=== PATIENT | male | born 1945 | race Caucasian/White ===

== ENCOUNTER 2023-06-18 10:39 | Outpatient (CLI) | payer OTHER, SELFPAY ==
--- NOTE | 2023-06-18 11:50 | W.ANESCHARGE ---
Anesthesia Charges Start Date/Time Anesthesia Start Date: 06/18/23 Anesthesia Start Time: 11:16 Stop Date/Time Anesthesia Stop Date: 06/18/23 Anesthesia Stop Time: 12:01 Summary Extremes of Age - Over 70 or under 1: MDA
--- NOTE | 2023-06-18 12:04 | W.ANESCHARGE ---
Anesthesia Charges Start Date/Time Anesthesia Start Date: 06/18/23 Anesthesia Start Time: 11:16 Stop Date/Time Anesthesia Stop Date: 06/18/23 Anesthesia Stop Time: 12:01
== END 2023-06-18 10:40 | disposition home or self-care (01) ==
LOC: OP CLINIC 10:42
PROVIDERS: PCP Family Medicine; Visit Provider Internal Medicine Gastroenterology
DX: Z12.11 Encounter for screening for malignant neoplasm of colon (principal); K63.5 Polyp of colon; K57.30 Diverticulosis of large intestine without perforation or abscess without bleeding; Z86.010 Personal history of colon polyps
CPT/HCPCS: 45380; 45385; 811; 88305; 99100; J2704

== ENCOUNTER 2024-09-28 19:47 | Inpatient (IN) | payer OTHER, MEDICARE, SELFPAY ==
[2024-09-28 19:49] VITALS: BP 120/72; PULSE 87; RESP 18; TEMP 37.6; O2SAT 93; BMI 27.2
[2024-09-28 21:06] LABS: PCR FLU A POSITIVE PCR FLU A (Negative); PCR FLU B Negative PCR FLU B (Negative); PCR RSV Negative PCR RSV (Negative); SARS PCR* Negative SARS-CoV-2 (Negative)
--- NOTE | 2024-09-28 21:31 | ED_ITS ---
HPI - General Adult General Time Seen by Provider: 21:32 Date Seen: 09/28/24 Chief complaint: Weakness Stated complaint: Weakness Time Seen by Provider: 09/28/24 21:28 Source: patient and RN notes reviewed Mode of arrival: ambulatory Limitations: no limitations History of Present Illness HPI narrative: This 79-year-old male is coming to the ER accompanied by his . They are concerned regarding his dizziness and weakness. He has had 2 falls without injury at home. He and his were both diagnosed with influenza a on September 13 or , this was after a dinner exposure. They both got Tamiflu from their physicians and felt much better. They were able to fly to [facility] on September 19. They are supposed to fly home on the and there morning flight got canceled. They got rescheduled to a red eye overnight and got home early 09/27 in the morning. They were both exhausted, and went to bed yesterday. She slept for about 7 or 8 hours and felt better. He slept basically all day yesterday, all last night and woke up feeling dizzy and weak. He admits that he was feeling this way in the airport on the . His noted that he just really was not up to walking in the airport. He was able to do it but really did not have the stamina. This is unusual as he is active. He does have some mild residual cough. Dizziness isn't necessarily unusual for him because of some of his medicines. The dizziness is not a spinning or vertigo. It is more of a weakness when he is getting up. Feels like falling over. His notes his appetite has been diminished, she wonders about dehydration. He is scheduled to do some work with kidney stones and bladder stones in October at [facility]. Since June he has been noticing some urinary frequency. He notes no fevers right now. No abdominal pain. Related Data Home Medications ?Medication ?Instructions ?Recorded ?Confirmed allopurinol 300 mg tablet 300 mg PO DAILY 09/28/24 09/28/24 atorvastatin 10 mg tablet 10 mg PO DAILY 09/28/24 09/28/24 hydrochlorothiazide 12.5 mg tablet 12.5 mg PO DAILY 09/28/24 09/28/24 Allergies Allergy/AdvReac Type Severity Reaction Status Date / Time No Known Drug Allergies Allergy Verified 06/18/23 11:39 Review of Systems Status of ROS: Reports: 6 or more systems reviewed and unremarkable except as noted in History and below Exam Const: Vital Signs, click to edit/add: Vital Signs - 24 hr 09/28/24 19:49 09/28/24 23:19 09/28/24 23:22 Temperature 99.7 F H Pulse Rate [Right Pulse Oximeter] 87 Respiratory Rate 18 Blood Pressure [Ri ght Upper Arm] 120/72 Pulse Oximetry 93 89 100 Oxygen Delivery Me thod Room Air Room Air Nasal Cannula Oxygen Flow Rate 2 09/28/24 23:32 Temperature 100.3 F H Pulse Rate [Right Pulse Oximeter] 72 Respiratory Rate 16 Blood Pressure [Ri ght Upper Arm] 154/94 H Pulse Oximetry 97 Oxygen Delivery Me thod Nasal Cannula Oxygen Flow Rate 2 This 79-year-old male is alert, interactive, no apparent distress. He is ambulatory into the ED of his own accord. Pupils equal round reactive, sclera clear, extraocular muscles intact. He is wearing a mask. Neck supple, no adenopathy. Lungs clear, good air entry, wheeze or crackles. He is able to sit up, no truncal ataxia, not swaying at all. CV regular rate and rhythm 2 to 3/6 systolic ejection murmur, heard upper sternal borders best. Normal S1-S2. Abdomen is soft, nontender, nondistended, no organomegaly. He has no lower extremity edema. Documenting provider has reviewed patient's vital signs: yes Course Course ED Course: This patient is coming in with weakness in the setting of influenza, could have secondary developing pneumonia. Will give him 500 mL normal saline, certainly dehydration could be a component of his symptoms. He does not describe this as a spinning or vertigo. More of a weakness. His likens it more to if getting up too quickly and not acclimate eating. He is had these symptoms for about 3 days now. The exhaustion in the fatigue from travel could be contributing. He is still testing positive for influenza A which may be possible with a PCR. He still could be shedding virus but doubt new infection. We will look at an EKG, chest x-ray and full complement of labs. Reevaluation(s) Time of Reevaluation #1: 23:24 Reevaluation #1: Reviewed chest x-ray report with them. Patient's oxygenation had went down to upper 80s, nursing staff did put oxygen on him with recovery. He has received the 500 mL of fluid, he states he is feeling a little better. Did review with him that his oxygenation had went down a bit, could be concern for further fluid overload with the 500 mL of normal saline he was given. He does feel warmer to me, recheck of his temperature is 100.2? F. his lung bases have more prominent crackles now. With his fever, underlying murmur, recent influenza, do think that this is likely combined infectious with probable pneumonia as well as some fluid overload. I had briefly talked to our hospitalist about him, we did add on a proBNP and discussed doing a chest CT PE protocol. His last echo was reported the 12 years ago. He has no chest pain, need to rule out pulmonary embolus and cardiac strain. Time of Reevaluation #2: 00:35 Reevaluation #2: Reviewed with patient and his concern for post influenza pneumonia, will be starting antibiotics. She had concerns about his murmur that I had brought up earlier. Reviewed with her that at some point an echo should just be updated to ensure no changes of the valve. This can be in aging phenomenon. She states he has had a murmur his whole life. Discussed with her it might be possible that an echo will be done during the hospitalization but this is something that I am not promising her. It depends on what the hospitalist decides and deems necessary. Patient did get up to go to the bathroom, he is feeling much better with oxygen on. We took his oxygen off to go to the bathroom, he was able to ambulate independently there. On arriving back from the bathroom, pulse oximeter was placed on and with a good waveform, had 87% on room air. His oxygen was placed back on. He is aware that he will be going into the hospital. Consultations Consultation #1: Spoke with Jass LOCKHART in the transfer center at [facility]. Discussed the concerns with the kidney stone on her chest CT with a partially visualized left renal stone. They do not have any bed capacity, are on divert at [facility]. She was able to read me a CT urogram report from 08/13/2024. There was a 9 mm left UPJ stone thought to be nonobstructing, ureteral wall thickening, mild perinephric fat stranding, mild hydronephrosis. There is also a 10 mm bladder stone and the stone in the right kidney as well. Time: 00:15 Consultation #2: Have spoken with Dr. Dukes. Reviewed the case, both of us agree that treatment for post influenza pneumonia with Rocephin and azithromycin will be initiated. Did discuss 20 mg IV Lasix but he would like to see the patient 1st. Patient reportedly stated he felt better after the IV fluids but I do have concerns that he became hypoxic and imaging is showing some fluid overload. Nonetheless, patient is not imminently requiring diuresis, I do feel it is appropriate for Dr. Dukes to further evaluate. He can initiate Lasix if he felt he needs it. Time: 00:20 Vital Signs Vital signs: Initial Vital Signs Temperature 99.7 F H 09/28/24 19:49 Temperature Source Temporal Artery Scan 09/28/24 19:49 Pulse Rate 87 09/28/24 19:49 Pulse Rhythm Regular 09/28/24 19:49 Respiratory Rate 18 09/28/24 19:49 Blood Pressure 120/72 09/28/24 19:49 Blood Pressure Mean 88 09/28/24 19:49 Blood Pressure Position Sitting 09/28/24 19:49 Pulse Oximetry 93 09/28/24 19:49 Oxygen Delivery Method Room Air 09/28/24 19:49 Vital Signs Temperature 99.7 F H 09/28/24 19:49 Pulse Rate 87 09/28/24 19:49 Respiratory Rate 18 09/28/24 19:49 Blood Pressure 120/72 09/28/24 19:49 Pulse Oximetry 93 09/28/24 19:49 Oxygen Delivery Method Room Air 09/28/24 19:49 Temperature 100.3 F H 09/28/24 23:32 Pulse Rate 72 09/28/24 23:32 Respiratory Rate 16 09/28/24 23:32 Blood Pressure 154/94 H 09/28/24 23:32 Pulse Oximetry 97 09/28/24 23:32 Oxygen Delivery Method Nasal Cannula 09/28/24 23:32 Oxygen Flow Rate 2 09/28/24 23:32 Medications Administered Medications: Discontinued Medications Generic Name Dose Route Start Last Admin Trade Name Freq PRN Reason Stop Dose Admin Sodium Chloride 500 mls @ 500 mls/hr 09/28/24 22:00 12/29/24 23:12 0.9 % Sodium Chloride 500 Ml IV 09/28/24 22:59 Infused .Q1H ONE Infusion Medical Decision Making Medical Records Medical records reviewed: Yes I reviewed the patient's medical records Medical records narrative: Medication list in [facility] shows allopurinol both 103 100 mg tablets, aspirin 81 mg, atorvastatin 10 mg, calcium with vitamin-D, Diflucan, fluticasone, hydrochlorothiazide 12.5 mg, Indocin 25 mg, Lopressor 25 mg, multivitamin, Cialis 20 mg, tamsulosin 0.4 mg Problem list shows irregular heartbeat, essential hypertension, aortic valve sclerosis, hyperlipidemia, history of colonic polyps, history of prostate cancer, bilateral nephrolithiasis, gout, actinic keratoses, cataracts, shingles; colonoscopy ease in 2006, 2011, 2022. Cataract surgery bilaterally. Lab Data Lab results reviewed: Yes I reviewed the patient's lab results Labs: Lab Results 09/28/24 09/28/24 09/28/24 Range/Units 19:59 22:24 23:14 WBC 8.55 (4.50-11.00) K/uL RBC 4.55 (4.30-5.90) m/uL Hgb 14.1 (13.5-17.5) gm/dL Hct 42.5 (37.0-53.0) % MCV 93 (80-100) fL MCH 31 (26-34) pg MCHC 33 (32-36) gm/dL RDW Coeff of Lalita 13.2 (11.5-15.5) % Plt Count 194 (140-440) K/uL Neut % (Auto) 79.1 H (42.0-72.0) % Lymph % (Auto) 7.7 L (20-44) % Calhoun % (Auto) 12.3 H (0.0-11.0) % Eos % (Auto) 0.0 (0.0-7.0) % Baso % (Auto) 0.1 (0.0-3.0) % Neut # (Auto) 6.80 (1.7-7.0) K/uL Lymph # (Auto) 0.70 L (0.90-2.90) K/uL Calhoun # (Auto) 1.10 H (0.00-0.90) K/UL Eos # (Auto) 0.00 (0.00-0.50) K/uL Baso # (Auto) 0.01 (0.00-0.30) K/uL Abs Immat Gran (auto) 0.07 (0.00-0.30) K/uL Imm/Tot Granulo (auto) 0.8 % Sodium 135 (135-149) mmol/L Potassium 3.4 L (3.6-5.1) mmol/L Chloride 99 (96-114) mmol/L Carbon Dioxide 28 (20-32) mmol/L Anion Gap 8 (7-15) mEq/L BUN 31 H (7-30) mg/dL Creatinine 1.1 (0.5-1.5) mg/dL Estimated Creat Clear 57.05 Estimated GFR 68 ml/min Glucose 123 H (60-115) mg/dL Lactate 1.3 (0.5-1.9) mmol/L Calcium 9.3 (8.4-10.6) mg/dL Total Bilirubin 1.6 H (0.1-1.5) mg/dL AST 49 H (12-35) U/L ALT 30 (4-50) U/L Alkaline Phosphatase 62 (40-150) U/L Troponin I 0.08 H* (0.01-0.04) ng/mL C-Reactive Protein 6.2 H (0.5-1.0) mg/dL Total Protein 7.5 (6.0-8.3) g/dL Albumin 4.1 (3.3-5.0) g/dL Urine Color (Yellow) Urine Appearance (Clear) Urine pH (5.0-8.5) Ur Specific Bristol (1.000-1.030) Urine Protein (Negative) Urine Glucose (UA) (Negative) Urine Ketones (Negative) Urine Blood (Negative) Urine Nitrite (Negative) Urine Bilirubin (Negative) Urine Urobilinogen (0.2-1.0) Ur Leukocyte Esterase (Negative) Urine RBC (0-2) Urine WBC (0-5) Ur Squamous Epith Cells (None-Few) Urine Bacteria (None) SARS-CoV-2 (PCR) Negative SARS-CoV-2 (Negative) Influenza Type A (PCR) POSITIVE PCR FLU A A (Negative) Influenza Type B (PCR) Negative PCR FLU B (Negative) RSV (PCR) Negative PCR RSV (Negative) Lab Acknowledgement New Spec Needed 09/28/24 Range/Units Unknown WBC (4.50-11.00) K/uL RBC (4.30-5.90) m/uL Hgb (13.5-17.5) gm/dL Hct (37.0-53.0) % MCV (80-100) fL MCH (26-34) pg MCHC (32-36) gm/dL RDW Coeff of Lalita (11.5-15.5) % Plt Count (140-440) K/uL Neut % (Auto) (42.0-72.0) % Lymph % (Auto) (20-44) % Calhoun % (Auto) (0.0-11.0) % Eos % (Auto) (0.0-7.0) % Baso % (Auto) (0.0-3.0) % Neut # (Auto) (1.7-7.0) K/uL Lymph # (Auto) (0.90-2.90) K/uL Calhoun # (Auto) (0.00-0.90) K/UL Eos # (Auto) (0.00-0.50) K/uL Baso # (Auto) (0.00-0.30) K/uL Abs Immat Gran (auto) (0.00-0.30) K/uL Imm/Tot Granulo (auto) % Sodium (135-149) mmol/L Potassium (3.6-5.1) mmol/L Chloride (96-114) mmol/L Carbon Dioxide (20-32) mmol/L Anion Gap (7-15) mEq/L BUN (7-30) mg/dL Creatinine (0.5-1.5) mg/dL Estimated Creat Clear Estimated GFR ml/min Glucose (60-115) mg/dL Lactate (0.5-1.9) mmol/L Calcium (8.4-10.6) mg/dL Total Bilirubin (0.1-1.5) mg/dL AST (12-35) U/L ALT (4-50) U/L Alkaline Phosphatase (40-150) U/L Troponin I (0.01-0.04) ng/mL C-Reactive Protein (0.5-1.0) mg/dL Total Protein (6.0-8.3) g/dL Albumin (3.3-5.0) g/dL Urine Color Yellow (Yellow) Urine Appearance Cloudy A (Clear) Urine pH 6.0 (5.0-8.5) Ur Specific Bristol 1.020 (1.000-1.030) Urine Protein 2+ A (Negative) Urine Glucose (UA) Negative (Negative) Urine Ketones Negative (Negative) Urine Blood 3+ A (Negative) Urine Nitrite Negative (Negative) Urine Bilirubin Negative (Negative) Urine Urobilinogen 0.2 (0.2-1.0) Ur Leukocyte Esterase 1+ A (Negative) Urine RBC 10-25 A (0-2) Urine WBC 5-10 A (0-5) Ur Squamous Epith Cells Few (None-Few) Urine Bacteria Few A (None) SARS-CoV-2 (PCR) (Negative) Influenza Type A (PCR) (Negative) Influenza Type B (PCR) (Negative) RSV (PCR) (Negative) Lab Acknowledgement Imaging Data Chest x-ray: Attestation: I have reviewed the pertinent imaging results. My impression: Poor inspiration, probable cardiomegaly and congestive changes, wait radiology over read. Radiologist's impression: Patient: [facility] Facility:?[facility] Patient ID:?[id number] Site Patient ID:?[id number]. Site :?[id number] Study:?XRay-Chest PORTABLE-09/28/2024 10:33:39 PM Ordering Physician:Jud Martin Final Report: Indication: Weakness, recent influenza Technique: Single view of the chest Comparison: None Findings/Impression: Low lung volumes. No prior examination available for comparison. There appears to be cardiomegaly with diffuse pulmonary interstitial markings and patchy pulmonary opacities. Differential includes viral/atypical pneumonia and/or heart failure with pulmonary edema, though appearance of either of these may be exaggerated due to hypoinflation. Dictated by Juan Matthews MD @ 09/28/2024 10:59:05 PM (Electronic Signature) CT scan - chest: Attestation: I have reviewed the pertinent imaging results. Radiologist's impression: Patient: [facility] Facility:?[facility] Patient ID:?[id number] Site Patient ID:?[id number]. Site :?[id number] Study:?CT-Chest PE W/ISOVUE 370 95CC-09/28/2024 11:55:53 PM Ordering Physician:Jud Martin Final Report: Indication: Weakness, abnormal chest radiograph, recent influenza Technique: CTA of the chest following 95 mL Isovue 370 IV contrast. Comparison: Same day chest radiograph Findings: Pulmonary arteries: Dilated right pulmonary artery compatible with pulmonary hypertension. No pulmonary embolism is appreciated. Lungs: A few patchy ground-glass foci are noted primarily seen in the left upper lobe. Mild interlobular septal thickening. Bronchial wall thickening. Basilar predominant reticular opacities. Mediastinum: Cardiomegaly. Calcified coronary arterial and aortic atherosclerosis. Lymph nodes: Enlarged mediastinal and hilar nodes. Upper abdomen: Partially visualized abdomen demonstrates a stone in the left renal pelvis measuring 11 millimeters with mild hydronephrosis and significant adjacent stranding. Soft tissues: No acute abnormality appreciated. Bones: Degenerative changes with no acute abnormality appreciated. Impression: 1. Partially visualized abdomen demonstrates an 11 millimeter left renal pelvis stone with mild hydronephrosis and adjacent stranding. Findings are concerning for partial obstruction and possible superimposed infection. 2. Pulmonary hypertension with no pulmonary embolism. 3. Few patchy ground-glass pulmonary opacities, bronchial wall thickening, basilar reticular opacities, and mild interlobular septal thickening are noted, along with cardiomegaly and lymphadenopathy. Given recent influenza, findings are favored to represent a combination of mild volume overload and resolving viral infection. Alveolar pulmonary edema may appear similarly. No organized consolidation is appreciated. Please note that all CT scans at this facility use dose modulation, iterative reconstruction, and/or weight-based dosing when appropriate to reduce radiation dose to as low as reasonably achievable. Dictated by Juan Matthews MD @ 09/29/2024 12:04:41 AM (Electronic Signature) ECG Data Attestation: I personally reviewed and interpreted this ECG as follows: (Sinus rhythm, baseline is 72 beats per minute. There is an interesting 4 beat wide complex regular rate QRS complexes that transitions into narrow complex normal sinus rhythm. The 1st 4 beats in the rhythm strip in lead II definitely appear to have P waves but intra conduction delay, poor R wave ) Prior ECG tracings: available for review (From November 2018, sinus rhythm with premature atrial complexes in a pattern of bigeminy, 64 beats per minute.) Interpretation: Continued from above: In anterior precordial leads without any ST segment or T- wave changes. Flipped T-waves in lead aVL but in lead 1 the complexes are the wide complex seen on the 1st 4 beats of this EKG. Discharge Plan Discharge Clinical Impression: Influenza A, Hypoxia Pneumonia Qualifiers: Pneumonia type: due to unspecified organism Laterality: unspecified laterality Lung location: unspecified part of lung Qualified Code(s): J18.9 - Pneumonia, unspecified organism Patient Disposition: Admitted As Observation Prescriptions: No Action atorvastatin 10 mg tablet 10 mg PO DAILY allopurinol 300 mg tablet 300 mg PO DAILY hydrochlorothiazide 12.5 mg tablet 12.5 mg PO DAILY Follow Up/Referrals: Trevor Saha MD [Primary Care Provider] -
--- NOTE | 2024-09-28 21:51 | CRLHL7_ITS ---
For Patients: As a result of the Cures Act, medical imaging exams and procedure reports are released immediately into your electronic medical record. You may view this report before your referring provider. If you have questions, please contact your health care provider. Indication: Weakness, recent influenza Technique: Single view of the chest Comparison: None Findings/Impression: Low lung volumes. No prior examination available for comparison. There appears to be cardiomegaly with diffuse pulmonary interstitial markings and patchy pulmonary opacities. Differential includes viral/atypical pneumonia and/or heart failure with pulmonary edema, though appearance of either of these may be exaggerated due to hypoinflation. Dictated by Juan Matthews MD @ 09/28/2024 10:59:05 PM (Electronically Signed)
[2024-09-28] MEDS: 0.9 % SODIUM CHLORIDE 500 ML 500 ML IV (22:11)
[2024-09-28 22:28] LABS: Lactate* 1.3 mmol/L (0.5-1.9)
[2024-09-28 22:31] LABS: Basophils Absolute Auto 0.01 K/uL (0.00-0.30); Basophils Percent Auto 0.1 % (0.0-3.0); Hematocrit 42.5 % (37.0-53.0); Hemoglobin* 14.1 gm/dL (13.5-17.5); Immature Granulocytes Abs Auto 0.07 K/uL (0.00-0.30); Immature Granulocytes Pct Auto 0.8 %; Lymphocytes Percent Auto 7.7 % (20-44); Mean Corpuscular HGB Conc 33 gm/dL (32-36); Mean Corpuscular Hemoglobin 31 pg (26-34); Mean Corpuscular Volume 93 fL (80-100); Monocytes Percent Auto 12.3 % (0.0-11.0); Neutrophils Percent Auto 79.1 % (42.0-72.0); Platelet Count* 194 K/uL (140-440); RDW Coefficient of Variation % 13.2 % (11.5-15.5); Red Blood Count 4.55 m/uL (4.30-5.90); White Blood Count* 8.55 K/uL (4.50-11.00)
[2024-09-28 22:34] LABS: Slide Review Reflex No
[2024-09-28 22:46] LABS: Albumin* 4.1 g/dL (3.3-5.0); Chloride* 99 mmol/L (96-114)
[2024-09-28 22:47] LABS: Potassium* 3.4 mmol/L (3.6-5.1); Sodium* 135 mmol/L (135-149)
[2024-09-28 22:49] LABS: Creatinine* 1.1 mg/dL (0.5-1.5); Est. Creatinine Clearance* 57.05; Estimated Glomerular Filt Rate 68 ml/min
[2024-09-28 22:50] LABS: Alanine Aminotransferase* 30 U/L (4-50); Alkaline Phosphatase* 62 U/L (40-150); Anion Gap 8 mEq/L (7-15); Aspartate Amino Transferase* 49 U/L (12-35); Bilirubin Total* 1.6 mg/dL (0.1-1.5); Blood Urea Nitrogen* 31 mg/dL (7-30); Calcium* 9.3 mg/dL (8.4-10.6); Carbon Dioxide* 28 mmol/L (20-32); Glucose* 123 mg/dL (60-115); Total Protein* 7.5 g/dL (6.0-8.3)
[2024-09-28 22:53] LABS: C Reactive Protein* 6.2 mg/dL (0.5-1.0)
[2024-09-28 23:10] LABS: Troponin I* 0.08 ng/mL (0.01-0.04)
--- NOTE | 2024-09-28 23:14 | CRLHL7_ITS ---
For Patients: As a result of the Cures Act, medical imaging exams and procedure reports are released immediately into your electronic medical record. You may view this report before your referring provider. If you have questions, please contact your health care provider. Indication: Weakness, abnormal chest radiograph, recent influenza Technique: CTA of the chest following 95 mL Isovue 370 IV contrast. Comparison: Same day chest radiograph Findings: Pulmonary arteries: Dilated right pulmonary artery compatible with pulmonary hypertension. No pulmonary embolism is appreciated. Lungs: A few patchy ground-glass foci are noted primarily seen in the left upper lobe. Mild interlobular septal thickening. Bronchial wall thickening. Basilar predominant reticular opacities. Mediastinum: Cardiomegaly. Calcified coronary arterial and aortic atherosclerosis. Lymph nodes: Enlarged mediastinal and hilar nodes. Upper abdomen: Partially visualized abdomen demonstrates a stone in the left renal pelvis measuring 11 millimeters with mild hydronephrosis and significant adjacent stranding. Soft tissues: No acute abnormality appreciated. Bones: Degenerative changes with no acute abnormality appreciated. Impression: 1. Partially visualized abdomen demonstrates an 11 millimeter left renal pelvis stone with mild hydronephrosis and adjacent stranding. Findings are concerning for partial obstruction and possible superimposed infection. 2. Pulmonary hypertension with no pulmonary embolism. 3. Few patchy ground-glass pulmonary opacities, bronchial wall thickening, basilar reticular opacities, and mild interlobular septal thickening are noted, along with cardiomegaly and lymphadenopathy. Given recent influenza, findings are favored to represent a combination of mild volume overload and resolving viral infection. Alveolar pulmonary edema may appear similarly. No organized consolidation is appreciated. Please note that all CT scans at this facility use dose modulation, iterative reconstruction, and/or weight-based dosing when appropriate to reduce radiation dose to as low as reasonably achievable. Dictated by Juan Matthews MD @ 09/29/2024 12:04:41 AM (Electronically Signed)
[2024-09-28 23:19] VITALS: O2SAT 89
[2024-09-28 23:22] VITALS: O2SAT 100
[2024-09-28 23:32] VITALS: BP 154/94; PULSE 72; RESP 16; TEMP 37.9; O2SAT 97
[2024-09-28 23:36] LABS: Lab Add On Test New Spec Needed
[2024-09-28 23:42] LABS: Appearance Urine Cloudy (Clear); Bilirubin Urine Negative (Negative); Blood Urine 3+ (Negative); Color Urine Yellow (Yellow); Glucose Urine Negative (Negative); Ketones Urine Negative (Negative); Leukocyte Esterase Urine 1+ (Negative); Nitrite Urine Negative (Negative); Protein Urine 2+ (Negative); Urobilinogen Urine 0.2 (0.2-1.0)
[2024-09-28 23:52] LABS: Bacteria Urine Few; Squamous Epithelial Cell Urine Few (None-Few)
[2024-09-29] VITALS (10 sets, daily range): BP systolic 123–146; BP diastolic 61–72; PULSE 58–86; RESP 12–22; TEMP 36.7–38.3; O2SAT 91–100; BMI 27.8
[2024-09-29 00:25] LABS: Partial Thromboplastin Time* 33 Seconds (23-33)
[2024-09-29] MEDS: cefTRIAXone 1 GM in 0.9 % SODIUM CHLORIDE Mini-bag 100 ML IVPB (00:48)
[2024-09-29] MEDS: AZITHROMYCIN 250 MG TABLET 500 MG PO (00:48)
[2024-09-29 00:50] LABS: D Dimer Quantitative* > 20.00 ug/ml (0.00-0.50)
--- NOTE | 2024-09-29 02:46 | W.PM.TELEH&P ---
Telehealth- H&P: HPI History of Present Illness Date Seen: 09/29/24 Chief complaint: Weakness Narrative: Lyle Mendez is seen as an Interactive Telehealth visit. 79-year-old male with a past medical history significant for gout and hypertension who presents to hospital with complaints of weakness and lightheadedness. Earlier this month, the patient was diagnosed with influenza A. He was treated with Tamiflu and he actually got better. He him and his decided to travel to the [facility]. He was doing well and experienced [place] with family and friends. On September 26, 2024, while he was boarding his plane he noted he was feeling increasingly weak and fatigued. It was an night flight so he noted some mild confusion as well. When he arrived home, he was feeling very lethargic and weak. Him and his have been sleeping and resting considerable amount of time. Over this time he has not been eating or drinking. He says his appetite is very limited. Due to progressive weakness and fatigue, he came to the emergency room. In the emergency room, he was seen and examined. His WBC count was normal, his neutrophil percentage was elevated 80% interestingly his D-dimer was greater than 20. AST was 49, ALT 30, total bili was 1.6 which is minimally elevated. Patient C-reactive protein was elevated at 6.2 and his troponin was minimally elevated 0.08. Patient's urinalysis was abnormal with few bacteria. Patient ended up having a repeat serology, of respiratory panel which showed he was positive for influenza A. Chest x-ray was completed which initially showed diffuse pulmonary interstitial markings and patchy pulmonary opacities differentials include viral atypical pneumonia and/or heart failure or pulmonary edema. Patient CT scan shows patchy groundglass opacities with bronchial wall thickening. With lymphadenopathy. Incidentally, there was also noted to be a partially visualized 11 mm left renal pelvis stone with mild hydronephrosis and adjacent stranding. Findings are concerning for partial obstruction and possible superimposed infection. The ER physician contacted [facility] for which this patient gets his urological workup unfortunately they do not have any beds. In addition patient was not complaining of any flank pain or groin pain. Patient was denying any urinary symptoms. Review of Systems Status of ROS: Reports: 10 or more systems reviewed and unremarkable except as noted in History and below Const: Reports: fatigue and malaise; Denies: fever, chills or night sweats Cardio: Reports: shortness of breath with exertion; Denies: chest pain or leg pain with exertion Resp: Reports: shortness of breath; Denies: cough or wheezing GI: Denies: abdominal pain Neuro: Reports: headache Endo: Reports: fatigue Allergy/Immuno: Denies: wheezing PFSH PFSH Social History What is your current living situation?: I presently have a place to live Problems where you live: no known problems Problems where you live details: n/a In the past 12 months, utilities in danger of being shut off: no In past 12 months, lack of transportation kept you from medical appts, meetings, work, or getting things needed for daily living: no In the past 12 mos, have been you worried that your food would run out before you had money to buy more?: never true In the past 12 mos, the food you bought just didn't last and you didn't have money to buy more?: never true Smoking Status: Never smoker How often do you have a drink containing alcohol: monthly or less How often do you have six or more drinks on one occasion: Never AUDIT-C Alcohol total score: 1 Non-prescribed substance use: denies use Caffeine: No How often does anyone, including family, friends and others, physically hurt you: never How often does anyone, including family, friends and others, insult or talk down to you: never How often does anyone, including family, friends and others, threaten you with harm: never How often does anyone, including family, friends and others, scream or curse at you: never Meds Home Medications and Allergies Home Medications ?Medication ?Instructions ?Recorded ?Confirmed ?Type allopurinol 300 mg tablet 300 mg PO DAILY 09/28/24 09/28/24 History atorvastatin 10 mg tablet 10 mg PO DAILY 09/28/24 09/28/24 History hydrochlorothiazide 12.5 mg tablet 12.5 mg PO DAILY 09/28/24 09/28/24 History Allergies Allergy/AdvReac Type Severity Reaction Status Date / Time No Known Drug Allergies Allergy Verified 06/18/23 11:39 Exam Narrative Exam Narrative: Physical Exam GENERAL: ?vital signs reviewed, well developed and nourished, in no distress HEENT: pupils are equal round and reactive to light, extraocular movements are grossly within normal limits and oral mucosa is moist. NECK: Supple without lymphadenopathy or thyromegaly according to nursing staff examination observation HEART: Regular rate and rhythm without any rubs, positive systolic murmurs, or gallops. LUNGS: Clear to auscultation bilaterally with good air movement throughout ABDOMEN: Observation from nurse assisted exam, abdomen appears soft, nontender, and nondistended with Positive bowel sounds noted. EXTREMITIES: Strength and sensation is observed to be grossly within normal limits in the upper and lower extremities.? No focal strength deficit is observed. SKIN:? Observed warm and dry with color normal Const Vital Signs, click to edit/add: Vital Signs - 24 hr 09/28/24 19:49 09/28/24 23:19 09/28/24 23:22 Temperature 99.7 F H Pulse Rate [Pulse Oximeter] Pulse Rate [Right Pulse Oximeter] 87 Respiratory Rate 18 Blood Pressure [Left Arm] Blood Pressure [Right Upper Arm] 120/72 Pulse Oximetry 93 89 100 Oxygen Delivery Method Room Air Room Air Nasal Cannula Oxygen Flow Rate 2 09/28/24 23:32 09/29/24 02:00 09/29/24 02:16 Temperature 100.3 F H 98.4 F Pulse Rate [Pulse Oximeter] 58 L Pulse Rate [Right Pulse Oximeter] 72 Respiratory Rate 16 12 12 Blood Pressure [Left Arm] 146/67 H Blood Pressure [Right Upper Arm] 154/94 H Pulse Oximetry 97 100 100 Oxygen Delivery Method Nasal Cannula Nasal Cannula Nasal Cannula Oxygen Flow Rate 2 2 2 Hospitalist - H&P: Result Labs Labs: Short CBC 09/28/24 Range/Units 22:24 WBC 8.55 (4.50-11.00) K/uL Hgb 14.1 (13.5-17.5) gm/dL Hct 42.5 (37.0-53.0) % Plt Count 194 (140-440) K/uL BMP 09/28/24 22:24 Sodium 135 Potassium 3.4 L Chloride 99 Carbon Dioxide 28 BUN 31 H Creatinine 1.1 Glucose 123 H Calcium 9.3 Cardiac Enzymes 09/28/24 Range/Units 22:24 Troponin I 0.08 H* (0.01-0.04) ng/mL Liver Function 09/28/24 Range/Units 22:24 Total Bilirubin 1.6 H (0.1-1.5) mg/dL AST 49 H (12-35) U/L ALT 30 (4-50) U/L Alkaline Phosphatase 62 (40-150) U/L Albumin 4.1 (3.3-5.0) g/dL Urine 09/28/24 Range/Units Unknown Urine Color Yellow (Yellow) Urine Appearance Cloudy A (Clear) Urine pH 6.0 (5.0-8.5) Ur Specific [place] 1.020 (1.000-1.030) Urine Protein 2+ A (Negative) Urine Glucose (UA) Negative (Negative) Assessment and Plan Assessment and plan (1) Hypoxia: Status: Acute (2) Pneumonia: Status: Acute (3) Kidney stone: Status: Acute (4) Hydronephrosis: Status: Acute (5) Elevated troponin: Status: Acute (6) Newly recognized murmur: Status: Acute Plan This is a 79-year-old male who presents to hospital with complaints of weakness and lightheadedness. Overall I think this patient's cause of symptoms are most likely related to dehydration and poor oral intake. He states that over the past 3 to 4 days he has not been eating well. He says 80% of the day he has been sleeping. However this patient just had influenza A diagnosed in September 13. Given his pulmonary symptoms of shortness of breath, CT findings of diffuse groundglass opacity, I would be more concerned that this patient has developed a community-acquired pneumonia, for specifically Staphylococcus pneumonia. Therefore I will start him on antibiotics and continue this. I will also give him IV fluids. Although the CT was read with some concerns for fluid overload, my suspicion is low as he appears to be on the rotary drier side. This patient had elevated troponin. I will follow-up with a troponin in the AM. I will place him on a foreign language professor. EKG looks stable. I will order a follow-up echocardiogram in AM. Incidentally he was also noted to have a new systolic murmur. This will need to be followed up on the echocardiogram. Incidentally, the patient was found to have a hydronephrosis with stranding. This was found on CT scan. His urine culture was ordered. I followed up with blood cultures. If this patient's continues to have fevers or his blood cultures are positive or he starts to develop symptoms, he will need to be seen by a urologist. Patient underwent influenza A testing which was positive. He already completed a course of Tamiflu. I do not think he needs another course. This could be just a false positive from the last time. DVT prophylaxis Lovenox Telehealth Visit Today's History and Physical is provided via interactive telehealth by Dr. Domenico Dukes MD. Patient is located at [facility]. Provider is located at [facility]. Nursing staff assisted with the patient's examination. The visit being done today meets criteria for a telehealth visit and the patient or patient's parent and/or gaurdian is aware the visit is a telehealth visit. Camera Start Time 2 AM Camera End Time 2:30 AM Telehealth: Statement Statement Telehealth Visit: Today's History and Physical is provided via interactive telehealth by Domenico Dukes MD.? Patient is located at [facility].? Provider is located at [facility].? Nursing staff assisted with the patient's exam. The visit being done today meets criteria for a telehealth visit and the patient or patient?s parent/guardian is aware the visit is a telehealth visit.
[2024-09-29] MEDS: 0.9 % SODIUM CHLORIDE 1000 ml 1,000 ML 75 ML IV ×2 (05:37→12:35)
--- NOTE | 2024-09-29 06:52 | PC.NURSE ---
End of shift [id number] ? Pt arrived from ED at approximately 0105. Alert, oriented, cooperative, and pleasant. Up with standby assistance, reported brief episodes of lightheadedness upon ambulation that resolved quickly. Continent of bladder during shift, using urinal at bedside due to urgency. Denies pain and SOB. Observed to sleep during shift. Appears to be resting comfortably at the end of shift with call light within reach. ?
[2024-09-29 07:20] LABS: Albumin* 3.7 g/dL (3.3-5.0); Chloride* 100 mmol/L (96-114); Potassium* 3.2 mmol/L (3.6-5.1); Sodium* 133 mmol/L (135-149)
[2024-09-29 07:22] LABS: Creatinine* 0.9 mg/dL (0.5-1.5); Est. Creatinine Clearance* 62.75; Estimated Glomerular Filt Rate 86 ml/min
[2024-09-29 07:23] LABS: Alanine Aminotransferase* 28 U/L (4-50); Alkaline Phosphatase* 65 U/L (40-150); Anion Gap 6 mEq/L (7-15); Aspartate Amino Transferase* 43 U/L (12-35); Bilirubin Total* 1.3 mg/dL (0.1-1.5); Blood Urea Nitrogen* 26 mg/dL (7-30); Calcium* 8.9 mg/dL (8.4-10.6); Carbon Dioxide* 27 mmol/L (20-32); Glucose* 111 mg/dL (60-115)
[2024-09-29 07:54] LABS: Troponin I* 0.08 ng/mL (0.01-0.04)
[2024-09-29 08:05] LABS: Total Protein* 6.8 g/dL (6.0-8.3)
[2024-09-29] MEDS: ATORVASTATIN 10 MG TABLET PO (09:00)
--- NOTE | 2024-09-29 10:19 | PM.IMPN1 ---
Progress Note: A&P Assessment and plan (1) Acute hypoxic respiratory failure: Problem details: - ddx: persistent viral infection (recent Influenza A), bacterial PNA, pulmonary HTN - TTE 09/29 - no obvious bacterial infiltrate on CT 09/28 - will d/c antibiotics on 09/29, continue to wean off of supplemental oxygen as tolerated Status: Acute (2) Pneumonia: Problem details: - viral, s/p Influenza Status: Acute (3) Kidney stone: Problem details: - known, chronic, asymptomatic, has [facility] f/u - to be transferred with any acute changes or symptoms Status: Acute (4) Hydronephrosis: Status: Acute (5) Elevated troponin: Problem details: - asymptomatic, stable TTE Status: Acute (6) Essential hypertension: Status: Acute (7) Aortic valve sclerosis: Problem details: - TTE 09/29 Status: Acute (8) Influenza A: Status: Acute Plan - per above - Continue to attempt to wean off of supplemental oxygen; if remains stable off of oxygen, possibly home tomorrow with - updated at bedside, questions answered Subjective Date Seen: 09/29/24 Interval history: Manuelito was admitted list hospitalist at with acute hypoxic respiratory failure in the setting of recent influenza A infection. He was started on ceftriaxone and azithromycin for concerns of secondary community-acquired pneumonia, T-max 100.3? last night. This morning, he is feeling better. He is still requiring supplemental oxygen to keep saturations > 90% on room air. No coughing. No other concerns for hospitalist team. Exam Narrative: Exam Narrative: GEN: Alert and oriented, nontoxic HEENT: EOMIs bilaterally, no scleral icterus CV: RRR, blowing systolic murmur heard across precordium, baseline per epic chart review R: Decreased bibasilar breath sounds without concerning wheezing or rales Ext: wwp, no concerning edema Skin: No concerning skin lesions or rashes on exposed skin Neuro: Nonfocal Psych: Appropriate Const: Vital Signs, click to edit/add: Vital Signs - 24 hr 09/28/24 19:49 09/28/24 23:19 09/28/24 23:22 Temperature 99.7 F H Pulse Rate Pulse Rate [Pulse Oximeter] Pulse Rate [Right Pulse Oximeter] 87 Respiratory Rate 18 Blood Pressure [Le ft Arm] Blood Pressure [Ri ght Upper Arm] 120/72 Pulse Oximetry 93 89 100 Oxygen Delivery Me thod Room Air Room Air Nasal Cannula Oxygen Flow Rate 2 09/28/24 23:32 09/29/24 02:00 09/29/24 02:16 Temperature 100.3 F H 98.4 F Pulse Rate Pulse Rate [Pulse Oximeter] 58 L Pulse Rate [Right Pulse Oximeter] 72 Respiratory Rate 16 12 12 Blood Pressure [Le ft Arm] 146/67 H Blood Pressure [Ri ght Upper Arm] 154/94 H Pulse Oximetry 97 100 100 Oxygen Delivery Me thod Nasal Cannula Nasal Cannula Nasal Cannula Oxygen Flow Rate 2 2 2 09/29/24 06:06 Temperature Pulse Rate 86 Pulse Rate [Pulse Oximeter] Pulse Rate [Right Pulse Oximeter] Respiratory Rate Blood Pressure [Le ft Arm] Blood Pressure [Ri ght Upper Arm] Pulse Oximetry Oxygen Delivery Me thod Oxygen Flow Rate Labs Labs: Laboratory Results - last 24 hr 09/28/24 09/28/24 09/28/24 19:59 22:24 23:14 WBC 8.55 RBC 4.55 Hgb 14.1 Hct 42.5 MCV 93 MCH 31 MCHC 33 RDW Coeff of Lalita 13.2 Plt Count 194 Neut % (Auto) 79.1 H Lymph % (Auto) 7.7 L [place] % (Auto) 12.3 H Eos % (Auto) 0.0 Baso % (Auto) 0.1 Neut # (Auto) 6.80 Lymph # (Auto) 0.70 L [place] # (Auto) 1.10 H Eos # (Auto) 0.00 Baso # (Auto) 0.01 Abs Immat Gran (auto) 0.07 Imm/Tot Granulo (auto) 0.8 INR APTT D-Dimer Quant (PE/DVT) Sodium 135 Potassium 3.4 L Chloride 99 Carbon Dioxide 28 Anion Gap 8 BUN 31 H Creatinine 1.1 Estimated Creat Clear 57.05 Estimated GFR 68 Glucose 123 H Lactate 1.3 Calcium 9.3 Total Bilirubin 1.6 H AST 49 H ALT 30 Alkaline Phosphatase 62 Troponin I 0.08 H* C-Reactive Protein 6.2 H Total Protein 7.5 Albumin 4.1 Urine Color Urine Appearance Urine pH Ur Specific [place] Urine Protein Urine Glucose (UA) Urine Ketones Urine Blood Urine Nitrite Urine Bilirubin Urine Urobilinogen Ur Leukocyte Esterase Urine RBC Urine WBC Ur Squamous Epith Cells Urine Bacteria SARS-CoV-2 (PCR) Negative SARS-CoV-2 Influenza Type A (PCR) POSITIVE PCR FLU A A Influenza Type B (PCR) Negative PCR FLU B RSV (PCR) Negative PCR RSV Lab Acknowledgement New Spec Needed 09/28/24 09/29/24 09/29/24 Unknown 00:00 07:00 WBC RBC Hgb Hct MCV MCH MCHC RDW Coeff of [place] Plt Count Neut % (Auto) Lymph % (Auto) [place] % (Auto) Eos % (Auto) Baso % (Auto) Neut # (Auto) Lymph # (Auto) [place] # (Auto) Eos # (Auto) Baso # (Auto) Abs Immat Gran (auto) Imm/Tot Granulo (auto) INR 1.20 H APTT 33 D-Dimer Quant (PE/DVT) > 20.00 H Sodium 133 L Potassium 3.2 L Chloride 100 Carbon Dioxide 27 Anion Gap 6 L BUN 26 Creatinine 0.9 Estimated Creat Clear 62.75 Estimated GFR 86 Glucose 111 Lactate Calcium 8.9 Total Bilirubin 1.3 AST 43 H ALT 28 Alkaline Phosphatase 65 Troponin I 0.08 H* C-Reactive Protein Total Protein 6.8 Albumin 3.7 Urine Color Yellow Urine Appearance Cloudy A Urine pH 6.0 Ur Specific [place] 1.020 Urine Protein 2+ A Urine Glucose (UA) Negative Urine Ketones Negative Urine Blood 3+ A Urine Nitrite Negative Urine Bilirubin Negative Urine Urobilinogen 0.2 Ur Leukocyte Esterase 1+ A Urine RBC 10-25 A Urine WBC 5-10 A Ur Squamous Epith Cells Few Urine Bacteria Few A SARS-CoV-2 (PCR) Influenza Type A (PCR) Influenza Type B (PCR) RSV (PCR) Lab Acknowledgement
[2024-09-29] MEDS: POTASSIUM BICARB 25 MEQ EFFERVESCENT TAB PO (10:48)
[2024-09-29] MEDS: PERFLUTREN LIPID MICROSPHERES 2 ML VIAL IVP (11:30)
--- NOTE | 2024-09-29 14:14 | REH.PT ---
Orders for PT eval & treat received. Chart reviewed. Pt reports that he is feeling much better this afternoon. Sitting up at EOB and with gait with sp02 > 92% on RA. Able to demo ind transfers and gait in room without an AD. Scoring 54/56 on [place] balance test. Skilled PT is not warranted at this time.
[2024-09-29] MEDS: ACETAMINOPHEN 500 MG TABLET 1000 MG PO (16:01)
--- NOTE | 2024-09-29 16:02 | PC.NURSE ---
End of Shift: Patient pleasant and cooperative, A&O. VSS, afebrile. SpO2 maintained above 90% this morning on 1L O2. Patients SpO2 is now above 90% on RA. Patient denies pain this shift. Tolerating regular diet. Indepndent in room. Uses urinal at bedside.
[2024-09-29] MEDS: ENOXAPARIN 40 MG/0.4 ML INJ SUBCUT (20:39)
[2024-09-29] MEDS: SODIUM CHLORIDE 0.9 % (FLUSH) 10 ML SYRINGE 5 ML IVF (20:39)
--- NOTE | 2024-09-29 22:44 | PC.NURSE ---
Pt alert and oriented. Pt had complaints of a headache; see EMAR for intervention. Pt up independently in room. Pt on 1 Liter of oxygen due to desating. Pt up in chair during shift and using aerobika multiple times. ?VS WNL. At 15 VS Pt had a fever of 101.0; see EMAR for intervention, at next VS check Pt's temperature WNL.
[2024-09-30] VITALS (13 sets, daily range): BP systolic 116–152; BP diastolic 63–97; PULSE 52–109; RESP 16–20; TEMP 36.4–37.9; O2SAT 84–96
[2024-09-30] MEDS: ACETAMINOPHEN 500 MG TABLET 1000 MG PO ×2 (04:28→15:15)
--- NOTE | 2024-09-30 06:51 | PC.NURSE ---
End of shift summary: Pt has been A&O and VSS with exception to temperature. This morning at 0430 T-max 100.2. Tylenol given once @ 0430. Pt had the chills & hot flashes overnight. He denies having any pain, nausea or dizziness. He is up independently in his room. Pt had an event @ 0200 where his TELE read runs of V. Tach. An EKG was done and read NSR with LBBB. His TELE has reflected NSR the remainder of the night. Pt was asymptomatic. Supplemental O2 was on/off overnight. He maintained on RA for awhile but in the analytical clerk O2 dipped down to 84% while awake so he was placed back onto NC, currently on 1L. He denies feeling SOB. PIV in right AC SL and C/D/I. Droplet precautions ongoing for Influenza A+ and PNX.?
[2024-09-30 07:22] LABS: Basophils Absolute Auto 0.03 K/uL (0.00-0.30); Basophils Percent Auto 0.5 % (0.0-3.0); Eosinophils Absolute Auto 0.07 K/uL (0.00-0.50); Eosinophils Percent Auto 1.1 % (0.0-7.0); Hematocrit 35.2 % (37.0-53.0); Hemoglobin* 11.9 gm/dL (13.5-17.5); Immature Granulocytes Abs Auto 0.02 K/uL (0.00-0.30); Immature Granulocytes Pct Auto 0.3 %; Lymphocytes Percent Auto 14.3 % (20-44); Mean Corpuscular HGB Conc 34 gm/dL (32-36); Mean Corpuscular Hemoglobin 31 pg (26-34); Mean Corpuscular Volume 91 fL (80-100); Monocytes Percent Auto 17.6 % (0.0-11.0); Neutrophils Absolute Auto 4.13 K/uL (1.7-7.0); Neutrophils Percent Auto 66.2 % (42.0-72.0); Platelet Count* 166 K/uL (140-440); RDW Coefficient of Variation % 13.1 % (11.5-15.5); Red Blood Count 3.86 m/uL (4.30-5.90); White Blood Count* 6.24 K/uL (4.50-11.00)
[2024-09-30 07:25] LABS: Chloride* 99 mmol/L (96-114); Potassium* 3.4 mmol/L (3.6-5.1); Slide Review Reflex No; Sodium* 133 mmol/L (135-149)
[2024-09-30 07:28] LABS: Anion Gap 5 mEq/L (7-15); Blood Urea Nitrogen* 23 mg/dL (7-30); Carbon Dioxide* 29 mmol/L (20-32); Creatinine* 0.8 mg/dL (0.5-1.5); Est. Creatinine Clearance* 62.75; Estimated Glomerular Filt Rate 89 ml/min
[2024-09-30 07:29] LABS: Calcium* 8.5 mg/dL (8.4-10.6); Glucose* 106 mg/dL (60-115)
--- NOTE | 2024-09-30 08:24 | CRLHL7_ITS ---
For Patients: As a result of the Century Cures Act, medical imaging exams and procedure reports are released immediately into your electronic medical record. You may view this report before your referring provider. If you have questions, please contact your health care provider. Indication: Persistent fever, evaluate for pneumonia, renal stone. History of prostate cancer. Technique: CT of the chest, abdomen and pelvis was performed without contrast. Comparison: Chest CT 09/28/2024. Findings: CHEST Lungs and pleura: Scattered calcified granulomas and sub 6 mm noncalcified pulmonary nodules. Similar appearance of patchy ground-glass opacities with an upper lobe predominance. No new consolidation. No pleural effusion or pneumothorax. Heart and great vessels: The heart is mildly enlarged. Trace pericardial fluid. Similar enlarged main pulmonary artery which can be seen in the setting of pulmonary hypertension. Moderate atherosclerotic aortic and coronary artery calcifications. Thyroid and mediastinum: Thyroid is normal. Similar mildly enlarged mediastinal lymph nodes, for example a 1.2 cm right lower paratracheal lymph node. Chest wall: Unremarkable. ABDOMEN AND PELVIS Liver: Unremarkable for unenhanced technique. Normal gallbladder. No biliary ductal dilation. Small duodenal diverticulum in the region of the ampulla. Pancreas: Unremarkable for unenhanced technique. Spleen: Unremarkable for unenhanced technique. Adrenals: Unremarkable for unenhanced technique. Kidneys: Again seen is a 1.2 cm calculus within the left renal pelvis. There is a similar degree of stranding about the renal pelvis and proximal ureter. Mild left hydronephrosis is unchanged. There is a nonobstructing right lower pole renal calculus measuring 8 mm. Fluid attenuation bilateral renal cysts. Aorta/IVC: Extensive atherosclerotic aortic calcifications with infrarenal abdominal aortic ectasia measuring 2.3 cm. Lymph nodes: Scattered subcentimeter retroperitoneal lymph nodes. Bowel: Nonobstructed bowel. Small hiatal hernia. Moderate colonic fecal burden. Normal appendix. No intraperitoneal free air or fluid. Pelvis: Prostatomegaly. Bladder calculus measures 9 mm. Bones/body wall: Osseous demineralization. Multilevel degenerative disc disease and facet arthropathy acute superior endplate compression fracture at L1 with less than 20 percent loss of vertebral body height. Chronic appearing mild anterior wedging at T7 and T8. Impression: 1. Similar appearance of the lungs compared to recent chest CT from 09/28/2024 with mild bronchial wall thickening and patchy ground-glass opacities within the upper lobes. No new consolidation. Recommend chest CT follow-up in 3-6 months based on Fleischner Society recommendations. 2. Similar appearance of the 1.2 cm left renal pelvis calculus with adjacent inflammatory stranding. Recommend correlation with urinalysis to evaluate for infection. 3. Nonobstructing right lower pole renal calculus measuring 8 mm and bladder calculus measuring 9 mm. 4. Acute mild superior endplate compression fracture at L1. 5. Similar mild mediastinal lymphadenopathy. 6. Additional chronic/incidental findings as described. Please note that all CT scans at this facility use dose modulation, iterative reconstruction, and/or weight-based dosing when appropriate to reduce radiation dose to as low as reasonably achievable. Dictated by Princess Garza MD @ 09/30/2024 10:11:40 AM (Electronically Signed)
[2024-09-30] MEDS: SODIUM CHLORIDE 0.9 % (FLUSH) 10 ML SYRINGE 5 ML IVF ×2 (08:50→21:14)
[2024-09-30] MEDS: POTASSIUM BICARB 25 MEQ EFFERVESCENT TAB PO (08:50)
[2024-09-30] MEDS: METOPROLOL TARTRATE 25 MG TABLET 50 MG PO (08:50)
[2024-09-30 09:25] LABS: Magnesium* 2.2 mg/dL (1.5-2.6)
--- NOTE | 2024-09-30 09:48 | PM.IMPN1 ---
Progress Note: A&P Assessment and plan (1) Acute hypoxic respiratory failure: Problem details: - ddx: persistent viral infection (recent Influenza A), bacterial PNA, pulmonary HTN - reassuring TTE 09/29 - no evidence of PE on imaging, + GGOs - given no obvious bacterial infiltrate on CT 09/28, discontinued abx at that time. RESTARTING Ceftriaxone and Azithromycin 09/30 given persistent fever and hypoxia - continue to work on weaning Ow Status: Acute (2) New onset atrial fibrillation: Problem details: - 09/30/24 - [id number] of 3, initiating Eliquis 09/30 - continue home dose of Metoprolol for rate control (this had been held for 2 days upon admission given illness) Status: Acute (3) Pneumonia: Problem details: - viral vs secondary bacterial, s/p Influenza Status: Acute (4) Elevated troponin: Problem details: - asymptomatic, stable TTE - peak at 0.08, down to 0.06 Status: Acute (5) Aortic valve sclerosis: Problem details: - TTE 09/29: Final Impressions: 1. Normal LV size, moderately increased wall thickness, estimated EF of 60 - 65%. 2. Normal RV size and systolic function. 3. Moderate aortic stenosis: Vmax 3.7 m/s, MG 35 mmHg, BOLA 1.21 cm??, DI 0.41, SVi 39.9 ml/m??. 4. Echo contrast was administered to enhance visualization of all left ventricular segments. Status: Acute (6) Kidney stone: Problem details: - known, chronic, asymptomatic, has [facility] f/u - to be transferred with any acute changes or symptoms Status: Acute (7) Hydronephrosis: Status: Acute (8) Essential hypertension: Status: Acute (9) Influenza A: Problem details: - symptom onset 09/13 Status: Acute Plan - per above - updated at bedside, questions answered - home when stable on RA Subjective Date Seen: 09/30/24 Interval history: Manuelito was admitted on 09/29 at with acute hypoxic respiratory failure in the setting of recent influenza A infection. He was started on Ceftriaxone and Azithromycin for concerns of secondary community-acquired pneumonia. Antibiotics discontinued 09/29, given concern for viral process. Overnight, TMax 101. Repeat CT of C/A/P reveals persistent patchy opacities and BUE GGOs, no changes to known renal stones. Blood and Urine cultures negative. Continues to require supplemental oxygen. Found to be in atrial fibrillation this morning, rate 90-100s. He can't tell that he's in a fib, (no history of this), denies CP. Exam Narrative: Exam Narrative: GEN: Alert and oriented, sitting comfortably in bedside chair and answering questions appropriately HEENT: EOMIs bilaterally, no scleral icterus CV: Irregularly irregular, blowing systolic murmur is heard across precordium, stable R: Bibasilar rhonchi, no wheezing Ext: wwp, no concerning edema Skin: No concerning skin lesions or rashes on exposed skin Neuro: No focal deficits Psych: Appropriate Const: Vital Signs, click to edit/add: Vital Signs - 24 hr 09/29/24 11:45 09/29/24 14:46 09/29/24 15:00 Temperature 99.0 F Pulse Rate 63 Pulse Rate [Pulse Oximeter] 72 Respiratory Rate 18 20 Blood Pressure [Le ft Arm] 123/72 Blood Pressure [Ri ght Arm] Pulse Oximetry 92 95 Oxygen Delivery Me thod Nasal Cannula Nasal Cannula Oxygen Flow Rate 1 1 09/29/24 15:00 09/29/24 15:50 09/29/24 15:50 Temperature 101.0 F H Pulse Rate 62 Pulse Rate [Pulse Oximeter] 64 Respiratory Rate 22 22 Blood Pressure [Le ft Arm] 143/61 H Blood Pressure [Ri ght Arm] Pulse Oximetry 94 Oxygen Delivery Me thod Room Air Oxygen Flow Rate 09/29/24 16:01 09/29/24 18:35 09/30/24 00:10 Temperature 101 F H 98.1 F Pulse Rate 55 L Pulse Rate [Pulse Oximeter] 68 Respiratory Rate 20 Blood Pressure [Le ft Arm] 124/63 Blood Pressure [Ri ght Arm] Pulse Oximetry 91 Oxygen Delivery Me thod Room Air Oxygen Flow Rate 09/30/24 00:10 09/30/24 00:10 09/30/24 01:02 Temperature 98.6 F Pulse Rate Pulse Rate [Pulse Oximeter] 80 80 Respiratory Rate 20 20 Blood Pressure [Le ft Arm] Blood Pressure [Ri ght Arm] 150/75 H Pulse Oximetry 95 94 Oxygen Delivery Me thod Nasal Cannula Room Air Oxygen Flow Rate 2 09/30/24 03:24 09/30/24 04:30 09/30/24 05:17 Temperature 100.2 F H Pulse Rate Pulse Rate [Pulse Oximeter] 87 Respiratory Rate 18 Blood Pressure [Le ft Arm] 142/63 H Blood Pressure [Ri ght Arm] Pulse Oximetry 84 L 94 93 Oxygen Delivery Me thod Room Air Nasal Cannula Nasal Cannula Oxygen Flow Rate 2 1 09/30/24 07:00 09/30/24 08:23 Temperature Pulse Rate 52 L 90 Pulse Rate [Pulse Oximeter] Respiratory Rate Blood Pressure [Le ft Arm] Blood Pressure [Ri ght Arm] Pulse Oximetry Oxygen Delivery Me thod Oxygen Flow Rate Labs Labs: Laboratory Results - last 24 hr 09/30/24 09/30/24 09/30/24 06:50 08:26 08:26 WBC 6.24 RBC 3.86 L Hgb 11.9 L Hct 35.2 L MCV 91 MCH 31 MCHC 34 RDW Coeff of Lalita 13.1 Plt Count 166 Neut % (Auto) 66.2 Lymph % (Auto) 14.3 L Taylor % (Auto) 17.6 H Eos % (Auto) 1.1 Baso % (Auto) 0.5 Neut # (Auto) 4.13 Lymph # (Auto) 0.90 Taylor # (Auto) 1.10 H Eos # (Auto) 0.07 Baso # (Auto) 0.03 Abs Immat Gran (auto) 0.02 Imm/Tot Granulo (auto) 0.3 Sodium 133 L Potassium 3.4 L Chloride 99 Carbon Dioxide 29 Anion Gap 5 L BUN 23 Creatinine 0.8 Estimated Creat Clear 62.75 Estimated GFR 89 Glucose 106 Calcium 8.5 Lab Acknowledgement Test Added Test Added
[2024-09-30 09:52] LABS: Troponin I* 0.06 ng/mL (0.01-0.04)
[2024-09-30 09:56] LABS: Thyroid Stimulating Hormone* 0.937 uIU/mL (0.270-4.20)
[2024-09-30] MEDS: AZITHROMYCIN 250 MG TABLET 500 MG PO (12:17)
[2024-09-30] MEDS: cefTRIAXone 1 GM in 0.9 % SODIUM CHLORIDE Mini-bag 100 ML IVPB (12:17)
[2024-09-30] MEDS: APIXABAN 5 MG TABLET PO ×2 (12:17→21:13)
[2024-09-30 13:11] LABS: Hemoglobin* 13.8 gm/dL (13.5-17.5)
--- NOTE | 2024-09-30 19:40 | PC.NURSE ---
INITIAL TELE STRIP THIS AM NOTED TO BE SINUS LURDES. PATIENT THEN NOTED TO BE IN AFIB WITH HEART RATE 90-110'S. EKG COMPLETED AND MD INTO ROOM. PATIENT ASYMPTOMATIC WITH THE AFIB. CHEST CT COMPLETED AND RESTARTED METOPROLOL AND ABX ALONG WITH ELIQUIS. AMBULATED PATIENT IN HALLWAY AND O2 SATS 84-88%RA WITH ACTIVITY AND 90-93%2L PER NC WITH AMBULATION. PATIENT DENIES FEELING SOB WITH EXERTION OR ANY CHEST PAIN. PATIENT SHOWERED WITH MD OKAY. TOLERATING REGULAR DIET WITH NO N/V. PATIENT USING AEROBIKA IN ROOM.
[2024-09-30] MEDS: ATORVASTATIN 10 MG TABLET PO (21:12)
[2024-09-30] MEDS: METOPROLOL TARTRATE 25 MG TABLET PO (21:13)
[2024-09-30] MEDS: MELATONIN 3 MG TABLET 6 MG PO (22:45)
[2024-10-01 03:00] VITALS: BP 141/78; PULSE 62; RESP 16; TEMP 37; O2SAT 93
[2024-10-01 07:00] VITALS: PULSE 96
--- NOTE | 2024-10-01 07:03 | PC.NURSE ---
End of shift [id number] ? Pt alert, oriented, cooperative, and pleasant. Up independently in room. Continent of bladder during shift, tolerating RA and regular diet/fluids. Denies pain and SOB. Family at bedside during shift. Observed to sleep. Appears to be resting comfortably at the end of shift with call light within reach. ?
[2024-10-01 07:13] LABS: Basophils Absolute Auto 0.03 K/uL (0.00-0.30); Basophils Percent Auto 0.5 % (0.0-3.0); Eosinophils Percent Auto 3.2 % (0.0-7.0); Hematocrit 38.3 % (37.0-53.0); Hemoglobin* 13.1 gm/dL (13.5-17.5); Immature Granulocytes Abs Auto 0.02 K/uL (0.00-0.30); Immature Granulocytes Pct Auto 0.3 %; Lymphocytes Percent Auto 17.6 % (20-44); Mean Corpuscular HGB Conc 34 gm/dL (32-36); Mean Corpuscular Hemoglobin 31 pg (26-34); Mean Corpuscular Volume 91 fL (80-100); Monocytes Percent Auto 13.9 % (0.0-11.0); Neutrophils Percent Auto 64.5 % (42.0-72.0); Platelet Count* 190 K/uL (140-440); RDW Coefficient of Variation % 13.1 % (11.5-15.5); Red Blood Count 4.21 m/uL (4.30-5.90)
[2024-10-01 07:14] LABS: Slide Review Reflex No
[2024-10-01 07:28] LABS: Chloride* 102 mmol/L (96-114); Potassium* 3.5 mmol/L (3.6-5.1); Sodium* 135 mmol/L (135-149)
[2024-10-01 07:31] LABS: Anion Gap 5 mEq/L (7-15); Blood Urea Nitrogen* 22 mg/dL (7-30); Carbon Dioxide* 28 mmol/L (20-32); Creatinine* 0.7 mg/dL (0.5-1.5); Est. Creatinine Clearance* 62.75; Estimated Glomerular Filt Rate 93 ml/min; Glucose* 99 mg/dL (60-115)
[2024-10-01 07:32] LABS: Calcium* 8.6 mg/dL (8.4-10.6)
[2024-10-01 09:42] VITALS: BP 136/84; PULSE 83; RESP 20; TEMP 36.8; O2SAT 94
--- NOTE | 2024-10-01 09:42 | RESP.RT ---
Pt seen for oxygen weaning. Pt on RA, BBS clear, cough strong and dry. initial SPO2 94%. Pt did aerobika, for 20 breaths, SPO2 increased to 98% Had pt do some cardiac calisthenics for 2 minutes. SPo2 decreased to 88%, asked him to take a few deep breaths, SPO2 immediately increased to 92%. Oxygen can be DC'd
[2024-10-01] MEDS: METOPROLOL TARTRATE 25 MG TABLET 50 MG PO (09:48)
[2024-10-01] MEDS: APIXABAN 5 MG TABLET PO (09:48)
[2024-10-01] MEDS: SODIUM CHLORIDE 0.9 % (FLUSH) 10 ML SYRINGE 5 ML IVF (09:50)
[2024-10-01] MEDS: allopurinoL 300 MG TABLET PO (09:50)
--- NOTE | 2024-10-01 11:02 | PM.DS1 ---
DS: Providers Provider Date Seen: 10/01/24 Date of admission: 09/29/24 11:07 Primary care physician: Trevor Saha MD Admitting Clinician: Domenico Dukes MD Consults: PT, OT, RT Attending Physician on discharge: Coco Rollins MD Date of Discharge: 10/01/24 DS: Diagnosis Discharge Diagnosis (1) Acute hypoxic respiratory failure: Status: Acute Problem details: - ddx: persistent viral infection (recent Influenza A), bacterial PNA, pulmonary HTN - reassuring TTE 09/29 - no evidence of PE on imaging, + GGOs - given no obvious bacterial infiltrate on CT 09/28, discontinued abx at that time. RESTARTED Ceftriaxone and Azithromycin 09/30 given persistent fever and hypoxia - treated with 3 day course of abx - stable on RA on 10/01/24, appropriate for d/c (2) New onset atrial fibrillation: Status: Acute Problem details: - 09/30/24 - [id number] of 3, initiating Eliquis 09/30 - continue home dose of Metoprolol for rate control (this had been held for 2 days upon admission given illness) (3) Pneumonia: Status: Acute Problem details: - viral vs secondary bacterial, s/p Influenza (4) Elevated troponin: Status: Acute Problem details: - asymptomatic, stable TTE - peak at 0.08, stable at 0.06 on 09/30 (5) Aortic valve sclerosis: Status: Acute Problem details: - TTE 09/29: Final Impressions: 1. Normal LV size, moderately increased wall thickness, estimated EF of 60 - 65%. 2. Normal RV size and systolic function. 3. Moderate aortic stenosis: Vmax 3.7 m/s, MG 35 mmHg, BOLA 1.21 cm??, DI 0.41, SVi 39.9 ml/m??. 4. Echo contrast was administered to enhance visualization of all left ventricular segments. (6) Kidney stone: Status: Acute Problem details: - known, chronic, asymptomatic, has [facility] f/u scheduled (called and left their office a message on 09/30/24) - to be transferred with any acute changes or symptoms (7) Essential hypertension: Status: Acute Problem details: - age appropriate control during stay (8) Influenza A: Status: Acute Problem details: - symptom onset 12/14 DS: Summary Hospital Course Hospital Course: Lyle was admitted to the hospital on 09/29 at with acute hypoxic respiratory failure in the setting of recent influenza A infection. On admission, Ceftriaxone and Azithromycin initiated for concerns of secondary community-acquired pneumonia. CT of C/A/P revealed persistent patchy opacities and BUE GGOs, no changes to known renal stones. Antibiotics discontinued 09/29, given concern for viral process, then restarted 09/30 given recurrent fever. Titrated off of supplemental oxygen on 10/01/24, feeling close to baseline and requesting discharge home. New diagnosis of rate controlled a fib noted during stay; continued home dose of Metoprolol and initiated Eliquis. Home on a Zio patch, results to Dr. Saha, PCP. Has Urology f/u scheduled at [facility] later this month for his known nephrolithiasis. Negative blood and urine cultures during stay. Patient discharging home with on 10/01, has close f/u scheduled with PCP and [facility]. Time Spent with Patient Time attestation: Total time spent providing and/or coordinating discharge services: Time spent: Greater than 30 minutes Specific discharge activities: med rec, patient education, multidisciplinary team discussion Exam Narrative: Exam Narrative: GEN: Alert and oriented, sitting comfortably in bedside chair, nontoxic HEENT: Normal external ears, EOMIs bilaterally, no scleral icterus CV: Irregularly irregular, no concerning murmurs R: No wheezing, mild bibasilar rhonchi, clears with cough Ext: wwp, no concerning edema Skin: No concerning skin lesions or rashes on exposed skin Neuro: Nonfocal, no resting tremor Psych: Appropriate Const: Vital Signs, click to edit/add: Vital Signs - 24 hr 09/30/24 15:00 09/30/24 15:00 09/30/24 15:00 Temperature 97.6 F Pulse Rate 78 Pulse Rate [Pulse Oximeter] 87 109 H Respiratory Rate 18 18 Blood Pressure [Le ft Arm] 116/77 Blood Pressure [Ri ght Arm] Pulse Oximetry 94 Oxygen Delivery Me thod Nasal Cannula Oxygen Flow Rate 1 09/30/24 15:15 09/30/24 21:29 09/30/24 23:33 Temperature 97.6 F 97.6 F Pulse Rate 81 Pulse Rate [Pulse Oximeter] 75 Respiratory Rate 16 Blood Pressure [Le ft Arm] 131/70 Blood Pressure [Ri ght Arm] Pulse Oximetry 95 Oxygen Delivery Me thod Room Air Oxygen Flow Rate 09/30/24 23:33 10/01/24 03:00 10/01/24 07:00 Temperature 98.6 F Pulse Rate 96 Pulse Rate [Pulse Oximeter] 88 62 Respiratory Rate 18 16 Blood Pressure [Le ft Arm] Blood Pressure [Ri ght Arm] 116/87 141/78 H Pulse Oximetry 95 93 Oxygen Delivery Me thod Room Air Room Air Oxygen Flow Rate 10/01/24 09:42 10/01/24 09:42 Temperature 98.3 F Pulse Rate Pulse Rate [Pulse Oximeter] 83 83 Respiratory Rate 20 20 Blood Pressure [Le ft Arm] 136/84 Blood Pressure [Ri ght Arm] Pulse Oximetry 94 Oxygen Delivery Me thod Oxygen Flow Rate DS: Data Data Completed and Pending Labs on day of discharge: Labs from last 24 hours 10/01/24 09/30/24 06:29 13:05 WBC 6.20 RBC 4.21 L Hgb 13.1 L 13.8 Hct 38.3 MCV 91 MCH 31 MCHC 34 RDW Coeff of Lalita 13.1 Plt Count 190 Neut % (Auto) 64.5 Lymph % (Auto) 17.6 L Gilmer % (Auto) 13.9 H Eos % (Auto) 3.2 Baso % (Auto) 0.5 Neut # (Auto) 4.00 Lymph # (Auto) 1.10 Gilmer # (Auto) 0.90 Eos # (Auto) 0.20 Baso # (Auto) 0.03 Abs Immat Gran (auto) 0.02 Imm/Tot Granulo (auto) 0.3 Sodium 135 Potassium 3.5 L Chloride 102 Carbon Dioxide 28 Anion Gap 5 L BUN 22 Creatinine 0.7 Estimated Creat Clear 62.75 Estimated GFR 93 Glucose 99 Calcium 8.6 Preliminary micro results at discharge 09/29/24 07:00 Blood Culture - Preliminary Blood NO GROWTH AFTER 48 HOURS Discharge Plan Discharge Disposition: Home, Self-Care Date of Admission: 09/29/24 11:07 Attending Provider on Discharge: Coco Rollins Primary Care Provider: Trevor Saha Condition: Improved Anticipated Discharge Date/Time: 10/01/24 10:50 Discharge Medications: New Eliquis 5 mg Tablet 5 mg PO BID Qty: 60 0RF Continued atorvastatin 10 mg tablet 10 mg PO HS allopurinol 300 mg tablet 300 mg PO DAILY metoprolol tartrate 25 mg tablet 50 mg PO DAILY metoprolol tartrate 25 mg tablet 25 mg PO HS Discontinued hydrochlorothiazide 12.5 mg tablet 12.5 mg PO DAILY Discharge Orders: Discharge Order (Routine); Ordered 10/01/24 Ordered By: Coco Rollins Patient Education: Apixaban (By mouth) (Eliquis), A-fib (Atrial Fibrillation) (DC), Zio (Home Heart Monitor) Additional Instructions: New medication: Eliquis (at [facility]) for your new diagnosis of atrial fibrillation. STOP Hydrochlorothiazide and Aspirin, no other changes to home medications. See Trevor as scheduled (10/08/2024 at 1:10pm) for hospital f/u. [facility] will call you for preoperative scheduling for your kidney stone procedure. Symptoms to watch for that require urgent visit: recurrent fever, more fatigue with activity, sustained heart rate (pulse) 100s, sustained pulse oximeter <89%, lightheadedness or dizziness. Activity Level: Activity as Tolerated Discharge Diet: Regular Follow Up Appointments: Trevor Saha MD [Primary Care Provider] - Forms: [employer] Info Instructions
[2024-10-01] MEDS: AZITHROMYCIN 250 MG TABLET 500 MG PO (12:29)
--- NOTE | 2024-10-01 19:30 | PC.NURSE ---
Discharge: Patient pleasant and cooperative. Patient vitally stable, lungs with light crackles, BS WNL, IV removed and intact. Patient denies pain. Patient independent in room. Patient tolerating regular diet and urinating well. Tele=first degree HB. Patient ZIO was applied to left chest and activated showing five green flashing lights. Patient was educated on the ZIO patch and turned his own patch on. Patient explain to RN what he needed to do if he experienced any symptoms and also reported he should not submerge the patch in water. Patient signed belongings sheet and discharge form. All questions regarding ZIO patch and discharge were answered. Patient was sent home with two pill tablets of eliquis. Patient left the floor by foot to home at 1317.
== END 2024-10-01 13:17 | disposition home or self-care (01) | DRG 193 ==
LOC: ED 09-29 00:38 → MEDSURG 09-29 01:07
PROVIDERS: Family Medicine; Admitting Provider Student in an Organized Health Care Education/Training Program; Emergency Provider Family Medicine; PCP Family Medicine; Visit Provider Family Medicine
DX: J10.00 Influenza due to other identified influenza virus with unspecified type of pneumonia (principal); J96.01 Acute respiratory failure with hypoxia; N13.2 Hydronephrosis with renal and ureteral calculous obstruction; I48.91 Unspecified atrial fibrillation; E86.0 Dehydration; I27.20 Pulmonary hypertension, unspecified; R79.89 Other specified abnormal findings of blood chemistry; R35.0 Frequency of micturition; I35.0 Nonrheumatic aortic (valve) stenosis; I10 Essential (primary) hypertension; M10.9 Gout, unspecified; R01.1 Cardiac murmur, unspecified; E78.5 Hyperlipidemia, unspecified
CPT/HCPCS: 36415; 71045; 71250; 71275; 74176; 80048; 80053; 81001; 83605; 83735; 84443; 84484; 85018; 85025; 85379; 85610; 85730; 86140; 87040; 87086; 87631; 93005; 93246; 93306; 94664; 94761; 97165; 97535; 99284; 99285; G0378; A9270; J0696; J1650; J7030; Q9957; Q9967

== ENCOUNTER 2024-10-17 22:16 | Emergency (ER) | payer MEDICARE, SELFPAY ==
--- OUTSIDE RECORDS SUMMARY | 2024-10-17 22:20 | XMS_ITS | Clinical Summary ---
Author Organization [employer] [facility] Address [place], [place] [address] Care Team Providers Care Healthcare Social Worker Name Role Phone Trevor Saha MD Primary Care Provider [phone] Marcelo Meek MD Unavailable [phone] Allergies No known active allergies Medications aspirin enteric coated 81 mg tablet Take 1 tablet by mouth once daily with a meal. 0 11/01/19 11 Active multivitamin (MVI) tablet Take 1 tablet by mouth once daily. 0 02/16/20 11 Active Cholecalciferol, Vitamin D3, (VITAMIN D) 400 unit capsule Take 400 units by mouth once daily. 0 02/16/20 11 Active hydroCHLOROthiazid e 12.5 mg tabletIndications: Essential hypertension Take 1 Tablet (12.5 mg) by mouth once daily. 90 Tablet 2 09/11/20 23 Active calcium carbonate-vitamin D3, 600 mg-400 unit, (Calcium with Vitamin D) 600 mg-10 mcg (400 unit) tablet Take 1 Tablet by mouth two times daily with meals. Active fluconazole (DIFLUCAN) 150 mg tabletIndications: Fungal dermatitis Take 1 tablet today, repeat in 1 week. 2 Tablet 06/24/20 24 Active apixaban (ELIQUIS) 5 mg tabletIndications: New onset atrial fibrillation (HC) Take 1 Tablet (5 mg) by mouth two times daily. 180 Tablet 3 10/08/19 25 Active tamsulosin 0.4 mg capsuleIndications :BPH without urinary obstruction Take 1 Capsule (0.4 mg) by mouth once daily after a meal. 90 Capsule 3 10/08/19 25 Active tadalafiL (Cialis) 20 mg tabletIndications: Impotence of organic origin Take 1 Tablet (20 mg) by mouth once daily if needed for Erectile Dysfunction. Take 30 minutes before sexual activity. 10 Tablet 3 10/08/19 25 Active metoprolol tartrate (LOPRESSOR) 25 mg tabletIndications: Essential hypertension TAKE 2 TABLETS IN THE MORNING AND TAKE 1 TABLET IN THE EVENING 270 Tablet 3 10/08/19 25 Active indomethacin (INDOCIN) 25 mg capsuleIndications :Acute idiopathic gout of left foot One tablet three times daily for 3 days then 1 tablet daily for 3 days, as needed for gout flares 27 Capsule 2 10/08/19 25 Active fluticasone (50 mcg per actuation) nasal solution (FLONASE)Indicatio ns:Chronic throat clearing Inhale 2 Sprays in both nostrils once daily if needed for Rhinitis. 32 g 5 10/08/19 25 Active atorvastatin (LIPITOR) 10 mg tabletIndications: Other hyperlipidemia Take 1 Tablet (10 mg) by mouth at bedtime. 90 Tablet 3 10/08/19 25 Active allopurinoL (ZYLOPRIM) 300 mg tabletIndications: Idiopathic gout, unspecified chronicity, unspecified site Take 1 Tablet (300 mg) by mouth once daily. 90 Tablet 3 10/08/19 25 Active tadalafiL (Cialis) 20 mg tabletIndications: Impotence of organic origin Take 1 Tablet (20 mg) by mouth once daily if needed for Erectile Dysfunction. Take 30 minutes before sexual activity. 60 Tablet 1 09/08/20 22 025 Discontinu ed(Reorder (E-cancel not sent)) fluticasone (50 mcg per actuation) nasal solution (FLONASE)Indicatio ns:Chronic throat clearing Inhale 2 Sprays to both nostrils once daily. 16 g 11 04/04/20 23 025 Discontinu ed(Reorder (E-cancel not sent)) allopurinoL (ZYLOPRIM) 100 mg tabletIndications: Acute idiopathic gout of left foot take 100mg by mouth once daily for 2 weeks; then increase to 200mg for 2 weeks; then increase to 300mg 270 Tablet 06/26/20 23 025 Discontinu ed(*Med complete/R egimen complete/L evel of care change) indomethacin (INDOCIN) 25 mg capsuleIndications :Acute idiopathic gout of left foot One tablet three times daily for 3 days then 1 tablet daily for 3 days 27 Capsule 2 09/11/20 23 025 Discontinu ed(Reorder (E-cancel not sent)) metoprolol tartrate (LOPRESSOR) 25 mg tabletIndications: Essential hypertension TAKE 2 TABLETS IN THE MORNING AND TAKE 1 TABLET IN THE EVENING 270 Tablet 3 07/02/20 24 025 Discontinu ed(Reorder (E-cancel not sent)) allopurinoL (ZYLOPRIM) 300 mg tabletIndications: Idiopathic gout, unspecified chronicity, unspecified site TAKE 1 TABLET (300 MG) BY MOUTH ONCE DAILY. 90 Tablet 08/04/20 24 025 Discontinu ed(Reorder (E-cancel not sent)) tamsulosin 0.4 mg capsuleIndications :BPH without urinary obstruction Take 1 Capsule (0.4 mg) by mouth once daily after a meal. 90 Capsule 2 08/09/20 24 025 Discontinu ed(Reorder (E-cancel not sent)) atorvastatin (LIPITOR) 10 mg tabletIndications: Other hyperlipidemia TAKE 1 TABLET (10 MG) BY MOUTH AT BEDTIME. 90 Tablet 2 08/19/20 24 025 Discontinu ed(Reorder (E-cancel not sent)) oseltamivir (TAMIFLU) 75 mg capsuleIndications :Influenza-like illness,Exposure to influenza Take 1 Capsule (75 mg) by mouth two times daily for 5 days. 10 Capsule 09/15/20 24 024 Active Problems Problem Noted Date Diagnosed Date DDD (degenerative disc disease), thoracic 2024 Lumbar facet arthropathy 10/08/2024 Bilateral nephrolithiasis 12/14/2023 Overview (12/14/2023): Asymptomatic on XR imaging. COVID-19 virus infection 01/21/2023 Overview (01/21/2023): December 2022: positive test at home with symptoms. 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 No follow up echocardiogram recommended. We will monitor on yearly exams. If any change will do follow up echocardiogram. Soft systolic murmur noted on today's exam. Trevor Saha MD signed electronically .................... 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 Personal history of colonic polyps 12/21/2006 Overview (06/26/2023): Colonoscopy 01/2012 polyp repeat in 5 years Colonoscopy 11/2016 polyp repeat in 5 years, propofol Colonoscopy 06/2023 5-TA, repeat in 5 years, propofol Hyperlipidemia LDL goal < 130 12/21/2006 Resolved Problems Problem Noted Date Diagnosed Date Resolved Date Gastroesophageal reflux disease 03/21/2016 01/26/2017 Reflux esophagitis 12/21/2006 9 Encounters Date Type Department Care Team Description 10/08/2024 1:10 PM TRANSCRIPT CLERK Office Visit [facility] [address] [place] [address] Trevor Saha MD Medicare ANNUAL (subsequent) Visit (Hospital follow up) 10/08/2024 Travel 09/29/2024 11:00 AM TRANSCRIPT CLERK Ancillary Procedure [facility] [address] [place] [address] 09/28/2024 Orders Only [facility] Scanner 1 scan: (1-Ord) [facility], CT ANGIO CHEST PE PROTOCOL, 09/28/2024 09/28/2024 Orders Only [facility] Scanner 1 scan: (1-Ord) [facility], WEAKNESS, 09/28/2024 09/15/2024 2:55 PM TRANSCRIPT CLERK Phone Office Visit [facility] [address] [place] [address] Francesca Torres PA exposure to influenza 09/15/2024 Travel 08/16/2024 Refill [facility] [address] [place] [address] Trevor Saha MD Refill Request (Atorvastatin) 08/06/2024 Refill [facility] [address] [place] [address] Trevor Saha MD Refill Request (Tamsulosin) 07/30/2024 Refill [facility] [address] [place] [address] Trevor Saha MD Refill Request (Allopurinol) from Last 3 Months Immunizations Name Administration Dates Next Due COVID-19 vaccine (Moderna 100mcg/0.5mL) PF, MDV 01/25/2022 COVID-19 vaccine (Kayo technology-Bio NTech 30mcg/0.3mL) PF, MDV 06/30/2021,12/07/2020,11/16/2020 HepA-HepB (Twinrix) 01/07/2007,07/13/2006,2005 Hepatitis B (Adult) 12/21/2022 Influenza A (H1N1), Inactiva debbie (Age >=3 Years) 10/07/2009 Influenza RIV4 (Age 18+ Year s) PRESERV FREE 07/03/2020,07/23/2019 Influenza, High-dose Inactivated 024,07/03/2017,07/20/2015,07/31,07/23/2013 Influenza, High-dose Quadriv alent Inactivated 07/06/2023,07/11/2022,06/15/2021 Influenza, IIV3 (Age >=3 years) 06/22/20 12,05/25/2011,07/20/2010,07/04 Influenza, Inactivated IIV3 (Age 65+ Years) Preserv Free 06/01/2018,07/10/2017 Pneumococcal Poly,23-Valent (Pneumovax) 05/05/2011 Pneumococcal conj 13-Valent (Prevnar 13) 11/05/2014 RSV, Recombinant ADJ Reconst ituted (Arexvy 120MCG/0.5mL) 06/27/2023 Td (Age >=7 Years) 07/19/2011,04/18/2006 Tdap 11/05/2014 Typhoid (injectable) 11/05/2014 Zoster (Shingrix-RZV, recombinant) 01/16/2019, Zoster (Zostavax-ZVL, live) 05/01/2010 Family History Medical History Relation Name Comments Cancer-prostate Brother 1 at 78 o f prosate cancer Diabetes type II Brother 1 Obesity Brother 1 Dementia Brother 2 Rc Stroke Brother 3 Justin age 62 during c arotid artery surgery Heart Disease Father of MD at 72 Stroke Father age 40s Heart Disease Mother of CHF 86 Dementia Sister 1 at 90 due to dementia and old age Heart Disease Sister 1 heart valve little rg Dementia Sister 2 Milana of this at 83 Stroke Sister 2 Milana age 73 Relation Name Status Comments Brother 1 Brother 2 Rc Alive Brother 3 Justin Alive Daughter 1 Alive Daughter 2 Alive Father coronary artery disease also had strokes Mother congestive hear t failure Sister 1 Sister 2 Milana Social History Tobacco Use Types Packs/Day Years Used Date Smoking Tobacco: Never Smokeless Tobacco: Never Tobacco Cessation:Counseling Given: Not Answered Alcohol Use Standard Drinks/Week Comments Yes 0 (1 standard drink = 0.6 oz pur e alcohol) 1-2 times per month PHQ-2 Answer Date Recorded PHQ-2 TOTAL SCORE 0 10/08/2024 Social Connections Answer Date Recorded Do you often feel lonely or isolated from those around you? 0 12/14/2023 Alcohol Use Answer Date Recorded How often do you have a drink containing alcohol ? 1 06/24/2024 How many drinks containing a lcohol do you have on a typical day when you are drinking? 0 06/24/2024 How often do you have five or more drinks on one occasion? 0 06/24/2024 Financial Resource Strain Answer Date R ecorded Difficulty of Paying Living Expenses 3 12/14/2023 Difficulty of Paying Living Expenses Not on file 12/14/2023 Food Insecurity Answer Date Recorded Do you worry your food will run out before you are able to buy more? 1 12/14/2023 Transportation Needs Answer Date Record ed Does lack of transportation keep you from medica l appointments? 1 12/14/2023 Does lack of transportation keep you from work, meetings or getting things that you need? 1 12/14/2023 Housing Stability Answer Date Recorded What is your housing situation today? 1 12/14/2023 Utilities Answer Date Recorded Do you have trouble paying f or utilities (for example, heat, electricity, water, phone)? 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 Not on file Not on file Obstetrics History Last Filed Vital Signs Vital Sign Reading Time Taken Comments Blood Pressure 126/67 10/08/2024 1:17 PM TRANSCRIPT CLERK Pulse 50 10/08/2024 1:17 PM TRANSCRIPT CLERK Temperature 36.3 C (97.4 F) 06/24/2024 1:39 PM CDT Respiratory Rate 16 07/15/2015 8:59 AM CDT Oxygen Saturation 99% 10/08/2024 1:17 PM TRANSCRIPT CLERK Inhaled Oxygen Concentration - - Weight 93 kg (205 lb) 10/08/2024 1:17 PM TRANSCRIPT CLERK Height 179.1 cm (5' 10.5) 10/08/2024 1:17 PM CS T Body Mass Index 29 10/08/2024 1:17 PM TRANSCRIPT CLERK Plan of Treatment Health Maintenance Due Date Last Done Comments Tetanus booster 11/05/2024 11/05/2014, 07/01, 04/18/2006 BMI (ht and wt on same day) for age 18+ 10/08/2025 10/08/2024, 09/11/2023, 06/15/2023, Additional history exists Depression screening for age 12+ 10/08/2025 10/08/2024, 09/11/2023, 09/08/2022, Additional history exists Medicare Wellness for age 65+ 10/09/2025, 09/11/2023, 09/08/2022, Additional history exists Pneumococcal series for age 50+ Completed 5, 05/05/2011 Tdap Completed 11/05/2014 Zoster (shingles) series for age 50+ Completed 01/16/2019, 11/08/2018, 05/01/2010 RSV vaccine for adults or Completed 06/27/2023 COVID-19 vaccine series Completed 06/30/20 24, 07/06/2023, 03/30/2023, Additional history exists Influenza for age 65+ Completed 06/30/2024 , 07/06/2023, 07/11/2022, Additional history exists Medical Devices Implanted Type Area Thermal Surfacing Machine Operator Device Identifier Shelf Expiration Date Model / Serial / Lot Lens Iol Pcb00 30.0 - [id number] Implanted:Qty: 1 on 07/15/2015 by Connor Hsieh MD at [facility] Right: Eye [employer] 02/12/2018 [id number] / [id number] / Procedures Procedure Name Priority Date/Time Associated Diagnosis Comments HEMOGLOBIN A1C Routine 10/08/2024 2:25 PM TRANSCRIPT CLERK Hyperglycemia PSA TOTAL Routine 10/08/2024 2:25 PM TRANSCRIPT CLERK Prostate cancer screening URIC ACID Routine 10/08/2024 2:25 PM TRANSCRIPT CLERK Acute idiopathic gout of left foot LIPID PANEL W REFLEX MEASURED LDL Routine 10/08/2024 2:25 PM TRANSCRIPT CLERK Hyperlipidemia LDL goal < 130 BASIC METABOLIC PANEL Routine 10/08/2024 2:25 PM TRANSCRIPT CLERK Essential hypertension ECHO TTE COMPLETE W CONTRAST Routine 09/29/2024 11:48 AM TRANSCRIPT CLERK Newly recognized murmur Dizzinesses SCAN-CT INTERPRETATION 12:00 AM TRANSCRIPT CLERK SCAN-RADIOLOGY REPORT 09/28/2024 12:00 AM TRANSCRIPT CLERK from Last 3 Months Results * HEMOGLOBIN A1C (10/08/2024 2:25 PM TRANSCRIPT CLERK) HEMOGLOBIN A1C 5.6 <5.7 % of total Hgb [facility] Comment: For the purpose of screening for the presence of diabetes: <5.7% Consistent with the absence of diabetes 5.7-6.4% Consistent with increased risk for diabetes (prediabetes) > or =6.5% Consistent with diabetes This assay result is consistent with a decreased risk of diabetes. Currently, no consensus exists regarding use of hemoglobin A1c for diagnosis of diabetes in children. According to [place] Diabetes Association (ADA) guidelines, hemoglobin A1c <7.0% represents optimal control in non- diabetic patients. Different metrics may apply to specific patient populations. Standards of Medical Care in Diabetes(ADA). Blood BLOOD SPECIMEN / Unknown 10/08/2024 2:25 PM TRANSCRIPT CLERK 10/08/2024 2:25 PM TRANSCRIPT CLERK us Trevor Saha MD CHEMISTRY Final Resu lt [facility] [address] [place] [address], [facility] [address] [place] [address] * (ABNORMAL) LIPID PANEL W REFLEX MEASURED LDL (10/08/2024 2:25 PM TRANSCRIPT CLERK) [facility] Signature CHOLESTEROL, TOTAL 126 <200 mg/dL [facility] HDL CHOLESTEROL 34(L) > OR = 40 mg/dL [facility] TRIGLYCERIDES 209(H) <150 mg/dL [facility] Comment: If a non-fasting specimen was collected, consider repeat triglyceride testing on a fasting specimen if clinically indicated. Jayjay et al. J. of Clin. Lipidol. 2015;9:129-169. LDL-CHOLESTEROL 65 mg/dL (calc) [facility] Comment: Reference range: <100 Desirable range <100 mg/dL for primary prevention; <70 mg/dL for patients with CHD or diabetic patients with > or = 2 CHD risk factors. LDL-C is now calculated using the Vicente calculation, which is a validated novel method providing better accuracy than the Friedewald equation in the estimation of LDL-C. Marcelo SS et al. CARLA. 2013;310(19): 9861-8218 (http://education.[employer] [facility]/faq/YOP919) CHOL/HDLC RATIO 3.7 <5.0 (calc) [facility] NON HDL CHOLESTEROL 92 <130 mg/dL (calc) [facility] Comment: For patients with diabetes plus 1 major ASCVD risk factor, treating to a non-HDL-C goal of <100 mg/dL (LDL-C of <70 mg/dL) is considered a therapeutic option. Blood BLOOD SPECIMEN / Unknown 10/08/2024 2:25 PM TRANSCRIPT CLERK 10/08/2024 2:25 PM TRANSCRIPT CLERK Trevor Saha MD CHEMISTRY Final Resu lt Performing Organization Address [facility]/ZIP Co de Phone Number [facility] [address] [address], [place] [phone] [facility] [address] [place] [address] * (ABNORMAL) URIC ACID (10/08/2024 2:25 PM TRANSCRIPT CLERK) URIC ACID 3.4(L) 4.0 - 8.0 mg/dL [facility] Comment: Therapeutic target for gout patients: <6.0 mg/dL Blood BLOOD SPECIMEN / Unknown 10/08/2024 2:25 PM TRANSCRIPT CLERK 10/08/2024 2:25 PM TRANSCRIPT CLERK Trevor Saha MD CHEMISTRY Final Resu lt Performing Organization Address [facility]/State/ZIP Co de Phone Number [facility] [address] [place] [address], [place] [phone] [facility] [address] [place] [address] * PSA TOTAL (10/08/2024 2:25 PM TRANSCRIPT CLERK) PSA, TOTAL 0.09 < OR = 4.00 ng/mL [facility] Comment: The total PSA value from this assay system is standardized against the WHO standard. The test result will be approximately 20% lower when compared to the equimolar-standardized total PSA (Wally Berta). Comparison of serial PSA results should be interpreted with this fact in mind. This test was performed using the Siemens chemiluminescent method. Values obtained from different assay methods cannot be used interchangeably. PSA levels, regardless of value, should not be interpreted as absolute evidence of the presence or absence of disease. Blood BLOOD SPECIMEN / Unknown 10/08/2024 2:25 PM TRANSCRIPT CLERK 10/08/2024 2:25 PM TRANSCRIPT CLERK us Trevor Saha MD CHEMISTRY Final Resu lt [facility] [address] [place] [address], [facility] [address] [place] [address] * BASIC METABOLIC PANEL (10/08/2024 2:25 PM TRANSCRIPT CLERK) Pathologist [facility] GLUCOSE 75 65 - 99 mg/dL [facility] Comment: Fasting reference interval UREA NITROGEN (BUN) 15 7 - 25 mg/dL [facility] CREATININE 1.07 0.70 - 1.22 mg/dL [facility] EGFR 70 > OR = 60 mL/min/1. 73m2 [facility] BUN/CREATININE RATIO SEE NOTE: 6 - 22 (calc) [facility] Comment: Not Reported: BUN and Creatinine are within reference range. SODIUM 142 135 - 146 mmol/L [facility] POTASSIUM 4.3 3.5 - 5.3 mmol/L [facility] CHLORIDE 104 98 - 110 mmol/L [facility] CARBON DIOXIDE 30 20 - 32 mmol/L [facility] ELECTROLYTE BALANCE 8 7 - 17 mmol/L (calc) [facility] CALCIUM 9.7 8.6 - 10.3 mg/dL [facility] Blood BLOOD SPECIMEN / Unknown 10/08/2024 2:25 PM TRANSCRIPT CLERK 10/08/2024 2:25 PM TRANSCRIPT CLERK us Trevor Saha MD CHEMISTRY Final Resu lt [facility] [address] [facility] [place] [address], [place] [phone] [facility] [address] [place] [address] * ECHO TTE COMPLETE W CONTRAST (09/29/2024 11:48 AM TRANSCRIPT CLERK) AORTIC VALVE MEAN PG 35 mmHg LVEDD 4.4 cm EJECTION FRACTION 60 - 65% Anatomical Region Laterality Modality Ultrasound 09/29/2024 10:5 3 AM TRANSCRIPT CLERK Narrative 09/29/2024 12:21 PM TRANSCRIPT CLERK ECHOCARDIOGRAM CRISTIANA MENDEZ : 1945 79 years Study Date: 09/29/2024 10:53:59 AM Gender: M BP: 123/73 mmHg Height: 180.00 cm BSA: 2.10 m Weight: 90.00 kg Tech: [facility] Referring MD: MAGGI MANZO Site: [facility] Location: [facility] Patient Location: Inpatient. Procedure: Color Doppler, Spectral Doppler and 2D w/ Contrast. Indication for study: Murmur Cardiac Rhythm: Regular.Study quality: Fair. Final Impressions: 1. Normal LV size, moderately increased wall thickness, estimated EF of 60 - 65%. 2. Normal RV size and systolic function. 3. Moderate aortic stenosis: Vmax 3.7 m/s, MG 35 mmHg, BOLA 1.21 cm , DI 0.41, SVi 39.9 ml/m . 4. Echo contrast was administered to enhance visualization of all left ventricular segments. Comparison There are no prior studies on this patient for comparison purposes. Chamber Sizes and Function Normal left ventricular size, moderately increased wall thickness, normal global systolic function with an estimated EF of 60 - 65%. No resting regional wall motion abnormality visualized. Left atrial size is normal. Left atrial pressure is normal. Right ventricular cavity size is normal, global systolic RV function is normal. RV wall thickness is normal. The right atrium is normal. Right atrial volume index is 20 ml/m . Right atrial area is 16 cm . The pulmonary artery is of normal size and origin. The sinus of Valsalva is normal sized. The ascending aorta is normal sized. Valves, RV Pressures and Diastolic Function The aortic valve is sclerotic, moderate stenosis and no regurgitation. The mitral valve is normal in structure, no mitral regurgitation. Spectral Doppler shows Grade 1 pattern of LV diastolic filling. The tricuspid valve is normal in structure. Tricuspid regurgitation is regurgitation is not evident. The pulmonic valve is normal. No pulmonary regurgitation. Masses, Effusion, Shunts There is no pericardial effusion. The inferior vena cava is not well visualized, respiratory size variation not well visualized. No left to right shunting was detected by limited color flow Doppler interrogation of the interatrial septum. MEASUREMENTS AND CALCULATIONS 2-D Measurements and LV Function: LVID (d) 4.4 cm LV FS% (2D) 46 % LVID (s) 2.4 cm LVOT diameter 1.9 cm IVS (d) 1.3 cm HR 71 bpm LVPW (d) 1.6 cm LA Vol index 22 ml/m2 Ao Sinus 3.4 cm RA Vol index 20 ml/m2 Asc Ao 3.1 cm RA area 16 cm LA 4.1 cm RV Max 4C (d) 3.6 cm Diastology: Mitral Tissue Doppler Pulmonary veins E Peak 0.8 m/s e', Septum 0.04 m/s Pulm s 46.6 cm/s A Peak 1.2 m/s e', Lateral 0.08 m/s Pulm d 31.1 cm/s E/A 0.7 E/e' Average 14.17 Pulm s/d ratio 1.50 DT 334 msec Aortic Valve: Vmax 3.7 m/s BOLA (V) 1.16 cm VTI 0.69 m BOLA (I) 1.21 cm LVOT V max 1.5 m/s Max PG 56 mmHg LVOT VTI 0.29 m Mean PG 35 mmHg SV 84 ml Dim Index 0.41 SV index 40 ml/m CO 5.9 l/min CI 2.8 l/min/m Mitral Valve: MVA 2.3 cm MV P 1/2 97 msec MV Mean G 2 mmHg MV VTI 0.37 m Tricuspid Valve and estimated PA pressures: TAPSE 3.0 cm Pulmonic Valve: PV AT 103 msec Contrast documentation: 3ML ml diluted Definity was administered peripherally to enhance visualization of all left ventricular segments. . This study was interpreted by an [facility] accredited facility. CC: HIM (med records) [facility], Med/Surg - IP [facility]. Final Procedure Note Jonathon Pabon MD - 09/29/2024 ECHOCARDIOGRAM CRISTIANA EMNDEZ : 1945 79 years Study Date: 09/29/2024 10:53:59 AM Gender: M BP: 123/73 mmHg Height: 180.00 cm BSA: 2.10 m Weight: 90.00 kg Tech: [facility] Referring MD: MAGGI MANZO Site: [facility] Location: Mobile- Patient Location: Inpatient. Procedure: Color Doppler, Spectral Doppler and 2D w/ Contrast. Indication for study: Murmur Cardiac Rhythm: Regular.Study quality: Fair. Final Impressions: 1. Normal LV size, moderately increased wall thickness, estimated EF of60 - 65%. 2. Normal RV size and systolic function. 3. Moderate aortic stenosis: Vmax 3.7 m/s, MG 35 mmHg, BOLA 1.21 cm , DI0.41, SVi 39.9 ml/m . 4. Echo contrast was administered to enhance visualization of all leftventricular segments. Comparison There are no prior studies on this patient for comparison purposes. Chamber Sizes and Function Normal left ventricular size, moderately increased wall thickness, normalglobal systolic function with an estimated EF of 60 - 65%. No restingregional wall motion abnormality visualized. Left atrial size is normal.Left atrial pressure is normal. Right ventricular cavity size is normal,global systolic RV function is normal. RV wall thickness is normal. Theright atrium is normal. Right atrial volume index is 20 ml/m . Rightatrial area is 16 cm . The pulmonary artery is of normal size and origin.The sinus of Valsalva is normal sized. The ascending aorta is normalsized. Valves, RV Pressures and Diastolic Function The aortic valve is sclerotic, moderate stenosis and no regurgitation. Themitral valve is normal in structure, no mitral regurgitation. SpectralDoppler shows Grade 1 pattern of LV diastolic filling. The tricuspid valveis normal in structure. Tricuspid regurgitation is regurgitation is notevident. The pulmonic valve is normal. No pulmonary regurgitation. Masses, Effusion, Shunts There is no pericardial effusion. The inferior vena cava is not wellvisualized, respiratory size variation not well visualized. No left toright shunting was detected by limited color flow Doppler interrogation ofthe interatrial septum. MEASUREMENTS AND CALCULATIONS 2-D Measurements and LV Function: LVID (d) 4.4 cm LV FS% (2D) 46 % LVID (s) 2.4 cm LVOT diameter 1.9 cm IVS (d) 1.3 cm HR 71 bpm LVPW (d) 1.6 cm LA Vol index 22 ml/m2 Ao Sinus 3.4 cm RA Vol index 20 ml/m2 Asc Ao 3.1 cm RA area 16 cm LA 4.1 cm RV Max 4C (d) 3.6 cm Diastology: Mitral Tissue Doppler Pulmonary veins E Peak 0.8 m/s e', Septum 0.04 m/s Pulm s 46.6 cm/s A Peak 1.2 m/s e', Lateral 0.08 m/s Pulm d 31.1 cm/s E/A 0.7 E/e' Average 14.17 Pulm s/d ratio 1.50 DT 334 msec Aortic Valve: Vmax 3.7 m/s BOLA (V) 1.16 cm VTI 0.69 m BOLA (I) 1.21 cm LVOT V max 1.5 m/s Max PG 56 mmHg LVOT VTI 0.29 m Mean PG 35 mmHg SV 84 ml Dim Index 0.41 SV index 40 ml/m CO 5.9 l/min CI 2.8 l/min/m Mitral Valve: MVA 2.3 cm MV P 1/2 97 msec MV Mean G 2 mmHg MV VTI 0.37 m Tricuspid Valve and estimated PA pressures: TAPSE 3.0 cm Pulmonic Valve: PV AT 103 msec Contrast documentation: 3ML ml diluted Definity was administeredperipherally to enhance visualization of all left ventricular segments. . This study was interpreted by an [facility] accredited facility. CC: HIM (med records) [facility], Med/Surg - IP [facility]. Final us Maggi Manzo MD ECHO ORD Final Result * SCAN-RADIOLOGY REPORT (09/28/2024 12:00 AM TRANSCRIPT CLERK) Anatomical Region Laterality Modality Other us Scanner OTHER Final Result * SCAN-CT INTERPRETATION (09/28/2024 12:00 AM TRANSCRIPT CLERK) Anatomical Region Laterality Modality Other us Scanner OTHER Final Result from Last 3 Months Insurance MEDICARE PART B HB ONLY [employer] MED[employer]ARE ADVANTAGE Advance Directives Documents on File Type Date Recorded Patient Digital Content Manager Expl anation Healthcare Directive 02/08/2016 2:21 PM IMELDA CASTILLO, 01/28/2016 * Full Code (Latest Code Status on File) Date Activated Date Inactivated Comments 07/15/2015 6:12 AM 07/15/2015 11:36 AM Care Teams Healthcare Social Worker Relationship Specialty Start Date End Date Trevor Saha MD [facility] [address] [address] PCP - General 01/20/09 Marcelo Meek MD [address] [place] [address] Gastroenterology Gastroenterology 01/17/12
[2024-10-17 22:35] VITALS: BP 186/78; PULSE 45; RESP 16; TEMP 36.2; O2SAT 98; BMI 27.8
--- OUTSIDE RECORDS SUMMARY | 2024-10-17 22:57 | XMS_ITS | Clinical Summary ---
Author Organization [employer] [facility] [employer] Address [place], [place] [address] Care Team Providers Care Invas Tech Name Role Phone Trevor Saha MD Primary Care Provider [phone] Marcelo Meek MD Unavailable [phone] Allergies No known active allergies Medications aspirin [...] Department Care Team Description 10/08/2024 1:10 PM CELLAR PACKER [facility] [address] [address] Trevor Saha MD Medicare ANNUAL (subsequent) Visit (Hospital follow up) 10/08/2024 Travel 09/29/2024 11:00 AM CELLAR PACKER Ancillary Procedure [facility] [address] [place] [address] 09/28/2024 Orders Only [facility] Scanner 1 scan: (1-Ord) [facility], CT ANGIO CHEST PE PROTOCOL, 09/28/2024 09/28/2024 Orders Only [facility] Scanner 1 scan: (1-Ord) [facility], WEAKNESS, 09/28/2024 09/15/2024 2:55 PM CELLAR PACKER Phone [facility] [address] [place] [address] Francesca Torres PA exposure to influenza 09/15/2024 Travel 08/16/2024 [facility]ill [facility] [address] [place] [address] Trevor Saha MD Refill Request (Atorvastatin) 08/06/2024 [facility] [address] [place] [address] Trevor Saha MD Refill Request (Tamsulosin) 07/30/2024 [facility] [address] [place] [address] Trevor Saha MD Refill Request (Allopurinol) from Last 3 Months Immunizations Name Administration Dates Next Due COVID-19 vaccine (Moderna 100mcg/0.5mL) PF, MDV 01/25/2022 COVID-19 vaccine ([employer] 30mcg/0.3mL) PF, MDV 06/30/2021,12/07/2020,11/16/2020 HepA-HepB (Twinrix) [...] arotid artery surgery Heart Disease Father of [place] at 72 Stroke Father age 40s Heart [...] PM CDT Legal Sex Male 6:25 AM CELLAR PACKER Gender Identity Not on file Sexual Orientation Not on file Occupation Industry Job Start Date Job End Date [employer] Not on file Not on file Not on 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 Not on file Not on file Obstetrics History Last Filed Vital Signs Vital Sign Reading Time Taken Comments Blood Pressure 126/67 10/08/2024 1:17 PM CELLAR PACKER Pulse 50 10/08/2024 1:17 PM CELLAR PACKER Temperature 36.3 C (97.4 F) 06/24/2024 1:39 PM CDT Respiratory Rate 16 07/15/2015 8:59 AM CDT Oxygen Saturation 99% 10/08/2024 1:17 PM CELLAR PACKER Inhaled Oxygen Concentration - - Weight 93 kg (205 lb) 10/08/2024 1:17 PM CELLAR PACKER Height 179.1 cm (5' 10.5) 10/08/2024 1:17 PM CS T Body Mass Index 29 10/08/2024 1:17 PM CELLAR PACKER Plan of Treatment Health Maintenance Due Date [...] history exists Medical Devices Implanted Type Area Flame Gouger Device Identifier Shelf Expiration Date Model / Serial / Lot Lens Iol Pcb00 30.0 - [id number] Implanted:Qty: 1 on 07/15/2015 by Connor Hsieh MD at [facility] Right: Eye [employer] 02/12/2018 [id number]# / [id number] / Procedures Procedure Name Priority Date/Time Associated Diagnosis Comments HEMOGLOBIN A1C Routine 10/08/2024 2:25 PM CELLAR PACKER Hyperglycemia PSA TOTAL Routine 10/08/2024 2:25 PM CELLAR PACKER Prostate cancer screening URIC ACID Routine 10/08/2024 2:25 PM CELLAR PACKER Acute idiopathic gout of left foot LIPID PANEL W REFLEX MEASURED LDL Routine 10/08/2024 2:25 PM CELLAR PACKER Hyperlipidemia LDL goal < 130 BASIC METABOLIC PANEL Routine 10/08/2024 2:25 PM CELLAR PACKER Essential hypertension ECHO TTE COMPLETE W CONTRAST Routine 09/29/2024 11:48 AM CELLAR PACKER Newly recognized murmur Dizzinesses SCAN-CT INTERPRETATION 12:00 AM CELLAR PACKER SCAN-RADIOLOGY REPORT 09/28/2024 12:00 AM CELLAR PACKER from Last 3 Months Results * HEMOGLOBIN A1C (10/08/2024 2:25 PM CELLAR PACKER) HEMOGLOBIN A1C 5.6 <5.7 % of total [...] diagnosis of diabetes in children. According to [place] Diabetes Association (ADA) guidelines, hemoglobin A1c <7.0% represents optimal control in non- diabetic patients. Different metrics may apply to specific patient populations. Standards of Medical Care in Diabetes(ADA). Blood BLOOD SPECIMEN / Unknown 10/08/2024 2:25 PM CELLAR PACKER 10/08/2024 2:25 PM CELLAR PACKER us Trevor Saha MD CHEMISTRY Final Resu lt [employer] [facility] [address] [place] [address], [facility] [address] [place] [address] * (ABNORMAL) LIPID PANEL W REFLEX MEASURED LDL (10/08/2024 2:25 PM CELLAR PACKER) [facility] Signature CHOLESTEROL, TOTAL 126 <200 mg/dL [facility] HDL CHOLESTEROL 34(L) > OR = 40 mg/dL [facility] TRIGLYCERIDES 209(H) <150 mg/dL [facility] Comment: If a non-fasting [...] LDL-C. Marcelo SS et al. CARLA. 2013;310(19): 7976-7997 (http://education.Anulex/faq/NTM923) CHOL/HDLC RATIO 3.7 <5.0 (calc) [facility] NON HDL CHOLESTEROL 92 <130 mg/dL (calc) [facility] Comment: For patients with diabetes plus 1 major ASCVD risk factor, treating to a non-HDL-C goal of <100 mg/dL (LDL-C of <70 mg/dL) is considered a therapeutic option. Blood BLOOD SPECIMEN / Unknown 10/08/2024 2:25 PM CELLAR PACKER 10/08/2024 2:25 PM CELLAR PACKER Trevor Saha MD CHEMISTRY Final Resu lt Performing Organization Address [facility]/ZIP Co de Phone Number [employer] [address] [address], [place] [phone] [place] [address] [place] [address] * (ABNORMAL) URIC ACID (10/08/2024 2:25 PM CELLAR PACKER) URIC ACID 3.4(L) 4.0 - 8.0 mg/dL [facility] Comment: Therapeutic target for gout patients: <6.0 mg/dL Blood BLOOD SPECIMEN / Unknown 10/08/2024 2:25 PM CELLAR PACKER 10/08/2024 2:25 PM CELLAR PACKER Trevor Saha MD CHEMISTRY Final Resu lt Performing Organization Address [facility]/State/ZIP Co de Phone Number [employer] [facility] [address] [place] [address], [place] [phone] [facility] [address] [place] [address] * PSA TOTAL (10/08/2024 2:25 PM CELLAR PACKER) PSA, TOTAL 0.09 < OR = 4.00 ng/mL [facility] Comment: The total PSA value from [...] BLOOD SPECIMEN / Unknown 10/08/2024 2:25 PM CELLAR PACKER 10/08/2024 2:25 PM CELLAR PACKER us Trevor Saha MD CHEMISTRY Final Resu lt [employer] [facility] [address] [place] [address], [facility] [address] [place] [address] * BASIC METABOLIC PANEL (10/08/2024 2:25 PM CELLAR PACKER) Pathologist [facility] GLUCOSE 75 65 - 99 mg/dL [facility] Comment: Fasting reference interval [...] BLOOD SPECIMEN / Unknown 10/08/2024 2:25 PM CELLAR PACKER 10/08/2024 2:25 PM CELLAR PACKER us Trevor Saha MD CHEMISTRY Final Resu lt [facility] [address] [facility] [address], [place] [phone] [facility] [address] [place] [address] * ECHO TTE COMPLETE W CONTRAST (09/29/2024 11:48 AM CELLAR PACKER) AORTIC VALVE MEAN PG 35 mmHg LVEDD 4.4 cm EJECTION FRACTION 60 - 65% Anatomical Region Laterality Modality Ultrasound 09/29/2024 10:5 3 AM CELLAR PACKER Narrative 09/29/2024 12:21 PM CELLAR PACKER ECHOCARDIOGRAM CRISTIANA MENDEZ : 1945 79 years Study Date: 09/29/2024 10:53:59 AM Gender: M BP: 123/73 mmHg Height: 180.00 cm BSA: 2.10 m Weight: 90.00 kg Tech: [facility] Referring MD: MAGGI MANZO Site: [facility] Reading Location: [facility] Patient Location: Inpatient. Procedure: Color [...] . This study was interpreted by an [facility] accredited facility. CC: HIM (med records) [facility], Med/Surg - IP [facility]. Final Procedure Note Jonathon Pabon MD - 09/29/2024 ECHOCARDIOGRAM CRISTIANA MENDEZ : 1945 79 years Study Date: 09/29/2024 10:53:59 AM Gender: M BP: 123/73 mmHg Height: 180.00 cm BSA: 2.10 m Weight: 90.00 kg Tech: [facility] Referring MD: MAGGI MANZO Site: [facility] Reading Location: Mobile- Patient Location: [...] . This study was interpreted by an [facility] accredited facility. CC: HIM (med records) [facility], Med/Surg - IP [facility]. Final us Maggi Manzo MD ECHO ORD Final Result * SCAN-RADIOLOGY REPORT (09/28/2024 12:00 AM CELLAR PACKER) Anatomical Region Laterality Modality Other us Scanner OTHER Final Result * SCAN-CT INTERPRETATION (09/28/2024 12:00 AM CELLAR PACKER) Anatomical Region Laterality Modality Other us Scanner OTHER Final Result from Last 3 Months Insurance MEDICARE PART B HB ONLY [employer] MED[employer]ARE ADVANTAGE Advance Directives Documents on File Type Date Recorded Patient Video Machines Mechanic Expl anation Healthcare Directive 02/08/2016 2:21 PM IMELDA CASTILLO, 01/28/2016 * Full Code (Latest Code Status on File) Date Activated Date Inactivated Comments 07/15/2015 6:12 AM 07/15/2015 11:36 AM Care Teams Invas Tech Relationship Specialty Start Date End Date Trevor Saha MD [facility] [address] [address] PCP - General 01/20/09 Marcelo Meek MD [address] [place] [address] Gastroenterology Gastroenterology 01/17/12
--- OUTSIDE RECORDS SUMMARY | 2024-10-17 22:57 | XMS_ITS | Clinical Summary ---
Author Organization [facility] Address [address] [place] [address] Care Team Providers Care Cardiac Catheterization Technician Name Role Phone Unavailable Primary Care Provider Unavailabl e Source Comments Patient records contain information from all sites at [facility]. For routine questions regarding patient records, call [phone] during business hours, M-F 8:00 AM - 5:00 PM Central Time. Record requests for emergency care only can be directed to [phone] at any time.[facility] Allergies No known active allergies Medications atorvastatin (LIPITOR) 10 mg tablet Take 10 mg by mouth daily. 06/16/20 21 Active cholecalcifero l, vitamin D3, 10 mcg (400 unit) capsule Take 2,000 Units by mouth daily. 02/16/20 11 Active hydroCHLOROthi azide (HYDRODIURIL) 12.5 mg tablet Stopped for now 05/05/20 21 Active metoprolol tartrate (LOPRESSOR) 25 mg tablet as directed. Two tablets in AM and one PM 05/05/20 21 Active tamsulosin (FLOMAX) 0.4 mg 24 hr capsule Take 0.4 mg by mouth. 05/05/20 21 Active tadalafiL (CIALIS, ADCIRCA) 20 mg tablet Take 20 mg by mouth. 05/05/20 21 Active multivitamin (MULTI-DAY ORAL) Take 1 tablet by mouth daily. 06/20/20 11 Active calcium carbonate (CALCIUM 500 ORAL) Take 2 tablets by mouth daily. 06/20/20 11 Active bicalutamide (CASODEX) 50 mg tablet Take 1 tablet (50 mg total) by mouth daily. Take at the same time everyday. Take with or without food. 14 tablet 06/28/20 Active Additional Information Patient not taking.Reported on 09/04/2024 allopurinoL (ZYLOPRIM) 100 mg tablet Take 150 mg by mouth 2 (two) times a day. 06/26/20 Active fluticasone propionate (FLONASE) 50 mcg/actuation nasal spray Administer into nostril(s) daily. 04/04/20 Active indomethacin (INDOCIN) 25 mg capsule For flares 06/26/20 Active calcium carbonate-vin min D3 1,500 mg (600 mg calcium)-10 mcg (400 Unit) per tablet Take 1 tablet by mouth 2 (two) times a day with meals. Active apixaban (Eliquis) 5 mg tablet Take 1 tablet by mouth 2 (two) times a day. 10/08/19 Active aspirin 81 mg chewable tablet Chew 1 tablet daily. 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 No follow up echocardiogram recommended. We will monitor on yearly exams. If any change will do follow up echocardiogram. Soft systolic murmur noted on today's exam. Trevor Saha MD signed electronically .................... 04/26/2020 Hypertension Essential Primary 11/15/2018 Primary Malignant Neoplasm Of Prostate 5 Cancer Staging:Clinical stage from 05/09/2023:Stage IIC(cT2a, cN0, cM0, PSA: 9.8, Grade Group: 4) - Signed by Gato Larkin, CARON, C.N.P., D.N.P. on 06/08/2023 Hyperlipidemia 12/21/2006 Encounters Date Type Department Care Team Description 10/10/2024 2:25 PM SKIP LOAD DRIVER - 10/10/2024 11:59 PM SKIP LOAD DRIVER Hospital Encounter Department of Cardiovascular Diseases in [place], [place] [address] [place] [address] Inocente Avila M.D. Stenosis Aortic Valve Acquired Discharge Disposition: Home or Self Care 10/10/2024 2:00 PM SKIP LOAD DRIVER Office Visit Department of Cardiovascular Medicine in [place], [place] [address] [place] [phone] Inocente Avila M.D. Stenosis Aortic Valve Acquired (Primary Dx); Stone Kidney; Bruit Carotid Artery; Hematuria; Atrial Fibrillation Paroxysmal (HCC); Other Specified Conduction Disorders; Hypertensive Heart Disease Without Heart Failure; Hyperlipidemia 10/10/2024 11:12 AM SKIP LOAD DRIVER - 10/10/2024 2:24 PM SKIP LOAD DRIVER Hospital Encounter Department of Radiology, [place], [place] [address] [place] [phone] Gato Shaw M.D. Stone Kidney Discharge Disposition: Home or Self Care 10/10/2024 10:51 AM SKIP LOAD DRIVER - 10/10/2024 11:11 AM SKIP LOAD DRIVER Hospital Encounter Department of Laboratory Medicine and Pathology, [facility] in [place], [place] [address] [place] [phone] Gato Shaw M.D. Stone Kidney; Atrial Fibrillation Paroxysmal (HCC); Myocardial Injury Nonischemic Nontraumatic; Dysfunction Diastolic; Hyperlipidemia Discharge Disposition: Home or Self Care 10/10/2024 10:50 AM SKIP LOAD DRIVER Hospital Encounter Department of Laboratory Medicine and Pathology, [facility] in [address] [phone] Gato Shaw M.D. Stone Kidney Discharge Disposition: Home or Self Care 10/10/2024 Orders Only Department of Cardiovascular Medicine in [address] [phone] Inocente Avila M.D. Atrial Fibrillation Paroxysmal (HCC) (Primary Dx); Myocardial Injury Nonischemic Nontraumatic; Dysfunction Diastolic; Hyperlipidemia 10/08/2024 Orders Only Department of Urology in [address] [phone] Hortensia Dwyer R.N. Stone Kidney (Primary Dx) 10/08/2024 Clinical Communication Department of Urology in [place], [place] [address] [place] [phone] Ephraim Ghanshyam J 10/02/2024 Clinical Communication Department of Cardiovascular Medicine in [place], [place] [address] [place] [phone] Hand Rug CleanerSudarshan M.D. Triage 09/30/2024 Clinical Communication Department of Urology in [place], [place] [address] [place] [phone] Gato Shaw M.D. 09/08/2024 10:30 AM SKIP LOAD DRIVER Comprehensive Visit Department of Urology in [place], [place] [address] [place] [phone] Gato Shaw M.D. Stone Kidney (Primary Dx) 09/08/2024 9:00 AM SKIP LOAD DRIVER Procedure visit Department of Urology in [place], [place] [address] [place] [phone] Shellie Howe APRN, C.N.P., D.N.P. Hortensia Quiroga P.A.Leonor. Hematuria 09/08/2024 8:02 AM SKIP LOAD DRIVER - 09/08/2024 11:59 PM SKIP LOAD DRIVER Hospital Encounter Department of Laboratory Medicine and Pathology, [facility] in [address] [phone] Shellie Howe APRN C.N.P., D.N.P. Hematuria Discharge Disposition: Home or Self Care 09/08/2024 8:02 AM SKIP LOAD DRIVER - 09/08/2024 11:59 PM SKIP LOAD DRIVER Hospital Encounter Department of Laboratory Medicine and Pathology, [facility] in [place], [place] [address] [place] [phone] Shellie Howe APRN, C.N.P., D.N.P. Stone Kidney Discharge Disposition: Home or Self Care 09/04/2024 12:45 PM SKIP LOAD DRIVER Clinical Communication Virtual Review in [place], [place] [address] [place] [address] Pre-visit Intake 08/19/2024 Orders Only Department of Urology in [address] [place] [phone] Shellie Howe APRN, Missy.N.PDaisy, D.N.P. Hematuria (Primary Dx) 08/14/2024 Orders Only Department of Urology in [address] [phone] Shellie Howe APRN, C.N.PDaisy, D.N.P. Stone Kidney (Primary Dx) 08/13/2024 12:04 PM SKIP LOAD DRIVER - 08/13/2024 11:59 PM SKIP LOAD DRIVER Hospital Encounter Department of Radiology, [place], [place] [address] [place] [phone] Shellie Howe APRN, Misys.N.PDaisy, D.N.P. Hematuria Discharge Disposition: Home or Self Care 08/11/2024 9:20 AM SKIP LOAD DRIVER - 08/11/2024 11:59 PM SKIP LOAD DRIVER Hospital Encounter Department of Laboratory Medicine and Pathology, [place], [place] [address] [place] [phone] Shellie Hoew APRN, C.N.P., D.N.P. Hematuria Discharge Disposition: Home or Self Care 08/08/2024 3:00 PM SKIP LOAD DRIVER Comprehensive Visit Department of Urology in [address] [phone] Maryana Malik, [facility] Shellie Howe APRN, Missy.N.P., D.N.P. Hematuria (Primary Dx); Symptom Urinary 08/08/2024 2:30 PM SKIP LOAD DRIVER Procedure visit Department of Urology in [address] [phone] Rigoberto Flores M.D. Franson, Jane E, RPatti Incontinence Urinary Stress And Urge (Primary Dx); Symptom Urinary 08/08/2024 11:27 AM SKIP LOAD DRIVER - 08/08/2024 11:59 PM SKIP LOAD DRIVER Hospital Encounter Department of Laboratory Medicine and Pathology, [facility] in [place], [place] [address] [place] [phone] Rigoberto Flores M.D. Symptom Urinary Discharge Disposition: Home or Self Care 08/06/2024 9:58 AM SKIP LOAD DRIVER - 08/06/2024 11:29 AM SKIP LOAD DRIVER Hospital Encounter Department of Radiation Oncology in [place], [place] [address] [place] [phone] Gato Larkin, CARON, C.N.P., D.N.P. Primary Malignant Neoplasm Of Prostate (HCC) (Primary Dx) 08/04/2024 12:00 PM SKIP LOAD DRIVER Clinical Communication Virtual Review in [place], [place] [address] [place] [phone] Pre-visit Intake from Last 3 Months Family History Medical History Relation Name Comments Prostate cancer Brother 1 Prostate cancer Brother 2 Relation Name Status Comments Brother 1 Brother 2 Alive Social History Tobacco Use Types Packs/Day Years Used Date Smoking Tobacco: Never Passive Smoke Exposure: Never Smokeless Tobacco: Never Tobacco Cessation:Counseling Given: Not Answered Alcohol Use Standard Drinks/Week Comments Yes 1 (1 standard drink = 0.6 oz pur e alcohol) [facility] Utilities Answer Date Recorded In the past 12 months has e electric, gas, oil, or water company threatened to shut off services in your home? No 10/17/2024 Overall Financial Resource Strain (CARDIA) Answe r Date Recorded How hard is it for you to pa y for the very basics like food, housing, medical care, and heating? Not hard at all 08/08/2023 Exercise Vital Sign Answer Date Recorde d On average, how many days pe r week do you engage in moderate to strenuous exercise (like a brisk walk)? 3 days 10/17/2024 On average, how many minutes do you engage in exercise at this level? 30 min 10/17/2024 Hunger Vital Sign Answer Date Recorded Within the past 12 months, y ou worried that your food would run out before you got the money to buy more. Never true 10/17/19 25 Within the past 12 months, t he food you bought just didn't last and you didn't have money to get more. Never true 10/17/2024 PRAPARE - Transportation Answer Date Re corded In the past 12 months, has l ack of transportation kept you from medical appointments or from getting medications? No 10/01 In the past 12 months, has l ack of transportation kept you from meetings, work, or from getting things needed for daily living? No 10/17/2024 Nutrition Answer Date Recorded On average, how many serving s of fruits and vegetables do you eat per day (serving size is equal to 1 cup or approximately the size of a tennis ball)? 0-2 10/17/2024 Dental Answer Date Recorded Dental: Regular Dentist Yes 08/08/20 Employment Answer Date Recorded Employment status Retired 10/17/2024 Housing Stability Answer Date Recorded What is your living situation today? 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 Not on f ile Not on file Not on file Last Filed Vital Signs Vital Sign Reading Time Taken Comments Blood Pressure 109/64 10/10/2024 1:35 PM SKIP LOAD DRIVER 6 m in bp Pulse 48 10/10/2024 1:35 PM SKIP LOAD DRIVER 6 min bp Temperature - - Respiratory Rate - - Oxygen Saturation - - Inhaled Oxygen Concentration - - Weight 92 kg (202 lb 13.2 oz) 10/10/2024 1:35 PM SKIP LOAD DRIVER Height 175.2 cm (5' 8.98) 10/10/2024 1:35 PM CS T Body Mass Index 29.97 10/10/2024 1:35 PM SKIP LOAD DRIVER Plan of Treatment Upcoming Encounters Date Type Department Care Team (Latest Contact Info) Description 10/21/2024 1:15 PM SKIP LOAD DRIVER Clinical Communication Virtual Review in [place], [place] [address] [place] [phone] 10/23/2024 12:00 PM SKIP LOAD DRIVER Appointment Department of Radiology, [facility], in [place], [place] [address] [place] [phone] Inocente Avila M.D. [address] [place] [phone] Discharge Disposition: Home or Self Care 10/23/2024 2:00 PM SKIP LOAD DRIVER Comprehensive Visit Preoperative Evaluation Center in [place], [place] [address] [place] [phone] Winnie Becker M.D., M.S. [address] [place] [phone] 10/24/2024 1:08 PM SKIP LOAD DRIVER Hospital Encounter Outpatient Procedure Center in [place], [place] [address] [place] [phone] Gato Shaw M.D. [address] [place] [phone] 10/24/2024 1:08 PM SKIP LOAD DRIVER - 10/24/2024 3:34 PM SKIP LOAD DRIVER Surgery Outpatient Procedure Center in [place], [place] [address] [place] [phone] Gato Shaw M.D. [address] [place] [phone] CYSTOLITHOLAPAXY Scheduled Procedures Name Priority Associated Diagnoses Date/Ti me CYSTOLITHOLAPAXY Stone Kidney Hematuria 10/24/2024 1:08 PM SKIP LOAD DRIVER CYSTOSCOPY BIOPSY FULGURATION Stone Kidney Hematuria 10/24/2024 1:08 PM SKIP LOAD DRIVER URETEROSCOPY STONE EXTRACTION Stone Kidney Hematuria 10/24/2024 1:08 PM SKIP LOAD DRIVER Health Maintenance Due Date Last Done Comments Depression Screening (Annual PHQ-2) 10/01/2024 DTaP,Tdap,and Td Vaccines (2 - Td or Tdap) 11/05/2024 11/05/2014, 07/19/2011 Creatinine Level (Kidney Function Test) 10/10/2025 10/10/2024, 09/08/2024, 08/11/2024, Additional history exists Office Visit for Blood Pressure Check / Re-check 10/10/2025 10/10/2024 Potassium Level 10/10/2025 10/10/2024, 06/2024, 09/28/2023, Additional history exists Sodium Level 10/10/2025 10/10/2024, 06/2024, 09/28/2023, Additional history exists Pneumococcal vaccine (50+ years) Completed 11/05/2014, 05/05/2011 Zoster Vaccines Completed 01/16/2019, 05/2019, 05/01/2010 RSV vaccine - (32-36 weeks) or 60+ years Completed 06/27/2023 COVID-19 Vaccine Completed 06/30/2024, 03/2023, 03/30/2023, Additional history exists Influenza Vaccine Completed 06/30/2024, , 07/11/2022, Additional history exists Fall Risk Screen (Annual) Completed 10/10/2024 HPV Vaccines Aged Out No longer eligi ble based on patient's age to complete this topic IPV Vaccines Aged Out No longer eligi ble based on patient's age to complete this topic Medical Devices Implanted Type Area Firewall Engineer Device Identifier Shelf Expiration Date Model / Serial / Lot Marker Tissue Biomarc Kv 1x5 - [id number] Implanted:Qty : 4 on 08/08/2023 by Thaddeus Ding M.D. at [facility] [id number] 12/01/2027 [id number] / / [id number] Procedures Procedure Name Priority Date/Time Associated Diagnosis Comments (TTE) 2D ECHO DOPPLER COLOR Routine 10/10/2024 4:00 PM SKIP LOAD DRIVER Stenosis Aortic Valve Acquired MICROSCOPIC MANUAL Routine 10/10/2024 1 :05 PM SKIP LOAD DRIVER PH, U Routine 10/10/2024 1:05 PM SKIP LOAD DRIVER DIPSTICK, U Routine 10/10/2024 1:05 PM SKIP LOAD DRIVER OSMOLALITY, U Routine 10/10/2024 1:05 PM SKIP LOAD DRIVER URINALYSIS WITH MICROSCOPIC Routine 10/10/2024 1:05 PM SKIP LOAD DRIVER Stone Kidney BACTERIAL CULTURE, AEROBIC + SUSC, URINE Routine 10/10/2024 1:05 PM SKIP LOAD DRIVER Stone Kidney ECG Routine 10/10/2024 11:52 AM SKIP LOAD DRIVER Stone Kidney DX CHEST AP OR PA AND LATERAL 2 VIEWS RAD - Routine (most inpatients and all outpatients) 10/10/2024 11:22 AM SKIP LOAD DRIVER Stone Kidney LIPID PANEL, S Routine 10/10/2024 11:03 AM SKIP LOAD DRIVER Atrial Fibrillation Paroxysmal (HCC) 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 Hyperlipidemia THYROID FUNCTION CASCADE, S Routine 10/10/2024 11:03 AM SKIP LOAD DRIVER Atrial Fibrillation Paroxysmal (HCC) 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 Hyperlipidemia NT-PRO B-TYPE NATRIURETIC PEPTIDE (BNP), S Routine 10/10/2024 11:03 AM SKIP LOAD DRIVER Atrial Fibrillation Paroxysmal (HCC) 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 Hyperlipidemia TROPONIN T, 5TH GEN, P Routine 10/10/2024 11:03 AM SKIP LOAD DRIVER Atrial Fibrillation Paroxysmal (HCC) 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 Hyperlipidemia BASIC METABOLIC PANEL, S/P Routine 10/10/2024 11:03 AM SKIP LOAD DRIVER Stone Kidney CBC WITHOUT DIFFERENTIAL, B Routine 10/10/2024 11:03 AM SKIP LOAD DRIVER Stone Kidney OUTSIDE US CARD Routine 09/29/2024 12:00 AM SKIP LOAD DRIVER CYTOLOGY NON-IDENTIFICATION OFFICER (SCHEDULED) Routine 09/08/2024 9:07 AM SKIP LOAD DRIVER Hematuria URO CYSTOSCOPY (GENERAL) Routine 09/08/2024 9:00 AM SKIP LOAD DRIVER Hematuria BASIC METABOLIC PANEL, S/P Routine 09/08/2024 8:25 AM SKIP LOAD DRIVER Stone Kidney CT UROGRAM WITHOUT AND WITH IV CONTRAST RAD - Routine (most inpatients and all outpatients) 08/13/2024 1:03 PM SKIP LOAD DRIVER Hematuria CREATININE WITH EGFR, S/P Routine 08/11/2024 10:20 AM SKIP LOAD DRIVER Hematuria URO UROFLOW Routine 08/08/2024 2:30 PM SKIP LOAD DRIVER Symptom Urinary PH, U Routine 08/08/2024 11:45 AM SKIP LOAD DRIVER DIPSTICK, U Routine 08/08/2024 11:45 AM SKIP LOAD DRIVER OSMOLALITY, U Routine 08/08/2024 11:45 AM SKIP LOAD DRIVER MICROSCOPIC AUTOMATED Routine 08/08/2024 11:45 AM SKIP LOAD DRIVER URINALYSIS WITH MICROSCOPIC Routine 08/08/2024 11:45 AM SKIP LOAD DRIVER Symptom Urinary PROSTATE-SPECIFIC AG (PSA) DIAGNOSTIC, S Routine 08/06/2024 8:45 AM SKIP LOAD DRIVER Primary Malignant Neoplasm Of Prostate (HCC) from Last 3 Months Results * (TTE) 2D ECHO DOPPLER COLOR (10/10/2024 4:00 PM SKIP LOAD DRIVER) Ejection Fraction 65 MC CV EIMS Mid-Ascending Aorta 33 MC CV EIMS LV Mass Index 131 MC CV EIMS LV End-Diastolic Diameter 55 MC CV EIMS LV End-Systolic Diameter 35 MC CV EIMS LV End-Diastolic Volume 138 MC CV EIMS LV End-Systolic Volume 49 MC CV EIMS MV E Velocity 0.7 MC CV EIMS MV A Velocity 0.9 MC CV EIMS MV E/A 0.78 MC CV EIMS MV e' Velocity Medial 0.05 MC CV EIMS MV e' Velocity Lateral 0.07 MC CV EIMS MV E/e' Medial 14 MC CV EIMS MV E/e' Lateral 10 MC CV EIMS Left ventricular stroke volume index 48 MC CV EIMS Cardiac Output 4.59 MC CV EIMS Cardiac Index 2.21 MC CV EIMS LV Global Longitudinal Strain -19 MC CV EIMS LV Interventricular Septal Wall Thickness 13 MC CV EIMS LV Posterior Wall Thickness 11 MC CV EIMS LV Relative Wall Thickness 40 MC CV EIMS Tricuspid Annular S 0.11 MC CV EIMS TR Vmax 2.25 MC CV EIMS RA Pressure 5 MC CV EIMS RV Systolic Pressure 25 MC CV EIMS Estimated diastolic pulmonary artery pressure 6 MC CV EIMS AV mean gradient 28 MC CV EIMS Aortic valve area 1.08 MC CV EIMS Aortic Valve Area Index 0.52 MC CV EIMS Aortic Valve Dimensionless Index 0.26 MC CV EIMS LA Volume Index 51 MC CV EIMS Aortic Valve Systolic Peak Velocity 3.5 MC CV EIMS Anatomical Region Laterality Modality Echocardiography 10/10/2024 2:51 PM SKIP LOAD DRIVER Impressions 10/10/2024 4:01 PM SKIP LOAD DRIVER LEFT VENTRICLE:Normal left ventricular chamber size. Normal left ventricular wall thickness. Calculated 2-D biplane volumetric left ventricular ejection fraction of 65%. Global averaged left ventricular longitudinal peak systolic strain is normal at -19% (normal = more negative than -18%). No regional wall motion abnormalities. Grade 1/3 left ventricular diastolic dysfunction, consistent with low to normal left ventricular filling pressure at rest. RIGHT VENTRICLE:Normal right ventricular chamber size. Normal right ventricular systolic function. Estimated right ventricular systolic pressure 25 mmHg (right atrial pressure of 5 mmHg). ATRIA:Severely enlarged left atrial size. Left atrial volume index 51 ml/m2. Enlarged right atrial size by visual estimate. CARDIAC VALVES:Trileaflet aortic valve. Moderate calcific aortic valve stenosis. Aortic valve systolic mean Doppler gradient 28 mmHg. Aortic valve area by Doppler 1.08 cm2. No aortic valve regurgitation. Mildly thickened mitral valve. Trivial mitral valve regurgitation. Normal pulmonary valve. Normal pulmonary valve systolic velocities. Trivial pulmonary valve regurgitation. Normal tricuspid valve. Trivial tricuspid valve regurgitation. OTHER ECHO FINDINGS:Normal inferior vena cava size with normal inspiratory collapse (>50%). Normal mid ascending aorta diameter of 33 mm. Abdominal aorta not visualized. Imaging inadequate for detection of atrial level shunt by color flow imaging. No intracardiac mass or thrombus, but the left atrial appendage cannot be visualized adequately with transthoracic echo to exclude thrombus in this location. No pericardial effusion. Prominent epicardial fat layer. For the complete report, see the Order-Level Documents. Narrative 10/10/2024 4:01 PM SKIP LOAD DRIVER For the complete report, see the Order-Level Documents. Hemodynamics Heart Rate: 46 BPM Blood Pressure: 152 / 71 mmHg ECG: Sinus rhythm, Bradycardia Final Impressions 1. Moderate calcific aortic valve stenosis, systolic mean Doppler gradient 28 mmHg, valve area by Doppler 1.08 cm2. 2. Normal left ventricular chamber size, no regional wall motion abnormalities, calculated 2-D biplane volumetric ejection fraction of 65%, global averaged longitudinal peak systolic strain is normal at -19% (normal = more negative than -18%). 3. Normal right ventricular chamber size, normal systolic function, estimated right ventricular systolic pressure 25 mmHg (right atrial pressure of 5 mmHg). 4. Severely enlarged left atrial size. 5. No pericardial effusion. 6. Normal mid ascending aorta diameter of 33 mm. 7. Normal inferior vena cava size with normal inspiratory collapse (>50%). 8. There are no previous [facility] echocardiograms available for comparison. Procedure Note Paras Diaz M.D. - 10/10/2024 For the complete report, see the Order-Level Documents. Hemodynamics Heart Rate: 46 BPM Blood Pressure: 152 / 71 mmHg ECG: Sinus rhythm, Bradycardia Final Impressions 1. Moderate calcific aortic valve stenosis, systolic mean Doppler [id number] mmHg, valve area by Doppler 1.08 cm2. 2. Normal left ventricular chamber size, no regional wall motionabnormalities, calculated 2-D biplane volumetric ejection fraction of 65%,global averaged longitudinal peak systolic strain is normal at -19%(normal = more negative than -18%). 3. Normal right ventricular chamber size, normal systolic function,estimated right ventricular systolic pressure 25 mmHg (right atrialpressure of 5 mmHg). 4. Severely enlarged left atrial size. 5. No pericardial effusion. 6. Normal mid ascending aorta diameter of 33 mm. 7. Normal inferior vena cava size with normal inspiratory collapse(>50%). 8. There are no previous [facility] echocardiograms available forcomparison. Findings LEFT VENTRICLE:Normal left ventricular chamber size. Normal leftventricular wall thickness. Calculated 2-D biplane volumetric leftventricular ejection fraction of 65%. Global averaged left ventricularlongitudinal peak systolic strain is normal at -19% (normal = morenegative than -18%). No regional wall motion abnormalities. Grade 1/3 leftventricular diastolic dysfunction, consistent with low to normal leftventricular filling pressure at rest. RIGHT VENTRICLE:Normal right ventricular chamber size. Normal rightventricular systolic function. Estimated right ventricular systolicpressure 25 mmHg (right atrial pressure of 5 mmHg). ATRIA:Severely enlarged left atrial size. Left atrial volume index 51ml/m2. Enlarged right atrial size by visual estimate. CARDIAC VALVES:Trileaflet aortic valve. Moderate calcific aortic valvestenosis. Aortic valve systolic mean Doppler gradient 28 mmHg. Aorticvalve area by Doppler 1.08 cm2. No aortic valve regurgitation. Mildlythickened mitral valve. Trivial mitral valve regurgitation. Normalpulmonary valve. Normal pulmonary valve systolic velocities. Trivialpulmonary valve regurgitation. Normal tricuspid valve. Trivial tricuspidvalve regurgitation. OTHER ECHO FINDINGS:Normal inferior vena cava size with normal inspiratorycollapse (>50%). Normal mid ascending aorta diameter of 33 mm. Abdominalaorta not visualized. Imaging inadequate for detection of atrial levelshunt by color flow imaging. No intracardiac mass or thrombus, but theleft atrial appendage cannot be visualized adequately with transthoracicecho to exclude thrombus in this location. No pericardial effusion.Prominent epicardial fat layer. For the complete report, see the Order-Level Documents. us Inocente Avila M.D. CV ECHO PROCEDURES Final Res ult * (ABNORMAL) Dipstick, Urine (10/10/2024 1:05 PM SKIP LOAD DRIVER) Only the most recent of2 resultswithin the time period is included. Hemoglobin, QL, U Large(A) Negative 10/10/2024 2:08 PM SKIP LOAD DRIVER DTL Leukocyte Esterase, U Trace(A) Negative 10/10/2024 2:08 PM SKIP LOAD DRIVER DTL Nitrite, U Negative Negative 10/10/2024 2:08 PM SKIP LOAD DRIVER DTL Ketone, U Negative Negative mg/dL 10/10/2024 2:08 PM SKIP LOAD DRIVER DTL Glucose, U Negative Negative mg/dL 10/10/2024 2:08 PM SKIP LOAD DRIVER DTL Urine 10/10/2024 1:05 PM SKIP LOAD DRIVER 10/10/2024 1:25 PM SKIP LOAD DRIVER us Gato Shaw M.D. LAB URINE ORDERABLES Final Re sult Performing Organization Address [facility] Co de Phone Number [facility] [address] [place] [address], [facility] [address] [place] [address] * (ABNORMAL) Microscopic Manual (10/10/2024 1:05 PM SKIP LOAD DRIVER) Microscopy Abnormal 10/10/2024 2:51 PM SKIP LOAD DRIVER DTL RBC >100(A) <3 /hpf 10/10/2024 2:51 PM SKIP LOAD DRIVER DTL Dysmorphic RBC <25 <25 % 10/10/2024 2:51 PM SKIP LOAD DRIVER DTL WBC 4-10(A) /hpf 10/10/2024 2:51 PM SKIP LOAD DRIVER DTL Comment: ----REFERENCE VALUE---- <4 (Males) <11 (Females) Urine 10/10/2024 1:05 PM SKIP LOAD DRIVER 10/10/2024 2:08 PM SKIP LOAD DRIVER Gato Shaw M.D. LAB URINE ORDERABLES Final Re sult Performing Organization Address [facility] Co de Phone Number [facility] [address] [place], [place] [id number] [place] [address] [address] [place] [address] * Bacterial Culture, Aerobic + Susceptibility, Urine (10/10/2024 1:05 PM SKIP LOAD DRIVER) Urine Culture Urogenital microbiota, susceptibilities not performed per laboratory criteria. 10/11/2024 2:46 PM SKIP LOAD DRIVER DTL Urine (Urine, Midstream) 10/10/2024 1:05 PM SKIP LOAD DRIVER 10/10/2024 2:06 PM SKIP LOAD DRIVER Comment:Specimen Source Site : Urine us Gato Shaw M.D. LAB MICROBIOLOGY - GENERAL OR DERABLES Final Result Performing Organization Address [facility] Co de Phone Number [facility] [address] [place] [address], [facility] [address] [place] [address] * pH, Urine (10/10/2024 1:05 PM SKIP LOAD DRIVER) Only the most recent of2 resultswithin the time period is included. Pathologist [facility] [place] pH, U 6.0 4.5 - 8.0 10/10/2024 2:3 6 PM SKIP LOAD DRIVER DTL Urine 10/10/2024 1:05 PM SKIP LOAD DRIVER 10/10/2024 1:25 PM SKIP LOAD DRIVER Gato Shaw M.D. LAB URINE ORDERABLES Final Re sult Performing Organization Address [facility] [place] [address] * Osmolality, Urine (10/10/2024 1:05 PM SKIP LOAD DRIVER) Only the most recent of2 resultswithin the time period is included. [facility] Osmolality, U 607 150 - 1150 mOsm/kg 10/10/2024 2:36 PM SKIP LOAD DRIVER DTL Urine 10/10/2024 1:05 PM SKIP LOAD DRIVER 10/10/2024 1:25 PM SKIP LOAD DRIVER us Gato Shaw M.D. LAB URINE ORDERABLES Final Re sult Performing Organization Address [facility] Co de Phone Number [facility] [address] [place] [address] * (ABNORMAL) Urinalysis, with Microscopic: Urine, Midstream (10/10/2024 1:05 PM SKIP LOAD DRIVER) Only the most recent of2 resultswithin the time period is included. Pathologist [facility] [place] Source Urine, Urine, Midstream 10/10/2024 1:25 PM SKIP LOAD DRIVER DTL Color, U Yellow 10/10/2024 1:25 PM SKIP LOAD DRIVER DTL Clarity, U Clear 10/10/2024 1:25 PM SKIP LOAD DRIVER DTL Protein, U 58(H) <26 mg/dL 10/10/2024 2:19 PM SKIP LOAD DRIVER DTL Protein/Osmol ality 0.96(H) <0.42 ratio 10/10/2024 2:36 PM SKIP LOAD DRIVER DTL Predicted 24 HR Protein, U 902(H) <229 mg/24 h 10/10/2024 2:36 PM SKIP LOAD DRIVER DTL Predicted Range 286-2841 mg/24 h 10/10/2024 2:36 PM SKIP LOAD DRIVER DTL Urine (Urine, Midstream) 10/10/2024 1:05 PM SKIP LOAD DRIVER 10/10/2024 1:24 PM SKIP LOAD DRIVER us Gato Shaw M.D. LAB URINE ORDERABLES Final Re sult Performing Organization Address [facility] Co de Phone Number [facility] [address] [place] [address], [facility] DTL [facility] [address] [place] [address] * ECG 12 Lead (10/10/2024 11:52 AM SKIP LOAD DRIVER) Ventricular Rate ECG/Min 42 BPM MUSE TX Interval 190 ms MUSE QRSD Interval 106 ms MUSE QT Interval 514 ms MUSE QTC Interval 429 ms MUSE P [place] 12 degrees MUSE R [place] -11 degrees MUSE T Wave [place] -1 degrees MUSE 10/10/2024 11:5 2 AM SKIP LOAD DRIVER 10/10/2024 2:31 PM SKIP LOAD DRIVER Impressions MUSE - 10/10/2024 11:54 AM SKIP LOAD DRIVER Marked sinus bradycardia Minimal voltage criteria for LVH, may be normal variant Delayed precordial R wave progression No previous ECGs available Revised Report Narrative Procedure Note Pierre Rajput Jr., M.D. - 10/10/2024 IMPRESSION: Marked sinus bradycardia Minimal voltage criteria for LVH, may be normal variant Delayed precordial R wave progression No previous ECGs available Revised Report us Gato Shaw M.D. ECG ORDERABLES Edited Result - Final Performing Organization Address [facility]/ZIP Co de Phone Number MUSE NA * DX Chest AP or PA and Lateral 2 Views (10/10/2024 11:22 AM SKIP LOAD DRIVER) Anatomical Region Laterality Modality Chest, Thoracic RST LOS, Tho racic ARZ LOS, Thoracic FLA LOS N/A Digital Radiography Impressions 10/10/2024 11:38 AM SKIP LOAD DRIVER Interstitial opacities within the bilateral mid and lower lungs, greater on the left. These likely correspond with fibrotic change seen on 08/13/2024 CT urogram. Aortic calcification. Hypertrophic degenerative changes thoracic spine with mild anterior wedging of several midthoracic vertebral bodies. Chest otherwise negative. Narrative 10/10/2024 11:38 AM SKIP LOAD DRIVER EXAM: DX CHEST AP OR PA AND LATERAL 2 VIEWS Procedure Note Sahil Neri M.D. - 10/10/2024 EXAM: DX CHEST AP OR PA AND LATERAL 2 VIEWS IMPRESSION: Interstitial opacities within the bilateral mid and lower lungs, greateron the left. These likely correspond with fibrotic change seen on08/13/2024 CT urogram. Aortic calcification. Hypertrophic degenerativechanges thoracic spine with mild anterior wedging of several midthoracic vertebral bodies. Chestotherwise negative. us Gato Shaw M.D. IMG DIAGNOSTIC IMAGING PROCED URES Final Result * (ABNORMAL) Lipid Panel (10/10/2024 11:03 AM SKIP LOAD DRIVER) Triglycerides 163(H) mg/dL 10/10/2024 12:20 PM SKIP LOAD DRIVER DTL Comment: ----REFERENCE VALUE---- Normal: <150 mg/dL Borderline High: 150-199 mg/dL High: 200-499 mg/dL Very High: > or =500 mg/dL Cholesterol, Total 143 mg/dL 2024 12:20 PM SKIP LOAD DRIVER DTL Comment: ----REFERENCE VALUE---- Desirable: < 200 mg/dL Borderline High: 200 - 239 mg/dL High: > or = 240 mg/dL Cholesterol, LDL, Calculated 78 mg/dL 10/10/2024 12:20 PM SKIP LOAD DRIVER DTL Comment: ----REFERENCE VALUE---- Desirable: <100 mg/dL Above Desirable: 100-129 mg/dL Borderline High: 130-159 mg/dL High: 160-189 mg/dL Very High: >=190 mg/dL ----ADDITIONAL INFORMATION---- LDL cholesterol calculated using the Sawant/NIH equation. Cholesterol, HDL, S 37(L) >=40 mg/dL 10/10/2024 12:20 PM SKIP LOAD DRIVER DTL Cholesterol, Non-HDL, Calculated 106 mg/dL 10/10/2024 12:20 PM SKIP LOAD DRIVER DTL Comment: ----REFERENCE VALUE---- Desirable: <130 mg/dL Above Desirable: 130-159 mg/dL Borderline High: 160-189 mg/dL High: 190-219 mg/dL Very High: > or =220 mg/dL Fasting (8 HR or more) Yes 10/10/2024 11:03 AM SKIP LOAD DRIVER DTL Blood (Blood, Venous) 10/10/2024 11:03 AM SKIP LOAD DRIVER 10/10/2024 11:36 AM SKIP LOAD DRIVER us Inocente Avila M.D. LAB BLOOD ADD-ON Final Resul t Performing Organization Address City/[facility] Co de Phone Number [facility] [address] [facility] [address] [place] [address] * Thyroid Function [place] (10/10/2024 11:03 AM SKIP LOAD DRIVER) TSH, Sensitive 1.9 0.3 - 4.2 mIU/L 10/10/2024 12:20 PM SKIP LOAD DRIVER DTL Blood (Blood, Venous) 10/10/2024 11:03 AM SKIP LOAD DRIVER 10/10/2024 11:36 AM SKIP LOAD DRIVER us Inocente Avila M.D. LAB BLOOD ADD-ON Final Resul t Performing Organization Address City/[facility]/ZIP Co de Phone Number [facility] [address] DTL [facility] [address] [place] [address] * (ABNORMAL) NT-Pro B-Type Natriuretic Peptide (BNP) (10/10/2024 11:03 AM SKIP LOAD DRIVER) Pathologist [facility] NT-Pro BNP 710(H) <=540 pg/mL 10/10/2024 12:20 PM SKIP LOAD DRIVER DTL Comment: NT-proBNP values less than 300 pg/mL have a 99% negative predictive value for excluding acute congestive heart failure. A cutoff of 1200 pg/mL for patients with an eGFR<60 yields a diagnostic sensitivity and specificity of 89% and 72% for acute congestive heart failure. A diagnostic NT-proBNP cutoff of 1800 pg/mL has been suggested in adults over 75 years of age in the absence of renal failure. Blood (Blood, Venous) 10/10/2024 11:03 AM SKIP LOAD DRIVER 10/10/2024 11:36 AM SKIP LOAD DRIVER us Inocente Avila M.D. LAB BLOOD [place] [address], [facility] [address] * (ABNORMAL) CBC without Differential (10/10/2024 11:03 AM SKIP LOAD DRIVER) [facility] Hemoglobin 13.1(L) 13.2 - 16.6 g/dL 10/10/2024 11:43 AM SKIP LOAD DRIVER DTL Hematocrit 41.4 38.3 - 48.6 % 10/10/2024 11:43 AM SKIP LOAD DRIVER DTL Erythrocytes 4.36 4.35 - 5.65 x10(12)/L 10/10/2024 11:43 AM SKIP LOAD DRIVER DTL MCV 95.0 78.2 - 97.9 fL 10/10/2024 11:43 AM SKIP LOAD DRIVER DTL RBC Distrib Width 13.2 11.8 - 14.5 % 10/10/2024 11:43 AM SKIP LOAD DRIVER DTL Platelet Count 325(H) 135 - 317 x10(9)/L 10/10/2024 11:43 AM SKIP LOAD DRIVER DTL Leukocytes 5.2 3.4 - 9.6 x10(9)/L 10/10/2024 11:43 AM SKIP LOAD DRIVER DTL Blood (Blood, Venous) 10/10/2024 11:03 AM SKIP LOAD DRIVER 10/10/2024 11:23 AM SKIP LOAD DRIVER Gato Shaw M.D. LAB BLOOD ADD-ON Final Result Performing Organization Address City/[facility]/ZIP Co de Phone Number [facility] [address] [place] [address], [facility] [address] [place] [address] * (ABNORMAL) Troponin T, 5th Generation (10/10/2024 11:03 AM SKIP LOAD DRIVER) Troponin T, 5th gen 34(H) <=15 ng/L 10/10/2024 12:25 PM SKIP LOAD DRIVER DTL Blood (Blood, Venous) 10/10/2024 11:03 AM SKIP LOAD DRIVER 10/10/2024 11:37 AM SKIP LOAD DRIVER Inocente Avila M.D. LAB BLOOD ADD-ON Final Resul t Performing Organization Address City/[facility] Co de Phone Number [facility] [address] [place] [address], [place] [address] * Basic Metabolic Panel (10/10/2024 11:03 AM SKIP LOAD DRIVER) Only the most recent of2 resultswithin the time period is included. Potassium, S 4.7 3.6 - 5.2 mmol/L 10/10/2024 12:20 PM SKIP LOAD DRIVER DTL Sodium, S 141 135 - 145 mmol/L 10/10/2024 12:20 PM SKIP LOAD DRIVER DTL Chloride, S 104 98 - 107 mmol/L 10/10/2024 12:20 PM SKIP LOAD DRIVER DTL Bicarbonate, S 26 22 - 29 mmol/L 10/10/2024 12:20 PM SKIP LOAD DRIVER DTL Anion Gap 11 7 - 15 10/10/2024 12:20 PM SKIP LOAD DRIVER DTL BUN (Blood Urea Nitrogen), S 17 8 - 24 mg/dL 10/10/2024 12:20 PM SKIP LOAD DRIVER DTL Creatinine 1.15 0.74 - 1.35 mg/dL 10/10/2024 12:20 PM SKIP LOAD DRIVER DTL Estimated GFR (eGFR) 64 >=60 mL/min/BSA 10/10/2024 12:20 PM SKIP LOAD DRIVER DTL Comment: Estimated GFR calculated using the 2020 CKD_EPI creatinine equation. Calcium, Total, S 9.9 8.8 - 10.2 mg/dL 10/10/2024 12:20 PM SKIP LOAD DRIVER DTL Glucose, S 91 70 - 140 mg/dL 10/10/2024 12:20 PM SKIP LOAD DRIVER DTL Blood (Blood, Venous) 10/10/2024 11:03 AM SKIP LOAD DRIVER 10/10/2024 11:36 AM SKIP LOAD DRIVER us Gato Shaw M.D. LAB BLOOD ADD-ON Final Result Performing Organization Address [facility] Co de Phone Number [facility] [address] [place] [address], [place] DTL [facility] [address] [place] [address] * ECHO TTE COMPLETE W CONTRAST-Outside US Card (09/29/2024 12:00 AM SKIP LOAD DRIVER) Narrative IIMS - 10/02/2024 2:10 PM SKIP LOAD DRIVER This order has been created and auto-finalized to support the import of outside images. If available, original interpretation can be found on the Media Tab in Chart Review, in Document Viewer, as an image in QREADS or as an Addendum. If a re-interpretation or overread is required please follow defined workflow. us Provider Not In System IMG NON RAD IMAGING PROCE DURES Final Result Performing Organization Address City/[facility]/ZIP Co de Phone Number IINE NA * (ABNORMAL) Cytology Non-IDENTIFICATION OFFICER (Scheduled) (09/08/2024 9:07 AM SKIP LOAD DRIVER) (A ) 09/09/2024 2:39 PM SKIP LOAD DRIVER DTL Participated in the Interpretation Franki Berry M.D.-Patholog y Fellow(A) 09/09/2024 2:39 PM SKIP LOAD DRIVER DTL Report electronically signed by Jair Vences M.D., Ph.D. I verify that I have examined all relevant slides/materi als for the specimen(s) and rendered or confirmed the diagnosis. (A) 09/09/2024 2:39 PM SKIP LOAD DRIVER DTL Gross Description Received 60 cc of yellow fluid.(A) 09/09/2024 2:39 PM SKIP LOAD DRIVER DTL Source A. Urine, voided(A) 09/09/2024 2:39 PM SKIP LOAD DRIVER DTL Interpretation A. 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 (A) 09/09/2024 2:39 PM SKIP LOAD DRIVER DTL Urine 09/08/2024 9:07 AM SKIP LOAD DRIVER 09/08/2024 10:52 AM SKIP LOAD DRIVER Shellie Howe APRN, C.N.P., D.N.P. LAB SURG PATH ORDERABLES Final Result Performing Organization Address City/State/[facility] Co de Phone Number [facility] [address] [place] [address], [facility] DT [address] [place] [address] * URO Cystoscopy (general) (09/08/2024 9:00 AM SKIP LOAD DRIVER) Narrative Hortensia Quiroga P.A.-C. - 09/08/2024 9:00 AM SKIP LOAD DRIVER Hortensia Quiroga P.A.-C. 09/08/2024 9:27 AM URO Cystoscopy (general) Performed by: Hortensia Quiroga P.A.-C. Authorized by: Shellie Howe APRN, C.N.P., D.N.P. Care team members present 1. Hortensia Quiroga P.A.-C. Additional procedures performed: cystoscopy PROCEDURE DETAILS: Blue light imaging agent used: no Fluoroscopy: Fluoroscopic image guidance used to localize target, identify at risk structures, and dynamically used to direct therapy to the target. Image(s) acquired and saved. A flexible cystoscope was inserted through the urethra into the bladder. Cystoscope was removed at the end of procedure. Indication: Hematuria Recent cross-sectional imaging noting urinary calculi. Urine cytology pending. Patient brought to cystoscopy suite and placed in dorsal lithotomy position. Patient was prepped and draped in standard fashion. Consent was obtained to proceed. Flexible cystoscope inserted per urethra and urethroscopy demonstrated a normally coapted urethral sphincter, moderate lateral lobe hyperplasia, and no pathology. Scope was advanced into the bladder which was heavily trabeculated, widespread irritation and patchy erythema throughout. Several cellules demonstrates some indeterminate mucosal change/rippling that appears indeterminate for neoplastic change. An outpouching along the right lateral bladder wall/right trigone demonstrates papillary findings within are suspicious for urothelial carcinoma. Within the trigone a large calculus is freely dependent. Areas of bright red erythema nearby are likely due to abrasion. Ureteral orifices appear to be orthotopic bilaterally. Minimal hematuria during procedure due to scope abrasion and friable tissue near the bladder neck. Scope removed and patient tolerated procedure well. Impression: Large calculus within the trigone Area of papillary appearing change right lateral bladder wall/right trigone suspicious for possible urothelial carcinoma Several indeterminate areas of mucosal rippling throughout bladder Plan: Visit with Dr. Shaw service today CONSENT Consent obtained: verbal Consent given by: patient The benefits, risks and alternatives to the procedure and the potential need for sedation or anesthesia as well as the names, roles, and responsibilities of healthcare team members performing significant interventional tasks were discussed with the patient and/or decision maker. UNIVERSAL PROTOCOL All relevant documentation and testing were reviewed and available. All required blood products, implants, devices and or special equipment were made available as applicable. Pre-procedure verification was conducted and the correct site was marked if required. A fire risk and smoke assessment were done as applicable. The procedural time-out to verify correct patient, correct side/site, and procedure was conducted prior to performing the procedure and confirmed in a procedural pause. PRE-PROCEDURE DETAILS Procedure purpose: Diagnostic Appropriate hand hygiene, gown, cap, mask, protective eyewear, sterile gloves, skin preparation, sterile drape, and strict aseptic technique were utilized as applicable for the procedure.: yes Site preparation: Povidone-iodine SEDATION / ANESTHESIA Anesthesia method: none POST-PROCEDURE DETAILS Procedure completed successfully: yes Complications: no apparent complications us Shellie Howe APRN, C.N.P., D.N.P. UROLOGY ORDERABLES Final Result * CT Urogram without and with IV Contrast (08/13/2024 1:03 PM SKIP LOAD DRIVER) Anatomical Region Laterality Modality Abdomen, Pelvis, Abdominal R ST LOS, Abdominal ARZ LOS, Abdominal FLA LOS N/A Computed Tomograp hy, Computed Tomography 08/13/2024 12:4 6 PM SKIP LOAD DRIVER Impressions 08/13/2024 3:31 PM SKIP LOAD DRIVER 1. 9 mm nonobstructing calculus at the left UPJ, with surrounding ureteral wall thickening and enhancement and periureteral stranding. 2. Additional 10 mm calculus in the urinary bladder and 8 mm nonobstructing calculus in the lower pole right kidney. Narrative 08/13/2024 3:31 PM SKIP LOAD DRIVER EXAM: CT UROGRAM WITHOUT AND WITH IV CONTRAST COMPARISON: PET/CT 06/28/2023. FINDINGS: : 9 mm nonobstructing calculus at left UPJ (series 202 image 149), new since PET/CT 06/28/2023. Mild surrounding ureteral wall thickening enhancement and periureteral fat stranding. Mild left hydronephrosis and perinephric stranding. Very slightly delayed left nephrogram. No other filling defects or abnormal enhancement in the collecting systems or ureters. Mild narrowing without complete obstruction of the right ureter at the level of the crossing right external iliac vein (series 601 image 52). No suspicious renal masses. Additional 10 mm calculus in the posterior dependent bladder (series 202 image 455) and 8 mm nonobstructing calculus in the right lower pole (series 202 image 217). Bilateral renal cysts. Pelvic phleboliths. Prostate fiducial markers and prostatomegaly. Non-: Normal appearance of the liver, gallbladder, spleen, and adrenal glands. Pancreatic atrophy. Periampullary duodenal diverticulum. Normal caliber small and large bowel. Small esophageal hiatal hernia. No abdominopelvic lymphadenopathy. Aortoiliac vascular calcifications. No suspicious osseous lesion. Degenerative changes of the spine, pubic symphysis, hips, and SI joints. Bibasilar atelectasis and fibrosis. Bibasilar calcified pulmonary granulomas. Partially visualized small solid noncalcified pulmonary nodule in the peripheral right middle lobe (series 301 image 1), which was likely present on PET/CT from 06/28/2023, not significant changed. Procedure Note Willem Shukla M.B., B.Ch., B.A.O. - 08/13/2024 EXAM: CT UROGRAM WITHOUT AND WITH IV CONTRAST COMPARISON: PET/CT 06/28/2023. FINDINGS: : 9 mm nonobstructing calculus at left UPJ (series 202 image 149), newsince PET/CT 06/28/2023. Mild surrounding ureteral wall thickeningenhancement and periureteral fat stranding. Mild left hydronephrosis andperinephric stranding. Very slightly delayed left nephrogram. No other filling defects or abnormal enhancementin the collecting systems or ureters. Mild narrowing without completeobstruction of the right ureter at the level of the crossing rightexternal iliac vein (series 601 image 52). No suspicious renal masses. Additional 10 mm calculus in the posterior dependent bladder (series 202image 455) and 8 mm nonobstructing calculus in the right lower pole(series 202 image 217). Bilateral renal cysts. Pelvic phleboliths.Prostate fiducial markers and prostatomegaly. Non-: Normal appearance of the liver, gallbladder, spleen, and adrenalglands. Pancreatic atrophy. Periampullary duodenal diverticulum. Normalcaliber small and large bowel. Small esophageal hiatal hernia. No abdominopelvic lymphadenopathy. Aortoiliac vascular calcifications. No suspicious osseous lesion. Degenerative changes of the spine, pubicsymphysis, hips, and SI joints. Bibasilar atelectasis and fibrosis. Bibasilar calcified pulmonarygranulomas. Partially visualized small solid noncalcified pulmonary nodulein the peripheral right middle lobe (series 301 image 1), which was likelypresent on PET/CT from 06/28/2023, not significant changed. IMPRESSION: 1. 9 mm nonobstructing calculus at the left UPJ, with surrounding ureteralwall thickening and enhancement and periureteral stranding. 2. Additional 10 mm calculus in the urinary bladder and 8 mmnonobstructing calculus in the lower pole right kidney. us Missy Castillo APRN.N.PDaisy, D.N.P. IMG CT P ROCEDURES Final Result * Creatinine with Estimated GFR (08/11/2024 10:20 AM SKIP LOAD DRIVER) Creatinine 1.21 0.74 - 1.35 mg/dL 08/11/2024 11:29 AM SKIP LOAD DRIVER DTL Estimated GFR (eGFR) 61 >=60 mL/min/BSA 08/11/2024 11:29 AM SKIP LOAD DRIVER DTL Comment: Estimated GFR calculated using the 2020 CKD_EPI creatinine equation. Blood (Blood, Venous) 08/11/2024 10:20 AM SKIP LOAD DRIVER 08/11/2024 11:01 AM SKIP LOAD DRIVER us Shellie Howe APRN C.N.P., D.N.P. LAB BLOO D ADD-ON Final Result [facility] [address] [place] [address], [facility] [address] [place] [address] * URO Uroflow (08/08/2024 2:30 PM SKIP LOAD DRIVER) Narrative Piter Ferrell M.D. - 08/08/2024 2:30 PM SKIP LOAD DRIVER Piter Ferrell M.D. 08/09/2024 8:25 AM Reason for visit: UROFLOW The patient is here for a complex uroflow via calibrated electronic equipment and residual urine checked by ultrasound. Indications: Urinary incontinence Peak flow: 12.1 ml/sec Average flow: 5.1 ml/sec Voiding time: 27.6 sec Total voided volume: 118 mls Continuous (smooth) flow pattern Residual urine: 7 ml by ultrasound Impression: Low voided volume with low postvoid residual. us Rigoberto Flores M.D. UROLOGY ORDERABLES Final Resul t * (ABNORMAL) Microscopic Automated (08/08/2024 11:45 AM SKIP LOAD DRIVER) Microscopy Abnormal 08/08/2024 1:17 PM SKIP LOAD DRIVER DTL RBC 11-20(A) <3 /hpf 08/08/2024 1:17 PM SKIP LOAD DRIVER DTL Dysmorphic RBC <25 <25 % 08/08/2024 1:17 PM SKIP LOAD DRIVER DTL WBC 4-10(A) /hpf 08/08/2024 1:17 PM SKIP LOAD DRIVER DTL Comment: ----REFERENCE VALUE---- <4 (Males) <11 (Females) Urine 08/08/2024 11:4 5 AM SKIP LOAD DRIVER 08/08/2024 12:51 PM SKIP LOAD DRIVER Rigoberto Flores M.D. LAB URINE ORDERABLES Final Res ult Performing Organization Address [facility] Co de Phone Number [facility] [facility] [address] [place] [address] * PSA (Prostate-Specific Antigen), Diagnostic (08/06/2024 8:45 AM SKIP LOAD DRIVER) Prostate-Specific Ag <0.10 <=7.2 ng/mL 08/06/2024 9:47 AM SKIP LOAD DRIVER DTL Comment: ----ADDITIONAL INFORMATION---- The testing method is an electrochemiluminescence assay manufactured by [employer] and performed on the Modular or Kerrie system. Values obtained with different assay methods or kits may be different and cannot be used interchangeably. Test results cannot be interpreted as absolute evidence for the presence or absence of malignant disease. Blood (Blood, Venous) 08/06/2024 8:45 AM SKIP LOAD DRIVER 08/06/2024 9:10 AM SKIP LOAD DRIVER Gato Larkin APRN, C.N.P., D.N.P. LAB BLOOD ADD -ON Final Result Performing Organization Address [facility] Co de Phone Number [facility] 200 [place] [address], [facility] 200 [place] [address] from Last 3 Mon[address] Insurance [facility]
--- OUTSIDE RECORDS SUMMARY | 2024-10-17 22:58 | XMS_ITS | Encounter Summary ---
Author Organization [facility] Address [address] [place] [address] Care Team Providers Care Still Photographer Name Role Phone Unavailable Primary Care Provider Unavailabl e Encounter Details Date Type Department Care Team (Latest Contact Info) Description 10/10/2024 10:50 AM [facility] Hospital Encounter Department of Laboratory Medicine and Pathology, [facility] in [place], [place] [address] [place] [phone] Gato Shaw M.D. [address] [place] [phone] [facility] Discharge Disposition: Home or Self Care Social History Tobacco Use Types Packs/Day Years Used Date Smoking Tobacco: Never Passive Smoke Exposure: Never Smokeless Tobacco: Never Alcohol Use Standard Drinks/Week Comments Yes 1 (1 standard drink = 0.6 oz pur e alcohol) Overall Financial Resource Strain (CARDIA) Answe r Date Recorded How hard is it for you to pa y for the very basics like food, housing, medical care, and heating? Not hard at all 08/08/2023 Exercise Vital Sign Answer Date Recorde d On average, how many days pe r week do you engage in moderate to strenuous exercise (like a brisk walk)? 2 days Minutes of Exercise per Session Not on file 08/08/2023 Hunger Vital Sign Answer Date Recorded Within the past 12 months, y ou worried that your food would run out before you got the money to buy more. Never true 08/08/20 23 Ran Out of Food in the Last Year Not on file 08/08/2023 PRAPARE - Transportation Answer Date Re corded In the past 12 months, has l ack of transportation kept you from medical appointments or from getting medications? No 05/2023 In the past 12 months, has l ack of transportation kept you from meetings, work, or from getting things needed for daily living? No 08/08/2023 Nutrition Answer Date Recorded On average, how many serving s of fruits and vegetables do you eat per day (serving size is equal to 1 cup or approximately the size of a tennis ball)? 0-2 08/08/2023 Dental Answer Date Recorded Dental: Regular Dentist Yes 08/08/20 Employment Answer Date Recorded Employment status Retired 08/08/2023 Housing Stability Answer Date Recorded What is your living situation today? 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 06/26/2023 apixaban (Eliquis) 5 mg tablet Take 1 tablet by mouth 2 (two) times a day. 10/08/2024 atorvastatin (LIPITOR) 10 mg tablet Take 10 mg by mouth daily. 06/16/2021 bicalutamide (CASODEX) 50 mg tablet Take 1 tablet (50 mg total) by mouth daily. Take at the same time everyday. Take with or without food. 14 tablet 06/28/2023 calcium carbonate (CALCIUM 500 ORAL) Take 2 tablets by mouth daily. 06/20/2011 calcium carbonate-vitami n D3 1,500 mg (600 mg calcium)-10 mcg (400 Unit) per tablet Take 1 tablet by mouth 2 (two) times a day with meals. cholecalciferol, vitamin D3, 10 mcg (400 unit) capsule Take 2,000 Units by mouth daily. 02/15/2011 fluticasone propionate (FLONASE) 50 mcg/actuation nasal spray Administer into nostril(s) daily. 04/04/2023 hydroCHLOROthiaz jeniffer (HYDRODIURIL) 12.5 mg tablet Stopped for now 05/05/2021 indomethacin (INDOCIN) 25 mg capsule For flares 06/26/2023 metoprolol tartrate (LOPRESSOR) 25 mg tablet as directed. Two tablets in AM and one PM 05/05/2021 multivitamin (MULTI-DAY ORAL) Take 1 tablet by mouth daily. 06/20/2011 tadalafiL (CIALIS, ADCIRCA) 20 mg tablet Take 20 mg by mouth. 05/05/2021 tamsulosin (FLOMAX) 0.4 mg 24 hr capsule Take 0.4 mg by mouth. 05/05/2021 documented as of this encounter Plan of Treatment Upcoming Encounters Date Type Department Care Team (Latest Contact Info) Description 10/21/2024 1:15 PM FOOD AND NUTRITION PROFESSOR Clinical Communication Virtual Review in [place], [place] 200 [place] [address] 10/23/2024 12:00 PM FOOD AND NUTRITION PROFESSOR Appointment Department of Radiology, [facility], in [address] [phone] Inocente Aivla M.D. [address] [place] [phone] Discharge Disposition: Home or Self Care 10/23/2024 2:00 PM FOOD AND NUTRITION PROFESSOR Comprehensive Visit Preoperative Evaluation Center in [address] [phone] Winnie Becker M.D., M.S. [address] [place] [phone] 10/24/2024 1:08 PM FOOD AND NUTRITION PROFESSOR Hospital Encounter Outpatient Procedure Center in [address] [phone] Gato Shaw M.D. [address] [place] [phone] 10/24/2024 1:08 PM FOOD AND NUTRITION PROFESSOR - 10/24/2024 3:34 PM FOOD AND NUTRITION PROFESSOR Surgery Outpatient Procedure Center in [place], [place] [address] [place] [address] Gato Shaw M.D. [address] [place] [phone] CYSTOLITHOLAPAXY Scheduled Procedures Name Priority Associated Diagnoses Date/Ti me CYSTOLITHOLAPAXY [facility] Hematuria 10/24/2024 1:08 PM FOOD AND NUTRITION PROFESSOR CYSTOSCOPY BIOPSY FULGURATION [facility] Hematuria 10/24/2024 1:08 PM FOOD AND NUTRITION PROFESSOR URETEROSCOPY STONE EXTRACTION [facility] Hematuria 10/24/2024 1:08 PM FOOD AND NUTRITION PROFESSOR documented as of this encounter Procedures Procedure Name Priority Date/Time Associated Diagnosis Comments DIPSTICK, U Routine 10/10/2024 1:05 PM FOOD AND NUTRITION PROFESSOR MICROSCOPIC MANUAL Routine 10/10/2024 1: 05 PM FOOD AND NUTRITION PROFESSOR BACTERIAL CULTURE, AEROBIC + SUSC, URINE Routine 10/10/2024 1:05 PM FOOD AND NUTRITION PROFESSOR [facility] PH, U Routine 10/10/2024 1:05 PM FOOD AND NUTRITION PROFESSOR OSMOLALITY, U Routine 10/10/2024 1:05 PM FOOD AND NUTRITION PROFESSOR URINALYSIS WITH MICROSCOPIC Routine 10/10/2024 1:05 PM FOOD AND NUTRITION PROFESSOR [facility] documented in this encounter Results * (ABNORMAL) Microscopic Manual (10/10/2024 1:05 PM FOOD AND NUTRITION PROFESSOR) Microscopy Abnormal 10/10/2024 2:51 PM FOOD AND NUTRITION PROFESSOR DTL RBC >100(A) <3 /hpf 10/10/2024 2:51 PM FOOD AND NUTRITION PROFESSOR DTL Dysmorphic RBC <25 <25 % 10/10/2024 2:51 PM FOOD AND NUTRITION PROFESSOR DTL WBC 4-10(A) /hpf 10/10/2024 2:51 PM FOOD AND NUTRITION PROFESSOR DTL Comment: ----REFERENCE VALUE---- <4 (Males) <11 (Females) Urine 10/10/2024 1:05 PM FOOD AND NUTRITION PROFESSOR 10/10/2024 2:08 PM FOOD AND NUTRITION PROFESSOR us Gato Shaw M.D. LAB URINE ORDERABLES Final Re sult Performing Organization Address [facility]/ZIP Co de Phone Number [facility] 200 [place] [address] * pH, Urine (10/10/2024 1:05 PM FOOD AND NUTRITION PROFESSOR) pH, U 6.0 4.5 - 8.0 10/10/2024 2:3 6 PM FOOD AND NUTRITION PROFESSOR DTL Urine 10/10/2024 1:05 PM FOOD AND NUTRITION PROFESSOR 10/10/2024 1:25 PM FOOD AND NUTRITION PROFESSOR us Gato Shaw M.D. LAB URINE ORDERABLES Final Re sult Performing Organization Address [facility] Co de Phone Number [facility] 200 [place] [address] * (ABNORMAL) Dipstick, Urine (10/10/2024 1:05 PM FOOD AND NUTRITION PROFESSOR) Hemoglobin, QL, U Large(A) Negative 10/10/2024 2:08 PM FOOD AND NUTRITION PROFESSOR DTL Leukocyte Esterase, U Trace(A) Negative 10/10/2024 2:08 PM FOOD AND NUTRITION PROFESSOR DTL Nitrite, U Negative Negative 10/10/2024 2:08 PM FOOD AND NUTRITION PROFESSOR DTL Ketone, U Negative Negative mg/dL 10/10/2024 2:08 PM FOOD AND NUTRITION PROFESSOR DTL Glucose, U Negative Negative mg/dL 10/10/2024 2:08 PM FOOD AND NUTRITION PROFESSOR DTL Urine 10/10/2024 1:05 PM FOOD AND NUTRITION PROFESSOR 10/10/2024 1:25 PM FOOD AND NUTRITION PROFESSOR us Gato Shaw M.D. LAB URINE ORDERABLES Final Re sult Performing Organization Address [facility] Co de Phone Number [facility] 200 [place], [place] [address] [place] [address] 200 [place] [address] * Osmolality, Urine (10/10/2024 1:05 PM FOOD AND NUTRITION PROFESSOR) Osmolality, U 607 150 - 1150 mOsm/kg 10/10/2024 2:36 PM FOOD AND NUTRITION PROFESSOR DTL Urine 10/10/2024 1:05 PM FOOD AND NUTRITION PROFESSOR 10/10/2024 1:25 PM FOOD AND NUTRITION PROFESSOR Gato Shaw M.D. LAB URINE ORDERABLES Final Re sult Performing Organization Address [facility] Co de Phone Number [facility] 200 [place], [place] [address] [place] [address] * Bacterial Culture, Aerobic + Susceptibility, Urine (10/10/2024 1:05 PM FOOD AND NUTRITION PROFESSOR) [facility] Urine Culture Urogenital microbiota, susceptibilities not performed per laboratory criteria. 10/11/2024 2:46 PM FOOD AND NUTRITION PROFESSOR DTL Urine (Urine, Midstream) 10/10/2024 1:05 PM FOOD AND NUTRITION PROFESSOR 10/10/2024 2:06 PM FOOD AND NUTRITION PROFESSOR Comment:Specimen Source Site : Urine us Gato Shaw M.D. LAB MICROBIOLOGY - GENERAL OR DERABLES Final Result Performing Organization Address [facility] Co de Phone Number [facility] [address] [place] [address], [facility] 200 [place] [address] * (ABNORMAL) Urinalysis, with Microscopic: Urine, Midstream (10/10/2024 1:05 PM FOOD AND NUTRITION PROFESSOR) Source Urine, Urine, Midstream 10/10/2024 1:25 PM FOOD AND NUTRITION PROFESSOR DTL Color, U Yellow 10/10/2024 1:25 PM FOOD AND NUTRITION PROFESSOR DTL Clarity, U Clear 10/10/2024 1:25 PM FOOD AND NUTRITION PROFESSOR DTL Protein, U 58(H) <26 mg/dL 10/10/2024 2:19 PM FOOD AND NUTRITION PROFESSOR DTL Protein/Osmol ality 0.96(H) <0.42 ratio 10/10/2024 2:36 PM FOOD AND NUTRITION PROFESSOR DTL Predicted 24 HR Protein, U 902(H) <229 mg/24 h 10/10/2024 2:36 PM FOOD AND NUTRITION PROFESSOR DTL Predicted Range 286-2841 mg/24 h 10/10/2024 2:36 PM FOOD AND NUTRITION PROFESSOR DTL Urine (Urine, Midstream) 10/10/2024 1:05 PM FOOD AND NUTRITION PROFESSOR 10/10/2024 1:24 PM FOOD AND NUTRITION PROFESSOR us Gato Shaw M.D. LAB URINE ORDERABLES Final Re sult [facility] [address] [place] [address], [facility] [[email or web address] DTL [facility] [address] [place] [address] documented in this encounter Visit Diagnoses Diagnosis Hematuria Stone Kidney [facility] Hematuria documented in this encounter
--- OUTSIDE RECORDS SUMMARY | 2024-10-17 22:58 | XMS_ITS | Encounter Summary ---
Author Organization [facility] Address [address] [place] [address] Care Team Providers Care Inseamer Name Role Phone Unavailable Primary Care Provider Unavailabl e Encounter Details Date Type Department Care Team (Late st Contact Info) Description 10/08/2024 Orders Only Department of Urology in [place], [place] [address] [place] [phone] Hortensia Dwyer, RDaiysNDaisy [address] [place] [address] [facility] (Primary Dx) Social History Tobacco Use Types Packs/Day Years Used Date Smoking Tobacco: Never Passive Smoke Exposure: Never Smokeless Tobacco: Never Overall Financial Resource Strain (CARDIA) Answe r [...] your living situation today? 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 [address] [place], [place] [phone] Discharge Disposition: Home or Self Care 10/23/2024 2:00 PM OPTICAL DESIGN ENGINEER Comprehensive Visit Preoperative Evaluation Center in [place], [place] [address] [place] [phone] Winnie Becker M.D., M.S. [address] [place], [place] [phone] 10/24/2024 1:08 PM OPTICAL DESIGN ENGINEER Hospital Encounter Outpatient Procedure Center in [place], [place] [address] [place] [phone] Gato Shaw M.D. [address] [place] [address] 10/24/2024 1:08 PM OPTICAL DESIGN ENGINEER - 10/24/2024 3:34 PM OPTICAL DESIGN ENGINEER Surgery Outpatient Procedure Center in [place], [place] [address] [place] [address] Gato Shaw M.D. [address] [place] [phone] CYSTOLITHOLAPAXY Scheduled Procedures Name Priority Associated Diagnoses Date/Ti ia CYSTOLITHOLAPAXY Stone Kidney Hematuria 10/24/2024 1:08 PM OPTICAL DESIGN ENGINEER CYSTOSCOPY BIOPSY FULGURATION [facility] Hematuria 10/24/2024 1:08 PM OPTICAL DESIGN ENGINEER URETEROSCOPY STONE EXTRACTION [facility] Hematuria 10/24/2024 1:08 PM OPTICAL DESIGN ENGINEER documented as of this encounter Results * Bacterial Culture, Aerobic + Susceptibility, Urine (10/10/2024 1:05 PM OPTICAL DESIGN ENGINEER) Urine Culture Urogenital microbiota, susceptibilities not performed per laboratory criteria. 10/11/2024 2:46 PM OPTICAL DESIGN ENGINEER DTL Urine (Urine, Midstream) 10/10/2024 1:05 PM OPTICAL DESIGN ENGINEER 10/10/2024 2:06 PM OPTICAL DESIGN ENGINEER Comment:Specimen Source Site : Urine Gato Shaw M.D. LAB MICROBIOLOGY - GENERAL OR DERABLES Final Result [facility] [address] [place] [address], [place] [facility] [address] [place] [address] * (ABNORMAL) Urinalysis, with Microscopic: Urine, Midstream (10/10/2024 1:05 PM OPTICAL DESIGN ENGINEER) Source Urine, Urine, Midstream 10/10/2024 1:25 PM OPTICAL DESIGN ENGINEER DTL Color, U Yellow 10/10/2024 1:25 PM OPTICAL DESIGN ENGINEER DTL Clarity, U Clear 10/10/2024 1:25 PM OPTICAL DESIGN ENGINEER DTL Protein, U 58(H) <26 mg/dL 10/10/2024 2:19 PM OPTICAL DESIGN ENGINEER DTL Protein/Osmol ality 0.96(H) <0.42 ratio 10/10/2024 2:36 PM OPTICAL DESIGN ENGINEER DTL Predicted 24 HR Protein, U 902(H) <229 mg/24 h 10/10/2024 2:36 PM OPTICAL DESIGN ENGINEER DTL Predicted Range 286-2841 mg/24 h 10/10/2024 2:36 PM OPTICAL DESIGN ENGINEER DTL Urine (Urine, Midstream) 10/10/2024 1:05 PM OPTICAL DESIGN ENGINEER 10/10/2024 1:24 PM OPTICAL DESIGN ENGINEER us Gato Shaw M.D. 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
--- OUTSIDE RECORDS SUMMARY | 2024-10-17 22:58 | XMS_ITS ---
Author Organization [facility] Address [address] [place] [address] Care Team Providers Care Corporate Tax Preparer Name Role Phone Unavailable Primary Care Provider Unavailabl e Active Problems Problem Noted Date Diagnosed Date [...] Grade Group: 4) - Signed by Gato Larkin APRN, C.N.P., D.N.P. on 06/08/2023 Hyperlipidemia 12/21/2006 Current Oncology Plans No current plan information found. Past Plans Infusion Therapy 1 Plan Name Start Date Discontinue Date Treatment Medications Discontinue Reason Plan Provider leuprolide (LUPRON) 06/13/2023 06/28/2023 No medications scheduled. Therapy Complete Gato Larkin APRN, C.N.P., D.N.P. Radiation Treatments * Plan Last Treated On Days Fractions Treated Prescribed Fraction Dose Prescribed Total Dose [id number] 08/30/2023 10 5 of 5 800 cGy 4,000 cG y Reference Point Last Treated On Elapsed Days Session Dose Total Dose [id number] 08/30/2023 10 800 cGy 4,000 cGy
--- OUTSIDE RECORDS SUMMARY | 2024-10-17 22:58 | XMS_ITS | Encounter Summary ---
Author Organization [facility] Address [address] [place] [address] Care Team Providers Care Television Audio Engineer Name Role Phone Unavailable Primary Care Provider Unavailabl e Reason for Referral * Outpatient (Routine) - Authorized Specialty Diagnoses / Procedures Referred By Contac t Referred To Contact Diagnoses Bruit Carotid Artery Procedures US Carotid Bilateral Inocente Avila M.D. [address] [place] [address] Phone: tel: fax: [facility] Referral ID Status Reason Start Date Expiration Date V isits Requested Visits Authorized [id number] Authorized 10/10/2024 10/10/2025 1 1 RVATIONS SALES SUPERVISOR * Cardiovascular-Diagnostic (Routine) - Closed Specialty Diagnoses / Procedures Referred By Contac t Referred To Contact Diagnoses Stenosis Aortic Valve Acquired Procedures Echo Transthoracic (TTE) Inocente Avila M.D. [address] [place] [address] Phone: tel: fax: [facility] Referral ID Status Reason Start Date Expiration Date Visits Re quested Visits Authorized [id number] Closed 10/10/2024 10/10/2025 1 1 RVATIONS SALES SUPERVISOR Reason for Visit * Outpatient (Routine) - Closed Specialty Diagnoses / Procedures Referred By Contact Referred To Contact Cardiovascular Diseases / Cardiovascular Disease Diagnoses Stone Kidney Gato Shaw M.D. [address] [place] [address] Phone: tel: fax: [facility] Referral ID Status Reason Start Date Expiration Date Visits Re quested Visits Authorized [id number] Closed 09/30/2024 04/01/2026 1 1 Encounter Details Date Type Department Care Team (Latest Contact Info) Description 10/10/2024 2:00 PM RESERVATIONS SALES SUPERVISOR Office Visit Department of Cardiovascular Medicine in [place], [place] [address] [place] [phone] Inocente Avila M.D. [address] [place] [phone] Stenosis Aortic Valve Acquired (Primary Dx); Stone Kidney; Bruit Carotid Artery; Hematuria; Atrial Fibrillation Paroxysmal (HCC); Other Specified Conduction Disorders; Hypertensive Heart Disease Without Heart Failure; Hyperlipidemia Social History Tobacco Use Types Packs/Day Years [...] your living situation today? 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 Not on f ile Not on file Not on file documented as of this encounter Last Filed Vital Signs Vital Sign Reading Time Taken Comments Blood Pressure 109/64 10/10/2024 1:35 PM RESERVATIONS SALES SUPERVISOR 6 m in bp Pulse 48 10/10/2024 1:35 PM RESERVATIONS SALES SUPERVISOR 6 min bp Temperature - - Respiratory Rate - - Oxygen Saturation - - Inhaled Oxygen Concentration - - Weight 92 kg (202 lb 13.2 oz) 10/10/2024 1:35 PM RESERVATIONS SALES SUPERVISOR Height 175.2 cm (5' 8.98) 10/10/2024 1:35 PM CS T Body Mass Index 29.97 10/10/2024 1:35 PM RESERVATIONS SALES SUPERVISOR documented in this encounter Consult Notes * Inocente Avila M.D. - 10/10/2024 2:00 PM CST SUBJECTIVE Referring Provider: Gato Shaw M.D. HISTORY OF PRESENT ILLNESS Mr. Lyle Mendez is a 79 y.o. 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 Recent hospitalization (e/w on 29 September 2024) with acute hypoxemic respiratory failure in the setting of recent influenza a infection and concerns for secondary pneumonia for which he was briefly treated with antibiotics and supplemental oxygen. Cardiovascular-related complications during this acute illness included atrial fibrillation (asymptomatic) for which oral anticoagulation with apixaban was commenced and a 14 day ZIO patch provided. Transthoracic echocardiogram during that hospitalization described moderate aortic valve stenosis (see below). Traditional risk factors for coronary artery disease beyond age and sex include hypertension and dyslipidemia. CHADS2 Vasc score at least 3 based on age and hypertension (no prior myocardial infarction or known peripheral arterial occlusive disease; degree of calcific atherosclerotic aorta plaque unknown). With respect to perioperative risk for non-cardiac surgery there is no history of known obstructivecoronary artery disease, decompensated heart failure, cerebrovascular disease, insulin-requiring diabetes mellitus, or chronic kidney disease. He notes rheumatic fever as a child and a longstanding cardiac murmur. No prior history of paroxysmal atrial fibrillation. As it relates to atrial fibrillation, he has a history of hypertension as above. No prior arterial embolic events. No TIA or cerebrovascular stroke. No thyroid abnormalities. No prior diagnosis of obstructive sleep apnea (he indicates that his has noted occasionally snori ng but he does not recall her indicating any concern for apneic episodes). He reports intermittent hematuria (once every 3 to 4 weeks) and since transitioning from aspirin to apixaban experienced oneepisode of transient hematuria (yesterday). No other bleeding concerns or gait instability. Denies chest discomfort or exertional dyspnea. No dyspnea at rest, orthopnea, paroxysmal nocturnal dyspnea, or peripheral edema. Occasional postural lightheadedness and/or transient lightheadedness with postural changes followed by exertion (these symptoms have reportedly been present for greater than 10 to 15 years without marked progression recently). No syncope or exertional syncope. He estimates walking 2 to 3 miles 3 to 5 times per week; in winter months he walks indoors at [employer] and tries to walk for 30 to 40 minutes with an estimated distance of 2 miles. No subjective decline in functional aerobic capacity. He has two flights of stairs at home and can walk up both flightsof stairs without concern. I walked with him from the examination room through the lobby and up oneflight of stairs to his next appointment today (he quickly traversed one flight of stairs without symptoms). Cardiac medications include atorvastatin 10 mg daily, apixaban 5 mg twice daily, metoprolol tartrate 50 mg in the morning and 25 mg in the evening. Previously on hydrochlorothiazide 12.5 mg daily andaspirin 81 mg daily; discontinued <2 weeks ago during recent hospitalization. REVIEW OF SYSTEMS REVIEW OF SYSTEMS The following portions of the patient's history were reviewed: allergies, current medications, family history, medical history, social history, surgical history and problem list. Social history negative for tobacco or alcohol consumption. Cardiovascular family history notable for multiple family members with cerebrovascular strokes. No known premature coronary artery disease,valvular heart disease, or atrial fibrillation. OBJECTIVE BP 109/64 (BP Location: Left arm, Patient Position: Sitting, Cuff Size: Large) Comment: 6 min bp Pulse (!) 48 Comment: 6 min bp Ht 175.2 cm Wt 92 kg BMI 29.97 kg/m?? PHYSICAL EXAMINATION General: Normal body habitus. Well groomed. No distress. Psychiatric: Normal mood and affect. Alert and oriented. Head: Normocephalic, atraumatic. Eyes: No xanthelasma or conjunctivitis. ENT: No oral mucosal pallor or cyanosis. Neck: Normal jugular venous pressure. Carotid upstroke is preserved. Right carotid bruit versus referred murmur of aortic stenosis. No subclavian bruit. Heart: Apical impulse is not displaced nor sustained. No ventricular lift. Normal first with soft, single second heart sound. No S3 or S4. Rhythm is regular. Grade 2-3 mid-peaking systolic murmur throughout the precordium consistent with aortic stenosis. No diastolic murmur. No systolic click. No pe ricardial rub. Lungs: Normal respiratory effort and air movement. Clear to auscultation bilaterally. No crackles, rhonchi, or wheezing. Abdomen: Positive bowel sounds. Soft and nontender. No rebound or guarding. Normal sized liver and spleen. No masses identified. No ascites detected. Enlargement of the abdominal aorta not detected by palpation. No abdominal bruits. Extremities: No clubbing or cyanosis. No edema. Neurologic: No focal deficits appreciated on limited examination. Gait: No significant gait instability observed. Skin: No stasis dermatitis or ulceration identified in the visualized areas. DIAGNOSTICS I have reviewed the patient's current laboratory, imaging, and other diagnostic studies. [facility] laboratory on 08 September 2024 with normal sodium and potassium, creatinine 1.12 mg/dL. Additional laboratory studies today included hemoglobin 13.1 g/dL and platelet count 325 with normal leukocyte count; normal sodium and potassium with creatinine 1.15 mg/dL; high sensitivity troponin T 34 ng/L, N terminal proBNP 710 pg/mL, sensitive TSH 1.9, and lipid panel (total cholesterol 143, HDL 37, LDL 78, triglycerides 163 mg/dL). Hemoglobin (elsewhere) on 30 September 2024 was 11.9 g/dL with normal platelet count. Troponin (as a details not available) reported as peak of 0.08 subsequently down to 0.06. Chest radiograph with bilateral mid and lower lung interstitial opacities (left greater than right) suspected to correspond with fibrotic changes seen on prior CT urogram in August 2024. Aorticcalcification. See report for additional details. Electrocardiogram with marked sinus bradycardia 42 beats per minute. Normal AR interval with QRS duration 106 ms and normal QTc. Minimal voltage criteria for LVH and reduced anterior forces in V2-3. External electrocardiogram 28 September 2024 with sinus rhythm at a rate of 72 beats per minute. Theinitial portion of the tracing demonstrates a left bundle branch block in the subsequent tracing demonstrates a narrow QRS. Tracing from 30 September 2024 with atrial fibrillation and left bundle branch block; ventricular rate 98 beats per minute. External echocardiogram 29 September 2024 described normal left ventricular size and wall motion with estimated left ventricular ejection fraction 60% to 65%. Increased left ventricular wall thickness. Grade 1 left ventricular diastolic pattern described. Normal right ventricular size and systolic function. Biatrial size described as normal. Aortic valve described as moderately stenotic without regurgitation. Aortic valve peak velocity 3.7 m/sec with mean gradient 35 mm Hg and aortic valve area 1.21 centimeter squared with dimensionless index 0.41 and stroke volume index 40 mL per m2. Sinus ofValsalva and ascending aorta described as normal in size. ASSESSMENT / PLAN #1 Cardiovascular preoperative assessment #2 Bilateral nephrolithiasis + bladder stone with bladder lesion suspicious for urothelial cell carcinoma He does not endorse any concerning cardiopulmonary symptoms (unlikely that the longstanding and episodic transient lightheadedness is solely related to aortic stenosis) to suggest symptomatic obstructive coronary artery disease nor decompensated heart failure. Perioperatively, it will be important for our anesthesiology colleagues to be aware the aortic stenosis (at least moderate based on outside echocardiogram) as it relates to anesthetic decisions as well as importance of maintaining preloadand afterload (i.e. avoiding hypovolemia/hypovolemia, hypotension/hypertension). The presence of aortic stenosis places the patient at higher risk for cardiac complications despite his lower estimated cardiovascular risk based on the calculated revised cardiovascular risk score. Baseline N terminalproBNP and high sensitivity troponin T obtained today and elevated; however, the results do not preclude proceeding with surgery. Additional potential contributors to adverse cardiovascular complications include the conduction system disease and recent identification of paroxysmal atrial fibrillation. He has a [facility] clinic consultation later this month prior to surgery. #3 Moderate (query moderate-severe) aortic valve stenosis He does not endorse exertional dyspnea or angina. Does note longstanding lightheadedness both postural and transient symptoms following postural changes + exertion (i.e. rising quickly from a seatedposition and walking up a flight of stairs). Cardiac auscultation today is suggestive at least moderate aortic valve stenosis. Arrangements have been made for a goal-directed echocardiogram to predominantly reassess the aortic valve (systolic excursion difficult to visualize on the prior echocardiogram; aortic valve systolic mean gradient does not appear to been assessed from other imaging windows + single mean gradient approached 39 mm Hg, but likely over traced). Pending results, may consider future CT aortic valve calcium score in addition to repeat echocardiogram in 6 to 12 months to reassess aortic valve stenosis. #4 Paroxysmal atrial fibrillation currently maintained on oral anticoagulation Natural history, associated risk factors, brief review of treatment options, and potential complications of atrial fibrillation reviewed as well as increased risk of recurrent atrial fibrillation related to stressors including upcoming surgery. Prolonged heart rhythm monitoring in place. The atrialfibrillation was presumably precipitated by his acute respiratory illness; however, he did not havedefinitive symptoms of palpitations while in atrial fibrillation. Recommend overnight oximetry study for completeness (he will obtain through primary care); thyroid study today normal. Currently on oral anticoagulation with apixaban due to elevated CHADS2 Vasc score; if recurrent/persistent or worsening hematuria then reduce apixaban to 2.5 mg twice daily (and if needed will discontinue until bladder issues addressed). Otherwise if no concerning hematuria and apixaban continued, then apixaban should be held for minimum of 72 hours before the procedure on 24 October 2024 (last dose to be provided Sunday, 20 October 2024). Apixaban can be resumed following surgery once deemed acceptable from Urology. Long-term decision on continuation of apixaban can be readdressed following recovery of surgery. #5 Conduction system disease #5a Marked sinus bradycardia #5b Intermittent left bundle branch block Recommend reducing metoprolol tartrate 25 mg twice daily and follow-up of ZIO patch. No indication for pacemaker at this time. I have asked him to notify me after he returns the ZIO patch so that theresults can be reviewed (uncertain if they will be available via [employer]). #6 Hypertension with increased left ventricular wall thickness and dyslipidemia Blood pressure appears well controlled and lightheadedness may have improved with discontinuing hydrochlorothiazide as he has not experienced any lightheadedness over the preceding 10 days. Consider SMOGA + cardiac PYP SPECT/CT imaging given increased left ventricular wall thickness while recognizing this is more likely to be secondary to hypertension and aortic stenosis; decision deferred until repeat echocardiography imaging with attempts at LV strain. After reviewing today's lipid panel, I have recommended increasing the atorvastatin to 20 mg daily with an LDL goal < 70 mg/dL (anticipate he will tolerate the modest increase). He estimates having a six month supply of atorvastatin 10 mg tablets and will take two 10 mg tablets each night; recommend repeating lipid panel in three months when he follows up with Dr. Saha (Family Medicine; [facility]). #7 Query carotid artery disease Auscultation notable for a carotid bruit; however, may reflect referred murmur of aortic stenosis. Carotid ultrasound requested. Addendum: Echocardiogram confirms moderate calcific aortic valve stenosis with systolic mean Doppler gradient 28 mm Hg and valve area 1.08 cm^2. Normal left ventricular size and wall motion with calculated left ventricular ejection fraction 65%. Left ventricular mass index elevated at 131 g/m^2 andglobal average longitudinal peak systolic strain is normal at -19 % without classic features of amyloid cardiomyopathy (defer SMOGA + cardiac PYP SPECT/CT imaging). Left atrium is severely enlarged with a left atrial volume index 51 ml/m^2. See report for additional details. Mr. Mendez returned to clinic following completion of the echocardiogram and we reviewed the results of the study + reiterated the assessment and plan as above. RVATIONS SALES SUPERVISOR documented in this encounter Plan of Treatment Upcoming Encounters Date Type Department Care Team (Latest Contact Info) Description 10/21/2024 1:15 PM RESERVATIONS SALES SUPERVISOR Clinical Communication Virtual Review in [place], [place] [address] [place] [address] 10/23/2024 12:00 PM RESERVATIONS SALES SUPERVISOR Appointment Department of Radiology, [facility], in [place], [place] [address] [place] [phone] Inocente Avila M.D. [address] [place] [phone] Discharge Disposition: Home or Self Care 10/23/2024 2:00 PM RESERVATIONS SALES SUPERVISOR Comprehensive Visit Preoperative Evaluation Center in [place], [place] [address] [place] [phone] Winnie Becker M.D., M.S. [address] [place] [phone] 10/24/2024 1:08 PM RESERVATIONS SALES SUPERVISOR Hospital Encounter Outpatient Procedure Center in [place], [place] [address] [place] [phone] Gato Shaw M.D. [address] [place] [phone] 10/24/2024 1:08 PM RESERVATIONS SALES SUPERVISOR - 10/24/2024 3:34 PM RESERVATIONS SALES SUPERVISOR Surgery Outpatient Procedure Center in [address] [phone] Gato Shaw M.D. [address] [place] [phone] CYSTOLITHOLAPAXY Scheduled Orders Name Type Priority Associated Diagnoses Orde r Schedule US Carotid Bilateral Imaging RAD - Routine (most inpatients and all outpatients) Bruit Carotid Artery Expected: 10/23/2024, Expires: 01/08/2026 Scheduled Procedures Name Priority Associated Diagnoses Date/Ti me CYSTOLITHOLAPAXY Stone Kidney Hematuria 10/24/2024 1:08 PM RESERVATIONS SALES SUPERVISOR CYSTOSCOPY BIOPSY FULGURATION Stone Kidney Hematuria 10/24/2024 1:08 PM RESERVATIONS SALES SUPERVISOR URETEROSCOPY STONE EXTRACTION Stone Kidney Hematuria 10/24/2024 1:08 PM RESERVATIONS SALES SUPERVISOR documented as of this encounter Results * (TTE) 2D ECHO DOPPLER COLOR (10/10/2024 4:00 PM RESERVATIONS SALES SUPERVISOR) Ejection Fraction 65 MC CV EIMS Mid-Ascending [...] Region Laterality Modality Echocardiography 10/10/2024 2:51 PM RESERVATIONS SALES SUPERVISOR Impressions 10/10/2024 4:01 PM RESERVATIONS SALES SUPERVISOR LEFT VENTRICLE:Normal left ventricular chamber size. Normal [...] the Order-Level Documents. Narrative 10/10/2024 4:01 PM RESERVATIONS SALES SUPERVISOR For the complete report, see the Order-Level [...] collapse (>50%). 8. There are no previous [facility] echocardiograms available for comparison. Procedure Note Paras Diaz M.D. - 10/10/2024 For the complete report, see the Order-Level Documents. Hemodynamics Heart Rate: 46 BPM Blood Pressure: 152 / 71 mmHg ECG: Sinus rhythm, Bradycardia Final Impressions 1. Moderate calcific aortic valve stenosis, systolic mean Doppler vobexgid36 mmHg, valve area by Doppler 1.08 cm2. [...] inspiratory collapse(>50%). 8. There are no previous [facility] echocardiograms available forcomparison. Findings LEFT VENTRICLE:Normal left [...] M.D. CV ECHO PROCEDURES Final Res ult documented in this encounter Visit Diagnoses Diagnosis Hematuria Stenosis Aortic Valve Acquired- Primary Stone Kidney Bruit Carotid Artery Hematuria Atrial Fibrillation Paroxysmal (HCC) Other Specified Conduction Disorders Hypertensive Heart Disease Without Heart Failure Hyperlipidemia Stenosis Aortic Valve Acquired Stone Kidney Hematuria documented in this encounter
--- OUTSIDE RECORDS SUMMARY | 2024-10-17 22:58 | XMS_ITS | Encounter Summary ---
Author Organization [facility] Address [address] [place] [id number] Care Team Providers Care Wetlands Technician Name Role Phone Unavailable Primary Care Provider Unavailabl e Encounter Details Date Type Department Care Team (Latest Contact Info) Description 10/10/2024 10:51 AM INSPECTOR RAW QUARTZ - 10/10/2024 11:11 AM [facility] Hospital Encounter Department of Laboratory Medicine and Pathology, [facility] in [place], [place] [address] [place] [address] Gato Shaw M.D. [address] [place] [phone] Stone Kidney; Atrial Fibrillation Paroxysmal (HCC); Myocardial Injury Nonischemic Nontraumatic; Dysfunction Diastolic; Hyperlipidemia Discharge Disposition: Home or Self Care Social [...] your living situation today? 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 Not on f ile Not on file [...] (Latest Contact Info) Description 10/21/2024 1:15 PM INSPECTOR RAW QUARTZ Clinical Communication Virtual Review in [place], [place] [address] [place] [address] 10/23/2024 12:00 PM INSPECTOR RAW QUARTZ Appointment Department of Radiology, [facility], in [address] [phone] Inocente Avila M.D. [address] [place] [phone] Discharge Disposition: Home or Self Care 10/23/2024 2:00 PM INSPECTOR RAW QUARTZ Comprehensive Visit Preoperative Evaluation Center in [address] [phone] Winnie Becker M.D., M.S. [address] [place] [phone] 10/24/2024 1:08 PM INSPECTOR RAW QUARTZ Hospital Encounter Outpatient Procedure Center in [address] [phone] Gato Shaw M.D. [address] [place] [address] 10/24/2024 1:08 PM INSPECTOR RAW QUARTZ - 10/24/2024 3:34 PM INSPECTOR RAW QUARTZ Surgery Outpatient Procedure Center in [place], [place] [address] [place] [address] Gato Shaw M.D. 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 Hyperlipidemia THYROID FUNCTION CASCADE, S Routine 10/10/2024 11:03 AM INSPECTOR RAW QUARTZ Atrial Fibrillation Paroxysmal (HCC) 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 Hyperlipidemia NT-PRO B-TYPE NATRIURETIC PEPTIDE (BNP), S Routine 10/10/2024 11:03 AM INSPECTOR RAW QUARTZ Atrial Fibrillation Paroxysmal (HCC) 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 Hyperlipidemia CBC WITHOUT DIFFERENTIAL, B Routine 10/10/2024 11:03 AM INSPECTOR RAW QUARTZ Stone Kidney TROPONIN T, 5TH GEN, P Routine 10/10/2024 11:03 AM INSPECTOR RAW QUARTZ Atrial Fibrillation Paroxysmal (HCC) 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 Hyperlipidemia BASIC METABOLIC PANEL, S/P Routine 10/10/2024 11:03 AM INSPECTOR RAW QUARTZ Stone Kidney documented in this encounter Results * (ABNORMAL) Lipid Panel (10/10/2024 11:03 AM INSPECTOR RAW QUARTZ) Triglycerides 163(H) mg/dL 10/10/2024 12:20 PM INSPECTOR RAW QUARTZ DTL Comment: ----REFERENCE VALUE---- Normal: <150 mg/dL Borderline High: 150-199 mg/dL High: 200-499 mg/dL Very High: > or =500 mg/dL Cholesterol, Total 143 mg/dL 2024 12:20 PM INSPECTOR RAW QUARTZ DTL Comment: ----REFERENCE VALUE---- Desirable: < 200 mg/dL Borderline High: 200 - 239 mg/dL High: > or = 240 mg/dL Cholesterol, LDL, Calculated 78 mg/dL 10/10/2024 12:20 PM INSPECTOR RAW QUARTZ DTL Comment: ----REFERENCE VALUE---- Desirable: <100 mg/dL Above Desirable: 100-129 mg/dL Borderline High: 130-159 mg/dL High: 160-189 mg/dL Very High: >=190 mg/dL ----ADDITIONAL INFORMATION---- LDL cholesterol calculated using the Sawant/NIH equation. Cholesterol, HDL, S 37(L) >=40 mg/dL 10/10/2024 12:20 PM INSPECTOR RAW QUARTZ DTL Cholesterol, Non-HDL, Calculated 106 mg/dL 10/10/2024 12:20 PM INSPECTOR RAW QUARTZ DTL Comment: ----REFERENCE VALUE---- Desirable: <130 mg/dL Above Desirable: 130-159 mg/dL Borderline High: 160-189 mg/dL High: 190-219 mg/dL Very High: > or =220 mg/dL Fasting (8 HR or more) Yes 10/10/2024 11:03 AM INSPECTOR RAW QUARTZ DTL Blood (Blood, Venous) 10/10/2024 11:03 AM INSPECTOR RAW QUARTZ 10/10/2024 11:36 AM INSPECTOR RAW QUARTZ us Inocente Avila M.D. LAB BLOOD ADD-ON Final Resul t [facility] [address] [place] [address], [facility] [address] [place] [address] * Thyroid Function [place] (10/10/2024 11:03 AM INSPECTOR RAW QUARTZ) Pathologist [facility] TSH, Sensitive 1.9 0.3 - 4.2 mIU/L 10/10/2024 12:20 PM INSPECTOR RAW QUARTZ DTL Blood (Blood, Venous) 10/10/2024 11:03 AM INSPECTOR RAW QUARTZ 10/10/2024 11:36 AM INSPECTOR RAW QUARTZ us Inocente Avila M.D. LAB BLOOD ADD-ON Final Resul t Performing Organization Address City/[facility] Co de Phone Number [facility] [address] [place] [address] * (ABNORMAL) NT-Pro B-Type Natriuretic Peptide (BNP) (10/10/2024 11:03 AM INSPECTOR RAW QUARTZ) [facility] NT-Pro BNP 710(H) <=540 pg/mL 10/10/2024 12:20 PM INSPECTOR RAW QUARTZ DTL Comment: NT-proBNP values less than 300 [...] failure. Blood (Blood, Venous) 10/10/2024 11:03 AM INSPECTOR RAW QUARTZ 10/10/2024 11:36 AM INSPECTOR RAW QUARTZ us Inocente Avila M.D. LAB BLOOD ADD-ON Final Resul t Performing Organization Address City/[facility]/ZIP Co de Phone Number [facility] [address] [place] [address], [facility] 200 [place] [address] * (ABNORMAL) Troponin T, 5th Generation (10/10/2024 11:03 AM INSPECTOR RAW QUARTZ) [facility] Troponin T, 5th gen 34(H) <=15 ng/L 10/10/2024 12:25 PM INSPECTOR RAW QUARTZ DTL Blood (Blood, Venous) 10/10/2024 11:03 AM INSPECTOR RAW QUARTZ 10/10/2024 11:37 AM INSPECTOR RAW QUARTZ us Inocente Avila M.D. LAB BLOOD ADD-ON Final Resul t [facility] [address] [place] [address], [facility] DTL [facility] [address] [place] [address] * Basic Metabolic Panel (10/10/2024 11:03 AM INSPECTOR RAW QUARTZ) Potassium, S 4.7 3.6 - 5.2 mmol/L 10/10/2024 12:20 PM INSPECTOR RAW QUARTZ DTL Sodium, S 141 135 - 145 mmol/L 10/10/2024 12:20 PM INSPECTOR RAW QUARTZ DTL Chloride, S 104 98 - 107 mmol/L 10/10/2024 12:20 PM INSPECTOR RAW QUARTZ DTL Bicarbonate, S 26 22 - 29 mmol/L 10/10/2024 12:20 PM INSPECTOR RAW QUARTZ DTL Anion Gap 11 7 - 15 10/10/2024 12:20 PM INSPECTOR RAW QUARTZ DTL BUN (Blood Urea Nitrogen), S 17 8 - 24 mg/dL 10/10/2024 12:20 PM INSPECTOR RAW QUARTZ DTL Creatinine 1.15 0.74 - 1.35 mg/dL 10/10/2024 12:20 PM INSPECTOR RAW QUARTZ DTL Estimated GFR (eGFR) 64 >=60 mL/min/BSA 10/10/2024 12:20 PM INSPECTOR RAW QUARTZ DTL Comment: Estimated GFR calculated using the 2020 CKD_EPI creatinine equation. Calcium, Total, S 9.9 8.8 - 10.2 mg/dL 10/10/2024 12:20 PM INSPECTOR RAW QUARTZ DTL Glucose, S 91 70 - 140 mg/dL 10/10/2024 12:20 PM INSPECTOR RAW QUARTZ DTL Blood (Blood, Venous) 10/10/2024 11:03 AM INSPECTOR RAW QUARTZ 10/10/2024 11:36 AM INSPECTOR RAW QUARTZ us Gato Shaw M.D. LAB BLOOD ADD-ON Final Result Performing Organization Address City/[facility]/ZIP Co de Phone Number [facility] [address] [place] [address], [facility] [address] [place] [address] * (ABNORMAL) CBC without Differential (10/10/2024 11:03 AM INSPECTOR RAW QUARTZ) Hemoglobin 13.1(L) 13.2 - 16.6 g/dL 10/10/2024 11:43 AM INSPECTOR RAW QUARTZ DTL Hematocrit 41.4 38.3 - 48.6 % 10/10/2024 11:43 AM INSPECTOR RAW QUARTZ DTL Erythrocytes 4.36 4.35 - 5.65 x10(12)/L 10/10/2024 11:43 AM INSPECTOR RAW QUARTZ DTL MCV 95.0 78.2 - 97.9 fL 10/10/2024 11:43 AM INSPECTOR RAW QUARTZ DTL RBC Distrib Width 13.2 11.8 - 14.5 % 10/10/2024 11:43 AM INSPECTOR RAW QUARTZ DTL Platelet Count 325(H) 135 - 317 x10(9)/L 10/10/2024 11:43 AM INSPECTOR RAW QUARTZ DTL Leukocytes 5.2 3.4 - 9.6 x10(9)/L 10/10/2024 11:43 AM INSPECTOR RAW QUARTZ DTL Blood (Blood, Venous) 10/10/2024 11:03 AM INSPECTOR RAW QUARTZ 10/10/2024 11:23 AM INSPECTOR RAW QUARTZ us Gato Shaw M.D. 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
--- OUTSIDE RECORDS SUMMARY | 2024-10-17 22:58 | XMS_ITS | Referral Summary ---
Author Organization [facility] Address [address] [place] [address] Care Team Providers Care Account Receivable Clerk Name Role Phone Unavailable Primary Care Provider Unavailabl e Source Comments Patient records contain information from all sites at [facility]. For routine questions regarding patient records, call [phone] during business hours, M-F 8:00 AM - 5:00 PM Central Time. Record requests for emergency care only can be directed to [phone] at any time.[facility] Encounters Date Type Department Care Team Description 10/10/2024 2:25 PM RETURNS PROCESSOR - 10/10/2024 11:59 PM RETURNS PROCESSOR Hospital Encounter Department of Cardiovascular Diseases in [place], [place] [address] [place] [phone] Inocente Avila M.D. Stenosis Aortic Valve Acquired Discharge Disposition: Home or Self Care 10/10/2024 Orders Only Department of Cardiovascular Medicine in [place], [place] [address] [place] [phone] Inocente Avila M.D. Atrial Fibrillation Paroxysmal (HCC) (Primary Dx); Myocardial Injury Nonischemic Nontraumatic; Dysfunction Diastolic; Hyperlipidemia 10/10/2024 10:50 AM RETURNS PROCESSOR Hospital Encounter Department of Laboratory Medicine and Pathology, [facility] in [place], [place] [address] [place] [phone] Gato Shaw M.D. Stone Kidney Discharge Disposition: Home or Self Care 10/10/2024 11:12 AM RETURNS PROCESSOR - 10/10/2024 2:24 PM RETURNS PROCESSOR Hospital Encounter Department of Radiology, [facility] in [place], [place] [address] [place] [address] Gato Shaw M.D. Stone Kidney Discharge Disposition: Home or Self Care 10/10/2024 10:51 AM RETURNS PROCESSOR - 10/10/2024 11:11 AM RETURNS PROCESSOR Hospital Encounter Department of Laboratory Medicine and Pathology, [facility] in [place], [place] [address] [place] [address] Gato Shaw M.D. Stone Kidney; Atrial Fibrillation Paroxysmal (HCC); Myocardial Injury Nonischemic Nontraumatic; Dysfunction Diastolic; Hyperlipidemia Discharge Disposition: Home or Self Care 10/10/2024 2:00 PM RETURNS PROCESSOR Office Visit Department of Cardiovascular Medicine in [place], [place] [address] [place] [phone] Inocente Avila M.D. Stenosis Aortic Valve Acquired (Primary Dx); Stone Kidney; Bruit Carotid Artery; Hematuria; Atrial Fibrillation Paroxysmal (HCC); Other Specified Conduction Disorders; Hypertensive Heart Disease Without Heart Failure; Hyperlipidemia 10/08/2024 Orders Only Department of Urology in [place], [place] [address] [place] [phone] Hortensia Dwyer R.N. Stone Kidney (Primary Dx) 10/08/2024 Clinical Communication Department of Urology in [place], [place] [address] [place] [phone] Ghanshyam Ye 10/02/2024 Clinical Communication Department of Cardiovascular Medicine in [place], [place] [address] [place] [phone] Traffic Workforce RepresentativeSudarshan M.D. Triage 09/30/2024 Clinical Communication Department of Urology in [place], [place] [address] [place] [phone] Gato Shaw M.D. 09/08/2024 8:02 AM RETURNS PROCESSOR - 09/08/2024 11:59 PM RETURNS PROCESSOR Hospital Encounter Department of Laboratory Medicine and Pathology, [facility], in [place], [place] [address] [place] [address] Shellie Howe APRN, C.N.PDaisy, D.N.P. Hematuria Discharge Disposition: Home or Self Care 09/08/2024 8:02 AM RETURNS PROCESSOR - 09/08/2024 11:59 PM RETURNS PROCESSOR Hospital Encounter Department of Laboratory Medicine and Pathology, [facility] in [address] [phone] Shellie Howe APRN, C.N.PDaisy, D.N.P. Stone Kidney Discharge Disposition: Home or Self Care 09/08/2024 10:30 AM RETURNS PROCESSOR Comprehensive Visit Department of Urology in [place], [place] [address] [place] [phone] Gato Shaw M.D. Stone Kidney (Primary Dx) 09/08/2024 9:00 AM RETURNS PROCESSOR Procedure visit Department of Urology in [address] [phone] Shellie Howe APRN, C.N.PDaisy, D.N.P. Hortensia Quiroga, PDaisyANeo. Hematuria 09/04/2024 12:45 PM RETURNS PROCESSOR Clinical Communication Virtual Review in [place], [place] 200 [place] [phone] Pre-visit Intake 08/19/2024 Orders Only Department of Urology in [address] [phone] Shellie Howe APRN, C.N.PDaisy, D.N.P. Hematuria (Primary Dx) 08/14/2024 Orders Only Department of Urology in [address] [phone] Shellie Howe APRN, C.N.PDaisy, D.N.P. Stone Kidney (Primary Dx) 08/13/2024 12:04 PM RETURNS PROCESSOR - 08/13/2024 11:59 PM RETURNS PROCESSOR Hospital Encounter Department of Radiology, [facility], in [address] [phone] Shellie Howe APRN, C.N.P., D.N.P. Hematuria Discharge Disposition: Home or Self Care 08/11/2024 9:20 AM RETURNS PROCESSOR - 08/11/2024 11:59 PM RETURNS PROCESSOR Hospital Encounter Department of Laboratory Medicine and Pathology, [address] [phone] Shellie Howe APRN, C.N.PDaisy, D.N.P. Hematuria Discharge Disposition: Home or Self Care 08/08/2024 3:00 PM RETURNS PROCESSOR Comprehensive Visit Department of Urology in [address] [phone] Maryana Malki MPAS, P.A.-Missy. Shellie Howe APRN, C.N.Ana, D.N.P. Hematuria (Primary Dx); Symptom Urinary 08/08/2024 2:30 PM RETURNS PROCESSOR Procedure visit Department of Urology in [address] [phone] Rigoberto Flores M.D. Franson, Jane E RPatti Incontinence Urinary Stress And Urge (Primary Dx); Symptom Urinary 08/08/2024 11:27 AM RETURNS PROCESSOR - 08/08/2024 11:59 PM RETURNS PROCESSOR Hospital Encounter Department of Laboratory Medicine and Pathology, [facility] in [address] [phone] Rigoberto Flores M.D. Symptom Urinary Discharge Disposition: Home or Self Care 08/06/2024 9:58 AM RETURNS PROCESSOR - 08/06/2024 11:29 AM RETURNS PROCESSOR Hospital Encounter Department of Radiation Oncology in [address] [phone] Gato Larkin APRN, C.N.P., D.N.P. Primary Malignant Neoplasm Of Prostate (HCC) (Primary Dx) 08/04/2024 12:00 PM RETURNS PROCESSOR Clinical Communication Virtual Review in [address] [phone] Pre-visit Intake from Last 3 Months Allergies No known active allergies Medications atorvastatin (LIPITOR) 10 mg tablet Take 10 mg by mouth daily. 06/16/20 Active cholecalcifero l, vitamin D3, 10 mcg (400 unit) capsule Take 2,000 Units by mouth daily. 02/16/20 Active hydroCHLOROthi azide (HYDRODIURIL) 12.5 mg tablet Stopped for now 05/05/20 Active metoprolol tartrate (LOPRESSOR) 25 mg tablet as directed. Two tablets in AM and one PM 05/05/20 Active tamsulosin (FLOMAX) 0.4 mg 24 hr capsule Take 0.4 mg by mouth. 05/05/20 Active tadalafiL (CIALIS, ADCIRCA) 20 mg tablet Take 20 mg by mouth. 05/05/20 Active multivitamin (MULTI-DAY ORAL) Take 1 tablet by mouth daily. 06/20/20 Active calcium carbonate (CALCIUM 500 ORAL) Take 2 tablets by mouth daily. 06/20/20 Active bicalutamide (CASODEX) 50 mg tablet Take [...] mouth 2 (two) times a day. 10/08/19 25 Active aspirin 81 mg chewable tablet Chew [...] 4) - Signed by Gato Larkin APRN, C.N.PDaisy, D.N.P. on 06/08/2023 Hyperlipidemia 12/21/2006 Social History Tobacco Use Types Packs/Day Years Used Date Smoking Tobacco: Never Passive Smoke Exposure: Never Smokeless Tobacco: Never Tobacco Cessation:Counseling Given: Not Answered Alcohol Use Standard Drinks/Week Comments Yes 1 (1 standard drink = 0.6 oz pur e alcohol) [facility] Utilities Answer Date Recorded In the past 12 months has e [employer], gas, oil, or water [employer] threatened to shut off services in your [...] your living situation today? 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 Not on f ile Not on file Not on file Last Filed Vital Signs Vital Sign Reading Time Taken Comments Blood Pressure 109/64 10/10/2024 1:35 PM RETURNS PROCESSOR 6 m in bp Pulse 48 10/10/2024 1:35 PM RETURNS PROCESSOR 6 min bp Temperature - - Respiratory Rate - - Oxygen Saturation - - Inhaled Oxygen Concentration - - Weight 92 kg (202 lb 13.2 oz) 10/10/2024 1:35 PM RETURNS PROCESSOR Height 175.2 cm (5' 8.98) 10/10/2024 1:35 PM CS T Body Mass Index 29.97 10/10/2024 1:35 PM RETURNS PROCESSOR Plan of Treatment Upcoming Encounters Date Type Department Care Team (Latest Contact Info) Description 10/21/2024 1:15 PM RETURNS PROCESSOR Clinical Communication Virtual Review in [place], [place] [address] [place] [phone] 10/23/2024 12:00 PM RETURNS PROCESSOR Appointment Department of Radiology, [facility], in [place], [place] [address] [place] [phone] Inocente Avila M.D. [address] [place] [phone] Discharge Disposition: Home or Self Care 10/23/2024 2:00 PM RETURNS PROCESSOR Comprehensive Visit Preoperative Evaluation Center in [place], [place] [address] [place] [phone] Winnie Becker M.D., M.S. [address] [place] [phone] 10/24/2024 1:08 PM RETURNS PROCESSOR Hospital Encounter Outpatient Procedure Center in [place], [place] [address] [place] [phone] Gato Shaw M.D. [address] [place] [phone] 10/24/2024 1:08 PM RETURNS PROCESSOR - 10/24/2024 3:34 PM RETURNS PROCESSOR Surgery Outpatient Procedure Center in [place], [place] [address] [place] [phone] Gato Shaw M.D. [address] [place] [phone] CYSTOLITHOLAPAXY Scheduled Procedures Name Priority Associated Diagnoses Date/Ti me CYSTOLITHOLAPAXY Stone Kidney Hematuria 10/24/2024 1:08 PM RETURNS PROCESSOR CYSTOSCOPY BIOPSY FULGURATION Stone Kidney Hematuria 10/24/2024 1:08 PM RETURNS PROCESSOR URETEROSCOPY STONE EXTRACTION Stone Kidney Hematuria 10/24/2024 1:08 PM RETURNS PROCESSOR Medical Devices Implanted Type Area Ophthalmic Technologist Device Identifier Shelf Expiration Date Model / Serial / Lot Marker Tissue Biomarc Kv 1x5 - [id number] Implanted:Qty : 4 on 08/08/2023 by Thaddeus Ding M.D. at [facility] Imaging [facility] [id number] 12/01/2027 [id number] / / [id number] Procedures Procedure Name Priority Date/Time Associated Diagnosis Comments (TTE) 2D ECHO DOPPLER COLOR Routine 10/10/2024 4:00 PM RETURNS PROCESSOR Stenosis Aortic Valve Acquired MICROSCOPIC MANUAL Routine 10/10/2024 1: 05 PM RETURNS PROCESSOR PH, U Routine 10/10/2024 1:05 PM RETURNS PROCESSOR DIPSTICK, U Routine 10/10/2024 1:05 PM RETURNS PROCESSOR OSMOLALITY, U Routine 10/10/2024 1:05 PM RETURNS PROCESSOR URINALYSIS WITH MICROSCOPIC Routine 10/10/2024 1:05 PM RETURNS PROCESSOR Stone Kidney BACTERIAL CULTURE, AEROBIC + SUSC, URINE Routine 10/10/2024 1:05 PM RETURNS PROCESSOR Stone Kidney ECG Routine 10/10/2024 11:52 AM RETURNS PROCESSOR Stone Kidney DX CHEST AP OR PA AND LATERAL 2 VIEWS RAD - Routine (most inpatients and all outpatients) 10/10/2024 11:22 AM RETURNS PROCESSOR Stone Kidney LIPID PANEL, S Routine 10/10/2024 11:03 AM RETURNS PROCESSOR Atrial Fibrillation Paroxysmal (HCC) 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 Hyperlipidemia THYROID FUNCTION CASCADE, S Routine 10/10/2024 11:03 AM RETURNS PROCESSOR Atrial Fibrillation Paroxysmal (HCC) 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 Hyperlipidemia NT-PRO B-TYPE NATRIURETIC PEPTIDE (BNP), S Routine 10/10/2024 11:03 AM RETURNS PROCESSOR Atrial Fibrillation Paroxysmal (HCC) 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 Hyperlipidemia TROPONIN T, 5TH GEN, P Routine 10/10/2024 11:03 AM RETURNS PROCESSOR Atrial Fibrillation Paroxysmal (HCC) 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 Hyperlipidemia BASIC METABOLIC PANEL, S/P Routine 10/10/2024 11:03 AM RETURNS PROCESSOR Stone Kidney CBC WITHOUT DIFFERENTIAL, B Routine 10/10/2024 11:03 AM RETURNS PROCESSOR Stone Kidney OUTSIDE US CARD Routine 09/29/2024 12:00 AM RETURNS PROCESSOR CYTOLOGY NON-HUB CUTTER (SCHEDULED) Routine 09/08/2024 9:07 AM RETURNS PROCESSOR Hematuria URO CYSTOSCOPY (GENERAL) Routine 09/08/2024 9:00 AM RETURNS PROCESSOR Hematuria BASIC METABOLIC PANEL, S/P Routine 09/08/2024 8:25 AM RETURNS PROCESSOR Stone Kidney CT UROGRAM WITHOUT AND WITH IV CONTRAST RAD - Routine (most inpatients and all outpatients) 08/13/2024 1:03 PM RETURNS PROCESSOR Hematuria CREATININE WITH EGFR, S/P Routine 08/11/2024 10:20 AM RETURNS PROCESSOR Hematuria URO UROFLOW Routine 08/08/2024 2:30 PM RETURNS PROCESSOR Symptom Urinary PH, U Routine 08/08/2024 11:45 AM RETURNS PROCESSOR DIPSTICK, U Routine 08/08/2024 11:45 AM RETURNS PROCESSOR OSMOLALITY, U Routine 08/08/2024 11:45 AM RETURNS PROCESSOR MICROSCOPIC AUTOMATED Routine 08/08/2024 11:45 AM RETURNS PROCESSOR URINALYSIS WITH MICROSCOPIC Routine 08/08/2024 11:45 AM RETURNS PROCESSOR Symptom Urinary PROSTATE-SPECIFIC AG (PSA) DIAGNOSTIC, S Routine 08/06/2024 8:45 AM RETURNS PROCESSOR Primary Malignant Neoplasm Of Prostate (HCC) from Last 3 Months Results * (TTE) 2D ECHO DOPPLER COLOR (10/10/2024 4:00 PM RETURNS PROCESSOR) Ejection Fraction 65 MC CV EIMS Mid-Ascending [...] Region Laterality Modality Echocardiography 10/10/2024 2:51 PM RETURNS PROCESSOR Impressions 10/10/2024 4:01 PM RETURNS PROCESSOR LEFT VENTRICLE:Normal left ventricular chamber size. Normal [...] the Order-Level Documents. Narrative 10/10/2024 4:01 PM RETURNS PROCESSOR For the complete report, see the Order-Level [...] collapse (>50%). 8. There are no previous [facility] echocardiograms available for comparison. Procedure Note Paras Diaz M.D. - 10/10/2024 For the complete report, see the Order-Level Documents. Hemodynamics Heart Rate: 46 BPM Blood Pressure: 152 / 71 mmHg ECG: Sinus rhythm, Bradycardia Final Impressions 1. Moderate calcific aortic valve stenosis, systolic mean Doppler [id number] mmHg, valve area by Doppler 1.08 cm2. [...] inspiratory collapse(>50%). 8. There are no previous [facility] echocardiograms available forcomparison. Findings LEFT VENTRICLE:Normal left [...] * (ABNORMAL) Dipstick, Urine (10/10/2024 1:05 PM RETURNS PROCESSOR) Only the most recent of2 resultswithin the time period is included. Hemoglobin, QL, U Large(A) Negative 10/10/2024 2:08 PM RETURNS PROCESSOR DTL Leukocyte Esterase, U Trace(A) Negative 10/10/2024 2:08 PM RETURNS PROCESSOR DTL Nitrite, U Negative Negative 10/10/2024 2:08 PM RETURNS PROCESSOR DTL Ketone, U Negative Negative mg/dL 10/10/2024 2:08 PM RETURNS PROCESSOR DTL Glucose, U Negative Negative mg/dL 10/10/2024 2:08 PM RETURNS PROCESSOR DTL Urine 10/10/2024 1:05 PM RETURNS PROCESSOR 10/10/2024 1:25 PM RETURNS PROCESSOR Gato Shaw M.D. LAB URINE ORDERABLES Final Re sult [facility] [address] [place] [address], [facility] [address] [place] [address] * (ABNORMAL) Microscopic Manual (10/10/2024 1:05 PM RETURNS PROCESSOR) Microscopy Abnormal 10/10/2024 2:51 PM RETURNS PROCESSOR DTL RBC >100(A) <3 /hpf 10/10/2024 2:51 PM RETURNS PROCESSOR DTL Dysmorphic RBC <25 <25 % 10/10/2024 2:51 PM RETURNS PROCESSOR DTL WBC 4-10(A) /hpf 10/10/2024 2:51 PM RETURNS PROCESSOR DTL Comment: ----REFERENCE VALUE---- <4 (Males) <11 (Females) Urine 10/10/2024 1:05 PM RETURNS PROCESSOR 10/10/2024 2:08 PM RETURNS PROCESSOR Gato Shaw M.D. LAB URINE ORDERABLES Final Re sult [facility] [address] [place] [address], [facility] DTL [facility] [address] [place] [address] * Bacterial Culture, Aerobic + Susceptibility, Urine (10/10/2024 1:05 PM RETURNS PROCESSOR) Urine Culture Urogenital microbiota, susceptibilities not performed per laboratory criteria. 10/11/2024 2:46 PM RETURNS PROCESSOR DTL Urine (Urine, Midstream) 10/10/2024 1:05 PM RETURNS PROCESSOR 10/10/2024 2:06 PM RETURNS PROCESSOR Comment:Specimen Source Site : Urine us Gato Shaw M.D. LAB MICROBIOLOGY - GENERAL OR DERABLES Final Result Performing Organization Address City/[facility]/ZIP Co de Phone Number [facility] 200 [place] [address], [facility] 200 [place] [address] * pH, Urine (10/10/2024 1:05 PM RETURNS PROCESSOR) Only the most recent of2 resultswithin the time period is included. pH, U 6.0 4.5 - 8.0 10/10/2024 2:3 6 PM RETURNS PROCESSOR DT Urine 10/10/2024 1:05 PM RETURNS PROCESSOR 10/10/2024 1:25 PM RETURNS PROCESSOR us Gato Shaw M.D. LAB URINE ORDERABLES Final Re sult Performing Organization Address City/[facility] Co de Phone Number [facility] [address] [place] [address] * Osmolality, Urine (10/10/2024 1:05 PM RETURNS PROCESSOR) Only the most recent of2 resultswithin the time period is included. Osmolality, U 607 150 - 1150 mOsm/kg 10/10/2024 2:36 PM RETURNS PROCESSOR DTL Urine 10/10/2024 1:05 PM RETURNS PROCESSOR 10/10/2024 1:25 PM RETURNS PROCESSOR us Gato Shaw M.D. LAB URINE ORDERABLES Final Re sult Performing Organization Address City/[facility]/ZIP Co de Phone Number [facility] [address] [place] [address], [facility] 200 [place] [address] * (ABNORMAL) Urinalysis, with Microscopic: Urine, Midstream (10/10/2024 1:05 PM RETURNS PROCESSOR) Only the most recent of2 resultswithin the time period is included. Source Urine, Urine, Midstream 10/10/2024 1:25 PM RETURNS PROCESSOR DTL Color, U Yellow 10/10/2024 1:25 PM RETURNS PROCESSOR DTL Clarity, U Clear 10/10/2024 1:25 PM RETURNS PROCESSOR DTL Protein, U 58(H) <26 mg/dL 10/10/2024 2:19 PM RETURNS PROCESSOR DTL Protein/Osmol ality 0.96(H) <0.42 ratio 10/10/2024 2:36 PM RETURNS PROCESSOR DTL Predicted 24 HR Protein, U 902(H) <229 mg/24 h 10/10/2024 2:36 PM RETURNS PROCESSOR DTL Predicted Range 286-2841 mg/24 h 10/10/2024 2:36 PM RETURNS PROCESSOR DTL Urine (Urine, Midstream) 10/10/2024 1:05 PM RETURNS PROCESSOR 10/10/2024 1:24 PM RETURNS PROCESSOR us Gato Shaw M.D. LAB URINE ORDERABLES Final Re sult [facility] 200 [place] [address], [facility] [address] [place] [address] * ECG 12 Lead (10/10/2024 11:52 AM RETURNS PROCESSOR) Pathologist [facility] Ventricular Rate ECG/Min 42 BPM MUSE UT Interval 190 ms MUSE QRSD Interval 106 ms MUSE QT Interval 514 ms MUSE QTC Interval 429 ms MUSE P [place] 12 degrees MUSE R [place] -11 degrees MUSE T Wave [place] -1 degrees MUSE 10/10/2024 11:5 2 AM RETURNS PROCESSOR 10/10/2024 2:31 PM RETURNS PROCESSOR Impressions MUSE - 10/10/2024 11:54 AM RETURNS PROCESSOR Marked sinus bradycardia Minimal voltage criteria for [...] M.D. ECG ORDERABLES Edited Result - Final MUSE NA * DX Chest AP or PA and Lateral 2 Views (10/10/2024 11:22 AM RETURNS PROCESSOR) Anatomical Region Laterality Modality Chest, Thoracic RST LOS, Tho racic ARZ LOS, Thoracic FLA LOS N/A Digital Radiography Impressions 10/10/2024 11:38 AM RETURNS PROCESSOR Interstitial opacities within the bilateral mid and lower lungs, greater on the left. These likely correspond with fibrotic change seen on 08/13/2024 CT urogram. Aortic calcification. Hypertrophic degenerative changes thoracic spine with mild anterior wedging of several midthoracic vertebral bodies. Chest otherwise negative. Narrative 10/10/2024 11:38 AM RETURNS PROCESSOR EXAM: DX CHEST AP OR PA AND [...] * (ABNORMAL) Lipid Panel (10/10/2024 11:03 AM RETURNS PROCESSOR) Triglycerides 163(H) mg/dL 10/10/2024 12:20 PM RETURNS PROCESSOR DTL Comment: ----REFERENCE VALUE---- Normal: <150 mg/dL Borderline High: 150-199 mg/dL High: 200-499 mg/dL Very High: > or =500 mg/dL Cholesterol, Total 143 mg/dL 2024 12:20 PM RETURNS PROCESSOR DTL Comment: ----REFERENCE VALUE---- Desirable: < 200 mg/dL Borderline High: 200 - 239 mg/dL High: > or = 240 mg/dL Cholesterol, LDL, Calculated 78 mg/dL 10/10/2024 12:20 PM RETURNS PROCESSOR DTL Comment: ----REFERENCE VALUE---- Desirable: <100 mg/dL Above Desirable: 100-129 mg/dL Borderline High: 130-159 mg/dL High: 160-189 mg/dL Very High: >=190 mg/dL ----ADDITIONAL INFORMATION---- LDL cholesterol calculated using the Sawant/NIH equation. Cholesterol, HDL, S 37(L) >=40 mg/dL 10/10/2024 12:20 PM RETURNS PROCESSOR DTL Cholesterol, Non-HDL, Calculated 106 mg/dL 10/10/2024 12:20 PM RETURNS PROCESSOR DTL Comment: ----REFERENCE VALUE---- Desirable: <130 mg/dL Above Desirable: 130-159 mg/dL Borderline High: 160-189 mg/dL High: 190-219 mg/dL Very High: > or =220 mg/dL Fasting (8 HR or more) Yes 10/10/2024 11:03 AM RETURNS PROCESSOR DTL Blood (Blood, Venous) 10/10/2024 11:03 AM RETURNS PROCESSOR 10/10/2024 11:36 AM RETURNS PROCESSOR us Inocente Avila M.D. LAB BLOOD ADD-ON Final Resul t [facility] [address] [place] [address], [facility] [address] [place] [address] * Thyroid Function [place] (10/10/2024 11:03 AM RETURNS PROCESSOR) TSH, Sensitive 1.9 0.3 - 4.2 mIU/L 10/10/2024 12:20 PM RETURNS PROCESSOR DTL Blood (Blood, Venous) 10/10/2024 11:03 AM RETURNS PROCESSOR 10/10/2024 11:36 AM RETURNS PROCESSOR us Inocente Avila M.D. LAB BLOOD ADD-ON Final Resul t Performing Organization Address City/[facility] Co de Phone Number [facility] [address] [place], [place] [address] [place] [address] * (ABNORMAL) NT-Pro B-Type Natriuretic Peptide (BNP) (10/10/2024 11:03 AM RETURNS PROCESSOR) NT-Pro BNP 710(H) <=540 pg/mL 10/10/2024 12:20 PM RETURNS PROCESSOR DTL Comment: NT-proBNP values less than 300 [...] failure. Blood (Blood, Venous) 10/10/2024 11:03 AM RETURNS PROCESSOR 10/10/2024 11:36 AM RETURNS PROCESSOR us Inocente Avila M.D. LAB BLOOD ADD-ON Final Resul t Performing Organization Address [facility] Co de Phone Number [facility] 200 [place], [place] [id number] [place] [address] 200 [place] [address] * (ABNORMAL) CBC without Differential (10/10/2024 11:03 AM RETURNS PROCESSOR) Hemoglobin 13.1(L) 13.2 - 16.6 g/dL 10/10/2024 11:43 AM RETURNS PROCESSOR DTL Hematocrit 41.4 38.3 - 48.6 % 10/10/2024 11:43 AM RETURNS PROCESSOR DTL Erythrocytes 4.36 4.35 - 5.65 x10(12)/L 10/10/2024 11:43 AM RETURNS PROCESSOR DTL MCV 95.0 78.2 - 97.9 fL 10/10/2024 11:43 AM RETURNS PROCESSOR DTL RBC Distrib Width 13.2 11.8 - 14.5 % 10/10/2024 11:43 AM RETURNS PROCESSOR DTL Platelet Count 325(H) 135 - 317 x10(9)/L 10/10/2024 11:43 AM RETURNS PROCESSOR DTL Leukocytes 5.2 3.4 - 9.6 x10(9)/L 10/10/2024 11:43 AM RETURNS PROCESSOR DTL Blood (Blood, Venous) 10/10/2024 11:03 AM RETURNS PROCESSOR 10/10/2024 11:23 AM RETURNS PROCESSOR Gato Shaw M.D. LAB BLOOD ADD-ON Final Result Performing Organization Address City/[facility]/ZIP Co de Phone Number [address] [place] [address] * (ABNORMAL) Troponin T, 5th Generation (10/10/2024 11:03 AM RETURNS PROCESSOR) [facility] Troponin T, 5th gen 34(H) <=15 ng/L 10/10/2024 12:25 PM RETURNS PROCESSOR DTL Blood (Blood, Venous) 10/10/2024 11:03 AM RETURNS PROCESSOR 10/10/2024 11:37 AM RETURNS PROCESSOR Inocente Avila M.D. LAB BLOOD ADD-ON Final Resul t [facility] [address] [place] [address] * Basic Metabolic Panel (10/10/2024 11:03 AM RETURNS PROCESSOR) Only the most recent of2 resultswithin the time period is included. [facility] Potassium, S 4.7 3.6 - 5.2 mmol/L 10/10/2024 12:20 PM RETURNS PROCESSOR DTL Sodium, S 141 135 - 145 mmol/L 10/10/2024 12:20 PM RETURNS PROCESSOR DTL Chloride, S 104 98 - 107 mmol/L 10/10/2024 12:20 PM RETURNS PROCESSOR DTL Bicarbonate, S 26 22 - 29 mmol/L 10/10/2024 12:20 PM RETURNS PROCESSOR DTL Anion Gap 11 7 - 15 10/10/2024 12:20 PM RETURNS PROCESSOR DTL BUN (Blood Urea Nitrogen), S 17 8 - 24 mg/dL 10/10/2024 12:20 PM RETURNS PROCESSOR DTL Creatinine 1.15 0.74 - 1.35 mg/dL 10/10/2024 12:20 PM RETURNS PROCESSOR DTL Estimated GFR (eGFR) 64 >=60 mL/min/BSA 10/10/2024 12:20 PM RETURNS PROCESSOR DTL Comment: Estimated GFR calculated using the 2020 CKD_EPI creatinine equation. Calcium, Total, S 9.9 8.8 - 10.2 mg/dL 10/10/2024 12:20 PM RETURNS PROCESSOR DTL Glucose, S 91 70 - 140 mg/dL 10/10/2024 12:20 PM RETURNS PROCESSOR DTL Blood (Blood, Venous) 10/10/2024 11:03 AM RETURNS PROCESSOR 10/10/2024 11:36 AM RETURNS PROCESSOR us Gato Shaw M.D. LAB BLOOD ADD-ON Final Result [facility] [address] [place] [address], [facility] DTL [facility] [address] [place] [address] * ECHO TTE COMPLETE W CONTRAST-Outside US Card (09/29/2024 12:00 AM RETURNS PROCESSOR) Narrative IIMS - 10/02/2024 2:10 PM RETURNS PROCESSOR This order has been created and auto-finalized [...] NON RAD IMAGING PROCE DURES Final Result IIMS NA * (ABNORMAL) Cytology Non-HUB CUTTER (Scheduled) (09/08/2024 9:07 AM RETURNS PROCESSOR) (A ) 09/09/2024 2:39 PM RETURNS PROCESSOR DTL Participated in the Interpretation Franki Berry M.D.-Patholog y Fellow(A) 09/09/2024 2:39 PM RETURNS PROCESSOR DTL Report electronically signed by Jair Vences M.D., Ph.D. I verify that I have examined all relevant slides/materi als for the specimen(s) and rendered or confirmed the diagnosis. (A) 09/09/2024 2:39 PM RETURNS PROCESSOR DTL Gross Description Received 60 cc of yellow fluid.(A) 09/09/2024 2:39 PM RETURNS PROCESSOR DTL Source A. Urine, voided(A) 09/09/2024 2:39 PM RETURNS PROCESSOR DTL Interpretation A. 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 (A) 09/09/2024 2:39 PM RETURNS PROCESSOR DTL Urine 09/08/2024 9:07 AM RETURNS PROCESSOR 09/08/2024 10:52 AM RETURNS PROCESSOR Shellie Howe APRN, C.N.P., D.N.P. LAB SURG PATH ORDERABLES Final Result Performing Organization Address [facility] de Phone Number [facility] [address] [place] [address], [facility] DTL [address] [facility] [address] [place] [address] * URO Cystoscopy (general) (09/08/2024 9:00 AM RETURNS PROCESSOR) Narrative Hortensia Quiroga P.A.-C. - 09/08/2024 9:00 AM RETURNS PROCESSOR Hortensia Quiroga P.A.-C. 09/08/2024 9:27 AM URO [...] and with IV Contrast (08/13/2024 1:03 PM RETURNS PROCESSOR) Anatomical Region Laterality Modality Abdomen, Pelvis, Abdominal R ST LOS, Abdominal ARZ LOS, Abdominal FLA LOS N/A Computed Tomograp hy, Computed Tomography 08/13/2024 12:4 6 PM RETURNS PROCESSOR Impressions 08/13/2024 3:31 PM RETURNS PROCESSOR 1. 9 mm nonobstructing calculus at the left UPJ, with surrounding ureteral wall thickening and enhancement and periureteral stranding. 2. Additional 10 mm calculus in the urinary bladder and 8 mm nonobstructing calculus in the lower pole right kidney. Narrative 08/13/2024 3:31 PM RETURNS PROCESSOR EXAM: CT UROGRAM WITHOUT AND WITH IV [...] calculus in the lower pole right kidney. Shellie Howe APRN, C.N.P., D.N.P. IMG CT P ROCEDURES Final Result * Creatinine with Estimated GFR (08/11/2024 10:20 AM RETURNS PROCESSOR) Creatinine 1.21 0.74 - 1.35 mg/dL 08/11/2024 11:29 AM RETURNS PROCESSOR DTL Estimated GFR (eGFR) 61 >=60 mL/min/BSA 08/11/2024 11:29 AM RETURNS PROCESSOR DTL Comment: Estimated GFR calculated using the 2020 CKD_EPI creatinine equation. Blood (Blood, Venous) 08/11/2024 10:20 AM RETURNS PROCESSOR 08/11/2024 11:01 AM RETURNS PROCESSOR Shellie Howe APRN, C.N.P., D.N.P. LAB BLOO D ADD-ON Final Result [facility] [address] [place] [address], [facility] DTL [facility] [address] [place] [address] * URO Uroflow (08/08/2024 2:30 PM RETURNS PROCESSOR) Narrative Piter Ferrell M.D. - 08/08/2024 2:30 PM RETURNS PROCESSOR Piter Ferrell M.D. 08/09/2024 8:25 AM Reason [...] * (ABNORMAL) Microscopic Automated (08/08/2024 11:45 AM RETURNS PROCESSOR) Microscopy Abnormal 08/08/2024 1:17 PM RETURNS PROCESSOR DTL RBC 11-20(A) <3 /hpf 08/08/2024 1:17 PM RETURNS PROCESSOR DTL Dysmorphic RBC <25 <25 % 08/08/2024 1:17 PM RETURNS PROCESSOR DTL WBC 4-10(A) /hpf 08/08/2024 1:17 PM RETURNS PROCESSOR DTL Comment: ----REFERENCE VALUE---- <4 (Males) <11 (Females) Urine 08/08/2024 11:4 5 AM RETURNS PROCESSOR 08/08/2024 12:51 PM RETURNS PROCESSOR Rigoberto Flores M.D. LAB URINE ORDERABLES Final Res ult [place] [address] [place] [address] * PSA (Prostate-Specific Antigen), Diagnostic (08/06/2024 8:45 AM RETURNS PROCESSOR) Prostate-Specific Ag <0.10 <=7.2 ng/mL 08/06/2024 9:47 AM RETURNS PROCESSOR DTL Comment: ----ADDITIONAL INFORMATION---- The testing method is an electrochemiluminescence assay manufactured by [employer] and performed on the Modular or Kerrie system. Values obtained with different assay methods or kits may be different and cannot be used interchangeably. Test results cannot be interpreted as absolute evidence for the presence or absence of malignant disease. Blood (Blood, Venous) 08/06/2024 8:45 AM RETURNS PROCESSOR 08/06/2024 9:10 AM RETURNS PROCESSOR Gato Escalera Patrick Larkin APRNNKaron., Matteo.NDaisyP. LAB BLOOD ADD -ON Final Result [facility] [address] [place] [address], [place] DTL [facility] [address] [place] [address] from Last 3 Months Insurance [facility]
--- OUTSIDE RECORDS SUMMARY | 2024-10-17 22:58 | XMS_ITS | Encounter Summary ---
Author Organization [facility] Address [address] [place] [address] Care Team Providers Care Group Leader Wafer Polishing Name Role Phone Unavailable Primary Care Provider Unavailabl e Reason for Referral * Outpatient (Routine) - Closed Specialty Diagnoses / Procedures Referred By Sheila bustamante Referred To Contact Diagnoses Stone Kidney Procedures DX Chest AP or PA and Lateral 2 Views Gato Shaw M.D. [address] [place] [phone] Phone: tel: fax: [facility] Referral ID Status Reason Start Date Expiration Date Visits Re quested Visits Authorized [id number] Closed 09/30/2024 09/30/2025 1 1 RALIZED TRAFFIC CONTROL OPERATOR Reason for Visit * Outpatient (Routine) - Closed Specialty Diagnoses / Procedures Referred By Sheila bustamante Referred To Contact Diagnoses Stone Kidney Procedures DX Chest AP or PA and Lateral 2 Views Gato Shaw M.D. [address] [place] [phone] Phone: tel: fax: [facility] Referral ID Status Reason Start Date Expiration Date Visits Re quested Visits Authorized [id number] Closed 09/30/2024 09/30/2025 1 1 Encounter Details Date Type Department Care Team (Latest Contact Info) Description 10/10/2024 11:12 AM CENTRALIZED TRAFFIC CONTROL OPERATOR - 10/10/2024 2:24 PM CENTRALIZED TRAFFIC CONTROL OPERATOR Hospital Encounter Department of Radiology, [facility], in [place], [place] [address] [place] [address] [place] [phone] Gato Shaw M.D. [address] [place] [address] Stone Kidney Discharge Disposition: Home or Self [...] living situation today? 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 [address] [place] [phone] Discharge Disposition: Home or Self Care 10/23/2024 2:00 PM CENTRALIZED TRAFFIC CONTROL OPERATOR Comprehensive Visit Preoperative Evaluation Center in [place], [place] [address] [place] [phone] Winnie Becker M.D., M.S. [address] [place] [phone] 10/24/2024 1:08 PM CENTRALIZED TRAFFIC CONTROL OPERATOR Hospital Encounter Outpatient Procedure Center in [place], [place] [address] [place] [phone] Gato Shaw M.D. [address] [place] [phone] 10/24/2024 1:08 PM CENTRALIZED TRAFFIC CONTROL OPERATOR - 10/24/2024 3:34 PM CENTRALIZED TRAFFIC CONTROL OPERATOR Surgery Outpatient Procedure Center in [address] [phone] Gato Shaw M.D. [address] [place] [phone] CYSTOLITHOLAPAXY Scheduled Procedures Name Priority Associated Diagnoses Date/Ti me CYSTOLITHOLAPAXY Stone Kidney Hematuria 10/24/2024 1:08 PM CENTRALIZED TRAFFIC CONTROL OPERATOR CYSTOSCOPY BIOPSY FULGURATION Stone Kidney Hematuria 10/24/2024 1:08 PM CENTRALIZED TRAFFIC CONTROL OPERATOR URETEROSCOPY STONE EXTRACTION Stone Kidney Hematuria 10/24/2024 1:08 PM CENTRALIZED TRAFFIC CONTROL OPERATOR documented as of this encounter Procedures Procedure Name Priority Date/Time Associated Diagnosis Comments DX CHEST AP OR PA AND LATERAL 2 VIEWS RAD - Routine (most inpatients and all outpatients) 10/10/2024 11:22 AM CENTRALIZED TRAFFIC CONTROL OPERATOR Stone Kidney documented in this encounter Results * DX Chest AP or PA and Lateral 2 Views (10/10/2024 11:22 AM CENTRALIZED TRAFFIC CONTROL OPERATOR) Anatomical Region Laterality Modality Chest, Thoracic RST LOS, Tho racic ARZ LOS, Thoracic FLA LOS N/A Digital Radiography Impressions 10/10/2024 11:38 AM CENTRALIZED TRAFFIC CONTROL OPERATOR Interstitial opacities within the bilateral mid and lower lungs, greater on the left. These likely correspond with fibrotic change seen on 08/13/2024 CT urogram. Aortic calcification. Hypertrophic degenerative changes thoracic spine with mild anterior wedging of several midthoracic vertebral bodies. Chest otherwise negative. Narrative 10/10/2024 11:38 AM CENTRALIZED TRAFFIC CONTROL OPERATOR EXAM: DX CHEST AP OR PA AND [...] bodies. Chestotherwise negative. us Gato Shaw M.D. IMKeyshawn DIAGNOSTIC IMAGING PROCED URES Final Result documented in this encounter Visit Diagnoses Diagnosis Hematuria Stone Kidney Stone Kidney Hematuria documented in this encounter
--- OUTSIDE RECORDS SUMMARY | 2024-10-17 22:58 | XMS_ITS | Encounter Summary ---
Author Organization [facility] Address [address] [place] [address] Care Team Providers Care Arboriculture Teacher Name Role Phone Unavailable Primary Care Provider Unavailabl e Encounter Details Date Type Department Care Team ([facility] st Contact Info) Description 10/10/2024 Orders Only Department of Cardiovascular Medicine in [place], [place] [address] [place] [phone] Inocente Avila M.D. [address] [place] [address] Atrial Fibrillation Paroxysmal (HCC) (Primary Dx); Myocardial Injury Nonischemic Nontraumatic; Dysfunction Diastolic; Hyperlipidemia Social History Tobacco Use Types Packs/Day [...] your living situation today? 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 [address] [place] [phone] Discharge Disposition: Home or Self Care 10/23/2024 2:00 PM COMIC BOOK DESIGNER Comprehensive Visit Preoperative Evaluation Center in [place], [place] [address] [place] [address] Winnie Becker M.D., M.S. [address] [place], [place] [phone] 10/24/2024 1:08 PM COMIC BOOK DESIGNER Hospital Encounter Outpatient Procedure Center in [place], [place] [address] [place] [address] Gato Shaw M.D. [address] [place] [address] 10/24/2024 1:08 PM COMIC BOOK DESIGNER - 10/24/2024 3:34 PM COMIC BOOK DESIGNER Surgery Outpatient Procedure Center in [place], [place] [address] [place] [address] Gato Shaw M.D. [address] [place] [address] CYSTOLITHOLAPAXY Scheduled Procedures Name Priority Associated Diagnoses Date/Ti wy CYSTOLITHOLAPAXY Stone Kidney Hematuria 10/24/2024 1:08 PM COMIC BOOK DESIGNER CYSTOSCOPY BIOPSY FULGURATION Stone Kidney Hematuria 10/24/2024 1:08 PM COMIC BOOK DESIGNER URETEROSCOPY STONE EXTRACTION Stone Kidney Hematuria 10/24/2024 1:08 PM COMIC BOOK DESIGNER documented as of this encounter Results * (ABNORMAL) Lipid Panel (10/10/2024 11:03 AM COMIC BOOK DESIGNER) Triglycerides 163(H) mg/dL 10/10/2024 12:20 PM COMIC BOOK DESIGNER DTL Comment: ----REFERENCE VALUE---- Normal: <150 mg/dL Borderline High: 150-199 mg/dL High: 200-499 mg/dL Very High: > or =500 mg/dL Cholesterol, Total 143 mg/dL 2024 12:20 PM COMIC BOOK DESIGNER DTL Comment: ----REFERENCE VALUE---- Desirable: < 200 mg/dL Borderline High: 200 - 239 mg/dL High: > or = 240 mg/dL Cholesterol, LDL, Calculated 78 mg/dL 10/10/2024 12:20 PM COMIC BOOK DESIGNER DTL Comment: ----REFERENCE VALUE---- Desirable: <100 mg/dL Above Desirable: 100-129 mg/dL Borderline High: 130-159 mg/dL High: 160-189 mg/dL Very High: >=190 mg/dL ----ADDITIONAL INFORMATION---- LDL cholesterol calculated using the Sawant/NIH equation. Cholesterol, HDL, S 37(L) >=40 mg/dL 10/10/2024 12:20 PM COMIC BOOK DESIGNER DTL Cholesterol, Non-HDL, Calculated 106 mg/dL 10/10/2024 12:20 PM COMIC BOOK DESIGNER DTL Comment: ----REFERENCE VALUE---- Desirable: <130 mg/dL Above Desirable: 130-159 mg/dL Borderline High: 160-189 mg/dL High: 190-219 mg/dL Very High: > or =220 mg/dL Fasting (8 HR or more) Yes 10/10/2024 11:03 AM COMIC BOOK DESIGNER DTL Blood (Blood, Venous) 10/10/2024 11:03 AM COMIC BOOK DESIGNER 10/10/2024 11:36 AM COMIC BOOK DESIGNER us Inocente Avila M.D. LAB BLOOD ADD-ON Final Resul t Performing Organization Address City/[facility]/[place] Co de Phone Number [facility] [address] [facility] 200 [place] [address] * Thyroid Function [place] (10/10/2024 11:03 AM COMIC BOOK DESIGNER) [facility] TSH, Sensitive 1.9 0.3 - 4.2 mIU/L 10/10/2024 12:20 PM COMIC BOOK DESIGNER DTL Blood (Blood, Venous) 10/10/2024 11:03 AM COMIC BOOK DESIGNER 10/10/2024 11:36 AM COMIC BOOK DESIGNER us Inocente Avila M.D. LAB BLOOD ADD-ON Final Resul t Performing Organization Address City/[facility]/[place] Co de Phone Number [facility] 200 [place] [address] * (ABNORMAL) NT-Pro B-Type Natriuretic Peptide (BNP) (10/10/2024 11:03 AM COMIC BOOK DESIGNER) NT-Pro BNP 710(H) <=540 pg/mL 10/10/2024 12:20 PM COMIC BOOK DESIGNER DTL Comment: NT-proBNP values less than 300 [...] failure. Blood (Blood, Venous) 10/10/2024 11:03 AM COMIC BOOK DESIGNER 10/10/2024 11:36 AM COMIC BOOK DESIGNER us Inocente Avila M.D. LAB BLOOD ADD-ON Final Resul t Performing Organization Address City/[facility]/ZIP Co de Phone Number [address] [place] [address] * (ABNORMAL) Troponin T, 5th Generation (10/10/2024 11:03 AM COMIC BOOK DESIGNER) Troponin T, 5th gen 34(H) <=15 ng/L 10/10/2024 12:25 PM COMIC BOOK DESIGNER DTL Blood (Blood, Venous) 10/10/2024 11:03 AM COMIC BOOK DESIGNER 10/10/2024 11:37 AM COMIC BOOK DESIGNER us Inocente Avila M.D. LAB BLOOD ADD-ON Final Resul t [facility] [address] [place] [address], [place] [address] documented in this encounter Visit Diagnoses Diagnosis Hematuria Atrial Fibrillation Paroxysmal (HCC)- Primary 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 Hyperlipidemia Stone Kidney Hematuria documented in this encounter
--- OUTSIDE RECORDS SUMMARY | 2024-10-17 22:58 | XMS_ITS | Encounter Summary ---
Author Organization [facility] Address [address] [place] [address] Care Team Providers Care Health Club Manager Name Role Phone Unavailable Primary Care Provider Unavailabl e Reason for Referral * Cardiovascular-Diagnostic (Routine) - Closed Specialty Diagnoses / Procedures Referred By Sheila bustamante Referred To Contact Diagnoses Stenosis Aortic Valve Acquired Procedures Echo Transthoracic (TTE) Inocente Avila M.D. 200 [place] [address] Phone: tel: fax: [facility] Referral ID Status Reason Start Date Expiration Date Visits Re quested Visits Authorized [id number] Closed 10/10/2024 10/10/2025 1 1 SURE TANK OPERATOR Reason for Visit * Cardiovascular-Diagnostic (Routine) - Closed Specialty Diagnoses / Procedures Referred By Sheila bustamante Referred To Contact Diagnoses Stenosis Aortic Valve Acquired Procedures Echo Transthoracic (TTE) Inocente Avila M.D. 200 [place] [address] Phone: tel: fax: [facility] Referral ID Status Reason Start Date Expiration Date Visits Re quested Visits Authorized [id number] Closed 10/10/2024 10/10/2025 1 1 Encounter Details Date Type Department Care Team (Latest Contact Info) Description 10/10/2024 2:25 PM PRESSURE TANK OPERATOR - 10/10/2024 11:59 PM PRESSURE TANK OPERATOR Hospital Encounter Department of Cardiovascular Diseases in [place], [place] [address] [place] [address] Inocente Avila M.D. [address] [place] [address] Stenosis Aortic Valve Acquired Discharge Disposition: Home or Self Care Social [...] money to buy more. Never true 08/08/20 Ran Out of Food in the Last [...] your living situation today? 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 [address] [place] [phone] Discharge Disposition: Home or Self Care 10/23/2024 2:00 PM PRESSURE TANK OPERATOR Comprehensive Visit Preoperative Evaluation Center in [place], [place] [address] [place] [phone] Winnie Becker M.D., M.S. [address] [place] [phone] 10/24/2024 1:08 PM PRESSURE TANK OPERATOR Hospital Encounter Outpatient Procedure Center in [place], [place] [address] [place] [phone] Gato Shaw M.D. [address] [place] [phone] 10/24/2024 1:08 PM PRESSURE TANK OPERATOR - 10/24/2024 3:34 PM PRESSURE TANK OPERATOR Surgery Outpatient Procedure Center in [address] [phone] Gato Shaw M.D. [address] [place] [phone] CYSTOLITHOLAPAXY Scheduled Procedures Name Priority Associated Diagnoses Date/Ti me CYSTOLITHOLAPAXY Stone Kidney Hematuria 10/24/2024 1:08 PM PRESSURE TANK OPERATOR CYSTOSCOPY BIOPSY FULGURATION Stone Kidney Hematuria 10/24/2024 1:08 PM PRESSURE TANK OPERATOR URETEROSCOPY STONE EXTRACTION Stone Kidney Hematuria 10/24/2024 1:08 PM PRESSURE TANK OPERATOR documented as of this encounter Procedures Procedure Name Priority Date/Time Associated Diagnosis Comments (TTE) 2D ECHO DOPPLER COLOR Routine 10/10/2024 4:00 PM PRESSURE TANK OPERATOR Stenosis Aortic Valve Acquired documented in this encounter Results * (TTE) 2D ECHO DOPPLER COLOR (10/10/2024 4:00 PM PRESSURE TANK OPERATOR) Ejection Fraction 65 MC CV EIMS Mid-Ascending [...] Region Laterality Modality Echocardiography 10/10/2024 2:51 PM PRESSURE TANK OPERATOR Impressions 10/10/2024 4:01 PM PRESSURE TANK OPERATOR LEFT VENTRICLE:Normal left ventricular chamber size. Normal [...] the Order-Level Documents. Narrative 10/10/2024 4:01 PM PRESSURE TANK OPERATOR For the complete report, see the Order-Level [...] (>50%). 8. There are no previous [facility] echocardiograms available for comparison. Procedure Note Paras Diaz M.D. - 10/10/2024 For the complete report, see the Order-Level Documents. Hemodynamics Heart Rate: 46 BPM Blood Pressure: 152 / 71 mmHg ECG: Sinus rhythm, Bradycardia Final Impressions 1. Moderate calcific aortic valve stenosis, systolic mean Doppler [id number] mmHg, valve area by Doppler 1.08 cm2. [...] collapse(>50%). 8. There are no previous [facility] echocardiograms available forcomparison. Findings LEFT VENTRICLE:Normal left [...] Visit Diagnoses Diagnosis Hematuria Stenosis Aortic Valve Acquired Stone Kidney Hematuria documented in this encounter
--- OUTSIDE RECORDS SUMMARY | 2024-10-17 22:58 | XMS_ITS ---
Author Organization [facility] Address [address] [place] [address] Care Team Providers Care Nut Former Name Role Phone Unavailable Unavailable Unavailable Surgery Details Not on file Complications Check Surgery Details section. Procedure Estimated Blood Loss Check Surgery Details section. Procedure Findings Check Surgery Details section. Procedure Specimens Taken Check Surgery Details section.
--- OUTSIDE RECORDS SUMMARY | 2024-10-17 22:59 | XMS_ITS | Encounter Summary ---
Author Organization [facility] Address [address] [place] [address] Care Team Providers Care Oxygen Therapist Name Role Phone Unavailable Primary Care Provider Unavailabl e Reason for Referral * Outpatient (Routine) - Closed Specialty Diagnoses / Procedures Referred By Contac t Referred To Contact Diagnoses Stone Kidney Procedures DX Chest AP or PA and Lateral 2 Views Gato Shaw M.D. [address] [place] [address] Phone: tel: fax: [facility] Referral ID Status Reason Start Date Expiration Date Visits Re quested Visits Authorized [id number] Closed 09/30/2024 09/30/2025 1 1 GER TELEMARKETING * Outpatient (Routine) - Closed Specialty Diagnoses / Procedures Referred By Contac t Referred To Contact Diagnoses Stone Kidney Procedures ECG 12 Lead Gato Shaw M.D. [address] [place] [address] Phone: tel: fax: [facility] Referral ID Status Reason Start Date Expiration Date Visits Re quested Visits Authorized [id number] Closed 09/30/2024 09/30/2025 1 1 GER TELEMARKETING * Outpatient (Routine) - Closed Specialty Diagnoses / Procedures Referred By Contact Referred To Contact Cardiovascular Diseases / Cardiovascular Disease Diagnoses Stone Kidney Gato Shaw M.D. [address] [place] [address] Phone: tel: fax: [facility] Referral ID Status Reason Start Date Expiration Date Visits Re quested Visits Authorized [id number] Closed 09/30/2024 04/01/2026 1 1 Scheduling Instructions Please schedule at least a week prior to surgery on 10/24 to allow for Eliquis recommendations GER TELEMARKETING Encounter Details Date Type Department Care Team (Late st Contact Info) Description 09/30/2024 Clinical Communication Department of Urology in [place], [place] [address] [place] [phone] Gato Shaw M.D. [address] [place] [phone] Social History Tobacco Use Types Packs/Day Years [...] your living situation today? 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 Not on f ile Not on file Not on file documented as of this encounter Plan of Treatment Upcoming Encounters Date Type Department Care Team (Latest Contact Info) Description 10/21/2024 1:15 PM MANAGER TELEMARKETING Clinical Communication Virtual Review in [place], [place] 200 [place] [address] 10/23/2024 12:00 PM MANAGER TELEMARKETING Appointment Department of Radiology, [facility], in [place], [place] [address] [place] [phone] Inocente Avila M.D. [address] [place], [place] [phone] Discharge Disposition: Home or Self Care 10/23/2024 2:00 PM MANAGER TELEMARKETING Comprehensive Visit Preoperative Evaluation Center in [address] [phone] Winnie Becker M.D., M.S. [address] [place] [phone] 10/24/2024 1:08 PM MANAGER TELEMARKETING Hospital Encounter Outpatient Procedure Center in [place], [place] [address] [place] [phone] Gato Shaw M.D. [address] [place], [place] [phone] 10/24/2024 1:08 PM MANAGER TELEMARKETING - 10/24/2024 3:34 PM MANAGER TELEMARKETING Surgery Outpatient Procedure Center in [place], [place] [address] [place] [address] Gato Shaw M.D. [address] [place] [address] CYSTOLITHOLAPAXY Scheduled Procedures Name Priority Associated Diagnoses Date/Ti me CYSTOLITHOLAPAXY Stone Kidney Hematuria 10/24/2024 1:08 PM MANAGER TELEMARKETING CYSTOSCOPY BIOPSY FULGURATION Stone Kidney Hematuria 10/24/2024 1:08 PM MANAGER TELEMARKETING URETEROSCOPY STONE EXTRACTION Stone Kidney Hematuria 10/24/2024 1:08 PM MANAGER TELEMARKETING Scheduled Referrals Name Type Priority Associated Diagnoses Order Schedule Cardiovascular Disease - YESSENIA consult (clinic) Outpatient Referral Routine Stone Kidney Expected: 09/30/2024, Expires: 12/29/2025 documented as of this encounter Results * ECG 12 Lead (10/10/2024 11:52 AM MANAGER TELEMARKETING) Ventricular Rate ECG/Min 42 BPM MUSE ID Interval 190 ms MUSE QRSD Interval 106 ms MUSE QT Interval 514 ms MUSE QTC Interval 429 ms MUSE P [place] 12 degrees MUSE R [place] -11 degrees MUSE T Wave [place] -1 degrees MUSE 10/10/2024 11:5 2 AM MANAGER TELEMARKETING 10/10/2024 2:31 PM MANAGER TELEMARKETING Impressions MUSE - 10/10/2024 11:54 AM MANAGER TELEMARKETING Marked sinus bradycardia Minimal voltage criteria for [...] and Lateral 2 Views (10/10/2024 11:22 AM MANAGER TELEMARKETING) Anatomical Region Laterality Modality Chest, Thoracic RST LOS, Tho racic ARZ LOS, Thoracic FLA LOS N/A Digital Radiography Impressions 10/10/2024 11:38 AM MANAGER TELEMARKETING Interstitial opacities within the bilateral mid and lower lungs, greater on the left. These likely correspond with fibrotic change seen on 08/13/2024 CT urogram. Aortic calcification. Hypertrophic degenerative changes thoracic spine with mild anterior wedging of several midthoracic vertebral bodies. Chest otherwise negative. Narrative 10/10/2024 11:38 AM MANAGER TELEMARKETING EXAM: DX CHEST AP OR PA AND [...] IMKeyshawn DIAGNOSTIC IMAGING PROCED URES Final Result * Basic Metabolic Panel (10/10/2024 11:03 AM MANAGER TELEMARKETING) Potassium, S 4.7 3.6 - 5.2 mmol/L 10/10/2024 12:20 PM MANAGER TELEMARKETING DTL Sodium, S 141 135 - 145 mmol/L 10/10/2024 12:20 PM MANAGER TELEMARKETING DTL Chloride, S 104 98 - 107 mmol/L 10/10/2024 12:20 PM MANAGER TELEMARKETING DTL Bicarbonate, S 26 22 - 29 mmol/L 10/10/2024 12:20 PM MANAGER TELEMARKETING DTL Anion Gap 11 7 - 15 10/10/2024 12:20 PM MANAGER TELEMARKETING DTL BUN (Blood Urea Nitrogen), S 17 8 - 24 mg/dL 10/10/2024 12:20 PM MANAGER TELEMARKETING DTL Creatinine 1.15 0.74 - 1.35 mg/dL 10/10/2024 12:20 PM MANAGER TELEMARKETING DTL Estimated GFR (eGFR) 64 >=60 mL/min/BSA 10/10/2024 12:20 PM MANAGER TELEMARKETING DTL Comment: Estimated GFR calculated using the 2020 CKD_EPI creatinine equation. Calcium, Total, S 9.9 8.8 - 10.2 mg/dL 10/10/2024 12:20 PM MANAGER TELEMARKETING DTL Glucose, S 91 70 - 140 mg/dL 10/10/2024 12:20 PM MANAGER TELEMARKETING DTL Blood (Blood, Venous) 10/10/2024 11:03 AM MANAGER TELEMARKETING 10/10/2024 11:36 AM MANAGER TELEMARKETING us Gato Shaw M.D. LAB BLOOD ADD-ON Final Result [facility] [address] [place] [address], [facility] [address] [place] [address] * (ABNORMAL) CBC without Differential (10/10/2024 11:03 AM MANAGER TELEMARKETING) Hemoglobin 13.1(L) 13.2 - 16.6 g/dL 10/10/2024 11:43 AM MANAGER TELEMARKETING DTL Hematocrit 41.4 38.3 - 48.6 % 10/10/2024 11:43 AM MANAGER TELEMARKETING DTL Erythrocytes 4.36 4.35 - 5.65 x10(12)/L 10/10/2024 11:43 AM MANAGER TELEMARKETING DTL MCV 95.0 78.2 - 97.9 fL 10/10/2024 11:43 AM MANAGER TELEMARKETING DTL RBC Distrib Width 13.2 11.8 - 14.5 % 10/10/2024 11:43 AM MANAGER TELEMARKETING DTL Platelet Count 325(H) 135 - 317 x10(9)/L 10/10/2024 11:43 AM MANAGER TELEMARKETING DTL Leukocytes 5.2 3.4 - 9.6 x10(9)/L 10/10/2024 11:43 AM MANAGER TELEMARKETING DTL Blood (Blood, Venous) 10/10/2024 11:03 AM MANAGER TELEMARKETING 10/10/2024 11:23 AM MANAGER TELEMARKETING us Gato Shaw M.D. LAB BLOOD ADD-ON Final Result [facility] [address] [place] [address], [facility] [address] [place] [address] documented in this encounter Visit Diagnoses Diagnosis Hematuria Stone Kidney- Primary Stone Kidney Stone Kidney Hematuria documented in this encounter
--- OUTSIDE RECORDS SUMMARY | 2024-10-17 22:59 | XMS_ITS | Encounter Summary ---
Author Organization [facility] Address [address] [place] [address] Care Team Providers Care Computer Support Specialist Name Role Phone Unavailable Primary Care Provider Unavailabl e Reason for Visit * Reason Onset Date Comments Pre-visit Intake 09/04/2024 * Appointment Request (Routine) - Authorized Specialty Diagnoses / Procedures Referred By Sheila t Referred To Contact Urology Referral ID Status Reason Start Date Expiration Date V isits Requested Visits Authorized [id number] Authorized 08/20/2024 08/20/2025 1 1 Encounter Details Date Type Department Care Team (Latest Contact Info) Description 09/04/2024 12:45 PM HUMANITIES DEPARTMENT CHAIR Clinical Communication Virtual Review in [address] [phone] Pre-visit Intake Social History Tobacco Use Types Packs/Day Years Used Date Smoking Tobacco: Never Passive Smoke Exposure: Never Smokeless Tobacco: Never Tobacco Cessation:Counseling Given: Not Answered Overall Financial Resource Strain (CARDIA) Answe r [...] your living situation today? 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 [address] [place] [phone] Discharge Disposition: Home or Self Care 10/23/2024 2:00 PM HUMANITIES DEPARTMENT CHAIR Comprehensive Visit Preoperative Evaluation Center in [place], [place] [address] [place] [phone] Winnie Becker M.D., M.S. [address] [place] [phone] 10/24/2024 1:08 PM HUMANITIES DEPARTMENT CHAIR Hospital Encounter Outpatient Procedure Center in [place], [place] [address] [place] [address] Gato Shaw M.D. [address] [place] [phone] 10/24/2024 1:08 PM HUMANITIES DEPARTMENT CHAIR - 10/24/2024 3:34 PM HUMANITIES DEPARTMENT CHAIR Surgery Outpatient Procedure Center in [place], [place] [address] [place] [address] Gato Shaw M.D. [address] [place] [phone] CYSTOLITHOLAPAXY Scheduled Procedures Name Priority Associated Diagnoses Date/Ti wi CYSTOLITHOLAPAXY Stone Kidney Hematuria 10/24/2024 1:08 PM HUMANITIES DEPARTMENT CHAIR CYSTOSCOPY BIOPSY FULGURATION Stone Kidney Hematuria 10/24/2024 1:08 PM HUMANITIES DEPARTMENT CHAIR URETEROSCOPY STONE EXTRACTION Stone Kidney Hematuria 10/24/2024 1:08 PM HUMANITIES DEPARTMENT CHAIR documented as of this encounter Visit Diagnoses Not on filedocumented in this encounter
--- OUTSIDE RECORDS SUMMARY | 2024-10-17 22:59 | XMS_ITS | Encounter Summary ---
Author Organization [facility] Address [address] [place] [address] Care Team Providers Care Critical Power Install Technician Name Role Phone Unavailable Primary Care Provider Unavailabl e Encounter Details Date Type Department Care Team (Late st Contact Info) Description 10/08/2024 Clinical Communication Department of Urology in [place], [place] [address] [place] [address] Ghanshyam Ye Social History Tobacco Use Types Packs/Day Years [...] your living situation today? 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 [address] [place], [place] [phone] Discharge Disposition: Home or Self Care 10/23/2024 2:00 PM PAYMENT PROCESSOR Comprehensive Visit Preoperative Evaluation Center in [place], [place] [address] [place], [place] [phone] Winnie Becker M.D., M.S. [address] [place] [phone] 10/24/2024 1:08 PM PAYMENT PROCESSOR Hospital Encounter Outpatient Procedure Center in [place], [place] [address] [place] [phone] Gato Shaw M.D. [address] [place], [place] [phone] 10/24/2024 1:08 PM PAYMENT PROCESSOR - 10/24/2024 3:34 PM PAYMENT PROCESSOR Surgery Outpatient Procedure Center in [place], [place] [address] [place] [address] Gato Shaw M.D. [address] [place] [address] CYSTOLITHOLAPAXY Scheduled Procedures Name Priority Associated Diagnoses Date/Ti me CYSTOLITHOLAPAXY Stone Kidney Hematuria 10/24/2024 1:08 PM PAYMENT PROCESSOR CYSTOSCOPY BIOPSY FULGURATION Stone Kidney Hematuria 10/24/2024 1:08 PM PAYMENT PROCESSOR URETEROSCOPY STONE EXTRACTION Stone Kidney Hematuria 10/24/2024 1:08 PM PAYMENT PROCESSOR documented as of this encounter Visit Diagnoses Not on filedocumented in this encounter
--- OUTSIDE RECORDS SUMMARY | 2024-10-17 22:59 | XMS_ITS | Encounter Summary ---
Author Organization [facility] Address [address] [place] [address] Care Team Providers Care Transportation Consultant Name Role Phone Unavailable Primary Care Provider Unavailabl e Reason for Visit * Reason Onset Date Comments Triage 10/02/2024 Encounter Details Date Type Department Care Team (Latest Contact Info) Description 10/02/2024 Clinical Communication Department of Cardiovascular Medicine in [place], [place] [address] [place] [address] Teacher Of The Visually ImpairedSudarshan M.D. 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 - 10/02/2024 10:15 AM CST Images from the original note were not included. Comprehensive Cardiology Triage The following information has been gathered from review of available medical records as of 10/02/24for triage purposes.. It is not a comprehensive summary, and has not been verified by the patient. The Appointment Triage Team does not establish a relationship with the patient, nor manage the patient's care outside of an initial review for the purposes of pre-appointment triage. Summary Lyle Mendez is internally referred by [facility] for clinical question: CV-LIZET: Preoperative clearance prior to 10/24/24 bladder/kidney stone removal. Please schedule at least a week prior to surgery on 10/24 to allow for Eliquis recommendations [facility] message: I received a call from Dr. Coco Rollins at [facility]. She knows Mr. Mendez will be having surgery and wanted you to know, he was just admitted with the flu and was hypoxic and has a new diagnosis of A-Fib and is being sent home on Eliquis. He is gong to be seeing his PCP and probablymaking an apt with cardiology. But, she wants to make sure someone talks to him about stopping the Eliquis before surgery and I don't know if you want to change his LIZET to a cardiac lizet. Pertinent Cardiac/Medical History AV stenosis AFib HTN HLD Nephrolithiasis Prostate CA Pertinent Testing/Consults Labs (CBC/BMP) ECG CXR Hospital DC Summary: 10/01/24 ([facility]) Echo: 09/29/24 ([facility]) 1. Normal LV size, moderately increased wall thickness, estimated EF of 60 - 65%. 2. Normal RV size and systolic function. 3. Moderate aortic stenosis: Vmax 3.7 m/s, MG 35 mmHg, BOLA 1.21 cm?, DI 0.41, SVi 39.9 ml/m?. 4. Echo contrast was administered to enhance visualization of all left ventricular segments. Additional OSM needed? Yes Outside Medical Records Request Facility Information if known (name, city/state, phone/fax): -[facility], ph [phone] Medical records needed and approximate date: -Echo images. Date: 09/29/24 Date/timeframe records needed by: -Prior to CV appt Notification of records received: -No notification needed (provider will review at time of appt) D SUPPORT SPECIALIST D SUPPORT SPECIALIST documented in this encounter Plan of Treatment Upcoming Encounters Date Type Department Care Team (Latest Contact Info) Description 10/21/2024 1:15 PM FIELD SUPPORT SPECIALIST Clinical Communication Virtual Review in [place], [place] 200 [place] [address] 10/23/2024 12:00 PM FIELD SUPPORT SPECIALIST Appointment Department of Radiology, [facility], in [place], [place] [address] [place] [phone] Inocente Avila M.D. [address] [place] [phone] Discharge Disposition: Home or Self Care 10/23/2024 2:00 PM FIELD SUPPORT SPECIALIST Comprehensive Visit Preoperative Evaluation Center in [place], [place] [address] [place] [phone] Winnie Becker M.D., M.S. [address] [place] [phone] 10/24/2024 1:08 PM FIELD SUPPORT SPECIALIST Hospital Encounter Outpatient Procedure Center in [place], [place] [address] [place] [phone] Gato Shaw M.D. [address] [place] [phone] 10/24/2024 1:08 PM FIELD SUPPORT SPECIALIST - 10/24/2024 3:34 PM FIELD SUPPORT SPECIALIST Surgery Outpatient Procedure Center in [place], [place] [address] [place] [address] Gato Shaw M.D. [address] [place] [phone] CYSTOLITHOLAPAXY Scheduled Procedures Name Priority Associated Diagnoses Date/Ti ri CYSTOLITHOLAPAXY Stone Kidney Hematuria 10/24/2024 1:08 PM FIELD SUPPORT SPECIALIST CYSTOSCOPY BIOPSY FULGURATION Stone Kidney Hematuria 10/24/2024 1:08 PM FIELD SUPPORT SPECIALIST URETEROSCOPY STONE EXTRACTION Stone Kidney Hematuria 10/24/2024 1:08 PM FIELD SUPPORT SPECIALIST documented as of this encounter Visit Diagnoses Not on filedocumented in this encounter
--- OUTSIDE RECORDS SUMMARY | 2024-10-17 22:59 | XMS_ITS | Encounter Summary ---
Author Organization [facility] Address [address] [place] [address] Care Team Providers Care Box Storage Worker Name Role Phone Unavailable Primary Care Provider Unavailabl e Encounter Details Date Type Department Care Team (Late st Contact Info) Description 09/08/2024 8:02 AM BORING MACHINE FEEDER - 09/08/2024 11:59 PM [facility] Hospital Encounter Department of Laboratory Medicine and Pathology, [facility] in [place], [place] [address] [place] [phone] Shellie Howe APRN, C.N.P., D.N.P. [address] [place] [phone] Stone Kidney Discharge Disposition: Home or Self [...] your living situation today? 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 06/26/2023 atorvastatin (LIPITOR) 10 mg tablet Take 10 [...] capsule Take 0.4 mg by mouth. 05/05/2021 aspirin 81 mg chewable tablet Chew 1 tablet daily. 06/20/2011 5 documented as of this encounter Plan of Treatment Upcoming Encounters Date Type Department Care Team (Latest Contact Info) Description 10/21/2024 1:15 PM BORING MACHINE FEEDER Clinical Communication Virtual Review in [address] [phone] 10/23/2024 12:00 PM BORING MACHINE FEEDER Appointment Department of Radiology, [facility], in [address] [phone] Inocente Avila M.D. [address] [place] [phone] Discharge Disposition: Home or Self Care 10/23/2024 2:00 PM BORING MACHINE FEEDER Comprehensive Visit Preoperative Evaluation Center in [address] [phone] Winnie Becker M.D., M.S. [address] [place] [phone] 10/24/2024 1:08 PM BORING MACHINE FEEDER Hospital Encounter Outpatient Procedure Center in [address] [phone] Gato Shaw M.D. [address] [place], [place] [phone] 10/24/2024 1:08 PM BORING MACHINE FEEDER - 10/24/2024 3:34 PM BORING MACHINE FEEDER Surgery Outpatient Procedure Center in [place], [place] [address] [place] [address] Gato Shaw M.D. [address] [place] [address] CYSTOLITHOLAPAXY Scheduled Procedures Name Priority Associated Diagnoses Date/Ti me CYSTOLITHOLAPAXY Stone Kidney Hematuria 10/24/2024 1:08 PM BORING MACHINE FEEDER CYSTOSCOPY BIOPSY FULGURATION Stone Kidney Hematuria 10/24/2024 1:08 PM BORING MACHINE FEEDER URETEROSCOPY STONE EXTRACTION Stone Kidney Hematuria 10/24/2024 1:08 PM BORING MACHINE FEEDER documented as of this encounter Procedures Procedure Name Priority Date/Time Associated Diagnosis Comments BASIC METABOLIC PANEL, S/P Routine 09/08/2024 8:25 AM BORING MACHINE FEEDER Stone Kidney documented in this encounter Results * (ABNORMAL) Basic Metabolic Panel (09/08/2024 8:25 AM BORING MACHINE FEEDER) Potassium, S 4.0 3.6 - 5.2 mmol/L 09/08/2024 9:38 AM BORING MACHINE FEEDER DTL Sodium, S 141 135 - 145 mmol/L 09/08/2024 9:38 AM BORING MACHINE FEEDER DTL Chloride, S 103 98 - 107 mmol/L 09/08/2024 9:38 AM BORING MACHINE FEEDER DTL Bicarbonate, S 30(H) 22 - 29 mmol/L 09/08/2024 9:38 AM BORING MACHINE FEEDER DTL Anion Gap 8 7 - 15 09/08/2024 9:38 AM BORING MACHINE FEEDER DTL BUN (Blood Urea Nitrogen), S 23 8 - 24 mg/dL 09/08/2024 9:38 AM BORING MACHINE FEEDER DTL Creatinine 1.12 0.74 - 1.35 mg/dL 09/08/2024 9:38 AM BORING MACHINE FEEDER DTL Estimated GFR (eGFR) 66 >=60 mL/min/BSA 09/08/2024 9:38 AM BORING MACHINE FEEDER DTL Comment: Estimated GFR calculated using the 2020 CKD_EPI creatinine equation. Calcium, Total, S 9.8 8.8 - 10.2 mg/dL 09/08/2024 9:38 AM BORING MACHINE FEEDER DTL Glucose, S 91 70 - 140 mg/dL 09/08/2024 9:38 AM BORING MACHINE FEEDER DTL Blood (Blood, Venous) 09/08/2024 8:25 AM BORING MACHINE FEEDER 09/08/2024 9:05 AM BORING MACHINE FEEDER us Shellie Howe APRN, C.N.P., D.N.P. LAB BLOO D ADD-ON Final Result [facility] [address] [place] [address], [facility] DTL [facility] [address] [place] [address] documented in this encounter Visit Diagnoses Diagnosis Stone Kidney Hematuria Stone Kidney Hematuria documented in this encounter
--- OUTSIDE RECORDS SUMMARY | 2024-10-17 22:59 | XMS_ITS | Encounter Summary ---
Author Organization [facility] Address [address] [place] [address] Care Team Providers Care Novelty Worker Name Role Phone Unavailable Primary Care Provider Unavailabl e Reason for Referral * Outpatient (Routine) - Authorized Specialty Diagnoses / Procedures Referred By Sheila bustamante Referred To Contact Anesthesiology Diagnoses Stone Kidney Winnie Becker M.D., M.S. [address] [place] [phone] Phone: tel: fax: [facility] Referral ID Status Reason Start Date Expiration Date V isits Requested Visits Authorized [id number] Authorized 09/08/2024 03/10/2026 1 1 STRIAL HIRE SALES ASSISTANT Reason for Visit * Outpatient (Routine) - Closed Specialty Diagnoses / Procedures Referred By Sheila bustamante Referred To Contact Urology Diagnoses Stone Kidney Shellie Howe APRN, C.N.P., D.N.P. [address] [place] [phone] Phone: tel: fax: [facility] Referral ID Status Reason Start Date Expiration Date Visits Re quested Visits Authorized [id number] Closed 08/14/2024 02/13/2026 1 1 Encounter Details Date Type Department Care Team (Latest Contact Info) Description 09/08/2024 10:30 AM INDUSTRIAL HIRE SALES ASSISTANT Comprehensive Visit Department of Urology in [place], [place] [address] [place] [phone] Gato Shaw M.D. [address] [place] [address] Stone Kidney (Primary Dx) Social History Tobacco [...] Date Recorded Dental: Regular Dentist Yes 08/08/20 23 Employment Answer Date Recorded Employment status Retired 08/08/2023 Housing Stability Answer Date Recorded What is your living situation today? 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 Not on f ile Not on file Not on file documented as of this encounter Consult Notes * Winnie Becker M.D., M.S. - 09/08/2024 10:30 AM CST Images from the original note were not included. Referring Physician: Shellie Howe APRN, Missy.N.Ana, Matteo.N.P. UROLOGY CLINIC NOTE: SUBJECTIVE REASON FOR CONSULT Nephrolithiasis Seen on Dr. Cortes's calendar Patient referred by Shellie Howe APRN, Missy.N.Marisela., Matteo.N.P. HISTORY OF PRESENT ILLNESS Mr. Mendez is a 79 y.o. male seen in consultation for evaluation of nephrolithiasis and bladder stone Patient had incidental finding of bilateral renal stones and bladder stone found on a gross hematuria evaluation. He reports multiple prior episodes of gross hematuria and hematochezia. Lower urinarytract symptoms are notable for weak stream, incomplete emptying, urgency with leakage. His urinary urgency is the most bothersome. He also has non-bothersome nocturia 3x a night. No history of urinary retention, HLAEIGH, or rUTIs. Obstructive symptoms have somewhat well to Flomax. His uroflow demonstrated a voided volume of 118, with a PVR of 7 He has never had urinary retention, incomplete emptying, recurrent UTIs. He does have a radiation history for treatment of his prostate cancer as described below. He does not endorse any occupationalexposure, chronic indwelling Kennedy catheter, or recurrent UTIs. No history of tobacco use Nephrolithiasis History: Prior ureteroscopy 30 years ago, unknown laterality. No reported infection at this time. No other episodes of nephrolithiasis nor family history of nephrolithiasis. No flank pain at this time Prostate Cancer History He has a known history of Nicholas 6 prostate cancer , clinical previously on active surveillance with most recent TP office biopsy on 823 demonstrating Anthony 4 + 4 disease with perineural invasion (Stage IIC (cT2a, cN0, cM0, PSA: 9.8, Grade Group: 4). PSMA negative for metastatic disease. He was started on ADT + Bicalutamide and proton radiotherapy 08/23. Most recent PSA <0.1. No hot flashes, low libido, or gynaecomastia. Hematuria Evaluation CT urogram 08/13: 1 cm left UPJ stone, a 1 cm right lower pole stone, and a 1 cm bladder stone immediately behind a large median lob, prostate volume 68 cc Cystoscopy 09/08: Enlarged median lobe with a 1 cm bladder stone in the trigone Right lateral wall and trigone papillary findings suspicious for urothelial carcinoma, orthotopic ureteral orifices that are not involving Cytology pending Medical history Hypertension Aortic valve stenosis Erectile dysfunction Surgical history Vasectomy Cataract surgery No other abdominal or pelvic history Medications Notable for aspirin 81 and Flomax 0.4 mg Family history notable for non lethal prostate cancer in his brother No history of urothelial carcinoma, Martinez syndrome, or ulcerative colitis OBJECTIVE PHYSICAL EXAMINATION General: Sitting in chair, in no acute distress Abdomen: Soft, nontender. DIAGNOSTICS I personally reviewed the following labs and imaging studies. LABS: Lab Results Component Value Date NA 141 09/08/2024 CL 103 09/08/2024 CREATININE 1.12 09/08/2024 BUN 23 09/08/2024 CO2 29 08/04/2022 HGB 14.2 06/28/2023 HCT 42.3 06/28/2023 WBC 7.6 06/28/2023 PSA: Lab Results Component Value Date PSA <0.10 08/06/2024 PSA <0.10 12/10/2023 PSA 1.5 08/08/2023 IMAGING: CT Urogram without and with IV Contrast Result Date: 08/13/2024 Impression: 1. 9 mm nonobstructing calculus at the left UPJ, with surrounding ureteral wall thickening and enhancement and periureteral stranding. 2. Additional 10 mm calculus in the urinary bladder and 8 mm nonobstructing calculus in the lower pole right kidney. ASSESSMENT / PLAN # 9mm LEFT UPJ stone # 10mm RIGHT lower pole stone # 8mm Bladder Stone # right lateral oral bladder wall papillary mass concerning for urothelial carcinoma # gross hematuria # obstructive lower urinary tract symptoms # bothersome urinary urgency # prostate cancer status post proton beam therapy and ADT # hypertension # aortic valve stenosis Dr. Shaw and I had a very lengthy discussion with the patient. We had reviewed his cross-sectionalimaging was demonstrated bilateral nephrolithiasis as well as a bladder stone as described above. Fortunately in comparison to his PET scan 1 year ago, his right nephrolithiasis is stable, while his left kidney stone and bladder stone have significantly increased. Given this interval change we would recommend surgical intervention for the left kidney stone and bladder stone. We also reviewed his cystoscopy which demonstrated right lateral wall versus trigone papillary massconcerning for urothelial carcinoma. It appears that this may be at the edge of a cellule/diverticula. Given this we would recommend proceeding with a cystoscopy biopsy and fulguration at the same time of his stone surgery. I had a very lengthy discussion with him about his other lower urinary tract symptoms. Continued use of ADT we will likely have an effect of shrinking his prostate which may also benefit his lower urinary tract symptoms. We will defer further management of his BPH to a later time once we treat his bladder stones and have a sense of his bladder cancer pathology. I discussed the procedure with the patient in detail. The risks and benefits were explained. The risks were stated to include, but not limited to, myocardial infarction; stroke; bleeding possibly requiring transfusions; intra-abdominal and wound infections; pulmonary complications including atelectasis, pneumonia, pulmonary emboli; and deep venous thrombosis. I discussed the risks of significant hematuria, ureteral avulsion, extraperitoneal versus intraperitoneal bladder perforation, need for staged surgery, inability to perform primary ureteroscopy. The patient understood these risks and provided informed consent. PLAN: OR for cystolitholapaxy, cystoscopy, biopsy, fulguration of papillary lesion, proceed as indicated to left primary ureteroscopy laser lithotripsy versus stent placement and staged ureteroscopy with Dr. Shaw in the [facility] on 10/24 -cardiac YESSENIA -urine culture 10-14 days prior Plan was discussed with supervising library consultant, Dr. Valeria Becker M.D., M.S. STRIAL HIRE SALES ASSISTANT * Gato Shaw M.D. - 09/08/2024 10:30 AM CST I have met the patient and discussed the issues at hand. I agree with the documentation provided bymy colleague on the team. I have discussed the recommendations with the patient and answered all ofthe patient???s questions. In brief, Lyle Mendez is a 79-year-old gentleman with a history of prostate cancer status post proton therapy who was referred for nephrolithiasis and bladder stone. He had previously seen 1 of my colleagues for hematuria evaluation. After the stones was identifiedthe patient was referred. Since the visit with my colleague he has also had a cystoscopy which demonstrated indeterminate area in the bladder. I reviewed the imaging with the patient. This demonstrates a 8 mm nonobstructing right lower pole stone, a 9 mm nonobstructing left UPJ stone with some surrounding inflammatory changes, and a 10 mm stone in the bladder. We first discussed the bladder lesion. Recommended biopsy of this. Next we discussed the bladder stone. I recommended cystolitholapaxy. We next discussed his nonobstructing renal stones. On the left side the 9 mm stone is at the left UPJ with some inflammatory appearing change around it. I would recommend elective removal of the stone as I think it has a high likelihood to be come symptomatic or cause obstruction. On the right sidethe stone is in the lower pole in his nonobstructing. I think this stone could be observed. Therefore I recommended proceeding with cystoscopy with bladder biopsy and cystolitholapaxy. We would attempt to proceed with left ureteroscopy to address the left UPJ stone if procedure time allows and the ureter is accessible. If the bladder procedures require extra time or we are unable to access the left ureter we would plan place a stent in the left and return for a staged procedure. Patientis agreement with the plan. We will schedule the procedure. Full documentation will be provided by my colleague on the team. STRIAL HIRE SALES ASSISTANT documented in this encounter Plan of Treatment Upcoming Encounters Date Type Department Care Team (Latest Contact Info) Description 10/21/2024 1:15 PM INDUSTRIAL HIRE SALES ASSISTANT Clinical Communication Virtual Review in [place], [place] 200 [place] [phone] 10/23/2024 12:00 PM INDUSTRIAL HIRE SALES ASSISTANT Appointment Department of Radiology, [facility], in [place], [place] [address] [place] [phone] Inocente Avila M.D. [address] [place] [phone] Discharge Disposition: Home or Self Care 10/23/2024 2:00 PM INDUSTRIAL HIRE SALES ASSISTANT Comprehensive Visit Preoperative Evaluation Center in [place], [place] [address] [place] [phone] Winnie Becker M.D., M.S. [address] [place] [phone] 10/24/2024 1:08 PM INDUSTRIAL HIRE SALES ASSISTANT Hospital Encounter Outpatient Procedure Center in [place], [place] [address] [place] [phone] Gato Shaw M.D. [address] [place] [phone] 10/24/2024 1:08 PM INDUSTRIAL HIRE SALES ASSISTANT - 10/24/2024 3:34 PM INDUSTRIAL HIRE SALES ASSISTANT Surgery Outpatient Procedure Center in [place], [place] [address] [place] [phone] Gato Shaw M.D. [address] [place] [phone] CYSTOLITHOLAPAXY Scheduled Procedures Name Priority Associated Diagnoses Date/Ti me CYSTOLITHOLAPAXY Stone Kidney Hematuria 10/24/2024 1:08 PM INDUSTRIAL HIRE SALES ASSISTANT CYSTOSCOPY BIOPSY FULGURATION Stone Kidney Hematuria 10/24/2024 1:08 PM INDUSTRIAL HIRE SALES ASSISTANT URETEROSCOPY STONE EXTRACTION Stone Kidney Hematuria 10/24/2024 1:08 PM INDUSTRIAL HIRE SALES ASSISTANT Scheduled Referrals Name Type Priority Associated Diagnoses Order Schedule Preoperative Evaluation YESSENIA consult (clinic) Outpatient Referral Routine Stone Kidney Expected: 09/08/2024, Expires: 12/07/2025 documented as of this encounter Visit Diagnoses Diagnosis Stone Kidney- Primary Hematuria Stone Kidney Hematuria documented in this encounter
--- OUTSIDE RECORDS SUMMARY | 2024-10-17 22:59 | XMS_ITS | Encounter Summary ---
Author Organization [facility] Address [address] [place] [address] Care Team Providers Care Head Sulfide Operator Name Role Phone Unavailable Primary Care Provider Unavailabl e Reason for Visit * Outpatient (Routine) - Closed Specialty Diagnoses / Procedures Referred By Sheila bustamante Referred To Contact Diagnoses Hematuria Procedures URO Cystoscopy (general) Shellie Howe APRN, C.N.P., D.N.P. [address] [place] [phone] Phone: tel: fax: [facility] Referral ID Status Reason Start Date Expiration Date Visits Re quested Visits Authorized [id number] Closed 08/08/2024 08/08/2025 1 1 Encounter Details Date Type Department Care Team (Late st Contact Info) Description 09/08/2024 9:00 AM SASH REPAIRER Procedure visit Department of Urology in [place], [place] [address] [place] [phone] Shellie Howe APRN, C.N.P., D.N.P. [address] [place] [phone] Hortensia Quiroga P.AShawn [address] [place] [phone] Hematuria Social History Tobacco Use Types Packs/Day Years [...] your living situation today? 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 - 09/08/2024 9:00 AM SASH REPAIRER Care after your cystoscopy Possible blood in your urine You may see some blood the first few times you urinate after the cystoscopy. There could be some small clots of blood in your urine. Or your urine could be pink or light red. These effects are commonafter a cystoscopy. Discomfort For the first day or two after your cystoscopy, you may need to urinate often, and you may have a mild burning feeling while urinating. You also may have mild low abdominal pain for a day. To relievediscomfort, drink two 8-ounce glasses of water each hour for two hours after the test (a total of four glasses in two hours). This will help flush your bladder. To relieve discomfort, if your provider says it???s OK, you may take a warm tub bath for 20 minutes. Or you may hold a clean, warm, moist washcloth over the urethral opening for 20 minutes. Some common pain relievers can affect blood thinning. Examples include aspirin, aspirin-containing products, ibuprofen (Advil, Motrin), and naproxen(Aleve, Naprosyn). Talk with your health care providers about what you can take for pain. Activity Rest for the remainder of the day after your cystoscopy. Gradually return to your usual activity level when you feel able. Diet For the first two days after your cystoscopy, while you are awake, you may find it more comfortableif you drink at least one glass of fluid every one to two hours. This will help flush your bladder.Drink fluids such as water, juice, caffeine-free carbonated beverages and tea. Resume your usual diet after the procedure, unless you are scheduled for more tests or procedures that require a specialdiet. When to get medical help Contact your health care provider right away if you: Are not able to urinate for 6 to 8 hours. Have blood clots or bright red blood in your urine (not pink or rust colored) that lasts for 4 to 5hours despite increased intake of fluids. Have frequent urination with any of the following: - Pain not relieved by increasing fluids. - Chills. - Temperature of 100.4 degrees Fahrenheit (38 degrees Celsius) or higher. Have a burning feeling while urinating on day three or after. REPAIRER documented in this encounter Progress Notes * Rebecca López L.P.N. - 09/08/2024 9:00 AM CST Patient here for a cystoscopy performed by Hortensia Quiroga Cystoscope CYF- #[id number] was used during today's cystoscopy procedure. Accessories used: disposable stop cock. Load number from processing via [employer]: [id number] Urines sent: No 4. Was dye used? No REPAIRER documented in this encounter Procedure Notes * Hortensia Quiroga P.A.-C. - 09/08/2024 9:00 AM CSTAssociated Order(s): URO Cystoscopy (general) Pre-Procedure Diagnose(s): Hematuria Post-Procedure Diagnose(s): Hematuria URO Cystoscopy (general) Performed by: Hortensia Quiroga [...] Ureteral orifices appear to be orthotopic bilaterally. Minimalhematuria during procedure due to scope abrasion and friable tissue near the bladder neck. Scope removed and patient tolerated procedure well. Impression: Large calculus within the trigone Area of papillary appearing change right lateral bladder wall/right trigone suspicious for possibleurothelial carcinoma Several indeterminate areas of mucosal rippling [...] completed successfully: yes Complications: no apparent complications REPAIRER documented in this encounter Plan of Treatment Upcoming Encounters Date Type Department Care Team (Latest Contact Info) Description 10/21/2024 1:15 PM SASH REPAIRER Clinical Communication Virtual Review in [place], [place] 200 [place] [phone] 10/23/2024 12:00 PM SASH REPAIRER Appointment Department of Radiology, [facility], in [address] [phone] Inocente Avila M.D. [address] [place] [phone] Discharge Disposition: Home or Self Care 10/23/2024 2:00 PM SASH REPAIRER Comprehensive Visit Preoperative Evaluation Center in [place], [place] [address] [place] [phone] Winnie Becker M.D., M.S. [address] [place] [phone] 10/24/2024 1:08 PM SASH REPAIRER Hospital Encounter Outpatient Procedure Center in [place], [place] [address] [place] [phone] Gato Shaw M.D. [address] [place] [phone] 10/24/2024 1:08 PM SASH REPAIRER - 10/24/2024 3:34 PM SASH REPAIRER Surgery Outpatient Procedure Center in [place], [place] [address] [place] [phone] Gato Shaw M.D. [address] [place] [phone] CYSTOLITHOLAPAXY Scheduled Procedures Name Priority Associated Diagnoses Date/Ti me CYSTOLITHOLAPAXY Stone Kidney Hematuria 10/24/2024 1:08 PM SASH REPAIRER CYSTOSCOPY BIOPSY FULGURATION Stone Kidney Hematuria 10/24/2024 1:08 PM SASH REPAIRER URETEROSCOPY STONE EXTRACTION Stone Kidney Hematuria 10/24/2024 1:08 PM SASH REPAIRER documented as of this encounter Procedures Procedure Name Priority Date/Time Associated Diagnosis Comments CYTOLOGY NON-MOTORIZED SQUAD SERGEANT (SCHEDULED) Routine 09/08/2024 9:07 AM SASH REPAIRER Hematuria URO CYSTOSCOPY (GENERAL) Routine 09/08/2024 9:00 AM SASH REPAIRER Hematuria documented in this encounter Results * (ABNORMAL) Cytology Non-MOTORIZED SQUAD SERGEANT (Scheduled) (09/08/2024 9:07 AM SASH REPAIRER) (A ) 09/09/2024 2:39 PM SASH REPAIRER DTL Participated in the Interpretation Franki Berry M.D.-Patholog y Fellow(A) 09/09/2024 2:39 PM SASH REPAIRER DTL Report electronically signed by Jair Vences M.D., Ph.D. I verify that I have examined all relevant slides/materi als for the specimen(s) and rendered or confirmed the diagnosis. (A) 09/09/2024 2:39 PM SASH REPAIRER DTL Gross Description Received 60 cc of yellow fluid.(A) 09/09/2024 2:39 PM SASH REPAIRER DTL Source A. Urine, voided(A) 09/09/2024 2:39 PM SASH REPAIRER DTL Interpretation A. 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 (A) 09/09/2024 2:39 PM SASH REPAIRER DTL Urine 09/08/2024 9:07 AM SASH REPAIRER 09/08/2024 10:52 AM SASH REPAIRER Shellie Howe APRN, C.N.P., D.N.P. LAB SURG PATH ORDERABLES Final Result [facility] [address] [place] [address], [facility] [address] [facility] [address] [place] [address] * URO Cystoscopy (general) (09/08/2024 9:00 AM SASH REPAIRER) Narrative Hortensia Quiroga P.A.-C. - 09/08/2024 9:00 AM SASH REPAIRER Hortensia Quiroga P.A.-C. 09/08/2024 9:27 AM URO [...] APRN, C.N.P., D.N.P. UROLOGY ORDERABLES Final Result documented in this encounter Visit Diagnoses Diagnosis Hematuria Stone Kidney Hematuria documented in this encounter
--- OUTSIDE RECORDS SUMMARY | 2024-10-17 22:59 | XMS_ITS | Encounter Summary ---
Author Organization [facility] Address [address] [place] [address] Care Team Providers Care Livestock Haulier Name Role Phone Unavailable Primary Care Provider Unavailabl e Encounter Details Date Type Department Care Team (Late st Contact Info) Description 09/08/2024 8:02 AM SALES SERVICE REP - 09/08/2024 11:59 PM [facility] Hospital Encounter Department of Laboratory Medicine and Pathology, [facility] in [place], [place] [address] [place] [phone] Shellie Howe APRN, C.N.P., D.N.P. [address] [place] [phone] Hematuria Discharge Disposition: Home or Self Care Social [...] your living situation today? 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 [address] [place] [phone] Discharge Disposition: Home or Self Care 10/23/2024 2:00 PM SALES SERVICE REP Comprehensive Visit Preoperative Evaluation Center in [address] [phone] Winnie Becker M.D., M.S. [address] [place] [phone] 10/24/2024 1:08 PM SALES SERVICE REP Hospital Encounter Outpatient Procedure Center in [address] [phone] Gato Shaw M.D. [address] [place], [place] [phone] 10/24/2024 1:08 PM SALES SERVICE REP - 10/24/2024 3:34 PM SALES SERVICE REP Surgery Outpatient Procedure Center in [place], [place] [address] [place] [phone] Gato Shaw M.D. [address] [place] [phone] CYSTOLITHOLAPAXY Scheduled Procedures Name Priority Associated Diagnoses Date/Ti me CYSTOLITHOLAPAXY Stone Kidney Hematuria 10/24/2024 1:08 PM SALES SERVICE REP CYSTOSCOPY BIOPSY FULGURATION Stone Kidney Hematuria 10/24/2024 1:08 PM SALES SERVICE REP URETEROSCOPY STONE EXTRACTION Stone Kidney Hematuria 10/24/2024 1:08 PM SALES SERVICE REP documented as of this encounter Visit Diagnoses Diagnosis Hematuria Hematuria Stone Kidney Hematuria documented in this encounter
--- NOTE | 2024-10-17 23:17 | ED.GENADULT ---
HPI - General Adult General Date Seen: 10/17/24 Chief complaint: Hypertension Stated complaint: Wants to get his blood pressure check. Time Seen by Provider: 10/17/24 22:50 Source: patient Mode of arrival: ambulatory Limitations: no limitations History of Present Illness HPI narrative: Patient is an 79-year-old male presenting to the emergency department with his . He is concerned because he checked his blood pressure at home and was elevated. He is also having increasing his hematuria. For his hematuria he has known kidney stones is having them removed by the [facility] next week. He has been having hematuria but seems to have gotten worse. He is currently on Eliquis for new onset AFib. He denies any lightheadedness or dizziness. Does admit to some dysuria but states that is chronic and has not changed. Does states he has been checking his blood pressure more the past few days and it is usually in the 130 systolic but today it was over 200. He thinks it was around 210 systolic and 100 diastolic. He denies chest pain, shortness of breath, lightheadedness, dizziness, weakness, numbness, headache, vision changes. States he feels otherwise fine at this time. No other concerns noted. He has recently been taking off a blood pressure medication. States he is taking hydrochlorothiazide few weeks ago. Related Data Home Medications ?Medication ?Instructions ?Recorded ?Confirmed allopurinol 300 mg tablet 300 mg PO DAILY 09/28/24 10/17/24 atorvastatin 10 mg tablet 10 mg PO HS 09/28/24 10/17/24 metoprolol tartrate 25 mg tablet 50 mg PO DAILY 09/29/24 10/17/24 metoprolol tartrate 25 mg tablet 25 mg PO HS 09/30/24 09/30/24 apixaban 5 mg tablet (Eliquis) 5 mg PO DAILY 10/17/24 10/17/24 fluconazole 150 mg tablet mg 10/17/24 tamsulosin 0.4 mg capsule (Flomax) 0.4 mg PO QHS 10/17/24 10/17/24 Previous Rx's ?Medication ?Instructions ?Recorded sulfamethoxazole 800 1 tab PO BID 7 days #14 tabs 10/18/24 mg-trimethoprim 160 mg tablet (Bactrim DS) Allergies Allergy/AdvReac Type Severity Reaction Status Date / Time No Known Drug Allergies Allergy Verified 06/18/23 11:39 Review of Systems Status of ROS: Reports: 10 or more systems reviewed and unremarkable except as noted in History and below PFSH PFS Medical History Hydronephrosis ?N13.30 - Unspecified hydronephrosis (ICD-10) New onset atrial fibrillation ?I48.91 - Unspecified atrial fibrillation (ICD-10) Aortic valve sclerosis ?I35.8 - Other nonrheumatic aortic valve disorders (ICD-10) Kidney stone ?N20.0 - Calculus of kidney (ICD-10) Essential hypertension ?I10 - Essential (primary) hypertension (ICD-10) BPH (benign prostatic hyperplasia) ?N40.0 - Benign prostatic hyperplasia without lower urinary tract symptoms (ICD-10) Surgical History History of colonoscopy ?Z98.890 - Other specified postprocedural states (ICD-10) H/O cataract removal with insertion of prosthetic lens ?Z98.49 - Cataract extraction status, unspecified eye (ICD-10) ?Z96.1 - Presence of intraocular lens (ICD-10) Social History What is your current living situation?: I presently have a place to live Problems where you live: no known problems Problems where you live details: n/a In the past 12 months, utilities in danger of being shut off: no In past 12 months, lack of transportation kept you from medical appts, meetings, work, or getting things needed for daily living: no In the past 12 mos, have been you worried that your food would run out before you had money to buy more?: never true In the past 12 mos, the food you bought just didn't last and you didn't have money to buy more?: never true Smoking Status: Never smoker How often do you have a drink containing alcohol: monthly or less How often do you have six or more drinks on one occasion: Never AUDIT-C Alcohol total score: 1 Non-prescribed substance use: denies use Caffeine: No How often does anyone, including family, friends and others, physically hurt you: never How often does anyone, including family, friends and others, insult or talk down to you: never How often does anyone, including family, friends and others, threaten you with harm: never How often does anyone, including family, friends and others, scream or curse at you: never Exam Narrative: Exam Narrative: Const: Well-nourished, Well-developed, in no distress Eyes: PERRL, no conjunctival injection, and symmetrical lids HENT: Atraumatic external nose and ears. Moist mucous membranes. Neck: Symmetric, trachea midline, No thyromegaly. CVS: RRR, No murmurs or gallops. Peripheral pulses 2+ and equal in all extremities RESP: Unlabored respiratory effort. Clear to auscultation bilaterally. GI: Nontender/Nondistended, No rebound or guarding. MSK:Extremities w/o deformity, Normal Active ROM Skin: Warm, Dry. No rashes or lesions. Neuro: Normal Muscle tone, No focal neurological deficits. Psych: Awake, Alert, & Oriented x3. Appropriate mood and affect. Const: Vital Signs, click to edit/add: Vital Signs - 24 hr 10/17/24 22:35 Temperature 97.2 F L Pulse Rate [Pulse Oximeter] 45 L Respiratory Rate 16 Blood Pressure [Ri ght Upper Arm] 186/78 H Pulse Oximetry 98 Oxygen Delivery Me thod Room Air Course Vital Signs Vital signs: Initial Vital Signs Temperature 97.2 F L 10/17/24 22:35 Temperature Source Temporal Artery Scan 10/17/24 22:35 Pulse Rate 45 L 10/17/24 22:35 Respiratory Rate 16 10/17/24 22:35 Blood Pressure 186/78 H 10/17/24 22:35 Blood Pressure Mean 114 H 10/17/24 22:35 Blood Pressure Position Sitting 10/17/24 22:35 Pulse Oximetry 98 10/17/24 22:35 Oxygen Delivery Method Room Air 10/17/24 22:35 Vital Signs Temperature 97.2 F L 10/17/24 22:35 Pulse Rate 45 L 10/17/24 22:35 Respiratory Rate 16 10/17/24 22:35 Blood Pressure 186/78 H 10/17/24 22:35 Pulse Oximetry 98 10/17/24 22:35 Oxygen Delivery Method Room Air 10/17/24 22:35 Temperature 97.2 F L 10/17/24 22:35 Pulse Rate 45 L 10/17/24 22:35 Respiratory Rate 16 10/17/24 22:35 Blood Pressure 186/78 H 10/17/24 22:35 Pulse Oximetry 98 10/17/24 22:35 Oxygen Delivery Method Room Air 10/17/24 22:35 Medical Decision Making MDM Narrative Medical decision making narrative: Patient is an 79-year-old male presenting to the emergency department for hypertension and hematuria. The hematuria is worst but is chronic. Has known kidney stones. Will check a urinalysis. Do not believe imaging is necessary at this time. I will also order a CBC and BMP. He is meeting criteria for asymptomatic hypertension I do think checking lab work is relevant. CBC and BMP showed no concerning abnormalities. His urinalysis does show signs of UTI although there are no white blood cells. He is positive for nitrates and has 3+ leukocyte esterases with few bacteria. Since urine he has known kidney stones I do not believe repeat imaging is necessary at this time. I spoke to his urology providers at [facility] and initially I was told to do a straight cath urine collection to look for signs of white blood cells which could mean he will need transfer. After this was ordered and done but before it was sent to the lab [facility] called back and states instead recommending I place him on 7 days of Bactrim so that he is on antibiotics through his procedure next week. Patient is agreeable with this plan. He is not showing any signs of sepsis. Overall he is appearing well. I did give him clear return precautions on if he is starting to feel sick. He states he understands. Lab Data Labs: Lab Results 10/17/24 10/17/24 10/18/24 Range/Units 23:02 23:15 00:14 WBC 4.93 (4.50-11.00) K/uL RBC 4.02 L (4.30-5.90) m/uL Hgb 12.4 L (13.5-17.5) gm/dL Hct 37.9 (37.0-53.0) % MCV 94 (80-100) fL MCH 31 (26-34) pg MCHC 33 (32-36) gm/dL RDW Coeff of Lalita 13.3 (11.5-15.5) % Plt Count 232 (140-440) K/uL Neut % (Auto) 61.2 (42.0-72.0) % Lymph % (Auto) 21.3 (20-44) % [place] % (Auto) 11.4 H (0.0-11.0) % Eos % (Auto) 4.7 (0.0-7.0) % Baso % (Auto) 1.0 (0.0-3.0) % Neut # (Auto) 3.02 (1.7-7.0) K/uL Lymph # (Auto) 1.05 (0.90-2.90) K/uL [place] # (Auto) 0.60 (0.00-0.90) K/UL Eos # (Auto) 0.23 (0.00-0.50) K/uL Baso # (Auto) 0.05 (0.00-0.30) K/uL Abs Immat Gran (auto) 0.02 (0.00-0.30) K/uL Imm/Tot Granulo (auto) 0.4 % Sodium 141 (135-149) mmol/L Potassium 3.7 (3.6-5.1) mmol/L Chloride 107 (96-114) mmol/L Carbon Dioxide 29 (20-32) mmol/L Anion Gap 5 L (7-15) mEq/L BUN 21 (7-30) mg/dL Creatinine 0.9 (0.5-1.5) mg/dL Estimated Creat Clear 60.83 Estimated GFR 86 ml/min Glucose 98 (60-115) mg/dL Calcium 9.5 (8.4-10.6) mg/dL Urine Color Red A Cancelled (Yellow) Urine Appearance Slightly Cloudy A Cancelled (Clear) Urine pH 5.5 Cancelled (5.0-8.5) Ur Specific [place] 1.025 Cancelled (1.000-1.030) Urine Protein 3+ A Cancelled (Negative) Urine Glucose (UA) Negative Cancelled (Negative) Urine Ketones 1+ A Cancelled (Negative) Urine Blood 3+ A Cancelled (Negative) Urine Nitrite Positive A Cancelled (Negative) Urine Bilirubin 3+ A Cancelled (Negative) Urine Urobilinogen 2.0 A Cancelled (0.2-1.0) Ur Leukocyte Esterase 3+ A Cancelled (Negative) Urine RBC >100 A Cancelled (0-2) Urine WBC 0-2 Cancelled (0-5) Urine WBC Clumps Cancelled Ur Squamous Epith Cells None Cancelled (None-Few) Bryan Biurate Crystals Cancelled Calcium Carbonate Cryst Cancelled Calcium Phosphate Cryst Cancelled Calcium Oxalate Crystal Cancelled Cystine Crystals Cancelled Uric Acid Crystals Cancelled Triple Phos Crystals Cancelled Sulfur Crystals Cancelled Cholesterol Crystals Cancelled Tyrosine Crystals Cancelled Hippuric Acid Crystals Cancelled Amorphous Sediment Cancelled Other Sediment Cancelled Urine Bacteria Few A Cancelled (None) Fatty Casts Cancelled Hyaline Casts Cancelled Fine Granular Casts Cancelled Coarse Granular Casts Cancelled Waxy Casts Cancelled RBC Casts Cancelled WBC Casts Cancelled Other Casts Cancelled Urine Starch Cancelled Urine Mucus Cancelled Urine Trichomonas Cancelled Urine Yeast Cancelled Discharge Plan Discharge Clinical Impression: Acute UTI Hypertension Qualifiers: Hypertension type: unspecified Qualified Code(s): I10 - Essential (primary) hypertension Patient Disposition: Home, Self-Care Condition: Stable Instructions: Urinary Tract Infection in Men (DC), Hypertension (ED) Additional Instructions: Your urologist recommend to be on Bactrim for the next 7 days. Make sure to return for re-evaluation if he starts developing fevers, chills, flank pain or any other concerning symptoms. Your hypertension may be related to this possible infection but I do recommend close follow-up with your primary care provider or whoever is managing your blood pressure medication. Prescriptions: New sulfamethoxazole-trimethoprim [Bactrim DS] 800-160 mg tablet 1 tab PO BID 7 Days Qty: 14 0RF No Action atorvastatin 10 mg tablet 10 mg PO HS allopurinol 300 mg tablet 300 mg PO DAILY metoprolol tartrate 25 mg tablet 50 mg PO DAILY metoprolol tartrate 25 mg tablet 25 mg PO HS tamsulosin [Flomax] 0.4 mg capsule 0.4 mg PO QHS fluconazole 150 mg tablet Patient Comments: Take 1 tablet BY MOUTH today, repeat in 1 week.* Eliquis 5 mg Tablet 5 mg PO DAILY Follow Up/Referrals: Trevor Saha MD [Primary Care Provider] - Stand Alone Forms: [facility] Info Instructions
[2024-10-17 23:18] LABS: Basophils Absolute Auto 0.05 K/uL (0.00-0.30); Eosinophils Absolute Auto 0.23 K/uL (0.00-0.50); Eosinophils Percent Auto 4.7 % (0.0-7.0); Hematocrit 37.9 % (37.0-53.0); Hemoglobin* 12.4 gm/dL (13.5-17.5); Immature Granulocytes Abs Auto 0.02 K/uL (0.00-0.30); Immature Granulocytes Pct Auto 0.4 %; Lymphocytes Absolute Auto 1.05 K/uL (0.90-2.90); Lymphocytes Percent Auto 21.3 % (20-44); Mean Corpuscular HGB Conc 33 gm/dL (32-36); Mean Corpuscular Hemoglobin 31 pg (26-34); Mean Corpuscular Volume 94 fL (80-100); Monocytes Percent Auto 11.4 % (0.0-11.0); Neutrophils Absolute Auto 3.02 K/uL (1.7-7.0); Neutrophils Percent Auto 61.2 % (42.0-72.0); Platelet Count* 232 K/uL (140-440); RDW Coefficient of Variation % 13.3 % (11.5-15.5); Red Blood Count 4.02 m/uL (4.30-5.90); White Blood Count* 4.93 K/uL (4.50-11.00)
[2024-10-17 23:22] LABS: Slide Review Reflex No
[2024-10-17 23:33] LABS: Chloride* 107 mmol/L (96-114); Potassium* 3.7 mmol/L (3.6-5.1); Sodium* 141 mmol/L (135-149)
[2024-10-17 23:36] LABS: Anion Gap 5 mEq/L (7-15); Blood Urea Nitrogen* 21 mg/dL (7-30); Calcium* 9.5 mg/dL (8.4-10.6); Carbon Dioxide* 29 mmol/L (20-32); Creatinine* 0.9 mg/dL (0.5-1.5); Est. Creatinine Clearance* 60.83; Estimated Glomerular Filt Rate 86 ml/min; Glucose* 98 mg/dL (60-115)
[2024-10-17 23:38] LABS: Appearance Urine Slightly Cloudy (Clear); Bilirubin Urine 3+ (Negative); Blood Urine 3+ (Negative); Color Urine Red (Yellow); Glucose Urine Negative (Negative); Ketones Urine 1+ (Negative); Leukocyte Esterase Urine 3+ (Negative); Nitrite Urine Positive (Negative); Protein Urine 3+ (Negative); Specific Gravity Urine 1.025 (1.000-1.030); pH Urine 5.5 (5.0-8.5)
[2024-10-17 23:41] LABS: Bacteria Urine Few; RBC Urine >100 (0-2); WBC Urine 0-2 (0-5)
[2024-10-18] MEDS: SULFA/TRIMETHOPRIM 800/160 1 TAB PO (00:58)
[2024-10-18 01:00] VITALS: BP 180/77; PULSE 47; RESP 16; O2SAT 97
== END 2024-10-18 01:06 | disposition home or self-care (01) ==
PROVIDERS: Emergency Provider Student in an Organized Health Care Education/Training Program; PCP Family Medicine
DX: N39.0 Urinary tract infection, site not specified (principal); I10 Essential (primary) hypertension
CPT/HCPCS: 36415; 80048; 81001; 85025; 87086; 96374; 96375; 99284; A9270

== ENCOUNTER 2024-10-26 01:56 | Emergency (ER) | payer MEDICARE, SELFPAY ==
--- OUTSIDE RECORDS SUMMARY | 2024-10-26 02:00 | XMS_ITS | Clinical Summary ---
Author Organization [employer] [facility] [employer] [employer] Address [place], [place] [address] Care Team Providers Care Scullion Chief Name Role Phone Trevor Saha MD Primary Care Provider [phone] Marcelo Meek MD Unavailable [phone] Allergies No known active allergies Medications aspirin enteric coated 81 mg tablet Take 1 tablet by mouth once daily with a meal. 0 1 Active multivitamin (MVI) tablet Take 1 tablet by mouth once daily. 0 1 Active Cholecalciferol, Vitamin D3, (VITAMIN D) 400 unit capsule Take 400 units by mouth once daily. 0 1 Active hydroCHLOROthiazid e 12.5 mg tabletIndications: Essential hypertension Take 1 Tablet (12.5 mg) by mouth once daily. 90 Tablet 2 3 Active calcium carbonate-vitamin D3, 600 mg-400 unit, (Calcium with Vitamin D) 600 mg-10 mcg (400 unit) tablet Take 1 Tablet by mouth two times daily with meals. Active fluconazole (DIFLUCAN) 150 mg tabletIndications: Fungal dermatitis Take 1 tablet today, repeat in 1 week. 2 Tablet 4 Active apixaban (ELIQUIS) 5 mg tabletIndications: New onset atrial fibrillation (HC) Take 1 Tablet (5 mg) by mouth two times daily. 180 Tablet 3 5 Active tamsulosin 0.4 mg capsuleIndications :BPH without urinary obstruction Take 1 Capsule (0.4 mg) by mouth once daily after a meal. 90 Capsule 3 5 Active tadalafiL (Cialis) 20 mg tabletIndications: Impotence of organic origin Take 1 Tablet (20 mg) by mouth once daily if needed for Erectile Dysfunction. Take 30 minutes before sexual activity. 10 Tablet 3 5 Active metoprolol tartrate (LOPRESSOR) 25 mg tabletIndications: Essential hypertension TAKE 2 TABLETS IN THE MORNING AND TAKE 1 TABLET IN THE EVENING 270 Tablet 3 5 Active indomethacin (INDOCIN) 25 mg capsuleIndications :Acute idiopathic gout of left foot One tablet three times daily for 3 days then 1 tablet daily for 3 days, as needed for gout flares 27 Capsule 2 5 Active fluticasone (50 mcg per actuation) nasal solution (FLONASE)Indicatio ns:Chronic throat clearing Inhale 2 Sprays in both nostrils once daily if needed for Rhinitis. 32 g 5 5 Active atorvastatin (LIPITOR) 10 mg tabletIndications: Other hyperlipidemia Take 1 Tablet (10 mg) by mouth at bedtime. 90 Tablet 3 5 Active allopurinoL (ZYLOPRIM) 300 mg tabletIndications: Idiopathic gout, unspecified chronicity, unspecified site Take 1 Tablet (300 mg) by mouth once daily. 90 Tablet 3 5 Active tadalafiL (Cialis) 20 mg tabletIndications: Impotence of organic origin Take 1 Tablet (20 mg) by mouth once daily if needed for Erectile Dysfunction. Take 30 minutes before sexual activity. 60 Tablet 1 2 025 Discontin ued(Reord er (E-cancel not sent)) fluticasone (50 mcg per actuation) nasal solution (FLONASE)Indicatio ns:Chronic throat clearing Inhale 2 Sprays to both nostrils once daily. 16 g 11 3 025 Discontin ued(Reord er (E-cancel not sent)) allopurinoL (ZYLOPRIM) 100 mg tabletIndications: Acute idiopathic gout of left foot take 100mg by mouth once daily for 2 weeks; then increase to 200mg for 2 weeks; then increase to 300mg 270 Tablet 3 025 Discontin ued(*Med complete/ Regimen complete/ Level of care change) indomethacin (INDOCIN) 25 mg capsuleIndications :Acute idiopathic gout of left foot One tablet three times daily for 3 days then 1 tablet daily for 3 days 27 Capsule 2 3 025 Discontin ued(Reord er (E-cancel not sent)) metoprolol tartrate (LOPRESSOR) 25 mg tabletIndications: Essential hypertension TAKE 2 TABLETS IN THE MORNING AND TAKE 1 TABLET IN THE EVENING 270 Tablet 3 4 025 Discontin ued(Reord er (E-cancel not sent)) allopurinoL (ZYLOPRIM) 300 mg tabletIndications: Idiopathic gout, unspecified chronicity, unspecified site TAKE 1 TABLET (300 MG) BY MOUTH ONCE DAILY. 90 Tablet 4 025 Discontin ued(Reord er (E-cancel not sent)) tamsulosin 0.4 mg capsuleIndications :BPH without urinary obstruction Take 1 Capsule (0.4 mg) by mouth once daily after a meal. 90 Capsule 2 4 025 Discontin ued(Reord er (E-cancel not sent)) atorvastatin (LIPITOR) 10 mg tabletIndications: Other hyperlipidemia TAKE 1 TABLET (10 MG) BY MOUTH AT BEDTIME. 90 Tablet 2 4 025 Discontin ued(Reord er (E-cancel not sent)) Active Problems Problem Noted Date Diagnosed Date [...] Encounters Date Type Department Care Team Description 10/23/2024 Telephone [facility] [address] [place] [address] Trevor Saha MD Results (Zio patch) 10/08/2024 1:10 PM MANUFACTURING BUSINESS ANALYST Office Visit [facility] [address] [place] [address] Trevor Saha MD Medicare ANNUAL (subsequent) Visit (Hospital follow up) 10/08/2024 Travel 09/29/2024 11:00 AM MANUFACTURING BUSINESS ANALYST Ancillary Procedure [facility] [address] [place] [address] 09/28/2024 Orders Only [facility] Scanner 1 scan: (1-Ord) [facility], CT ANGIO CHEST PE PROTOCOL, 09/28/2024 09/28/2024 Orders Only [facility] Scanner 1 scan: (1-Ord) [facility], WEAKNESS, 09/28/2024 09/15/2024 2:55 PM MANUFACTURING BUSINESS ANALYST Phone Office Visit [facility] [address] [place] [address] Francesca Torres PA exposure to influenza 09/15/2024 Travel 08/16/2024 Refill [facility] [address] [place] [address] Trevor Saha MD Refill Request (Atorvastatin) 08/06/2024 Refill [facility] [address] [place] [address] Trevor Saha MD Refill Request (Tamsulosin) 07/30/2024 Refill [facility] [address] [place] [address] Trevor Saha MD Refill Request (Allopurinol) from Last 3 Months Immunizations Name Administration Dates Next Due COVID-19 vaccine (Moderna 100mcg/0.5mL) PF, MDV 01/25/2022 COVID-19 vaccine (Sunpreme-Bio NTech 30mcg/0.3mL) PF, MDV 06/30/2021,12/07/2020,11/16/2020 HepA-HepB (Twinrix) [...] arotid artery surgery Heart Disease Father of [place] at 72 Stroke Father age 40s Heart [...] PM CDT Legal Sex Male 6:25 AM MANUFACTURING BUSINESS ANALYST Gender Identity Not on file Sexual Orientation Not on file 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 file Not on file Not on 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 Not on file Not on file Obstetrics History Last Filed Vital Signs Vital Sign Reading Time Taken Comments Blood Pressure 126/67 10/08/2024 1:17 PM MANUFACTURING BUSINESS ANALYST Pulse 50 10/08/2024 1:17 PM MANUFACTURING BUSINESS ANALYST Temperature 36.3 C (97.4 F) 06/24/2024 1:39 PM CDT Respiratory Rate 16 07/15/2015 8:59 AM CDT Oxygen Saturation 99% 10/08/2024 1:17 PM MANUFACTURING BUSINESS ANALYST Inhaled Oxygen Concentration - - Weight 93 kg (205 lb) 10/08/2024 1:17 PM MANUFACTURING BUSINESS ANALYST Height 179.1 cm (5' 10.5) 10/08/2024 1:17 PM CS T Body Mass Index 29 10/08/2024 1:17 PM MANUFACTURING BUSINESS ANALYST Plan of Treatment Health Maintenance Due Date [...] history exists Medical Devices Implanted Type Area Pick And Shovel Worker Device Identifier Shelf Expiration Date Model / Serial / Lot Lens Iol Pcb00 30.0 - [id number] Implanted:Qty: 1 on 07/15/2015 by Connor Hsieh MD at [facility] Right: Eye [employer] 02/12/2018 PCB00# / [id number] / Procedures Procedure Name Priority Date/Time Associated Diagnosis Comments HEMOGLOBIN A1C Routine 10/08/2024 2:25 PM MANUFACTURING BUSINESS ANALYST Hyperglycemia PSA TOTAL Routine 10/08/2024 2:25 PM MANUFACTURING BUSINESS ANALYST Prostate cancer screening URIC ACID Routine 10/08/2024 2:25 PM MANUFACTURING BUSINESS ANALYST Acute idiopathic gout of left foot LIPID PANEL W REFLEX MEASURED LDL Routine 10/08/2024 2:25 PM MANUFACTURING BUSINESS ANALYST Hyperlipidemia LDL goal < 130 BASIC METABOLIC PANEL Routine 10/08/2024 2:25 PM MANUFACTURING BUSINESS ANALYST Essential hypertension ECHO TTE COMPLETE W CONTRAST Routine 09/29/2024 11:48 AM MANUFACTURING BUSINESS ANALYST Newly recognized murmur Dizzinesses SCAN-CT INTERPRETATION 12:00 AM MANUFACTURING BUSINESS ANALYST SCAN-RADIOLOGY REPORT 09/28/2024 12:00 AM MANUFACTURING BUSINESS ANALYST from Last 3 Months Results * HEMOGLOBIN A1C (10/08/2024 2:25 PM MANUFACTURING BUSINESS ANALYST) HEMOGLOBIN A1C 5.6 <5.7 % of total [...] diagnosis of diabetes in children. According to [place] Diabetes Association (ADA) guidelines, hemoglobin A1c <7.0% represents optimal control in non- diabetic patients. Different metrics may apply to specific patient populations. Standards of Medical Care in Diabetes(ADA). Blood BLOOD SPECIMEN / Unknown 10/08/2024 2:25 PM MANUFACTURING BUSINESS ANALYST 10/08/2024 2:25 PM MANUFACTURING BUSINESS ANALYST us Trevor Saha MD CHEMISTRY Final Resu lt [facility] [address] [place] [address], [facility] [address] [place] [address] * (ABNORMAL) LIPID PANEL W REFLEX MEASURED LDL (10/08/2024 2:25 PM MANUFACTURING BUSINESS ANALYST) [facility] CHOLESTEROL, TOTAL 126 <200 mg/dL [facility] Manuel HDL CHOLESTEROL 34(L) > OR = 40 mg/dL [facility] TRIGLYCERIDES 209(H) <150 mg/dL [facility] Manuel Comment: If a non-fasting specimen was collected, consider repeat triglyceride testing on a fasting specimen if clinically indicated. Jayjay et al. J. of Clin. Lipidol. 2015;9:129-169. LDL-CHOLESTEROL 65 mg/dL (calc) [facility] Comment: Reference range: <100 Desirable range <100 mg/dL for primary prevention; <70 mg/dL for patients with CHD or diabetic patients with > or = 2 CHD risk factors. LDL-C is now calculated using the Vicente calculation, which is a validated novel method providing better accuracy than the Friedewald equation in the estimation of LDL-C. Marcelo STREET et al. CARLA. 2013;310(19): 5849-0988 (http://education.8thBridge/faq/NJH781) CHOL/HDLC RATIO 3.7 <5.0 (calc) [facility] NON HDL CHOLESTEROL 92 <130 mg/dL (calc) [facility] Comment: For patients with diabetes plus 1 major ASCVD risk factor, treating to a non-HDL-C goal of <100 mg/dL (LDL-C of <70 mg/dL) is considered a therapeutic option. Blood BLOOD SPECIMEN / Unknown 10/08/2024 2:25 PM MANUFACTURING BUSINESS ANALYST 10/08/2024 2:25 PM MANUFACTURING BUSINESS ANALYST Trevor Saha MD CHEMISTRY Final Resu lt Performing Organization Address [facility] Co de Phone Number [facility] [address] [address], [place] [phone] [facility] [address] [place] [address] * (ABNORMAL) URIC ACID (10/08/2024 2:25 PM MANUFACTURING BUSINESS ANALYST) URIC ACID 3.4(L) 4.0 - 8.0 mg/dL [facility] Comment: Therapeutic target for gout patients: <6.0 mg/dL Blood BLOOD SPECIMEN / Unknown 10/08/2024 2:25 PM MANUFACTURING BUSINESS ANALYST 10/08/2024 2:25 PM MANUFACTURING BUSINESS ANALYST Trevor Saha MD CHEMISTRY Final Resu lt Performing Organization Address [facility]/ZIP Co de Phone Number [facility] [address] [place] [address], [place] [phone] [facility] [address] [place] [address] * PSA TOTAL (10/08/2024 2:25 PM MANUFACTURING BUSINESS ANALYST) PSA, TOTAL 0.09 < OR = 4.00 ng/mL [facility] Comment: The total PSA value from this assay system is standardized against the WHO standard. The test result will be approximately 20% lower when compared to the equimolar-standardized total PSA ([place]). Comparison of serial PSA results should be interpreted with this fact in mind. This test was performed using the Siemens chemiluminescent method. Values obtained from different assay methods cannot be used interchangeably. PSA levels, regardless of value, should not be interpreted as absolute evidence of the presence or absence of disease. Blood BLOOD SPECIMEN / Unknown 10/08/2024 2:25 PM MANUFACTURING BUSINESS ANALYST 10/08/2024 2:25 PM MANUFACTURING BUSINESS ANALYST us Trevor Saha MD CHEMISTRY Final Resu lt [facility] [address] [place] [address], [facility] [address] [place] [address] * BASIC METABOLIC PANEL (10/08/2024 2:25 PM MANUFACTURING BUSINESS ANALYST) Pathologist [facility] GLUCOSE 75 65 - 99 mg/dL [facility] Jose Manuel Comment: Fasting reference interval [...] BLOOD SPECIMEN / Unknown 10/08/2024 2:25 PM MANUFACTURING BUSINESS ANALYST 10/08/2024 2:25 PM MANUFACTURING BUSINESS ANALYST us Trevor Saha MD CHEMISTRY Final Resu lt [facility] [address] [place] [address], [place] [phone] [facility] [address] [place] [address] * ECHO TTE COMPLETE W CONTRAST (09/29/2024 11:48 AM MANUFACTURING BUSINESS ANALYST) AORTIC VALVE MEAN PG 35 mmHg LVEDD 4.4 cm EJECTION FRACTION 60 - 65% Anatomical Region Laterality Modality Ultrasound 09/29/2024 10:5 3 AM MANUFACTURING BUSINESS ANALYST Narrative 09/29/2024 12:21 PM MANUFACTURING BUSINESS ANALYST ECHOCARDIOGRAM CRISTIANA MENDEZ : 1945 79 years Study Date: 09/29/2024 10:53:59 AM Gender: M BP: 123/73 mmHg Height: 180.00 cm BSA: 2.10 m Weight: 90.00 kg Tech: [facility] Referring MD: MAGGI MANZO Site: [facility] Reading Location: [facility] Patient Location: Inpatient. Procedure: Color [...] . This study was interpreted by an [facility] accredited facility. CC: HIM (med records) [facility], Med/Surg - IP [facility]. Final Procedure Note Jonathon Pabon MD - 09/29/2024 ECHOCARDIOGRAM CRISTIANA MENDEZ : 1945 79 years Study Date: 09/29/2024 10:53:59 AM Gender: M BP: 123/73 mmHg Height: 180.00 cm BSA: 2.10 m Weight: 90.00 kg Tech: [facility] Referring MD: MAGGI MANZO Site: [facility] Reading Location: Mobile[facility]IP Patient Location: Inpatient. Procedure: Color Doppler, Spectral [...] . This study was interpreted by an [facility] accredited facility. CC: [facility] (med [facility]) [facility], Med/Surg - IP [facility]. Final us Maggi Manzo MD ECHO ORD Final Result * SCAN-RADIOLOGY REPORT (09/28/2024 12:00 AM MANUFACTURING BUSINESS ANALYST) Anatomical Region Laterality Modality Other us Scanner OTHER Final Result * SCAN-CT INTERPRETATION (09/28/2024 12:00 AM MANUFACTURING BUSINESS ANALYST) Anatomical Region Laterality Modality Other us Scanner OTHER Final Result from Last 3 Months Insurance MEDICARE PART B HB ONLY [employer] MED[employer] Advance Directives Documents on File Type Date Recorded Patient Wildlife Biostation Research Ecologist Expl anation Healthcare Directive 02/08/2016 2:21 PM IMELDA CASTILLO, 01/28/2016 * Full Code (Latest Code Status on File) Date Activated Date Inactivated Comments 07/15/2015 6:12 AM 07/15/2015 11:36 AM Care Teams Scullion Chief Relationship Specialty Start Date End Date Trevor [place] [address] PCP - General 01/20/09 Marcelo Meek MD [address] [address] Gastroenterology Gastroenterology 01/17/12
--- OUTSIDE RECORDS SUMMARY | 2024-10-26 02:00 | XMS_ITS | Encounter Summary ---
Author Organization [facility] Address [address] [place] [address] Care Team Providers Care Cutting Torch Operator Name Role Phone Elsewhere, Pcp Primary Care Provider Unavailabl e Encounter Details Date Type Department Care Team (Late st Contact Info) Description 10/08/2024 Clinical Communication Department of Urology in [place], [place] [address] [place] [address] Ghanshyam Ye Social History Tobacco Use Types [...] your living situation today? 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 [address] [place] [phone] 12/05/2024 7:40 AM TELEGRAPHER AGENT Appointment Department of Laboratory Medicine and Pathology, [place], [place] [address] [place] [address] Seth Bass M.D. [address] [place] [phone] 12/05/2024 7:50 AM TELEGRAPHER AGENT Appointment Department of Laboratory Medicine and Pathology, [place], [place] [address] [place] [address] Seth Bass M.D. [address] [place] [phone] 12/05/2024 8:15 AM TELEGRAPHER AGENT Appointment Department of Radiology, [place], [place] [address] [place] [address] Seth Bass M.D. [address] [place] [phone] 12/05/2024 9:00 AM TELEGRAPHER AGENT Appointment Department of Radiology, [facility], in [place], [place] [address] [place] [address] Seth Bass M.D. [address] [place] [phone] 12/05/2024 1:00 PM TELEGRAPHER AGENT Comprehensive Visit Division of Nephrology and Hypertension in [place], [place] [address] [place] [address] Manjinder Ty M.D. [address] [place] [phone] 01/01/2025 11:00 AM CDT Telemedicine Division of Nephrology and Hypertension in [place], [place] [address] [place] [address] Seth Bass M.D. [address] [place] [phone] documented as of this encounter Visit Diagnoses Not on filedocumented in this encounter Care Teams Cutting Torch Operator Relationship Specialty Start Date End Date Elsewhere, Pcp PCP - General Internal Medicine 10/24/24 documented as of this encounter
--- OUTSIDE RECORDS SUMMARY | 2024-10-26 02:00 | XMS_ITS | Encounter Summary ---
Author Organization [facility] Address [address] [place] [address] Care Team Providers Care Septic Tank Servicer Name Role Phone Unavailable Primary Care Provider Unavailabl e Encounter Details Date Type Department Care Team (Late st Contact Info) Description 10/08/2024 Orders Only Department of Urology in [place], [place] [address] [place] [phone] Hortensia Dwyer, RDaisyNDaisy [address] [place] [address] Stone Kidney (Primary Dx) Social History Tobacco [...] your living situation today? 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 [address] [place] [phone] 12/05/2024 7:40 AM EVENT SALES REPRESENTATIVE Appointment Department of Laboratory Medicine and Pathology, [place], [place] [address] [place] [phone] Seth Bass M.D. [address] [place] [phone] 12/05/2024 7:50 AM EVENT SALES REPRESENTATIVE Appointment Department of Laboratory Medicine and Pathology, [place], [place] [address] [place] [address] Seth Bass M.D. [address] [place] [phone] 12/05/2024 8:15 AM EVENT SALES REPRESENTATIVE Appointment Department of Radiology, [facility], in [place], [place] [address] [place] [address] Seth Bass M.D. [address] [place] [phone] 12/05/2024 9:00 AM EVENT SALES REPRESENTATIVE Appointment Department of Radiology, [facility], in [place], [place] [address] [place] [address] Seth Bass M.D. [address] [place] [phone] 12/05/2024 1:00 PM EVENT SALES REPRESENTATIVE Comprehensive Visit Division of Nephrology and Hypertension in [place], [place] [address] [place] [address] Manjinder Ty M.D. [address] [place] [phone] 01/01/2025 11:00 AM CDT Telemedicine Division of Nephrology and Hypertension in [place], [place] [address] [place] [address] Seth Bass M.D. [address] [place] [phone] documented as of this encounter Results * Bacterial Culture, Aerobic + Susceptibility, Urine (10/10/2024 1:05 PM EVENT SALES REPRESENTATIVE) Urine Culture Urogenital microbiota, susceptibilities not performed per laboratory criteria. 10/11/2024 2:46 PM EVENT SALES REPRESENTATIVE DTL Urine (Urine, Midstream) 10/10/2024 1:05 PM EVENT SALES REPRESENTATIVE 10/10/2024 2:06 PM EVENT SALES REPRESENTATIVE Comment:Specimen Source Site : Urine Gato Shaw M.D. LAB MICROBIOLOGY - GENERAL OR DERABLES Final Result Performing Organization Address [facility]/ZIP Co de Phone Number [facility] [address] [place] [address], [facility] DTL Formerly named [facility] [address] [place] [address] * (ABNORMAL) Urinalysis, with Microscopic: Urine, Midstream (10/10/2024 1:05 PM EVENT SALES REPRESENTATIVE) Source Urine, Urine, Midstream 10/10/2024 1:25 PM EVENT SALES REPRESENTATIVE DTL Color, U Yellow 10/10/2024 1:25 PM EVENT SALES REPRESENTATIVE DTL Clarity, U Clear 10/10/2024 1:25 PM EVENT SALES REPRESENTATIVE DTL Protein, U 58(H) <26 mg/dL 10/10/2024 2:19 PM EVENT SALES REPRESENTATIVE DTL Protein/Osmol ality 0.96(H) <0.42 ratio 10/10/2024 2:36 PM EVENT SALES REPRESENTATIVE DTL Predicted 24 HR Protein, U 902(H) <229 mg/24 h 10/10/2024 2:36 PM EVENT SALES REPRESENTATIVE DTL Predicted Range 286-2841 mg/24 h 10/10/2024 2:36 PM EVENT SALES REPRESENTATIVE DTL Urine (Urine, Midstream) 10/10/2024 1:05 PM EVENT SALES REPRESENTATIVE 10/10/2024 1:24 PM EVENT SALES REPRESENTATIVE us Gato Shaw M.D. LAB URINE ORDERABLES Final Re sult Performing Organization Address [facility]/ZIP Co de Phone Number [facility] [address] [place] [address], [facility] DTL Formerly named [facility] [address] [place] [address] documented in this encounter Visit Diagnoses Diagnosis Stone Kidney- Primary documented in this encounter
--- OUTSIDE RECORDS SUMMARY | 2024-10-26 02:00 | XMS_ITS | Encounter Summary ---
Author Organization [facility] Address [address] [place] [address] Care Team Providers Care Angular Js Developer Name Role Phone Unavailable Primary Care Provider Unavailabl e Reason for Referral * Outpatient (Routine) - Closed Specialty Diagnoses / Procedures Referred By Sheila bustamante Referred To Contact Diagnoses Stone Kidney Procedures DX Chest AP or PA and Lateral 2 Views Gato Shaw M.D. [address] [place] [phone] Phone: tel: fax: [facility] Referral ID Status Reason Start Date Expiration Date Visits Re quested Visits Authorized [id number] Closed 09/30/2024 09/30/2025 1 1 LING ATTENDANT Reason for Visit * Outpatient (Routine) - Closed Specialty Diagnoses / Procedures Referred By Sheila bustamante Referred To Contact Diagnoses Stone Kidney Procedures DX Chest AP or PA and Lateral 2 Views Gato Shaw M.D. [address] [place] [phone] Phone: tel: fax: [facility] Referral ID Status Reason Start Date Expiration Date Visits Re quested Visits Authorized [id number] Closed 09/30/2024 09/30/2025 1 1 Encounter Details Date Type Department Care Team (Latest Contact Info) Description 10/10/2024 11:12 AM BOTTLING ATTENDANT - 10/10/2024 2:24 PM BOTTLING ATTENDANT Hospital Encounter Department of Radiology, [facility], in [place], [place] [address] [place] [address] [place] [phone] Gato Shaw M.D. [address] [place] [address] Stone Kidney Discharge Disposition: Home or Self [...] your living situation today? 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 06/26/2023 atorvastatin (LIPITOR) 10 mg tablet Take 10 mg by mouth daily. 06/16/2021 calcium carbonate (CALCIUM 500 ORAL) Take 2 [...] nasal spray Administer into nostril(s) daily. 04/04/2023 indomethacin (INDOCIN) 25 mg capsule For flares 06/26/2023 metoprolol tartrate (LOPRESSOR) 25 mg tablet as directed. Two tablets in AM and one PM 05/05/2021 multivitamin (MULTI-DAY ORAL) Take 1 tablet by mouth daily. 06/20/2011 tadalafiL (CIALIS, ADCIRCA) 20 mg tablet Take 20 mg by mouth. 05/05/2021 tamsulosin (FLOMAX) 0.4 mg 24 hr capsule Take 0.4 mg by mouth. 05/05/2021 tamsulosin (Flomax) 0.4 mg 24 hr capsule Take 1 capsule (0.4 mg total) by mouth daily as needed (stent/flank pain). 10 capsule 10/24/2024 trospium (Sanctura) 20 mg tablet Take 1 tablet (20 mg total) by mouth 2 (two) times a day as needed (bladder spasms). 15 tablet 10/24/2024 2:06 PM BOTTLING ATTENDANT 10/24/2024 cefdinir (Omnicef) 300 mg capsuleIndicatio ns:Stone Kidney Take 1 capsule (300 mg total) by mouth 2 (two) times a day before morning and evening meals for 1 day. Please take the day of catheter removal. 2 capsule 10/24/2024 2:06 PM BOTTLING ATTENDANT 10/24/2024 5 apixaban (Eliquis) 5 mg tablet Take 1 tablet by mouth 2 (two) times a day. 10/08/2024 5 bicalutamide (CASODEX) 50 mg tablet Take 1 tablet (50 mg total) by mouth daily. Take at the same time everyday. Take with or without food. 14 tablet 06/28/2023 5 hydroCHLOROthiaz jeniffer (HYDRODIURIL) 12.5 mg tablet Stopped for now 05/05/202110/21 5 documented as of this encounter Plan of Treatment Upcoming Encounters Date Type Department Care Team (Late st Contact Info) Description 10/27/2024 8:00 AM BOTTLING ATTENDANT Procedure visit Department of Urology in [place], [place] [address] [place] [phone] Seth Bass M.D. [address] [place] [phone] 12/05/2024 7:40 AM BOTTLING ATTENDANT Appointment Department of Laboratory Medicine and Pathology, [place], [place] [address] [place] [phone] Seth Bass M.D. [address] [place] [phone] 12/05/2024 7:50 AM BOTTLING ATTENDANT Appointment Department of Laboratory Medicine and Pathology, [place], [place] [address] [place] [phone] Seth Bass M.D. [address] [place] [phone] 12/05/2024 8:15 AM BOTTLING ATTENDANT Appointment Department of Radiology, [place], [place] [address] [place] [phone] Seth Bass M.D. [address] [place] [phone] 12/05/2024 9:00 AM BOTTLING ATTENDANT Appointment Department of Radiology, [facility], in [place], [place] [address] [place] [phone] Seth Bass M.D. [address] [place] [phone] 12/05/2024 1:00 PM BOTTLING ATTENDANT Comprehensive Visit Division of Nephrology and Hypertension in [place], [place] [address] [place] [phone] Manjinder Ty M.D. [address] [place] [phone] 01/01/2025 11:00 AM CDT Telemedicine Division of Nephrology and Hypertension in [place], [place] [address] [place] [phone] Seth Bass M.D. [address] [place] [phone] documented as of this encounter Procedures Procedure Name Priority Date/Time Associated Diagnosis Comments DX CHEST AP OR PA AND LATERAL 2 VIEWS RAD - Routine (most inpatients and all outpatients) 10/10/2024 11:22 AM BOTTLING ATTENDANT [facility] Kidney documented in this encounter Results * DX Chest AP or PA and Lateral 2 Views (10/10/2024 11:22 AM BOTTLING ATTENDANT) Anatomical Region Laterality Modality Chest, Thoracic RST LOS, Tho racic ARZ LOS, Thoracic FLA LOS N/A Digital Radiography Impressions 10/10/2024 11:38 AM BOTTLING ATTENDANT Interstitial opacities within the bilateral mid and lower lungs, greater on the left. These likely correspond with fibrotic change seen on 08/13/2024 CT urogram. Aortic calcification. Hypertrophic degenerative changes thoracic spine with mild anterior wedging of several midthoracic vertebral bodies. Chest otherwise negative. Narrative 10/10/2024 11:38 AM BOTTLING ATTENDANT EXAM: DX CHEST AP OR PA AND [...] midthoracic vertebral bodies. Chestotherwise negative. us Gato [facility] URES Final Result documented in this encounter Visit Diagnoses Diagnosis Stone Kidney documented in this encounter
--- OUTSIDE RECORDS SUMMARY | 2024-10-26 02:00 | XMS_ITS | Encounter Summary ---
Author Organization [facility] Address [address] [place] [address] Care Team Providers Care Billing Clinician Name Role Phone Unavailable Primary Care Provider Unavailabl e Encounter Details Date Type Department Care Team (Latest Contact Info) Description 10/10/2024 10:50 AM [facility] Hospital Encounter Department of Laboratory Medicine and Pathology, [facility] in [place], [place] [address] [place] [phone] Gato Shaw M.D. [address] [place] [phone] Stone Kidney Discharge Disposition: Home or Self [...] your living situation today? I have a 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 15 tablet 10/24/2024 2:06 PM PER DIEM REGISTERED NURSE 10/24/2024 cefdinir (Omnicef) 300 mg capsuleIndicatio ns:Stone Kidney Take 1 capsule (300 mg total) by mouth 2 (two) times a day before morning and evening meals for 1 day. Please take the day of catheter removal. 2 capsule 10/24/2024 2:06 PM PER DIEM REGISTERED NURSE 10/24/2024 5 apixaban (Eliquis) 5 mg tablet [...] st Contact Info) Description 10/27/2024 8:00 AM PER DIEM REGISTERED NURSE Procedure visit Department of Urology in [place], [place] 200 [place] [phone] Seth Bass M.D. 200 [place] [phone] 12/05/2024 7:40 AM PER DIEM REGISTERED NURSE Appointment Department of Laboratory Medicine and Pathology, [facility] in [place], [place] [address] [place] [phone] Seth Bass M.D. [address] [place] [phone] 12/05/2024 7:50 AM PER DIEM REGISTERED NURSE Appointment Department of Laboratory Medicine and Pathology, [facility] in [place], [place] [address] [place] [address] Seth Bass M.D. [address] [place] [phone] 12/05/2024 8:15 AM PER DIEM REGISTERED NURSE Appointment Department of Radiology, [facility] in [place], [place] [address] [place] [phone] Seth Bass M.D. [address] [place] [phone] 12/05/2024 9:00 AM PER DIEM REGISTERED NURSE Appointment Department of Radiology, [facility] in [place], [place] [address] [place] [phone] Seth Bass M.D. [address] [place] [phone] 12/05/2024 1:00 PM PER DIEM REGISTERED NURSE Comprehensive Visit Division of Nephrology and Hypertension in [place], [place] [address] [place] [phone] Manjinder Ty M.D. [address] [place] [phone] 01/01/2025 11:00 AM CDT Telemedicine Division of Nephrology and Hypertension in [place], [place] [address] [place] [phone] Seth Bass M.D. [address] [place] [phone] (work) documented as of this encounter Procedures Procedure Name Priority Date/Time Associated Diagnosis Comments DIPSTICK, U Routine 10/10/2024 1:05 PM PER DIEM REGISTERED NURSE MICROSCOPIC MANUAL Routine 10/10/2024 1: 05 PM PER DIEM REGISTERED NURSE BACTERIAL CULTURE, AEROBIC + SUSC, URINE Routine 10/10/2024 1:05 PM PER DIEM REGISTERED NURSE [facility] PH, U Routine 10/10/2024 1:05 PM PER DIEM REGISTERED NURSE OSMOLALITY, U Routine 10/10/2024 1:05 PM PER DIEM REGISTERED NURSE URINALYSIS WITH MICROSCOPIC Routine 10/10/2024 1:05 PM PER DIEM REGISTERED NURSE [facility] documented in this encounter Results * (ABNORMAL) Microscopic Manual (10/10/2024 1:05 PM PER DIEM REGISTERED NURSE) Microscopy Abnormal 10/10/2024 2:51 PM PER DIEM REGISTERED NURSE DTL RBC >100(A) <3 /hpf 10/10/2024 2:51 PM PER DIEM REGISTERED NURSE DTL Dysmorphic RBC <25 <25 % 10/10/2024 2:51 PM PER DIEM REGISTERED NURSE DTL WBC 4-10(A) /hpf 10/10/2024 2:51 PM PER DIEM REGISTERED NURSE DTL Comment: ----REFERENCE VALUE---- <4 (Males) <11 (Females) Urine 10/10/2024 1:05 PM PER DIEM REGISTERED NURSE 10/10/2024 2:08 PM PER DIEM REGISTERED NURSE us Gato Shaw M.D. LAB URINE ORDERABLES Final Re sult [facility] [address] [place] [address], [place] DTL [facility] [address] [place] [address] * pH, Urine (10/10/2024 1:05 PM PER DIEM REGISTERED NURSE) pH, U 6.0 4.5 - 8.0 10/10/2024 2:3 6 PM PER DIEM REGISTERED NURSE DTL Urine 10/10/2024 1:05 PM PER DIEM REGISTERED NURSE 10/10/2024 1:25 PM PER DIEM REGISTERED NURSE us Gato Shaw M.D. LAB URINE ORDERABLES Final Re sult Performing Organization Address [facility] Co de Phone Number [facility] [address] [place] [address], [facility] 200 [place] [address] * (ABNORMAL) Dipstick, Urine (10/10/2024 1:05 PM PER DIEM REGISTERED NURSE) Hemoglobin, QL, U Large(A) Negative 10/10/2024 2:08 PM PER DIEM REGISTERED NURSE DTL Leukocyte Esterase, U Trace(A) Negative 10/10/2024 2:08 PM PER DIEM REGISTERED NURSE DTL Nitrite, U Negative Negative 10/10/2024 2:08 PM PER DIEM REGISTERED NURSE DTL Ketone, U Negative Negative mg/dL 10/10/2024 2:08 PM PER DIEM REGISTERED NURSE DTL Glucose, U Negative Negative mg/dL 10/10/2024 2:08 PM PER DIEM REGISTERED NURSE DTL Urine 10/10/2024 1:05 PM PER DIEM REGISTERED NURSE 10/10/2024 1:25 PM PER DIEM REGISTERED NURSE Result Xuan Shaw M.D. LAB URINE ORDERABLES Final Re sult Performing Organization Address [facility] Co de Phone Number [facility] [address] [place] [address], [facility] 200 [place] [address] * Osmolality, Urine (10/10/2024 1:05 PM PER DIEM REGISTERED NURSE) Osmolality, U 607 150 - 1150 mOsm/kg 10/10/2024 2:36 PM PER DIEM REGISTERED NURSE DTL Urine 10/10/2024 1:05 PM PER DIEM REGISTERED NURSE 10/10/2024 1:25 PM PER DIEM REGISTERED NURSE us Gato Shaw M.D. LAB URINE ORDERABLES Final Re sult Performing Organization Address [facility] Co de Phone Number [facility] 200 [place] [address], [place] [address] * Bacterial Culture, Aerobic + Susceptibility, Urine (10/10/2024 1:05 PM PER DIEM REGISTERED NURSE) Urine Culture Urogenital microbiota, susceptibilities not performed per laboratory criteria. 10/11/2024 2:46 PM PER DIEM REGISTERED NURSE DTL Urine (Urine, Midstream) 10/10/2024 1:05 PM PER DIEM REGISTERED NURSE 10/10/2024 2:06 PM PER DIEM REGISTERED NURSE Comment:Specimen Source Site : Urine Gato Shaw M.D. LAB MICROBIOLOGY - GENERAL OR DERABLES Final Result Performing Organization Address [facility] Co de Phone Number [facility] 200 [place] [address], [facility] 200 [place] [address] * (ABNORMAL) Urinalysis, with Microscopic: Urine, Midstream (10/10/2024 1:05 PM PER DIEM REGISTERED NURSE) Source Urine, Urine, Midstream 10/10/2024 1:25 PM PER DIEM REGISTERED NURSE DTL Color, U Yellow 10/10/2024 1:25 PM PER DIEM REGISTERED NURSE DTL Clarity, U Clear 10/10/2024 1:25 PM PER DIEM REGISTERED NURSE DTL Protein, U 58(H) <26 mg/dL 10/10/2024 2:19 PM PER DIEM REGISTERED NURSE DTL Protein/Osmol ality 0.96(H) <0.42 ratio 10/10/2024 2:36 PM PER DIEM REGISTERED NURSE DTL Predicted 24 HR Protein, U 902(H) <229 mg/24 h 10/10/2024 2:36 PM PER DIEM REGISTERED NURSE DTL Predicted Range 286-2841 mg/24 h 10/10/2024 2:36 PM PER DIEM REGISTERED NURSE DTL Urine (Urine, Midstream) 10/10/2024 1:05 PM PER DIEM REGISTERED NURSE 10/10/2024 1:24 PM PER DIEM REGISTERED NURSE us Gato Shaw M.D. LAB URINE ORDERABLES Final Re sult [facility] [address] [place] [address], [facility] [address] [place] [address] documented in this encounter Visit Diagnoses Diagnosis Stone Kidney documented in this encounter
--- OUTSIDE RECORDS SUMMARY | 2024-10-26 02:00 | XMS_ITS | Encounter Summary ---
Author Organization [facility] Address [address] [place] [address] Care Team Providers Care Superintendent Maintenance Name Role Phone Unavailable Primary Care Provider Unavailabl e Encounter Details Date Type Department Care Team ([facility] st Contact Info) Description 10/10/2024 Orders Only Department of Cardiovascular Medicine in [place], [place] [address] [place] [phone] Inocente Avila M.D. [address] [place] [phone] Atrial Fibrillation Paroxysmal (HCC) (Primary Dx); Myocardial [...] your living situation today? 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 [address] [place] [phone] 12/05/2024 7:40 AM BUSINESS STRATEGY MANAGER Appointment Department of Laboratory Medicine and Pathology, [facility] in [place], [place] 200 [place] [address] Seth Bass M.D. [address] [place] [phone] 12/05/2024 7:50 AM BUSINESS STRATEGY MANAGER Appointment Department of Laboratory Medicine and Pathology, [facility] in [place], [place] [address] [place] [phone] Seth Bass M.D. [address] [place] [phone] 12/05/2024 8:15 AM BUSINESS STRATEGY MANAGER Appointment Department of Radiology, [facility], in [place], [place] [address] [place] [phone] Seth Bass M.D. [address] [place] [phone] 12/05/2024 9:00 AM BUSINESS STRATEGY MANAGER Appointment Department of Radiology, [facility] in [place], [place] [address] [place] [address] Seth Bass M.D. [address] [place] [phone] 12/05/2024 1:00 PM BUSINESS STRATEGY MANAGER Comprehensive Visit Division of Nephrology and Hypertension in [place], [place] [address] [place] [phone] Manjinder Ty M.D. [address] [place] [phone] 01/01/2025 11:00 AM CDT Telemedicine Division of Nephrology and Hypertension in [place], [place] [address] [place] [phone] Seth Bass M.D. [address] [place] [phone] documented as of this encounter Results * (ABNORMAL) Lipid Panel (10/10/2024 11:03 AM BUSINESS STRATEGY MANAGER) Triglycerides 163(H) mg/dL 10/10/2024 12:20 PM BUSINESS STRATEGY MANAGER DTL Comment: ----REFERENCE VALUE---- Normal: <150 mg/dL Borderline High: 150-199 mg/dL High: 200-499 mg/dL Very High: > or =500 mg/dL Cholesterol, Total 143 mg/dL 2024 12:20 PM BUSINESS STRATEGY MANAGER DTL Comment: ----REFERENCE VALUE---- Desirable: < 200 mg/dL Borderline High: 200 - 239 mg/dL High: > or = 240 mg/dL Cholesterol, LDL, Calculated 78 mg/dL 10/10/2024 12:20 PM BUSINESS STRATEGY MANAGER DTL Comment: ----REFERENCE VALUE---- Desirable: <100 mg/dL Above Desirable: 100-129 mg/dL Borderline High: 130-159 mg/dL High: 160-189 mg/dL Very High: >=190 mg/dL ----ADDITIONAL INFORMATION---- LDL cholesterol calculated using the Sawant/NIH equation. Cholesterol, HDL, S 37(L) >=40 mg/dL 10/10/2024 12:20 PM BUSINESS STRATEGY MANAGER DTL Cholesterol, Non-HDL, Calculated 106 mg/dL 10/10/2024 12:20 PM BUSINESS STRATEGY MANAGER DTL Comment: ----REFERENCE VALUE---- Desirable: <130 mg/dL Above Desirable: 130-159 mg/dL Borderline High: 160-189 mg/dL High: 190-219 mg/dL Very High: > or =220 mg/dL Fasting (8 HR or more) Yes 10/10/2024 11:03 AM BUSINESS STRATEGY MANAGER DTL Blood (Blood, Venous) 10/10/2024 11:03 AM BUSINESS STRATEGY MANAGER 10/10/2024 11:36 AM BUSINESS STRATEGY MANAGER us Inocente Avila M.D. LAB BLOOD ADD-ON Final Resul t [facility] [address] [place] [address], [facility] [address] [place] [address] * Thyroid Function [place] (10/10/2024 11:03 AM BUSINESS STRATEGY MANAGER) TSH, Sensitive 1.9 0.3 - 4.2 mIU/L 10/10/2024 12:20 PM BUSINESS STRATEGY MANAGER DTL Blood (Blood, Venous) 10/10/2024 11:03 AM BUSINESS STRATEGY MANAGER 10/10/2024 11:36 AM BUSINESS STRATEGY MANAGER us Inocente Avila M.D. LAB BLOOD ADD-ON Final Resul t [facility] [address] [place], [place] [id number] [place] [address] * (ABNORMAL) NT-Pro B-Type Natriuretic Peptide (BNP) (10/10/2024 11:03 AM BUSINESS STRATEGY MANAGER) NT-Pro BNP 710(H) <=540 pg/mL 10/10/2024 12:20 PM BUSINESS STRATEGY MANAGER DTL Comment: NT-proBNP values less than 300 [...] failure. Blood (Blood, Venous) 10/10/2024 11:03 AM BUSINESS STRATEGY MANAGER 10/10/2024 11:36 AM BUSINESS STRATEGY MANAGER Result Xuan Avila M.D. LAB BLOOD ADD-ON Final Resul t Performing Organization Address City/[facility] Co de Phone Number [facility] 200 [place] [address], [facility] 200 [place] [address] * (ABNORMAL) Troponin T, 5th Generation (10/10/2024 11:03 AM BUSINESS STRATEGY MANAGER) Troponin T, 5th gen 34(H) <=15 ng/L 10/10/2024 12:25 PM BUSINESS STRATEGY MANAGER DTL Blood (Blood, Venous) 10/10/2024 11:03 AM BUSINESS STRATEGY MANAGER 10/10/2024 11:37 AM BUSINESS STRATEGY MANAGER Result Xuan Avila M.D. LAB BLOOD ADD-ON Final Resul t [facility] [address] [place] [address], [place] DTL [facility] [address] [place] [address] documented in this encounter Visit Diagnoses Diagnosis Atrial Fibrillation Paroxysmal (HCC)- Primary 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 Hyperlipidemia documented in this encounter
--- OUTSIDE RECORDS SUMMARY | 2024-10-26 02:00 | XMS_ITS | Encounter Summary ---
Author Organization [facility] Address [address] [place] [id number] Care Team Providers Care Fastener Technologist Name Role Phone Unavailable Primary Care Provider Unavailabl e Reason for Referral * Outpatient (Routine) - Closed Specialty Diagnoses / Procedures Referred By Sheila bustamante Referred To Contact Anesthesiology Diagnoses [facility] Winnie Becker M.D., M.S. [address] [place] [phone] Phone: tel: fax: [facility] Referral ID Status Reason Start Date Expiration Date Visits Re quested Visits Authorized [id number] Closed 09/08/2024 03/10/2026 1 1 BASE ADMIN Reason for Visit * Outpatient (Routine) - Closed Specialty Diagnoses / Procedures Referred By Sheila bustamante Referred To Contact Urology Diagnoses [facility] Shellie Howe APRN, C.N.P., D.N.P. [address] [place] [phone] Phone: tel: fax: [facility] Referral ID Status Reason Start Date Expiration Date Visits Re quested Visits Authorized [id number] Closed 08/14/2024 02/13/2026 1 1 Encounter Details Date Type Department Care Team (Latest Contact Info) Description 09/08/2024 10:30 AM DATABASE ADMIN Comprehensive Visit Department of Urology in [place], [place] [address] [place] [phone] Gato Shaw M.D. [address] [place] [address] [facility] (Primary Dx) Social History Tobacco Use Types Packs/Day Years Used Date Smoking Tobacco: Never Passive Smoke Exposure: Never Smokeless Tobacco: Never [facility] Utilities Answer Date Recorded In the past [...] your living situation today? 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 - 09/08/2024 10:30 AM CST Images from the original note were not included. Referring Physician: Shellie Howe APRN, C.N.Ana, Matteo.N.P. UROLOGY CLINIC NOTE: SUBJECTIVE REASON FOR CONSULT Nephrolithiasis Seen on Dr. Nova rivera Patient referred by Shellie Howe APRN, Missy.N.Marisela., D.N.P. HISTORY OF PRESENT ILLNESS Mr. Mendez is [...] a night. No history of urinary retention, HALEIGH, or rUTIs. 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 Valeria Becker M.D., M.S. BASE ADMIN BASE ADMIN * Gato Shaw M.D. - 09/08/2024 10:30 [...] provided by my colleague on the team. BASE ADMIN documented in this encounter Plan of Treatment Upcoming Encounters Date Type Department Care Team (Late st Contact Info) Description 10/27/2024 8:00 AM DATABASE ADMIN Procedure visit Department of Urology in [place], [place] [address] [place] [address] Seth Bass M.D. [address] [place] [phone] 12/05/2024 7:40 AM DATABASE ADMIN Appointment Department of Laboratory Medicine and Pathology, [facility] in [place], [place] [address] [place] [phone] Seht Bass M.D. [address] [place] [phone] 12/05/2024 7:50 AM DATABASE ADMIN Appointment Department of Laboratory Medicine and Pathology, [facility] in [place], [place] [address] [place] [address] Seth Bass M.D. [address] [place] [phone] 12/05/2024 8:15 AM DATABASE ADMIN Appointment Department [facility] Rad[facility], [facility] [place], [place] [address] [place] [address] Seth Bass M.D. [address] [place] [phone] 12/05/2024 9:00 AM DATABASE ADMIN Appointment Department of Radiology, [facility], in [place], [place] [address] [place] [address] Seth Bass M.D. [address] [place] [phone] 12/05/2024 1:00 PM DATABASE ADMIN Comprehensive Visit Division of Nephrology and Hypertension in [place], [place] [address] [place] [phone] Manjinder Ty M.D. [address] [place] [phone] 01/01/2025 11:00 AM CDT Telemedicine Division of Nephrology and Hypertension in [place], [place] [address] [place] [address] Seth Bass M.D. [address] [place] [address] Scheduled Referrals Name Type Priority Associated Diagnoses Order Schedule Preoperative Evaluation YESSENIA consult (clinic) Outpatient Referral Routine [facility] Expected: 09/08/2024, Expires: 12/07/2025 documented as of this encounter Visit Diagnoses Diagnosis Stone Kidney- Primary documented in this encounter
--- OUTSIDE RECORDS SUMMARY | 2024-10-26 02:01 | XMS_ITS | Encounter Summary ---
Author Organization [facility] Address [address] [place] [address] Care Team Providers Care Purchasing Buyer Name Role Phone Elsewhere, Pcp Primary Care Provider Unavailabl e Reason for Visit * Reason Onset Date Comments Triage 10/02/2024 Encounter Details Date Type Department Care Team (Latest Contact Info) Description 10/02/2024 Clinical Communication Department of Cardiovascular Medicine in [place], [place] [address] [place] [address] Lab Animal TechnologistSudarshan M.D. 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 Not on f ile Not on file [...] a call from Dr. Coco Rollins at [facility]. She knows Mr. Mendez will be having [...] (CBC/BMP) ECG CXR Hospital DC Summary: 10/01/24 ([facility]) Echo: 09/29/24 ([facility]) 1. Normal LV size, moderately increased wall [...] Facility Information if known (name, city/state, phone/fax): -[facility], ph [phone] Medical records needed and approximate date: -Echo images. Date: 09/29/24 Date/timeframe records needed by: -Prior to CV appt Notification of records received: -No notification needed (provider will review at time of appt) IN WASHER IN WASHER documented in this encounter Plan of Treatment Upcoming Encounters Date Type Department Care Team (Late st Contact Info) Description 10/27/2024 8:00 AM BOBBIN WASHER Procedure visit Department of Urology in [place], [place] [address] [place] [phone] Seth Bass M.D. [address] [place] [phone] 12/05/2024 7:40 AM BOBBIN WASHER Appointment Department of Laboratory Medicine and Pathology, [facility], in [place], [place] [address] [place] [phone] Seth Bass M.D. [address] [place] [phone] 12/05/2024 7:50 AM BOBBIN WASHER Appointment Department of Laboratory Medicine and Pathology, [facility] in [place], [place] [address] [place] [address] Seth Bass M.D. [address] [place] [phone] 12/05/2024 8:15 AM BOBBIN WASHER Appointment Department of Radiology, [facility] in [place], [place] [address] [place] [address] Seth Bass M.D. [address] [place] [phone] 12/05/2024 9:00 AM BOBBIN WASHER Appointment Department of Radiology, [facility] in [place], [place] [address] [place] [address] Seth Bass M.D. [address] [place] [phone] 12/05/2024 1:00 PM BOBBIN WASHER Comprehensive Visit Division of Nephrology and Hypertension in [place], [place] [address] [place] [address] Manjinder Ty M.D. [address] [place] [phone] 01/01/2025 11:00 AM CDT Telemedicine Division of Nephrology and Hypertension in [place], [place] [address] [place] [address] Seth Bass M.D. [address] [place] [phone] documented as of this encounter Visit Diagnoses Not on filedocumented in this encounter Care Teams Purchasing Buyer Relationship Specialty Start Date End Date Elsewhere, Pcp PCP - General Internal Medicine 10/24/24 documented as of this encounter
--- OUTSIDE RECORDS SUMMARY | 2024-10-26 02:01 | XMS_ITS | Encounter Summary ---
Author Organization [facility] Address [address] [place] [id number] Care Team Providers Care Metal Numerical Control Programmer Name Role Phone Elsewhere, Pcp Primary Care Provider Unavailabl e Reason for Referral * Specialty Diagnoses / Procedures Referred By Sheila bustamante Referred To Contact Diagnoses Stone Kidney Seth Bass M.D. [address] [place] [address] Phone: tel: fax: [facility] Referral ID Status Reason Start Date Expiration Date Visits Re quested Visits Authorized MENT IMAGE TECHNICIAN * Outpatient (Routine) - Authorized Specialty Diagnoses / Procedures Referred By Sheila bustamante Referred To Contact Nephrology and Hypertension Diagnoses [facility] Kidney Seth Bass M.D. [address] [place] [address] Phone: tel: fax: [facility] Referral ID Status Reason Start Date Expiration Date V isits Requested Visits Authorized [id number] Authorized 10/24/2024 04/25/2026 1 1 MENT IMAGE TECHNICIAN * Outpatient (Routine) - Authorized Specialty Diagnoses / Procedures Referred By Sheila t Referred To Contact Diagnoses Stone [facility] Procedures DX Kidneys Ureters Bladder Seth Bass M.D. [address] [place] [phone] Phone: tel: fax: [facility] Referral ID Status Reason Start Date Expiration Date V isits Requested Visits Authorized [id number] Authorized 10/24/2024 01/24/2026 1 1 MENT IMAGE TECHNICIAN * Outpatient (Routine) - Authorized Specialty Diagnoses / Procedures Referred By Contsissy t Referred To Contact Diagnoses [facility] Procedures US Kidneys Bilateral with Bladder Seth Bass M.D. [address] [place] [phone] Phone: tel: fax: [facility] Referral ID Status Reason Start Date Expiration Date V isits Requested Visits Authorized [id number] Authorized 10/24/2024 01/24/2026 1 1 MENT IMAGE TECHNICIAN * Outpatient (Routine) - Authorized Specialty Diagnoses / Procedures Referred By Sheila t Referred To Contact Diagnoses [facility] Procedures URO Urethral cath fill / remove / voiding trial (fill / pull) Seth Bass M.D. [address] [place] [address] Phone: tel: fax: [facility] Referral ID Status Reason Start Date Expiration Date V isits Requested Visits Authorized [id number] Authorized 10/24/2024 01/24/2026 1 1 MENT IMAGE TECHNICIAN Reason for Visit * Auth/Cert (Routine) Specialty Diagnoses / Procedures Referred By Contac t Referred To Contact Diagnoses Stone [facility]ney Hematuria Stone Kidney [N20.0] Hematuria [R31.9] Procedures TX LITHOLAPAXY SMPL <2.5CM TX CYSTHRSCPY W FULG LESNS MINOR TX CYSTHRSCPY/URTRSCPY RMVL CALC CYSTOLITHOLAPAXY CYSTOSCOPY BIOPSY FULGURATION, proceed as indicated URETEROSCOPY STONE EXTRACTION versus stent placement possible return to OR in 90 days Gato Shaw M.D. [address] [place] [address] Phone: tel: fax: Referral ID Status Reason Start Date Expiration Date Visits Re quested Visits Authorized [id number] 1 1 Encounter Details Date Type Department Care Team (Latest Contact Info) Description 10/24/2024 7:48 AM DOCUMENT IMAGE TECHNICIAN - 10/24/2024 1:57 PM DOCUMENT IMAGE TECHNICIAN Hospital Encounter Outpatient Procedure Center in [place], [place] [address] [place] [address] Gato Shaw M.D. [address] [place] [address] Stone Kidney; Hematuria Discharge Disposition: Home or Self Care Social History Tobacco Use Types Packs/Day Years Used Date Smoking Tobacco: Never Passive Smoke Exposure: Never Smokeless Tobacco: Never Alcohol Use Standard Drinks/Week Comments Yes 1 (1 standard drink = 0.6 oz pur e alcohol) [facility] Utilities Answer Date Recorded In the past 12 months has e [employer], gas, oil, or water [employer] threatened to shut off services in your [...] [facility] 10/17/2024 Sex and Gender Information Value Date Recorded Sex Assigned at Male 08/08/2023 11:08 AM DOCUMENT IMAGE TECHNICIAN Legal Sex Male 11:22 AM DOCUMENT IMAGE TECHNICIAN Gender Identity Male 08/08/2023 11:08 AM DOCUMENT IMAGE TECHNICIAN Sexual Orientation Straight 08/08/2023 11 :08 AM DOCUMENT IMAGE TECHNICIAN 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 Not on f ile Not on file Not on file documented as of this encounter Last Filed Vital Signs Vital Sign Reading Time Taken Comments Blood Pressure 136/65 10/24/2024 12:45 PM DOCUMENT IMAGE TECHNICIAN Pulse 48 10/24/2024 1:10 PM DOCUMENT IMAGE TECHNICIAN Temperature 36.4 C (97.5 F) 10/24/2024 11:24 AM DOCUMENT IMAGE TECHNICIAN Respiratory Rate 14 10/24/2024 1:10 PM DOCUMENT IMAGE TECHNICIAN Oxygen Saturation 98% 10/24/2024 1:10 PM DOCUMENT IMAGE TECHNICIAN Inhaled Oxygen Concentration - - Weight - - Height - - Body Mass Index - - documented in this encounter Discharge Instructions * Attachments The following attachments cannot be sent through Care Everywhere. * VIDEO: CARE OF YOUR INDWELLING CATHETER: INDWELLING CATHETER CARE FOR MEN (KYRGYZ) * Care and Removal of Your Dangle Stent * Indwelling Catheter Care With Drainage Bag Instructions documented in this encounter Medications at Time of Discharge [...] Take 1 tablet by mouth daily. 06/20/2011 sulfamethoxazole -trimethoprim (Bactrim DS) 800-160 mg per tablet Take 1 tablet by mouth 2 (two) times a day. 10/18/2024 tadalafiL (CIALIS, ADCIRCA) 20 mg tablet Take [...] (bladder spasms). 15 tablet 10/24/2024 2:06 PM DOCUMENT IMAGE TECHNICIAN 10/24/2024 cefdinir (Omnicef) 300 mg capsuleIndicatio ns:Stone Kidney Take 1 capsule (300 mg total) by mouth 2 (two) times a day before morning and evening meals for 1 day. Please take the day of catheter removal. 2 capsule 10/24/2024 2:06 PM DOCUMENT IMAGE TECHNICIAN 10/24/2024 5 documented as of this encounter OR Notes * Op Note - Seth Bass M.D. - 10/24/2024 9:01 AM CST Pre-op Diagnosis Stone Kidney Hematuria Post-op Diagnosis Stone Kidney Hematuria Process Designer A first dyer actively participated and was necessary for one or more of the following: opening, exposure and visualization, maintaining hemostasis, wound closure resulting in its safe and expeditious completion. Findings - cystoscopy revealed 1 cm stone within the bladder, laser fragmented and evacuated - no lesions overtly concerning for malignancy seen in the bladder; mapping biopsies taken - left ureteroscopy revealed 1 cm stone in the renal pelvis, laser fragmented and basket extracted in its entirety - 7x28 left stent placed on dangle; 18Fr coude catheter with 10 cc in the balloon Plan: - return for UCO and catheter removal on 10/27 - primary team to follow up on pathology - renal ultrasound and KUB in 6 weeks Complications None Bladder Tumor Removal Details Greatest diameter of tumor: 0.5 cm Kidney/Bladder Stone Removal Details Total size of calculus: 1 cm Additional kidney/bladder stone Total size of calculus: 1 cm Operative Note Narrative After appropriate patient identification and verification of informed consent, the patient was brought into the operating room where he was placed under general anesthesia. He was then prepped and draped in the usual sterile fashion in dorsal lithotomy position. After surgical pause and confirmation of antibiotic administration, we proceeded with rigid cystoscopy. Anterior urethra was grossly unremarkable. 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 Ramírez cystoscopy was performed using the 70 degree lens. Bilateral ureteral orifices were orthotopic in position. There were several diverticula as well as severe trabeculation. No erythematous/papillary lesions overtly concerning for malignancy were seen. 1 cm bladder stone was noted at the bladder base. The urethra was then sequentially dilated using Olga sounds to 30 Taiwanese. The high-flow bipolar resectoscope was advanced into the bladder. The 550 nanometer holmium laser fiber was then used tofragment the bladder stone. All stone fragments were evacuated through the cystoscope sheath. Givenpatient's suspicious cytology with no overt mucosal lesions, decision was made to proceed with mapping bladder biopsies. Electric Arc Furnace Operator biopsies were taken from the trigone, right bladder wall, left bladder wall, posterior bladder wall, and anterior bladder wall. Biopsy sites and surrounding mucosal edges were then fulgurated using the Bugbee electrode for excellent hemostasis. We then turned our attention to the left kidney stone. After laterality pause, a 0.035 sensor tip wire was advanced through the left ureteral orifice into the left renal pelvis under fluoroscopic guidance. Cut Off Saw Operator images did reveal the previously seen renal pelvis stone. A dual-lumen ureteral catheter was then advanced into the left ureter, and a retrograde pyelogram was performed. This was grosslyunremarkable other than the stone. A second wire was then advanced into the renal pelvis, and the dual-lumen was removed. An 11-13 ureteral access sheath was then advanced into the left renal pelvis under fluoroscopy. The lithovue disposable flexible ureteroscope was then advanced into the left renal pelvis, where they 1 cm stone was encountered. The holmium laser fiber was used to break up the stone into fragments suitable for extraction. All clinically significant stone fragments were extracted using the ZeroTip Nitinol basket. The renal pelvis and all calices were then systematically examined and contrast mapped, revealing no residual stone fragments. Repeat retrograde pyelogram at the conclusion of the procedure was unremarkable. The ureteroscope and access sheath were then removed and the entirety of the left ureter was withdrawn, revealing no evidence of residual stone fragments or clinically significant mucosal injury. A 7 Taiwanese by 28 cm double-J ureteral stent was then advanced into the left renal pelvis under fluoroscopy. The wire was removed and the stent was deployed in the usual fashion with satisfactory proximal curl in the renal pelvis and satisfactory distal curl in the bladder confirmed fluoroscopically. Stent was left on a dangle. An 18 Taiwanese coude catheter was placed into the bladder as its conclusion of the procedure with 10 cc in the balloon. This irrigated easily to clear light pink. The patient was then aroused from anesthesia and transferred to the recovery room in stable condition. He tolerated the procedure well and there were no immediate complications. Seth Bass M.D. Cosigned by Gato Shaw M.D. at 10/24/2024 12:42 PM DOCUMENT IMAGE TECHNICIAN MENT IMAGE TECHNICIAN MENT IMAGE TECHNICIAN documented in this encounter Plan of Treatment Upcoming Encounters Date Type Department Care Team (Late st Contact Info) Description 10/27/2024 8:00 AM DOCUMENT IMAGE TECHNICIAN Procedure visit Department of Urology in [place], [place] [address] [place] [address] Seth Bass M.D. [address] [place] [address] 12/05/2024 7:40 AM DOCUMENT IMAGE TECHNICIAN Appointment Department of Laboratory Medicine and Pathology, [facility] in [place], [place] [address] [place] [address] Seth Bass M.D. [address] [place] [phone] 12/05/2024 7:50 AM DOCUMENT IMAGE TECHNICIAN Appointment Department of Laboratory Medicine and Pathology, [facility] in [place], [place] [address] [place] [address] Seth Bass M.D. [address] [place] [phone] 12/05/2024 8:15 AM DOCUMENT IMAGE TECHNICIAN Appointment Department of Radiology, [facility] in [place], [place] [address] [place] [address] Seth Bass M.D. [address] [place] [phone] 12/05/2024 9:00 AM DOCUMENT IMAGE TECHNICIAN Appointment Department of Radiology, [facility] in [place], [place] [address] [place] [address] Seth Bass M.D. [address] [place] [phone] 12/05/2024 1:00 PM DOCUMENT IMAGE TECHNICIAN Comprehensive Visit Division of Nephrology and Hypertension in [place], [place] [address] [place] [phone] Manjinder Ty M.D. [address] [place] [phone] 01/01/2025 11:00 AM CDT Telemedicine Division of Nephrology and Hypertension in [place], [place] [address] [place] [phone] Seth Bass M.D. [address] [place] [phone] Pending Results Name Type Priority Associated Diagnoses Date /Time Surgical Pathology Pathology and Cytology Routine Stone Kidney Hematuria 10/24/2024 9:34 AM DOCUMENT IMAGE TECHNICIAN Scheduled Orders Name Type Priority Associated Diagnoses Order Schedule Kidney Stone Analysis Lab Routine [facility] Hematuria Release Upon Ordering for 1 Occurrences starting 10/24/2024 Surgical Pathology Pathology and Cytology Routine [facility] Hematuria Release Upon Ordering for 1 Occurrences starting 10/24/2024 until 11/02/2024 Kidney Stone Analysis Lab Routine [facility] Hematuria Release Upon Ordering for 1 Occurrences starting 10/24/2024 URO Urethral cath fill / remove / voiding trial (fill / pull) Procedure Routine Stone Kidney Expected: 10/27/2024, Expires: 01/22/2026 US Kidneys Bilateral with Bladder Imaging RAD - Routine (most inpatients and all outpatients) Stone Kidney Expected: 12/05/2024, Expires: 01/22/2026 DX Kidneys Ureters Bladder Imaging RAD - Routine (most inpatients and all outpatients) [facility] Expected: 12/05/2024, Expires: 01/22/2026 Renal Function Panel Lab Routine [facility] Expected: 12/05/2024, Expires: 01/22/2026 Uric Acid Lab Routine [facility] Expected: 12/05/2024, Expires: 01/22/2026 Urinalysis, with Microscopic: Urine, Midstream Lab Routine [facility] Expected: 12/05/2024, Expires: 01/22/2026 Supersaturation, 24 hour, Urine Lab Routine [facility] Expected: 12/05/2024, Expires: 01/22/2026 Scheduled Referrals Name Type Priority Associated Diagnoses Order Schedule Nephrology and Hypertension - Nephrolithiasis / kidney stone consult (clinic) Outpatient Referral Routine [facility] Expected: 12/05/2024, Expires: 01/22/2026 Nephrology and Hypertension - Kidney stone nutrition group education visit (clinic) Outpatient Referral Routine [facility] Expected: 12/05/2024, Expires: 01/22/2026 documented as of this encounter Procedures Procedure Name Priority Date/Time Associated Diagnosis Comments FL FLUORO LESS THAN 1 HOUR RAD - Routine (most inpatients and all outpatients) 10/24/2024 11:19 AM DOCUMENT IMAGE TECHNICIAN documented in this encounter Results * FL Fluoro Less Than 1 Hour (10/24/2024 11:19 AM DOCUMENT IMAGE TECHNICIAN) Narrative [id number] - 10/24/2024 12:20 PM DOCUMENT IMAGE TECHNICIAN This exam does not require a radiologist review or interpretation. Please refer to the patient's medical record on this date for clinical details. us Seth Bass M.D. 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 Given 10/24/2024 8:13 AM DOCUMENT IMAGE TECHNICIAN 1,000 mg chlorhexidine 0.12 % mouthwash 15 mL (Peridex) 15 mL, swish & spit, Once as needed, Chlorhexidine mouthwash (Peridex) should be given if patient did not complete oral care, if completion is greater than 4 hours prior to surgery or procedure start time and they do not have the opportunity to brush their teeth now (or at this time)., Starting on Sun10/24/24 at 0810, For 1 dose, Pre-Op, Instruct patient to swish entire content of Chlorhexidine 0.12% mouthwash (PERIDEX) 15 mL cup for 30 seconds, then spit, swish & spit. If patient is at risk for aspiration, apply Chlorhexidine 0.12% mouthwash to a swab and gently swab the patient's teeth and gums. Ensure swab is not oversaturated. fentaNYL injection 25 mcg (Sublimaze) 25 mcg, intravenous, Every 2 min PRN, moderate pain or score 4-6 of 10, severe pain or score 7-10 of 10, Starting on Sun10/24/24 at 1140, PACU (only), Up to maximum total dose of 200 mcg Given 10/24/2024 12:07 PM DOCUMENT IMAGE TECHNICIAN 25 mcg Given 10/24/2024 11:54 AM DOCUMENT IMAGE TECHNICIAN 25 mcg Given 10/24/2024 11:46 AM DOCUMENT IMAGE TECHNICIAN 25 mcg Lactated Ringer's 20 mL/hr, intravenous, Continuous, Starting on Sun10/24/24 at 0830, Pre-Op New Bag 10/24/2024 8:13 AM DOCUMENT IMAGE TECHNICIAN 20 mL/hr 20 mL/h r oxyBUTYnin tablet 5 mg (Ditropan) 5 mg, oral, Once as needed, bladder spasms, Starting on Sun10/24/24 at 1152, For 1 dose, PACU (only), If patient is not required to void prior to dismissal Given 10/24/2024 11:52 AM DOCUMENT IMAGE TECHNICIAN 5 mg oxyCODONE IR tablet 5 mg (Roxicodone) 5 mg, oral, Once as needed, moderate pain or score 4-6 of 10, Starting on Sun10/24/24 at 1140, For 1 dose, PACU (only) Given 10/24/2024 11:52 AM DOCUMENT IMAGE TECHNICIAN 5 mg sodium chloride 0.9 % injection 10 mL 10 mL, intravenous, As needed, line care, Starting on Sun10/24/24 at 0810, Pre-Op, Peripheral Intravenous Catheter and Rapid Infusion Catheter, prior to blood sampling, post blood transfusion or post blood sampling sodium chloride 0.9 % injection 3 mL 3 mL, intravenous, As needed, line care, Starting on Sun10/24/24 at 0810, Pre-Op, Prior to and following infusion and between multiple consecutive infusions: sodium chloride 0.9 % injection sodium chloride 0.9 % injection 3 mL 3 mL, intravenous, Every 12 hours scheduled, First dose on Sun10/24/24 at 0900, Pre-Op, Peripheral Intravenous Catheter and Rapid Infusion Catheter, when no infusion to maintain patency documented in this encounter Active and Recently Administered Medications Times are shown in DOCUMENT IMAGE TECHNICIAN. Scheduled Medication Order 10/22/2024 10/23/2024 10/24/2024 acetaminophen tablet 1,000 mg (TylenoL) 1,000 mg, oral, Once, On Sun10/24/24 at 0830, For 1 dose, Pre-Op 0830 (Due) acetaminophen tablet 1,000 mg (TylenoL) (COMPLETED) 1,000 mg, oral, Once, On Sun10/24/24 at 0830, For 1 dose, Pre-Op, PreOp give in preprocedural area. 0813 (Given - Provid er: Donnie Vogt R.N.) ceFAZolin injection 2 g (Ancef) (COMPLETED) 2 g, intravenous, Once, On Sun10/24/24 at 0830, For 1 dose, Intra-Op, For immediate IV push administration, reconstitute vial per IVAG or package insert instructions. See IVAG for administration guidelines., Drug Monitoring Program: Pharmacist to adjust medication dosing based on indication and drug clearance factors., Indications: Prophylaxis, surgical 0850 (Given - Provid er: Trevor Sheth, TOLL REPAIRER [employer]ENTRAL OFFICE, SPORTS ANNOUNCER) sodium chloride 0.9 % injection 3 mL 3 mL, intravenous, Every 12 hours scheduled, First dose on Sun10/24/24 at 0900, Pre-Op, Peripheral Intravenous Catheter and Rapid Infusion Catheter, when no infusion to maintain patency 0900 (Due) sodium chloride 0.9 % injection 3 mL 3 mL, intravenous, Every 12 hours scheduled, First dose on Sun10/24/24 at 0900, Pre-Op, Peripheral Intravenous Catheter and Rapid Infusion Catheter, when no infusion to maintain patency 0900 (Due) Continuous Medication Order 10/22/2024 10/23/2024 10/24/2024 Lactated Ringer's 20 mL/hr, intravenous, Continuous, Starting on Sun10/24/24 at 0830, Pre-Op 0813 (New Bag - Prov ider: Donnie Vogt R.N.) PRN Medication Order 10/22/2024 10/23/2024 10/24/2024 belladonna alkaloids-opium 16.2-60 mg suppository (B&O Supprettes) (CANCELED) As needed, Starting on Sun10/24/24 at 1055, Intra-Op 1058 (Given - Provid er: Seth Bass M.D.) chlorhexidine 0.12 % mouthwash 15 mL (Peridex) 15 mL, swish & spit, Once as needed, Chlorhexidine mouthwash (Peridex) should be given if patient did not complete oral care, if completion is greater than 4 hours prior to surgery or procedure start time and they do not have the opportunity to brush their teeth now (or at this time)., Starting on Sun10/24/24 at 0810, For 1 dose, Pre-Op, Instruct patient to swish entire content of Chlorhexidine 0.12% mouthwash (PERIDEX) 15 mL cup for 30 seconds, then spit, swish & spit. If patient is at risk for aspiration, apply Chlorhexidine 0.12% mouthwash to a swab and gently swab the patient's teeth and gums. Ensure swab is not oversaturated. fentaNYL injection 25 mcg (Sublimaze) 25 mcg, intravenous, Every 2 min PRN, moderate pain or score 4-6 of 10, severe pain or score 7-10 of 10, Starting on Sun10/24/24 at 1140, PACU (only), Up to maximum total dose of 200 mcg 1146 (Given - Provid er: Kay Kincaid RFuad.)1154 (Given - Provider: Jose Elias CamejoN.)1207 (Given - Provider: Kay Kincaid RFuad.) iohexoL 300 mg iodine/mL solution (Omnipaque) (CANCELED) As needed, Starting on Sun10/24/24 at 1020, Intra-Op 1020 (Given - Provid er: Seth Bass M.D.) oxyBUTYnin tablet 5 mg (Ditropan) (COMPLETED) 5 mg, oral, Once as needed, bladder spasms, Starting on Sun10/24/24 at 1152, For 1 dose, PACU (only), If patient is not required to void prior to dismissal 1152 (Given - Provid er: Kay Kincaid R.N.) oxyCODONE IR tablet 5 mg (Roxicodone) (COMPLETED) 5 mg, oral, Once as needed, moderate pain or score 4-6 of 10, Starting on Sun10/24/24 at 1140, For 1 dose, PACU (only) 1152 (Given - Provid er: Kay Kincaid R.N.) sodium chloride 0.9 % injection 10 mL 10 mL, intravenous, As needed, line care, Starting on Sun10/24/24 at 0810, Pre-Op, Peripheral Intravenous Catheter and Rapid Infusion Catheter, prior to blood sampling, post blood transfusion or post blood sampling sodium chloride 0.9 % injection 10 mL 10 mL, intravenous, As needed, line care, Starting on Sun10/24/24 at 0810, Pre-Op, Peripheral Intravenous Catheter and Rapid Infusion Catheter, prior to blood sampling, post blood transfusion or post blood sampling sodium chloride 0.9 % injection 3 mL 3 mL, intravenous, As needed, line care, Starting on Sun10/24/24 at 0810, Pre-Op, Prior to and following infusion and between multiple consecutive infusions: sodium chloride 0.9 % injection sodium chloride 0.9 % injection 3 mL 3 mL, intravenous, As needed, line care, Starting on Sun10/24/24 at 0810, Pre-Op, Prior to and following infusion and between multiple consecutive infusions: sodium chloride 0.9 % injection documented in this encounter Care Teams Metal Numerical Control Programmer Relationship Specialty Start Date End Date Elsewhere, Pcp PCP - General Internal Medicine 10/24/24 documented as of this encounter
--- OUTSIDE RECORDS SUMMARY | 2024-10-26 02:01 | XMS_ITS | Encounter Summary ---
Author Organization [facility] Address [address] [place] [address] Care Team Providers Care Piano Technician Name Role Phone Unavailable Primary Care Provider Unavailabl e Reason for Referral * Outpatient (Routine) - Closed Specialty Diagnoses / Procedures Referred By Contac t Referred To Contact Diagnoses Bruit Carotid Artery Procedures US Carotid Bilateral Inocente Avila M.D. [address] [place] [address] Phone: tel: fax: [facility] Referral ID Status Reason Start Date Expiration Date Visits Re quested Visits Authorized [id number] Closed 10/10/2024 10/10/2025 1 1 LY RESOURCE MANAGEMENT PROFESSOR * Cardiovascular-Diagnostic (Routine) - Closed Specialty Diagnoses / Procedures Referred By Contac t Referred To Contact Diagnoses Stenosis Aortic Valve Acquired Procedures Echo Transthoracic (TTE) Inocente Avila M.D. [address] [place] [address] Phone: tel: fax: [facility] Referral ID Status Reason Start Date Expiration Date Visits Re quested Visits Authorized [id number] Closed 10/10/2024 10/10/2025 1 1 LY RESOURCE MANAGEMENT PROFESSOR Reason for Visit * Outpatient (Routine) - Closed Specialty Diagnoses / Procedures Referred By Contact Referred To Contact Cardiovascular Diseases / Cardiovascular Disease Diagnoses Stone Kidney Gato Shaw M.D. [address] [place] [address] Phone: tel: fax: [facility] Referral ID Status Reason Start Date Expiration Date Visits Re quested Visits Authorized [id number] Closed 09/30/2024 04/01/2026 1 1 Encounter Details Date Type Department Care Team (Latest Contact Info) Description 10/10/2024 2:00 PM FAMILY RESOURCE MANAGEMENT PROFESSOR Office Visit Department of Cardiovascular Medicine in [place], [place] [address] [place] [phone] Inocente Avila M.D. [address] [place] [phone] Stenosis Aortic Valve Acquired (Primary Dx); Stone [...] your living situation today? 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 Not on f ile Not on file Not on file documented as of this encounter Last Filed Vital Signs Vital Sign Reading Time Taken Comments Blood Pressure 109/64 10/10/2024 1:35 PM FAMILY RESOURCE MANAGEMENT PROFESSOR 6 m in bp Pulse 48 10/10/2024 1:35 PM FAMILY RESOURCE MANAGEMENT PROFESSOR 6 mi n bp Temperature - - Respiratory Rate - - Oxygen Saturation - - Inhaled Oxygen Concentration - - Weight 92 kg (202 lb 13.2 oz) 10/10/2024 1:35 PM FAMILY RESOURCE MANAGEMENT PROFESSOR Height 175.2 cm (5' 8.98) 10/10/2024 1:35 PM CS T Body Mass Index 29.97 10/10/2024 1:35 PM FAMILY RESOURCE MANAGEMENT PROFESSOR documented in this encounter Consult Notes * Inocente Avila M.D. - 10/10/2024 2:00 PM CST SUBJECTIVE Referring Provider: Gato Shaw M.D. HISTORY OF PRESENT ILLNESS Mr. Lyle Mendez is a 79 y.o. male who is referred to [facility] for a cardiovascular preoperative evaluation [...] in winter months he walks indoors at [employer] and tries to walk for 30 to [...] current laboratory, imaging, and other diagnostic studies. [facility] laboratory on 08 September 2024 with normal [...] sinus bradycardia 42 beats per minute. Normal HI interval with QRS duration 106 ms and [...] + exertion (i.e. rising quickly from a seated position and walking up a flight of stairs). Cardiac auscultation today is suggestive at least moderate aortic valve stenosis. Arrangements have been made for a goal-directed echocardiogram to predominantly reassess the aortic valve (systolic excursion difficult to visualize on the prior echocardiogram; aortic valve systolic mean gradient does not appear to been assessed from other imaging windows+ single mean gradient approached 39 mm Hg, but likely over traced). Pending results, may consider f uture CT aortic valve calcium score in addition [...] (uncertain if they will be available via [employer]). #6 Hypertension with increased left ventricular wall [...] follows up with Dr. Saha (Family Medicine; [facility]). #7 Query carotid artery disease Auscultation notable for a carotid bruit; however, may reflect referred murmur of aortic stenosis.Carotid ultrasound requested. Addendum: Echocardiogram confirms moderate calcific [...] reiterated the assessment and plan as above. LY RESOURCE MANAGEMENT PROFESSOR documented in this encounter Plan of Treatment Upcoming Encounters Date Type Department Care Team (Late st Contact Info) Description 10/27/2024 8:00 AM FAMILY RESOURCE MANAGEMENT PROFESSOR Procedure visit Department of Urology in [place], [place] [address] [place] [address] Seth Bass M.D. [address] [place] [phone] 12/05/2024 7:40 AM FAMILY RESOURCE MANAGEMENT PROFESSOR Appointment Department of Laboratory Medicine and Pathology, [facility] in [place], [place] [address] [place] [phone] Seth Bass M.D. [address] [place] [phone] 12/05/2024 7:50 AM FAMILY RESOURCE MANAGEMENT PROFESSOR Appointment Department of Laboratory Medicine and Pathology, [facility] in [place], [place] [address] [place] [address] Seth Bass M.D. [address] [place] [phone] 12/05/2024 8:15 AM FAMILY RESOURCE MANAGEMENT PROFESSOR Appointment Department of Radiology, [facility] in [place], [place] [address] [place] [address] Seth Bass M.D. [address] [place] [phone] 12/05/2024 9:00 AM FAMILY RESOURCE MANAGEMENT PROFESSOR Appointment Department of Radiology, [facility], in [place], [place] [address] [place] [address] Seth Bass M.D. [address] [place] [phone] 12/05/2024 1:00 PM FAMILY RESOURCE MANAGEMENT PROFESSOR Comprehensive Visit Division of Nephrology and Hypertension in [place], [place] [address] [place] [phone] Manjinder Ty M.D. [address] [place] [phone] 01/01/2025 11:00 AM CDT Telemedicine Division of Nephrology and Hypertension in [place], [place] [address] [place] [phone] Seth Bass M.D. [address] [place] [address] documented as of this encounter Results * US Carotid Bilateral (10/23/2024 12:30 PM FAMILY RESOURCE MANAGEMENT PROFESSOR) Anatomical Region Laterality Modality Head and Neck, Ultrasound RS T LOS, Ultrasound ARZ LOS, Neuroradiology FLA LOS, Procedural, Vascular Interventional NWWI LOS Bilateral Ultrasound Impressions 10/23/2024 12:45 PM FAMILY RESOURCE MANAGEMENT PROFESSOR No significant carotid stenosis Narrative 10/23/2024 12:45 PM FAMILY RESOURCE MANAGEMENT PROFESSOR EXAM: US CAROTID BILATERAL Exam performed with color and spectral Doppler analysis. COMPARISON: None FINDINGS: RIGHT: Mild to moderate atheromatous plaque in the carotid bifurcation. Doppler evaluation shows no evidence of significant ICA, ECA, or CCA stenosis. Normal flow direction in the vertebral artery. LEFT: Mild atheromatous plaque in the carotid bifurcation. Doppler evaluation shows no evidence of significant ICA, ECA, or CCA stenosis. Normal flow direction in the vertebral artery. VELOCITIES (cm/sec) Right CCA *psv: 70 cm/s Right ICA psv: 92 cm/s Right ICA edv: 20 cm/s Right ECA psv: 108 cm/s Right ICA/CCA: 1.3 Left CCA *psv: 65 cm/s Left ICA psv: 73 cm/s Left ICA edv: 16 cm/s Left ECA psv: 62 cm/s Left ICA/CCA: 1.1 *mid/distal (non-diseased) Measurement of a carotid stenosis, if present, is based on velocity parameters that compare the residual internal carotid luminal diameter with that of the normal distal ICA in accordance with [place] Symptomatic Carotid Endarterectomy Trial (NASCET). Procedure Note Jonathon Bass M.D. - 10/23/2024 EXAM: US CAROTID BILATERAL Exam performed with color and spectral Doppler analysis. COMPARISON: None FINDINGS: RIGHT: Mild to moderate atheromatous plaque in the carotid bifurcation.Doppler evaluation shows no evidence of significant ICA, ECA, or CCAstenosis. Normal flow direction in the vertebral artery. LEFT: Mild atheromatous plaque in the carotid bifurcation. Dopplerevaluation shows no evidence of significant ICA, ECA, or CCA stenosis.Normal flow direction in the vertebral artery. VELOCITIES (cm/sec) Right CCA *psv: 70 cm/s Right ICA psv: 92 cm/s Right ICA edv: 20 cm/s Right ECA psv: 108 cm/s Right ICA/CCA: 1.3 Left CCA *psv: 65 cm/s Left ICA psv: 73 cm/s Left ICA edv: 16 cm/s Left ECA psv: 62 cm/s Left ICA/CCA: 1.1 *mid/distal (non-diseased) Measurement of a carotid stenosis, if present, is based on velocityparameters that compare the residual internal carotid luminal diameterwith that of the normal distal ICA in accordance with North AmericanSymptomatic Carotid Endarterectomy Trial (NASCET). IMPRESSION: No significant carotid stenosis us Inocente Avila M.D. IMG US PROCEDURES Final Resu lt * (TTE) 2D ECHO DOPPLER COLOR (10/10/2024 4:00 PM FAMILY RESOURCE MANAGEMENT PROFESSOR) [facility] Ejection Fraction 65 MC CV EIMS Mid-Ascending [...] Region Laterality Modality Echocardiography 10/10/2024 2:51 PM FAMILY RESOURCE MANAGEMENT PROFESSOR Impressions 10/10/2024 4:01 PM FAMILY RESOURCE MANAGEMENT PROFESSOR LEFT VENTRICLE:Normal left ventricular chamber size. Normal [...] the Order-Level Documents. Narrative 10/10/2024 4:01 PM FAMILY RESOURCE MANAGEMENT PROFESSOR For the complete report, see the Order-Level [...] (>50%). 8. There are no previous [facility] echocardiograms available for comparison. Procedure Note Paras Diaz M.D. - 10/10/2024 For the complete report, see the Order-Level Documents. Hemodynamics Heart Rate: 46 BPM Blood Pressure: 152 / 71 mmHg ECG: Sinus rhythm, Bradycardia Final Impressions 1. Moderate calcific aortic valve stenosis, systolic mean Doppler [id number] mmHg, valve area by Doppler 1.08 cm2. [...] collapse(>50%). 8. There are no previous [facility] echocardiograms available forcomparison. Findings LEFT VENTRICLE:Normal left [...] documented in this encounter Visit Diagnoses Diagnosis Stenosis Aortic Valve Acquired- Primary Stone Kidney Bruit Carotid Artery Hematuria Atrial Fibrillation Paroxysmal (HCC) Other Specified Conduction Disorders Hypertensive Heart Disease Without Heart Failure Hyperlipidemia Stenosis Aortic Valve Acquired Bruit Carotid Artery documented in this encounter
--- OUTSIDE RECORDS SUMMARY | 2024-10-26 02:01 | XMS_ITS | Encounter Summary ---
Author Organization [facility] Address [address] [place] [phone] Care Team Providers Care Police Crime Scene Technician Name Role Phone Unavailable Primary Care Provider Unavailabl e Reason for Visit * Outpatient (Routine) - Closed Specialty Diagnoses / Procedures Referred By Sheila bustamante Referred To Contact Anesthesiology Diagnoses Stone Kidney Winnie Becker M.D., M.S. [address] [place] [phone] Phone: tel: fax: [facility] Referral ID Status Reason Start Date Expiration Date Visits Re quested Visits Authorized [id number] Closed 09/08/2024 03/10/2026 1 1 Encounter Details Date Type Department Care Team (Latest Contact Info) Description 10/23/2024 2:00 PM [facility] Comprehensive Visit Preoperative Evaluation Center in [place], [place] [address] [place] [phone] Winnie Becker M.D., M.S. [address] [place] [phone] Silvana Rodriges APRN, C.N.P., M.S.N. [address] [place] [phone] Preanesthetic Medical Exam (Primary Dx); Stone Kidney; Primary Malignant Neoplasm Of Prostate (HCC); Hypertension Essential Primary; Other Nonrheumatic Aortic Valve Disorders; Atrial Fibrillation Paroxysmal (HCC); Murmur Heart; Hyperlipidemia; Hematuria Social History Tobacco Use Types Packs/Day Years Used Date Smoking Tobacco: Never Passive Smoke Exposure: Never Smokeless Tobacco: Never Alcohol Use Standard Drinks/Week Comments Yes 1 (1 standard drink = 0.6 oz pur e alcohol) [facility] Utilities Answer Date Recorded In the past 12 months has th e electric, gas, oil, or water company [...] your living situation today? 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 Not on file Not on file documented as of this encounter Last Filed Vital Signs Vital Sign Reading Time Taken Comments Blood Pressure 138/89 10/23/2024 1:53 PM FRONT EDGER Pulse 43 10/23/2024 1:53 PM FRONT EDGER Temperature 36 C (96.8 F) 10/23/2024 1:53 PM FRONT EDGER Respiratory Rate - - Oxygen Saturation 97% 10/23/2024 1:53 PM FRONT EDGER Inhaled Oxygen Concentration - - Weight 91.8 kg (202 lb 6.1 oz) 10/23/2024 1:53 P M FRONT EDGER Height 179 cm (5' 10.47) 10/23/2024 1:53 PM FRONT EDGER Body Mass Index 28.65 10/23/2024 1:53 PM FRONT EDGER documented in this encounter H&P Notes * Silvana Rodriges APRN, C.N.P., M.S.N. - 10/23/2024 2:00 PM CST REASON FOR VISIT: Preoperative Medical Evaluation REFERRING PHYSICIAN: Winnie Becker M.D., M.S. 10/24/2024: CYSTOLITHOLAPAXY; Gato Shaw M.D. 10/24/2024: CYSTOLITHOLAPAXY; Gato Shaw M.D. Surgery Specific Risk Classification: Low Risk SUBJECTIVE HISTORY OF PRESENT ILLNESS Lyle Mendez is a 79 y.o. male who is here for preanesthetic medical examination prior to the planned procedure as listed above. REVIEW OF SYSTEMS Family history: Denies early-onset coronary disease or sudden cardiac or bleeding or clottingdisorder Personal history: Denies cold symptoms, flu symptoms, fevers, steroid use in the past year, prior neck/spine injuries/procedures. OBJECTIVE OBJECTIVE PHYSICAL EXAMINATION General/Constitutional Constitutional Assessment: Overweight General State of Health: Healthy appearing Airway (HEENT) Slightly limited head neck range of motion due to stiffness Mallampati: II TM Distance: >3 FB Neck ROM: Limited Mouth Opening: > 3 cm Dental Assessment: Dentition intact Cardiovascular Grade 2/6 systolic murmur. High pitch whistle. Her throughout precordium. Known. Rhythm: Regular Rate: Normal Cardiovascular Assessment: Heart murmur Pulmonary Pulmonary Assessment: Clear Neurological Neurologic Assessment: Alert and oriented X 3 Musculoskeletal MSK Assessment: Normal Gait: Normal Ambulate with: None Psychiatric Psychiatric Assessment: Calm ASSESSMENT / PLAN Anesthesia: Patient denies previous anesthesia related complications. Pain and vomiting with urination. Airway Hx: None for review Lab: Lab Results Component Value Date HGB 13.1 (L) 10/10/2024 HCT 41.4 10/10/2024 PLT 325 (H) 10/10/2024 WBC 5.2 10/10/2024 NA 141 10/10/2024 KSERUM 4.7 10/10/2024 CREATININE 1.15 10/10/2024 EGFR 64 10/10/2024 EC10/10/2024 marked sinus bradycardia at 42 bpm ECHO: 10/10/2024 Final Impressions 1. Moderate calcific aortic valve stenosis, systolic mean Doppler gradient 28 mmHg, valve area by Doppler 1.08 cm2. 2. Normal left ventricular chamber size, no regional wall motion abnormalities, calculated 2-D biplane volumetric ejection fraction of 65%, global averaged longitudinal peak systolic strain is normalat -19% (normal = more negative than -18%). [...] collapse (>50%). 8. There are no previous [facility] echocardiograms available for comparison. #1 Preoperative Exam Immunosuppression: None Stroke/TIA: No Prior DVT/PE: No Diabetes: No Functional Status: : >4 METS by walks 2 miles daily also does hiking in the [place]ert[place] with [place] hiking group. Denies cardiopulmonary symptoms with these activities. Tobacco use: Nonsmoker Alcohol Use: No Caffeine Use: 3 to 4 caffeinated beverages a day. Instructed him to stay hydrated tonight and tomorrow morning. Denies CASEY or GERD #1 Preanesthetic Medical Exam Pleasant well-appearing gentleman presenting for preoperative exam. Has a history of prostate cancer diagnosed in 2021 treated with radiation in targeted hormone therapy. Please see oncology note forfull history. Recently evaluated for gross hematuria in his scheduled for the above-named procedure. #2 Stone Kidney #3 Bladder stone #9 Hematuria Patient recently diagnosed with kidney and bladder stones along with gross hematuria and UTI in [place]. He is currently taking Bactrim and Flomax. Advised patient to continue both medication. He denies current UTI symptoms of pain, burning, hematuria or foul-smelling cloudy urine. #4 Hypertension Essential Primary #5 Other Nonrheumatic Aortic Valve Disorders #6 Hyperlipidemia #7 Afib paroxysmal #8 Heart murmur During evaluation for gross hematuria he had an episode of asymptomatic Afib. He was seen in Cardiovascular Diseases here at [facility] 10/10/[address] Avila. A 14 day Holter monitor was ordered and patient was started on Eliquis. Holter monitor has not been interpreted as of today. Patient denies symptoms of AFib. Regular rhythm current. Patient's heart rate is 42 and he is tolerant of this with his day-to-day activities. Denies any dizziness, lightheadedness, fatigue or syncope. His metoprolol tartrate was decreased to 25 mg b.i.d. which the patient has done. I advised him to hold both his nighttime and morning doses before surgery tomorrow given his bradycardia. I reviewed this with Dr. Mcelroy and Dr. Avila and got collective consensus. Patient reports stopping his Eliquis five days ago. Echo was performed and noted above. He reports history of rheumatic fever as a child and a longstanding cardiac murmur noted as moderate aortic stenosis on echo. Hyperlipidemia is treated with atorvastatin. Advised to continue. PATIENT EDUCATION: Reviewed Checklist for Surgical Patients [id number] rev 0920. Written and verbal instructions given on medication management before surgery. RECOMMENDATIONS: Patient medically optimized for planned procedure: Yes, reviewed case with Dr. Mcelroy and Dr. Avila. Patient was instructed to hold nighttime and morning doses of metoprolol. Further Recommendations: See above. Patient will continue to follow up with Dr. Avila for Holter monitor results and any further medication titration. T EDGER documented in this encounter Plan of Treatment Upcoming Encounters Date Type Department Care Team (Late st Contact Info) Description 10/27/2024 8:00 AM FRONT EDGER Procedure visit Department of Urology in [place], [place] [address] [place] [address] Seth Bass M.D. [address] [place] [phone] 12/05/2024 7:40 AM FRONT EDGER Appointment Department of Laboratory Medicine and Pathology, [facility] in [place], [place] [address] [place] [phone] Seth Bass M.D. [address] [place] [phone] 12/05/2024 7:50 AM FRONT EDGER Appointment Department of Laboratory Medicine and Pathology, [facility] in [place], [place] [address] [place] [phone] Seth Bass M.D. [address] [place] [phone] 12/05/2024 8:15 AM FRONT EDGER Appointment Department of Radiology, [facility] in [place], [place] [address] [place] [phone] Seth Bass M.D. [address] [place] [phone] 12/05/2024 9:00 AM FRONT EDGER Appointment Department of Radiology, [facility], in [place], [place] [address] [place] [address] Seth Bass M.D. [address] [place] [phone] 12/05/2024 1:00 PM FRONT EDGER Comprehensive Visit Division of Nephrology and Hypertension in [place], [place] [address] [place] [phone] Manjinder Ty M.D. [address] [place] [phone] 01/01/2025 11:00 AM CDT Telemedicine Division of Nephrology and Hypertension in [place], [place] [address] [place] [address] Seth Bass M.D. [address] [place] [address] documented as of this encounter Visit Diagnoses Diagnosis Preanesthetic Medical Exam- Primary Stone Kidney Primary Malignant Neoplasm Of Prostate (HCC) Hypertension Essential Primary Other Nonrheumatic Aortic Valve Disorders Atrial Fibrillation Paroxysmal (HCC) Murmur Heart Hyperlipidemia Hematuria documented in this encounter
--- OUTSIDE RECORDS SUMMARY | 2024-10-26 02:01 | XMS_ITS | Encounter Summary ---
Author Organization [facility] Address [address] [place] [address] Care Team Providers Care Marine Biologist Name Role Phone Elsewhere, Pcp Primary Care Provider Unavailabl e Reason for Referral * Outpatient (Routine) - Closed Specialty Diagnoses / Procedures Referred By Contac t Referred To Contact Diagnoses Stone Kidney Procedures DX Chest AP or PA and Lateral 2 Views Gato Shaw M.D. [address] [place] [address] Phone: tel: fax: [facility] Referral ID Status Reason Start Date Expiration Date Visits Re quested Visits Authorized [id number] Closed 09/30/2024 09/30/2025 1 1 EW SCHEDULING COORDINATOR * Outpatient (Routine) - Closed Specialty Diagnoses / Procedures Referred By Contac t Referred To Contact Diagnoses Stone Kidney Procedures ECG 12 Lead Gato Shaw M.D. [address] [place] [address] Phone: tel: fax: [facility] Referral ID Status Reason Start Date Expiration Date Visits Re quested Visits Authorized [id number] Closed 09/30/2024 09/30/2025 1 1 EW SCHEDULING COORDINATOR * Outpatient (Routine) - Closed Specialty Diagnoses / Procedures Referred By Contact Referred To Contact Cardiovascular Diseases / Cardiovascular Disease Diagnoses Stone Kidney Gato Shaw M.D. [address] [place] [address] Phone: tel: fax: [facility] Referral ID Status Reason Start Date Expiration Date Visits Re quested Visits Authorized [id number] Closed 09/30/2024 04/01/2026 1 1 Scheduling Instructions Please schedule at least a week prior to surgery on 10/24 to allow for Eliquis recommendations EW SCHEDULING COORDINATOR Encounter Details Date Type Department Care Team (Late st Contact Info) Description 09/30/2024 Clinical Communication Department of Urology in [place], [place] [address] [place] [phone] Gato Shaw M.D. [address] [place] [address] Social History Tobacco Use Types Packs/Day Years [...] your living situation today? 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 [address] [place] [phone] 12/05/2024 7:40 AM REVIEW SCHEDULING COORDINATOR Appointment Department of Laboratory Medicine and Pathology, [place], [place] [address] [place] [address] Seth Bass M.D. [address] [place] [phone] 12/05/2024 7:50 AM REVIEW SCHEDULING COORDINATOR Appointment Department of Laboratory Medicine and Pathology, [place], [place] [address] [place] [phone] Seth Bass M.D. [address] [place] [phone] 12/05/2024 8:15 AM REVIEW SCHEDULING COORDINATOR Appointment Department of Radiology, [place], [place] [address] [place] [address] Seth Bass M.D. [address] [place] [phone] 12/05/2024 9:00 AM REVIEW SCHEDULING COORDINATOR Appointment Department of Radiology, [facility], in [place], [place] [address] [place] [address] Seth Bass M.D. [address] [place] [phone] 12/05/2024 1:00 PM REVIEW SCHEDULING COORDINATOR Comprehensive Visit Division of Nephrology and Hypertension in [place], [place] [address] [place] [phone] Manjinder Ty M.D. [address] [place] [phone] 01/01/2025 11:00 AM CDT Telemedicine Division of Nephrology and Hypertension in [place], [place] [address] [place] [address] Seth Bass M.D. [address] [place] [phone] Scheduled Referrals Name Type Priority Associated Diagnoses Order Schedule Cardiovascular Disease - YESSENIA consult (clinic) Outpatient Referral Routine Stone Kidney Expected: 09/30/2024, Expires: 12/29/2025 documented as of this encounter Results * ECG 12 Lead (10/10/2024 11:52 AM REVIEW SCHEDULING COORDINATOR) Ventricular Rate ECG/Min 42 BPM MUSE VA Interval 190 ms MUSE QRSD Interval 106 ms MUSE QT Interval 514 ms MUSE QTC Interval 429 ms MUSE P [place] 12 degrees MUSE R [place] -11 degrees MUSE T Wave [place] -1 degrees MUSE 10/10/2024 11:5 2 AM REVIEW SCHEDULING COORDINATOR 10/10/2024 2:31 PM REVIEW SCHEDULING COORDINATOR Impressions MUSE - 10/10/2024 11:54 AM REVIEW SCHEDULING COORDINATOR Marked sinus bradycardia Minimal voltage criteria for LVH, may be normal variant Delayed precordial R wave progression No previous ECGs available Revised Report Narrative Procedure Note Pierre Rajput Jr., M.D. - 10/10/2024 IMPRESSION: Marked sinus bradycardia Minimal voltage criteria for LVH, may be normal variant Delayed precordial R wave progression No previous ECGs available Revised Report Gato Shaw M.D. ECG ORDERABLES Edited Result - Final MUSE NA * DX Chest AP or PA and Lateral 2 Views (10/10/2024 11:22 AM REVIEW SCHEDULING COORDINATOR) Anatomical Region Laterality Modality Chest, Thoracic RST LOS, Tho racic ARZ LOS, Thoracic FLA LOS N/A Digital Radiography Impressions 10/10/2024 11:38 AM REVIEW SCHEDULING COORDINATOR Interstitial opacities within the bilateral mid and lower lungs, greater on the left. These likely correspond with fibrotic change seen on 08/13/2024 CT urogram. Aortic calcification. Hypertrophic degenerative changes thoracic spine with mild anterior wedging of several midthoracic vertebral bodies. Chest otherwise negative. Narrative 10/10/2024 11:38 AM REVIEW SCHEDULING COORDINATOR EXAM: DX CHEST AP OR PA AND [...] of several midthoracic vertebral bodies. Chestotherwise negative. Gato Shaw M.D. IMG DIAGNOSTIC IMAGING PROCED URES Final Result * Basic Metabolic Panel (10/10/2024 11:03 AM REVIEW SCHEDULING COORDINATOR) Potassium, S 4.7 3.6 - 5.2 mmol/L 10/10/2024 12:20 PM REVIEW SCHEDULING COORDINATOR DTL Sodium, S 141 135 - 145 mmol/L 10/10/2024 12:20 PM REVIEW SCHEDULING COORDINATOR DTL Chloride, S 104 98 - 107 mmol/L 10/10/2024 12:20 PM REVIEW SCHEDULING COORDINATOR DTL Bicarbonate, S 26 22 - 29 mmol/L 10/10/2024 12:20 PM REVIEW SCHEDULING COORDINATOR DTL Anion Gap 11 7 - 15 10/10/2024 12:20 PM REVIEW SCHEDULING COORDINATOR DTL BUN (Blood Urea Nitrogen), S 17 8 - 24 mg/dL 10/10/2024 12:20 PM REVIEW SCHEDULING COORDINATOR DTL Creatinine 1.15 0.74 - 1.35 mg/dL 10/10/2024 12:20 PM REVIEW SCHEDULING COORDINATOR DTL Estimated GFR (eGFR) 64 >=60 mL/min/BSA 10/10/2024 12:20 PM REVIEW SCHEDULING COORDINATOR DTL Comment: Estimated GFR calculated using the 2020 CKD_EPI creatinine equation. Calcium, Total, S 9.9 8.8 - 10.2 mg/dL 10/10/2024 12:20 PM REVIEW SCHEDULING COORDINATOR DTL Glucose, S 91 70 - 140 mg/dL 10/10/2024 12:20 PM REVIEW SCHEDULING COORDINATOR DTL Blood (Blood, Venous) 10/10/2024 11:03 AM REVIEW SCHEDULING COORDINATOR 10/10/2024 11:36 AM REVIEW SCHEDULING COORDINATOR us Gato Shaw M.D. LAB BLOOD ADD-ON Final Result [address] [address], [facility] [address] [place] [address] * (ABNORMAL) CBC without Differential (10/10/2024 11:03 AM REVIEW SCHEDULING COORDINATOR) Hemoglobin 13.1(L) 13.2 - 16.6 g/dL 10/10/2024 11:43 AM REVIEW SCHEDULING COORDINATOR DTL Hematocrit 41.4 38.3 - 48.6 % 10/10/2024 11:43 AM REVIEW SCHEDULING COORDINATOR DTL Erythrocytes 4.36 4.35 - 5.65 x10(12)/L 10/10/2024 11:43 AM REVIEW SCHEDULING COORDINATOR DTL MCV 95.0 78.2 - 97.9 fL 10/10/2024 11:43 AM REVIEW SCHEDULING COORDINATOR DTL RBC Distrib Width 13.2 11.8 - 14.5 % 10/10/2024 11:43 AM REVIEW SCHEDULING COORDINATOR DTL Platelet Count 325(H) 135 - 317 x10(9)/L 10/10/2024 11:43 AM REVIEW SCHEDULING COORDINATOR DTL Leukocytes 5.2 3.4 - 9.6 x10(9)/L 10/10/2024 11:43 AM REVIEW SCHEDULING COORDINATOR DTL Blood (Blood, Venous) 10/10/2024 11:03 AM REVIEW SCHEDULING COORDINATOR 10/10/2024 11:23 AM REVIEW SCHEDULING COORDINATOR us Gato Shaw M.D. LAB BLOOD ADD-ON Final Result [facility] [address] [place] [address], [facility] [address] [place] [address] documented in this encounter Visit Diagnoses Diagnosis Stone Kidney- Primary Stone Kidney documented in this encounter Care Teams Marine Biologist Relationship Specialty Start Date End Date Elsewhere, Pcp PCP - General Internal Medicine 10/24/24 documented as of this encounter
--- OUTSIDE RECORDS SUMMARY | 2024-10-26 02:01 | XMS_ITS | Encounter Summary ---
Author Organization [facility] Address [address] [place] [phone] Care Team Providers Care Draw Bench Operator Name Role Phone Elsewhere, Pcp Primary Care Provider Unavailabl e Reason for Visit * Auth/Cert (Routine) Specialty Diagnoses / Procedures Referred By Sheila t Referred To Contact Diagnoses Stone Kidney Hematuria Stone Kidney [N20.0] Hematuria [R31.9] Procedures NV LITHOLAPAXY SMPL <2.5CM NV CYSTHRSCPY W FULG LESNS MINOR NV CYSTHRSCPY/URTRSCPY RMVL CALC CYSTOLITHOLAPAXY CYSTOSCOPY BIOPSY FULGURATION, proceed as indicated URETEROSCOPY STONE EXTRACTION versus stent placement possible return to OR in 90 days Gato Shaw M.D. [address] [place] [phone] Phone: tel: fax: Referral ID Status Reason Start Date Expiration Date Visits Re quested Visits Authorized [id number] 1 1 Encounter Details Date Type Department Care Team (Late st Contact Info) Description 10/24/2024 7:50 AM EMBEDDED HARDWARE ENGINEER - 10/24/2024 10:00 AM [facility] Surgery Outpatient Procedure Center in [place], [place] [address] [place] [phone] Gato Shaw M.D. [address] [place] [phone] CYSTOLITHOLAPAXY. Social History Tobacco Use Types Packs/Day Years Used Date Smoking Tobacco: Never Passive Smoke Exposure: Never Smokeless Tobacco: Never Alcohol Use Standard Drinks/Week Comments Yes 1 (1 standard drink = 0.6 oz pur e alcohol) [facility] Utilities Answer Date Recorded In the [...] your living situation today? 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 Not on file Not on file documented as of this encounter Last Filed Vital Signs Vital Sign Reading Time Taken Comments Blood Pressure 158/73 10/24/2024 8:08 AM EMBEDDED HARDWARE ENGINEER Pulse 55 10/24/2024 8:15 AM EMBEDDED HARDWARE ENGINEER Temperature 36.4 C (97.5 F) 10/24/2024 8:11 AM EMBEDDED HARDWARE ENGINEER Respiratory Rate 20 10/24/2024 8:15 AM EMBEDDED HARDWARE ENGINEER Oxygen Saturation 97% 10/24/2024 8:15 AM EMBEDDED HARDWARE ENGINEER Inhaled Oxygen Concentration - - Weight - - Height - - Body Mass Index - - documented in this encounter Discharge Instructions * Attachments The following attachments cannot be sent through Care Everywhere. * VIDEO: CARE OF YOUR INDWELLING CATHETER: INDWELLING CATHETER CARE FOR MEN (LAO) * Care and Removal of Your Dangle [...] (bladder spasms). 15 tablet 10/24/2024 2:06 PM EMBEDDED HARDWARE ENGINEER 10/24/2024 cefdinir (Omnicef) 300 mg capsuleIndicatio ns:Stone Kidney Take 1 capsule (300 mg total) by mouth 2 (two) times a day before morning and evening meals for 1 day. Please take the day of catheter removal. 2 capsule 10/24/2024 2:06 PM EMBEDDED HARDWARE ENGINEER 10/24/2024 documented as of this encounter OR Notes * Op Note - Seth Bass M.D. - 10/24/2024 9:01 AM CST Pre-op Diagnosis Stone Kidney Hematuria Post-op Diagnosis Stone Kidney Hematuria Automatic Trimming Sewer A commercial real estate assistant actively participated and was necessary for one [...] sequentially dilated using Olga sounds to 30 Cambodian. The high-flow bipolar resectoscope was advanced into the bladder. The 550 nanometer holmium laser fiber was then used tofragment the bladder stone. All stone fragments were evacuated through the cystoscope sheath. Givenpatient's suspicious cytology with no overt mucosal lesions, decision was made to proceed with mapping bladder biopsies. Skilled Labor biopsies were taken from the trigone, right [...] the left renal pelvis under fluoroscopic guidance. Bellows Tester images did reveal the previously seen renal [...] or clinically significant mucosal injury. A 7 Cambodian by 28 cm double-J ureteral stent was then advanced into the left renal pelvis under fluoroscopy. The wire was removed and the stent was deployed in the usual fashion with satisfactory proximal curl in the renal pelvis and satisfactory distal curl in the bladder confirmed fluoroscopically. Stent was left on a dangle. An 18 Cambodian coude catheter was placed into the bladder [...] Gato Shaw M.D. at 10/24/2024 12:42 PM EMBEDDED HARDWARE ENGINEER DDED HARDWARE ENGINEER DDED HARDWARE ENGINEER documented in this encounter Plan of Treatment Upcoming Encounters Date Type Department Care Team (Late st Contact Info) Description 10/27/2024 8:00 AM EMBEDDED HARDWARE ENGINEER Procedure visit Department of Urology in [address] [phone] Seth Bass M.D. [address] [place] [phone] 12/05/2024 7:40 AM EMBEDDED HARDWARE ENGINEER Appointment Department of Laboratory Medicine and Pathology, [place], [place] [address] [place] [phone] Seth Bass M.D. [address] [place] [phone] 12/05/2024 7:50 AM EMBEDDED HARDWARE ENGINEER Appointment Department of Laboratory Medicine and Pathology, [place], [place] [address] [place] [phone] Seth Bass M.D. [address] [place] [phone] 12/05/2024 8:15 AM EMBEDDED HARDWARE ENGINEER Appointment Department of Radiology, [facility], in [place], [place] [address] [place] [address] Seth Bass M.D. [address] [place] [phone] 12/05/2024 9:00 AM EMBEDDED HARDWARE ENGINEER Appointment Department of Radiology, [facility], in [place], [place] [address] [place] [phone] Seth Bass M.D. [address] [place] [phone] 12/05/2024 1:00 PM EMBEDDED HARDWARE ENGINEER Comprehensive Visit Division of Nephrology and Hypertension in [place], [place] [address] [place] [phone] Manjinder Ty M.D. [address] [place] [phone] 01/01/2025 11:00 AM CDT Telemedicine Division of Nephrology and Hypertension in [place], [place] [address] [place] [phone] Seth Bass M.D. [address] [place] [phone] Pending Results Name Type Priority Associated Diagnoses Date /Time Surgical Pathology Pathology and Cytology Routine Stone Kidney Hematuria 10/24/2024 9:34 AM EMBEDDED HARDWARE ENGINEER Scheduled Orders Name Type Priority Associated Diagnoses [...] inpatients and all outpatients) 10/24/2024 11:19 AM EMBEDDED HARDWARE ENGINEER documented in this encounter Results * FL Fluoro Less Than 1 Hour (10/24/2024 11:19 AM EMBEDDED HARDWARE ENGINEER) Narrative [id number] - 10/24/2024 12:20 PM EMBEDDED HARDWARE ENGINEER This exam does not require a radiologist review or interpretation. Please refer to the patient's medical record on this date for clinical details. us Seth Bass M.D. IMKeyshawn FLUOROSCOPY PROCEDURES Fi nal Result [id number] NA documented in this encounter Visit Diagnoses Diagnosis Stone Kidney Hematuria Hypertension Essential Primary Other Nonrheumatic Aortic Valve Disorders Primary Malignant Neoplasm Of Prostate (HCC) Stone Kidney Hematuria documented in this encounter Admitting Diagnoses Diagnosis Stone Kidney Hematuria documented in this encounter Administered Medications Inactive Administered Medications - up to 3 most recent administrations Medication Order MAR Action Action Date Dose Rate Site acetaminophen tablet 1,000 mg (TylenoL) 1,000 mg, oral, Once, On Sun10/24/24 at 0830, For 1 dose, Pre-Op, PreOp give in preprocedural area. Given 10/24/2024 8:13 AM EMBEDDED HARDWARE ENGINEER 1,000 mg belladonna alkaloids-opium 16.2-60 mg suppository (B&O Supprettes) As needed, Starting on Sun10/24/24 at 1055, Intra-Op Given 10/24/2024 10:58 AM EMBEDDED HARDWARE ENGINEER 1 suppository Rectum chlorhexidine 0.12 % mouthwash 15 mL (Peridex) [...] of 200 mcg Given 10/24/2024 12:07 PM EMBEDDED HARDWARE ENGINEER 25 mcg Given 10/24/2024 11:54 AM EMBEDDED HARDWARE ENGINEER 25 mcg Given 10/24/2024 11:46 AM EMBEDDED HARDWARE ENGINEER 25 mcg iohexoL 300 mg iodine/mL solution (Omnipaque) As needed, Starting on Sun10/24/24 at 1020, Intra-Op Given 10/24/2024 10:20 AM EMBEDDED HARDWARE ENGINEER 7 mL Left Ureter Lactated Ringer's 20 mL/hr, intravenous, Continuous, Starting on Sun10/24/24 at 0830, Pre-Op New Bag 10/24/2024 8:13 AM EMBEDDED HARDWARE ENGINEER 20 mL/hr 20 mL/hr oxyBUTYnin tablet 5 mg (Ditropan) 5 mg, oral, Once as needed, bladder spasms, Starting on Sun10/24/24 at 1152, For 1 dose, PACU (only), If patient is not required to void prior to dismissal Given 10/24/2024 11:52 AM EMBEDDED HARDWARE ENGINEER 5 mg oxyCODONE IR tablet 5 mg (Roxicodone) 5 mg, oral, Once as needed, moderate pain or score 4-6 of 10, Starting on Sun10/24/24 at 1140, For 1 dose, PACU (only) Given 10/24/2024 11:52 AM EMBEDDED HARDWARE ENGINEER 5 mg sodium chloride 0.9 % injection [...] Recently Administered Medications Times are shown in EMBEDDED HARDWARE ENGINEER. Scheduled Medication Order 10/22/2024 10/23/2024 10/24/2024 acetaminophen [...] 0850 (Given - Provid er: Trevor Sheth, PROVIDER CONTRACTING CONSULTANT, TRAINS DISPATCHER SUPERVISOR) sodium chloride 0.9 % injection 3 mL [...] er: Kay Kincaid RFuad.)1154 (Given - Provider: Kay Kincaid R.N.)1207 (Given - Provider: Kay Kincaid R.N.) iohexoL 300 mg iodine/mL solution (Omnipaque) (CANCELED) [...] injection documented in this encounter Care Teams Draw Bench Operator Relationship Specialty Start Date End Date Elsewhere, Pcp PCP - General Internal Medicine 10/24/24 documented as of this encounter
--- OUTSIDE RECORDS SUMMARY | 2024-10-26 02:01 | XMS_ITS | Encounter Summary ---
Author Organization [facility] Address [address] [place] [address] Care Team Providers Care Bit Sharpener Operator Name Role Phone Unavailable Primary Care Provider Unavailabl e Encounter Details Date Type Department Care Team (Latest Contact Info) Description 10/10/2024 10:51 AM BURLING AND JOINING SUPERVISOR - 10/10/2024 11:11 AM [facility] Hospital Encounter Department of Laboratory Medicine and Pathology, [facility] in [place], [place] [address] [place] [address] Gato Shaw M.D. [address] [place] [phone] Stone Kidney; Atrial Fibrillation Paroxysmal (HCC); Myocardial [...] your living situation today? 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 15 tablet 10/24/2024 2:06 PM BURLING AND JOINING SUPERVISOR 10/24/2024 cefdinir (Omnicef) 300 mg capsuleIndicatio ns:Stone Kidney Take 1 capsule (300 mg total) by mouth 2 (two) times a day before morning and evening meals for 1 day. Please take the day of catheter removal. 2 capsule 10/24/2024 2:06 PM BURLING AND JOINING SUPERVISOR 10/24/2024 5 apixaban (Eliquis) 5 mg tablet [...] st Contact Info) Description 10/27/2024 8:00 AM BURLING AND JOINING SUPERVISOR Procedure visit Department of Urology in [place], [place] [address] [place] [phone] Seth Bass M.D. [address] [place] [phone] 12/05/2024 7:40 AM BURLING AND JOINING SUPERVISOR Appointment Department of Laboratory Medicine and Pathology, [facility] in [place], [place] [address] [place] [address] Seth Bass M.D. [address] [place] [phone] 12/05/2024 7:50 AM BURLING AND JOINING SUPERVISOR Appointment Department of Laboratory Medicine and Pathology, [facility] in [place], [place] [address] [place] [address] Seth Bass M.D. [address] [place] [phone] 12/05/2024 8:15 AM BURLING AND JOINING SUPERVISOR Appointment Department of Radiology, [facility] in [place], [place] [address] [place] [address] Seth Bass M.D. [address] [place] [phone] 12/05/2024 9:00 AM BURLING AND JOINING SUPERVISOR Appointment Department of Radiology, [facility], in [place], [place] [address] [place] [address] Seth Bass M.D. [address] [place] [phone] 12/05/2024 1:00 PM BURLING AND JOINING SUPERVISOR Comprehensive Visit Division of Nephrology and Hypertension in [place], [place] [address] [place] [phone] Manjinder Ty M.D. [address] [place] [phone] 01/01/2025 11:00 AM CDT Telemedicine Division of Nephrology and Hypertension in [place], [place] [address] [place] [phone] Seth Bass M.D. [address] [place] [phone] documented as of this encounter Procedures Procedure Name Priority Date/Time Associated Diagnosis Comments LIPID PANEL, S Routine 10/10/2024 11:03 AM BURLING AND JOINING SUPERVISOR Atrial Fibrillation Paroxysmal (HCC) 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 Hyperlipidemia THYROID FUNCTION CASCADE, S Routine 10/10/2024 11:03 AM BURLING AND JOINING SUPERVISOR Atrial Fibrillation Paroxysmal (HCC) 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 Hyperlipidemia NT-PRO B-TYPE NATRIURETIC PEPTIDE (BNP), S Routine 10/10/2024 11:03 AM BURLING AND JOINING SUPERVISOR Atrial Fibrillation Paroxysmal (HCC) 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 Hyperlipidemia CBC WITHOUT DIFFERENTIAL, B Routine 10/10/2024 11:03 AM BURLING AND JOINING SUPERVISOR Stone Kidney TROPONIN T, 5TH GEN, P Routine 10/10/2024 11:03 AM BURLING AND JOINING SUPERVISOR Atrial Fibrillation Paroxysmal (HCC) 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 Hyperlipidemia BASIC METABOLIC PANEL, S/P Routine 10/10/2024 11:03 AM BURLING AND JOINING SUPERVISOR Stone Kidney documented in this encounter Results * (ABNORMAL) Lipid Panel (10/10/2024 11:03 AM BURLING AND JOINING SUPERVISOR) Triglycerides 163(H) mg/dL 10/10/2024 12:20 PM BURLING AND JOINING SUPERVISOR DTL Comment: ----REFERENCE VALUE---- Normal: <150 mg/dL Borderline High: 150-199 mg/dL High: 200-499 mg/dL Very High: > or =500 mg/dL Cholesterol, Total 143 mg/dL 2024 12:20 PM BURLING AND JOINING SUPERVISOR DTL Comment: ----REFERENCE VALUE---- Desirable: < 200 mg/dL Borderline High: 200 - 239 mg/dL High: > or = 240 mg/dL Cholesterol, LDL, Calculated 78 mg/dL 10/10/2024 12:20 PM BURLING AND JOINING SUPERVISOR DTL Comment: ----REFERENCE VALUE---- Desirable: <100 mg/dL Above Desirable: 100-129 mg/dL Borderline High: 130-159 mg/dL High: 160-189 mg/dL Very High: >=190 mg/dL ----ADDITIONAL INFORMATION---- LDL cholesterol calculated using the Sawant/NIH equation. Cholesterol, HDL, S 37(L) >=40 mg/dL 10/10/2024 12:20 PM BURLING AND JOINING SUPERVISOR DTL Cholesterol, Non-HDL, Calculated 106 mg/dL 10/10/2024 12:20 PM BURLING AND JOINING SUPERVISOR DTL Comment: ----REFERENCE VALUE---- Desirable: <130 mg/dL Above Desirable: 130-159 mg/dL Borderline High: 160-189 mg/dL High: 190-219 mg/dL Very High: > or =220 mg/dL Fasting (8 HR or more) Yes 10/10/2024 11:03 AM BURLING AND JOINING SUPERVISOR DTL Blood (Blood, Venous) 10/10/2024 11:03 AM BURLING AND JOINING SUPERVISOR 10/10/2024 11:36 AM BURLING AND JOINING SUPERVISOR us Inocente Avila M.D. LAB BLOOD ADD-ON Final Resul t Performing Organization Address City/[facility]/ZIP Co de Phone Number [facility] [address] [place] [address] * Thyroid Function [place] (10/10/2024 11:03 AM BURLING AND JOINING SUPERVISOR) TSH, Sensitive 1.9 0.3 - 4.2 mIU/L 10/10/2024 12:20 PM BURLING AND JOINING SUPERVISOR DTL Blood (Blood, Venous) 10/10/2024 11:03 AM BURLING AND JOINING SUPERVISOR 10/10/2024 11:36 AM BURLING AND JOINING SUPERVISOR us Inocente Avila M.D. LAB BLOOD ADD-ON Final Resul t Performing Organization Address City/[facility]/ZIP Co de Phone Number [facility] [address] [facility] 200 [place] [address] * (ABNORMAL) NT-Pro B-Type Natriuretic Peptide (BNP) (10/10/2024 11:03 AM BURLING AND JOINING SUPERVISOR) [facility] NT-Pro BNP 710(H) <=540 pg/mL 10/10/2024 12:20 PM BURLING AND JOINING SUPERVISOR DTL Comment: NT-proBNP values less than 300 [...] failure. Blood (Blood, Venous) 10/10/2024 11:03 AM BURLING AND JOINING SUPERVISOR 10/10/2024 11:36 AM BURLING AND JOINING SUPERVISOR us Inocente Avila M.D. LAB BLOOD ADD-ON Final Resul t Performing Organization Address City/[facility]/ZIP Co de Phone Number [facility] [address] 200 [place] [address] * (ABNORMAL) Troponin T, 5th Generation (10/10/2024 11:03 AM BURLING AND JOINING SUPERVISOR) [facility] Troponin T, 5th gen 34(H) <=15 ng/L 10/10/2024 12:25 PM BURLING AND JOINING SUPERVISOR DT Blood (Blood, Venous) 10/10/2024 11:03 AM BURLING AND JOINING SUPERVISOR 10/10/2024 11:37 AM BURLING AND JOINING SUPERVISOR us Inocente Avila M.D. LAB BLOOD ADD-ON Final Resul t [facility] [address] [address] * Basic Metabolic Panel (10/10/2024 11:03 AM BURLING AND JOINING SUPERVISOR) Potassium, S 4.7 3.6 - 5.2 mmol/L 10/10/2024 12:20 PM BURLING AND JOINING SUPERVISOR DTL Sodium, S 141 135 - 145 mmol/L 10/10/2024 12:20 PM BURLING AND JOINING SUPERVISOR DTL Chloride, S 104 98 - 107 mmol/L 10/10/2024 12:20 PM BURLING AND JOINING SUPERVISOR DTL Bicarbonate, S 26 22 - 29 mmol/L 10/10/2024 12:20 PM BURLING AND JOINING SUPERVISOR DTL Anion Gap 11 7 - 15 10/10/2024 12:20 PM BURLING AND JOINING SUPERVISOR DTL BUN (Blood Urea Nitrogen), S 17 8 - 24 mg/dL 10/10/2024 12:20 PM BURLING AND JOINING SUPERVISOR DTL Creatinine 1.15 0.74 - 1.35 mg/dL 10/10/2024 12:20 PM BURLING AND JOINING SUPERVISOR DTL Estimated GFR (eGFR) 64 >=60 mL/min/BSA 10/10/2024 12:20 PM BURLING AND JOINING SUPERVISOR DTL Comment: Estimated GFR calculated using the 2020 CKD_EPI creatinine equation. Calcium, Total, S 9.9 8.8 - 10.2 mg/dL 10/10/2024 12:20 PM BURLING AND JOINING SUPERVISOR DTL Glucose, S 91 70 - 140 mg/dL 10/10/2024 12:20 PM BURLING AND JOINING SUPERVISOR DTL Blood (Blood, Venous) 10/10/2024 11:03 AM BURLING AND JOINING SUPERVISOR 10/10/2024 11:36 AM BURLING AND JOINING SUPERVISOR us Gato Shaw M.D. LAB BLOOD ADD-ON Final Result [facility] [address] [place] [address], [facility] [address] [place] [address] * (ABNORMAL) CBC without Differential (10/10/2024 11:03 AM BURLING AND JOINING SUPERVISOR) Hemoglobin 13.1(L) 13.2 - 16.6 g/dL 10/10/2024 11:43 AM BURLING AND JOINING SUPERVISOR DTL Hematocrit 41.4 38.3 - 48.6 % 10/10/2024 11:43 AM BURLING AND JOINING SUPERVISOR DTL Erythrocytes 4.36 4.35 - 5.65 x10(12)/L 10/10/2024 11:43 AM BURLING AND JOINING SUPERVISOR DTL MCV 95.0 78.2 - 97.9 fL 10/10/2024 11:43 AM BURLING AND JOINING SUPERVISOR DTL RBC Distrib Width 13.2 11.8 - 14.5 % 10/10/2024 11:43 AM BURLING AND JOINING SUPERVISOR DTL Platelet Count 325(H) 135 - 317 x10(9)/L 10/10/2024 11:43 AM BURLING AND JOINING SUPERVISOR DTL Leukocytes 5.2 3.4 - 9.6 x10(9)/L 10/10/2024 11:43 AM BURLING AND JOINING SUPERVISOR DTL Blood (Blood, Venous) 10/10/2024 11:03 AM BURLING AND JOINING SUPERVISOR 10/10/2024 11:23 AM BURLING AND JOINING SUPERVISOR us Gato Shaw M.D. LAB BLOOD ADD-ON Final Result [facility] 200 [place] [address], [facility] 200 [place] [address] documented in this encounter Visit Diagnoses Diagnosis Stone Kidney Atrial Fibrillation Paroxysmal (HCC) 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 Hyperlipidemia documented in this encounter
--- OUTSIDE RECORDS SUMMARY | 2024-10-26 02:02 | XMS_ITS ---
Author Organization [facility] Address [address] [place] [address] Care Team Providers Care [employer] Social [employer] Tutor Name Role Phone Unavailable Unavailable Unavailable Surgery Details Not on file Complications Check Surgery Details section. Procedure Estimated Blood Loss Check Surgery Details section. Procedure Findings Check Surgery Details section. Procedure Specimens Taken Check Surgery Details section.
--- OUTSIDE RECORDS SUMMARY | 2024-10-26 02:02 | XMS_ITS | Encounter Summary ---
Author Organization [facility] Address [address] [place] [address] Care Team Providers Care Rand Maker Name Role Phone Unavailable Primary Care Provider Unavailabl e Reason for Referral * Cardiovascular-Diagnostic (Routine) - Closed Specialty Diagnoses / Procedures Referred By Sheila bustamante Referred To Contact Diagnoses Stenosis Aortic Valve Acquired Procedures Echo Transthoracic (TTE) Inocente Avila M.D. 200 [place] [address] Phone: tel: fax: [facility] Referral ID Status Reason Start Date Expiration Date Visits Re quested Visits Authorized [id number] Closed 10/10/2024 10/10/2025 1 1 TATION SUPERVISOR Reason for Visit * Cardiovascular-Diagnostic (Routine) - Closed Specialty Diagnoses / Procedures Referred By Sheila bustamante Referred To Contact Diagnoses Stenosis Aortic Valve Acquired Procedures Echo Transthoracic (TTE) Inocente Avila M.D. 200 [place] [address] Phone: tel: fax: [facility] Referral ID Status Reason Start Date Expiration Date Visits Re quested Visits Authorized [id number] Closed 10/10/2024 10/10/2025 1 1 Encounter Details Date Type Department Care Team (Latest Contact Info) Description 10/10/2024 2:25 PM SANITATION SUPERVISOR - 10/10/2024 11:59 PM SANITATION SUPERVISOR Hospital Encounter Department of Cardiovascular Diseases in [place], [place] [address] [place] [address] Inocente Avila M.D. [address] [place] [address] Stenosis Aortic Valve Acquired Discharge Disposition: Home [...] your living situation today? 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 15 tablet 10/24/2024 2:06 PM SANITATION SUPERVISOR 10/24/2024 cefdinir (Omnicef) 300 mg capsuleIndicatio ns:Stone Kidney Take 1 capsule (300 mg total) by mouth 2 (two) times a day before morning and evening meals for 1 day. Please take the day of catheter removal. 2 capsule 10/24/2024 2:06 PM SANITATION SUPERVISOR 10/24/2024 5 apixaban (Eliquis) 5 mg [...] st Contact Info) Description 10/27/2024 8:00 AM SANITATION SUPERVISOR Procedure visit Department of Urology in [address] [phone] Seth Bass M.D. [address] [place] [phone] 12/05/2024 7:40 AM SANITATION SUPERVISOR Appointment Department of Laboratory Medicine and Pathology, [place], [place] [address] [place] [phone] Seth Bass M.D. [address] [place] [phone] 12/05/2024 7:50 AM SANITATION SUPERVISOR Appointment Department of Laboratory Medicine and Pathology, [place], [place] [address] [place] [phone] Seth Bass M.D. [address] [place] [phone] 12/05/2024 8:15 AM SANITATION SUPERVISOR Appointment Department of Radiology, [place], [place] [address] [place] [phone] Seth Bass M.D. [address] [place] [phone] 12/05/2024 9:00 AM SANITATION SUPERVISOR Appointment Department of Radiology, [facility], in [place], [place] [address] [place] [address] Seth Bass M.D. [address] [place] [phone] 12/05/2024 1:00 PM SANITATION SUPERVISOR Comprehensive Visit Division of Nephrology and Hypertension in [place], [place] [address] [place] [address] Manjinder Ty M.D. [address] [place] [phone] 01/01/2025 11:00 AM CDT Telemedicine Division of Nephrology and Hypertension in [place], [place] [address] [place] [address] Seth Bass M.D. [address] [place] [phone] documented as of this encounter Procedures Procedure Name Priority Date/Time Associated Diagnosis Comments (TTE) 2D ECHO DOPPLER COLOR Routine 10/10/2024 4:00 PM SANITATION SUPERVISOR Stenosis Aortic Valve Acquired documented in this encounter Results * (TTE) 2D ECHO DOPPLER COLOR (10/10/2024 4:00 PM SANITATION SUPERVISOR) Ejection Fraction 65 MC CV EIMS [...] Region Laterality Modality Echocardiography 10/10/2024 2:51 PM SANITATION SUPERVISOR Impressions 10/10/2024 4:01 PM SANITATION SUPERVISOR LEFT VENTRICLE:Normal left ventricular chamber size. [...] the Order-Level Documents. Narrative 10/10/2024 4:01 PM SANITATION SUPERVISOR For the complete report, see the [...] collapse (>50%). 8. There are no previous [facility] echocardiograms available for comparison. Procedure Note Paras Diaz M.D. - 10/10/2024 For the complete report, see the Order-Level Documents. Hemodynamics Heart Rate: 46 BPM Blood Pressure: 152 / 71 mmHg ECG: Sinus rhythm, Bradycardia Final Impressions 1. Moderate calcific aortic valve stenosis, systolic mean Doppler drewfvtk25 mmHg, valve area by Doppler 1.08 cm2. [...] inspiratory collapse(>50%). 8. There are no previous [facility] echocardiograms available forcomparison. Findings LEFT VENTRICLE:Normal left [...] encounter Visit Diagnoses Diagnosis Stenosis Aortic Valve Acquired documented in this encounter
--- OUTSIDE RECORDS SUMMARY | 2024-10-26 02:02 | XMS_ITS | Encounter Summary ---
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 [address] [place] [phone] Phone: tel: fax: Referral ID Status Reason Start Date Expiration Date Visits Re quested Visits Authorized [id number] 1 1 Encounter Details Date Type Department Care Team (Late st Contact Info) Description 10/24/2024 8:34 AM LOCK FITTER Anesthesia Event Outpatient Procedure Center in [place], [place] [address] [place] [address] [phone] Trevor Sheth, APRON TRIMMER, OIL DISTRIBUTOR [address] [place] [phone] Yamilet Haynes M.D. [address] [place] [phone] Anesthesia Record Procedure Summary Procedure Name Responsible Anesthesiologist Anesthesia Start Time Anesthesia Stop Time CYSTOLITHOLAPAXY. Trevor Sheth, CARON, OIL DISTRIBUTOR 10/24/24 08 34 10/24/24 1114 Events Date Time Event Comment 10/24/2024 0834 An Start Machine/Equipme nt Checked Infection Precautions Followed Procedure/Site Verified NPO Status Verified Supine Standard ASA Monitors Applied 0840 An Induction 0841 An Intubation 0846 Turnover to Proceduralist 0901 Proc Start 1101 Proc Fin 1102 Turnover to ANE Staff 1102 Airway Removal Criteria Met 1102 Extubation/Airway Removed 1105 an stop data 1114 An End I completed my handoff to the receiving staff during which we 1. Identified the patient 2. Identified the responsible provider 3. Reviewed the pertinent medical history 4. Discussed the surgical course 5. Reviewed intra-op anesthesia management and issues during anesthesia 6. Set expectations for post-procedure period 7. Allowed opportunity for questions and acknowledgement of understanding. Meds Name Total fentanyl injection 50 mcg/mL 62.5 mcg lidocaine 2% (mg) injection 60 mg phenylephrine 100 mcg/mL injection 500 m cg ondansetron 4 mg/2 mL injection 8 mg propofol 10 mg/mL injection 70 mg remimazolam (Byfavo) injection 20 mg/8 m L (2.5 mg/mL) (RESTRICTED) 20 mg ceFAZolin injection 2 g (Ancef) 2 g glycopyrrolate (RobinuL) injection 0.2 m g/mL 0.1 mg dexAMETHasone (Decadron) injection 4 mg/ mL 4 mg Lactated Ringers Free Drip 1,100 mL * Agents No agents on file. * Blood No blood administrations on file. Lines, Drains, and Airways Type Details Placement Removal Indwelling Urinary Catheter Placement Date: 10/24/24; Inserted by: Dr. Bass; Size: 18 Fr.; Balloon Size: 5 mL (10ml sterile water in balloon.); Urine Returned: Yes 10/24/24 0000 by Kalani Dumas R.N. Ureteral Drain/Stent 10/24/24; 1054; Lef t; Back (left ureter); 7 Fr. (7 x 28) 10/24/24 1054 by Kalani Dumas R.N. Peripheral IV Placement Date: 10/24/24; Placement Time: 808; Catheter Size: 22 G; Orientation: Left, Lower, Posterior; Location: Forearm; Site Prep: Chlorhexidine (Preferred); Removal Date: 10/24/24; Removal Time: 13510/24/24 08 by Donnie Vogt RPatti 10/24/24 135 by Donnie Vogt RPatti Supraglottic Airway Placement Date: 10/24/24; Placement Time: 840 (created via procedure documentation); Mask Ventilation: Not attempted; Brand: Unique; Size: 5; Removal Date: 10/24/24; Removal Time: 11010/24/24 08 by Trevor Sheth APRN, CRNA 10/24/24 110 by Trevor Sheth APRN, CRNA documented in this encounter Social History Tobacco Use Types Packs/Day Years Used Date Smoking Tobacco: Never Passive Smoke Exposure: Never Smokeless Tobacco: Never Alcohol Use Standard Drinks/Week Comments Yes 1 (1 standard drink = 0.6 oz pur e alcohol) [facility] Utilities Answer Date Recorded In the past 12 months has e [employer], gas, oil, or water [employer] threatened to shut off services in your [...] your living situation today? 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 CYSTOSCOPY BIOPSY FULGURATION URETEROSCOPY laser lithotripsy with left stent placement (Left) Diagnosis: Stone Kidney Hematuria (Stone Kidney [N20.0], Hematuria [R31.9].) Surgeons: Gato Shaw M.D. Responsible Provider: Trevor Sheth APRN, CRNA Anesthesia Type: general ASA Status: 4 Anesthesia Type: general Last vitals Vitals Value Taken Time BP Temp Pulse 47 10/24/24 1114 Resp 16 10/24/24 1114 SpO2 92 % 10/24/24 1114 Vitals shown include unfiled device data. Please reference Vitals flowsheet for most recent vital signs. Anesthesia Post Evaluation Patient Disposition: dismissal Cardiovascular status: hemodynamics (HR & BP) acceptable Respiratory status: patent airway with spontaneous effort Temperature: normothermic Oxygen requirements: room air Level of consciousness: awake Pain score: pain adequately controlled and/or at baseline Post Op nausea/vomiting: none Hydration status: euvolemic Notable Events No notable events documented. FITTER * Anesthesia Procedure Notes - Trevor Sheth APRN, CRNA - 10/24/2024 8:50 AM LOCK FITTER Associated Order(s): Airway Airway Date/Time: 10/24/2024 8:41 AM Performed by: Trevor Sheth APRN, CRNA Authorized by: Trevor Sheth APRN, CRNA Patient location during procedure: OR / Procedure Area PROCEDURE DETAILS: Mask difficulty assessment: not attempted Final airway type: supraglottic airway Device size: 5 Number of attempt to successful placement: 1 Supraglottic device: LMA unique Supraglottic device size: 5 Airway confirmation: bilateral breath sounds, positive ETCO2 and bilateral chest rise Other previous techniques attempted: none PRE PROCEDURE DETAILS: Pre evaluation for airway management: procedure Urgency: elective Preop assessment of probable difficulty: no difficulty anticipated Preoxygenation: bag valve mask SEDATION / ANESTHESIA Anesthesia method: anesthesia POST PROCEDURE DETAILS: Procedure outcome: successful Notable Events: no complications FITTER * Anesthesia Preprocedure Evaluation - Yamilet Haynes M.D. - 10/24/2024 5:56 AM CST Preprocedure Anesthesia & H&P Assessment Procedure Summary Date/Time: 10/24/24 0910 Procedures: CYSTOLITHOLAPAXY. CYSTOSCOPY BIOPSY FULGURATION, proceed as indicated. URETEROSCOPY laser lithotripsy vs stent placement possible return to operating room in 90 days. (Left) Diagnosis: Stone Kidney [N20.0] Hematuria [R31.9] Pre-op diagnosis: Stone Kidney [N20.0], Hematuria [R31.9]. Location: [place] [address] / [facility] in [place], [place] Surgeons: Gato Shaw M.D. Pertinent components of the patient's history including current problem list, medical history, surgical history, family history, social history, medications and allergies were reviewed. Present illness and pre-op diagnosis were confirmed. The planned surgery / procedure was verified with the patient / legal guardian. The patient's general health condition remains unchanged RELEVANT COMORBID CONDITIONS CV (+) Hypertension Essential Primary ONC (+) Primary Malignant Neoplasm Of Prostate (HCC) OBJECTIVE PHYSICAL EXAMINATION Airway (HEENT) Mallampati: II TM Distance: >3 FB Neck ROM: Limited Mouth Opening: >3 cm Facies (pediatrics): normal Cardiovascular Rhythm: Regular Rate: Normal Cardiovascular Assessment: murmur Functional Capacity: >4 METS Pulmonary Pulmonary Assessment: Clear General / Constitutional Constitutional Assessment: Normal General State of Health:: healthy appearing and calm Neurological Neurologic Assessment: alert ASSESSMENT / PLAN ANESTHESIA PLAN ASA: 4 Anesthesia Plan: general Patient seen and allergies reviewed, anesthesia plan and risks discussed directly with patient /legal guardian or through an certified court/medical interpreter. Risks/Benefits/Alternatives of Blood transfusion discussed with patient / legal guardian, includingan opportunity to ask questions and/or decline some or all transfusion therapies. The patient / legal guardian consented to the use of all blood products, as deemed medically necessary Approval to Proceed: approved for anesthesia FITTER documented in this encounter Plan of Treatment Upcoming Encounters Date Type Department Care Team (Late st Contact Info) Description 10/27/2024 8:00 AM LOCK FITTER Procedure visit Department of Urology in [place], [place] [address] [place] [phone] Seth Bass M.D. [address] [place] [phone] 12/05/2024 7:40 AM LOCK FITTER Appointment Department of Laboratory Medicine and Pathology, [facility] in [place], [place] [address] [place] [phone] Seth Bass M.D. [address] [place] [phone] 12/05/2024 7:50 AM LOCK FITTER Appointment Department of Laboratory Medicine and Pathology, [facility] in [place], [place] [address] [place] [phone] Seth Bass M.D. [address] [place] [phone] 12/05/2024 8:15 AM LOCK FITTER Appointment Department of Radiology, [facility] in [place], [place] [address] [place] [phone] Seth Bass M.D. [address] [place] [phone] 12/05/2024 9:00 AM LOCK FITTER Appointment Department of Radiology, [facility] in [place], [place] [address] [place] [phone] Seth Bass M.D. [address] [place] [phone] 12/05/2024 1:00 PM LOCK FITTER Comprehensive Visit Division of Nephrology and Hypertension in [address] [phone] Manjinder Ty M.D. [address] [place] [phone] 01/01/2025 11:00 AM CDT Telemedicine Division of Nephrology and Hypertension in [place], [place] [address] [place] [phone] Seth Bass M.D. [address] [place] [phone] documented as of this encounter Procedures Procedure Name Priority Date/Time Associated Diagnosis Comments LDA ANE NON-SURGICAL AIRWAY Routine 10/24/2024 8:41 AM LOCK FITTER documented in this encounter Results * LDA ANE NON-SURGICAL AIRWAY (10/24/2024 8:41 AM LOCK FITTER) Narrative Ahle, Trevor CARON Botello CRNA - 10/24/2024 8:41 AM LOCK FITTER Trevor Sheth APRN, CRNA 10/24/2024 8:51 AM Airway Date/Time: 10/24/2024 8:41 AM Performed by: Trevor Sheth APRN, CRNA Authorized by: Trevor Sheth APRN, CRNA Patient location during procedure: OR / Procedure Area PROCEDURE DETAILS: Mask difficulty assessment: not attempted Final airway type: supraglottic airway Device size: 5 Number of attempt to successful placement: 1 Supraglottic device: LMA unique Supraglottic device size: 5 Airway confirmation: bilateral breath sounds, positive ETCO2 and bilateral chest rise Other previous techniques attempted: none PRE PROCEDURE DETAILS: Pre evaluation for airway management: procedure Urgency: elective Preop assessment of probable difficulty: no difficulty anticipated Preoxygenation: bag valve mask SEDATION / ANESTHESIA Anesthesia method: anesthesia POST PROCEDURE DETAILS: Procedure outcome: successful Notable Events: no complications Trevor Sheth APRN, CRNA ANESTHESIA ORDERABLES Fin al Result documented in this encounter Visit Diagnoses Not on filedocumented in this encounter Administered Medications Inactive Administered Medications - up to 3 most recent administrations Medication Order MAR Action Action Date Dose Rate Site ceFAZolin injection 2 g (Ancef) 2 g, intravenous, Once, On Sun10/24/24 at 0830, For 1 dose, Intra-Op, For immediate IV push administration, reconstitute vial per IVAG or package insert instructions. See IVAG for administration guidelines., Drug Monitoring Program: Pharmacist to adjust medication dosing based on indication and drug clearance factors., Indications: Prophylaxis, surgicalIndications:Prophylaxis, surgical Given 10/24/2024 8:50 AM LOCK FITTER 2 g dexAMETHasone injection (Decadron) intravenous, As needed, Starting on Sun10/24/24 at 1042, Anesthesia Intra-op Given 10/24/2024 10:42 AM LOCK FITTER 4 mg fentaNYL injection (Sublimaze) intravenous, As needed, Starting on Sun10/24/24 at 0904, Anesthesia Intra-op Given 10/24/2024 10:24 AM LOCK FITTER 12.5 mcg Given 10/24/2024 9:43 AM LOCK FITTER 12.5 mcg Given 10/24/2024 9:41 AM LOCK FITTER 12.5 mcg glycopyrrolate injection (RobinuL) intravenous, As needed, Starting on Sun10/24/24 at 0952, Anesthesia Intra-op Given 10/24/2024 9:52 AM LOCK FITTER 0.1 mg Lactated Ringer's intravenous, Continuous Infusion: Per Instructions PRN, Starting on Sun10/24/24 at 0835, Anesthesia Intra-op New Bag 10/24/2024 10:22 AM LOCK FITTER New Bag 10/24/2024 8:35 AM LOCK FITTER lidocaine (PF) (cardiac) injection intravenous, As needed, Starting on Sun10/24/24 at 0840, Anesthesia Intra-op Given 10/24/2024 8:40 AM LOCK FITTER 60 mg ondansetron (PF) injection (Zofran) intravenous, As needed, Starting on Sun10/24/24 at 0859, Anesthesia Intra-op Given 10/24/2024 10:42 AM LOCK FITTER 4 mg Given 10/24/2024 8:59 AM LOCK FITTER 4 mg phenylephrine injection intravenous, As needed, Starting on Sun10/24/24 at 0850, Anesthesia Intra-op Given 10/24/2024 9:01 AM LOCK FITTER 200 mcg Given 10/24/2024 8:56 AM LOCK FITTER 200 mcg Given 10/24/2024 8:50 AM LOCK FITTER 100 mcg propofoL injection (Diprivan) intravenous, As needed, Starting on Sun10/24/24 at 0840, Anesthesia Intra-op Given 10/24/2024 9:43 AM LOCK FITTER 30 mg Given 10/24/2024 8:40 AM LOCK FITTER 40 mg remimazolam injection (Byfavo) intravenous, As needed, Starting on Sun10/24/24 at 0840, Anesthesia Intra-op Given 10/24/2024 8:40 AM LOCK FITTER 20 mg documented in this encounter Care Teams Transmission Worker Relationship Specialty Start Date End Date Elsewhere, Pcp PCP - General Internal Medicine 10/24/24 documented as of this encounter
--- OUTSIDE RECORDS SUMMARY | 2024-10-26 02:02 | XMS_ITS | Encounter Summary ---
Author Organization [facility] Address [address] [place] [phone] Care Team Providers Care Cut Off Man Name Role Phone Elsewhere, Pcp Primary Care Provider Unavailabl e Reason for Visit * Reason Onset Date Comments OSM - Outside Materials 10/23/2024 14-day e vent monitor /zio patch Encounter Details Date Type Department Care Team (Latest Contact Info) Description 10/23/2024 Clinical Communication Department of Cardiovascular Medicine in [place], [place] [address] [place] [phone] Inocente Avila M.D. [address] [place] [phone] [employer] - Outside Materials (14-day event monitor /zio patch ) Social History Tobacco Use Types Packs/Day Years Used Date Smoking Tobacco: Never Passive Smoke Exposure: Never Smokeless Tobacco: Never Alcohol Use Standard Drinks/Week Comments Yes 1 (1 standard drink = 0.6 oz pur e alcohol) [facility] Utilities Answer Date Recorded In the past 12 months has [employer], gas, oil, or water [employer] threatened to shut off services in your [...] your living situation today? I have a 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 200 [place] [phone] 12/05/2024 7:40 AM MARKET RESEARCHER Appointment Department of Laboratory Medicine and Pathology, [facility], in [place], [place] [address] [place] [phone] Seth Bass M.D. [address] [place] [phone] 12/05/2024 7:50 AM MARKET RESEARCHER Appointment Department of Laboratory Medicine and Pathology, [facility] in [place], [place] [address] [place] [phone] Seth Bass M.D. [address] [place] [phone] 12/05/2024 8:15 AM MARKET RESEARCHER Appointment Department of Radiology, [facility] in [place], [place] [address] [place] [phone] Seth Bass M.D. [address] [place] [phone] 12/05/2024 9:00 AM MARKET RESEARCHER Appointment Department of Radiology, [facility] in [place], [place] [address] [place] [phone] Seth Bass M.D. [address] [place] [phone] 12/05/2024 1:00 PM MARKET RESEARCHER Comprehensive Visit Division of Nephrology and Hypertension in [place], [place] [address] [place] [phone] Manjinder Ty M.D. [address] [place] [phone] 01/01/2025 11:00 AM CDT Telemedicine Division of Nephrology and Hypertension in [place], [place] [address] [place] [phone] Seth Bass M.D. [address] [place] [phone] documented as of this encounter Visit Diagnoses Not on filedocumented in this encounter Care Teams Cut Off Man Relationship Specialty Start Date End Date Elsewhere, Pcp PCP - General Internal Medicine 10/24/24 documented as of this encounter
--- OUTSIDE RECORDS SUMMARY | 2024-10-26 02:02 | XMS_ITS | Encounter Summary ---
Author Organization [facility] Address [address] [place] [address] Care Team Providers Care International Relations Professor Name Role Phone Elsewhere, Pcp Primary Care Provider Unavailabl e Reason for Visit * Reason Onset Date Comments opc proc 10/21/2024 Encounter Details Date Type Department Care Team (Late st Contact Info) Description 10/21/2024 Clinical Communication Department of Urology in [place], [place] [address] [place] [phone] Molly Mac opc proc Social History Tobacco Use Types Packs/Day Years Used Date Smoking Tobacco: Never Passive Smoke Exposure: Never Smokeless Tobacco: Never Alcohol Use Standard Drinks/Week Comments Yes 1 (1 standard drink = 0.6 oz pur e alcohol) [facility] Utilities Answer Date Recorded In the [...] your living situation today? 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 [address] [place] [phone] 12/05/2024 7:40 AM LINUX SECURITY ADMINISTRATOR Appointment Department of Laboratory Medicine and Pathology, [facility], in [place], [place] 200 [place] [phone] Seth Bass M.D. [address] [place] [phone] 12/05/2024 7:50 AM LINUX SECURITY ADMINISTRATOR Appointment Department of Laboratory Medicine and Pathology, [facility] in [place], [place] [address] [place] [phone] Seth Bass M.D. [address] [place] [phone] 12/05/2024 8:15 AM LINUX SECURITY ADMINISTRATOR Appointment Department of Radiology, [facility], in [place], [place] [address] [place] [phone] Seth Bass M.D. [address] [place] [phone] 12/05/2024 9:00 AM LINUX SECURITY ADMINISTRATOR Appointment Department of Radiology, [facility] in [place], [place] [address] [place] [phone] Seth Bass M.D. [address] [place] [phone] 12/05/2024 1:00 PM LINUX SECURITY ADMINISTRATOR Comprehensive Visit Division of Nephrology and Hypertension in [place], [place] [address] [place] [phone] Manjinder Ty M.D. [address] [place] [phone] 01/01/2025 11:00 AM CDT Telemedicine Division of Nephrology and Hypertension in [place], [place] [address] [place] [phone] Seth Bass M.D. [address] [place] [phone] documented as of this encounter Visit Diagnoses Not on filedocumented in this encounter Care Teams International Relations Professor Relationship Specialty Start Date End Date Elsewhere, Pcp PCP - General Internal Medicine 10/24/24 documented as of this encounter
--- OUTSIDE RECORDS SUMMARY | 2024-10-26 02:02 | XMS_ITS | Encounter Summary ---
Author Organization [facility] Address [address] [place] [address] Care Team Providers Care Outpatient Program Coordinator Name Role Phone Unavailable Primary Care Provider Unavailabl e Encounter Details Date Type Department Care Team (Late st Contact Info) Description 10/18/2024 Clinical Communication Department of Urology in [place], [place] [address] [place] [phone] Winnie Becker M.D., M.S. [address] [place] [phone] Social History Tobacco Use Types Packs/Day Years Used Date Smoking Tobacco: Never Passive Smoke Exposure: Never Smokeless Tobacco: Never Alcohol Use Standard Drinks/Week Comments Yes 1 (1 standard drink = 0.6 oz pur e alcohol) [facility] Utilities Answer Date Recorded In the past [address] [facility] [place], gas, oil, or water [employer] threatened to shut off services in your [...] your living situation today? 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 Not on f ile Not on file Not on file documented as of this encounter Miscellaneous Notes * Telephone Encounter - Winnie Becker M.D., M.S. - 10/18/2024 12:05 AM TOURIST INFORMATION ASSISTANT UROLOGY ATC NOTE: SUBJECTIVE I received a call through the ATC regarding gross hematuria and suspected UTI. History obtained viachart review and contact with outside provider. Patient not seen or examined by me. Presented to the ED in [place] with hematuria. No fevers, chills or myalgias, Notable history of a 9 mm LEFT UPJ stone, 10 cm RIGHT lower pole stone, 8 mm bladder stone, right lateral bladder papillary mass, prostate cancer s/p proton beam therapy and ADT, OBJECTIVE VITAL SIGNS AFVSS Exam unremarkable WBC 4.93 Cr at 0.9 UA (midstream 0 WBC/HPF, 3+ LE, + Nitrites, >100 RBCs): ASSESSMENT / PLAN Low concern for infection. Patient could be covered for ABX up in time of surgery 10/24/23. Would favor omnicef to cover UGM on prior culture. Encourage PO intake with patient and obtain repeat urine culture. Treat and send to [facility] if positive. Provider amenable to this plan. RECOMMENDATION: Plan discussed with Dr. Barrett Chief Urology Resident online merchandising manager Winnie Becker MD, MS [facility] Urology IST INFORMATION ASSISTANT documented in this encounter Plan of Treatment Upcoming Encounters Date Type Department Care Team (Late st Contact Info) Description 10/27/2024 8:00 AM TOURIST INFORMATION ASSISTANT Procedure visit Department of Urology in [place], [place] [address] [place] [phone] Seth Bass M.D. [address] [place] [phone] 12/05/2024 7:40 AM TOURIST INFORMATION ASSISTANT Appointment Department of Laboratory Medicine and Pathology, [facility] in [place], [place] [address] [place] [phone] Seth Bass M.D. [address] [place] [phone] 12/05/2024 7:50 AM TOURIST INFORMATION ASSISTANT Appointment Department of Laboratory Medicine and Pathology, [facility] in [place], [place] [address] [place] [phone] Seth Bass M.D. [address] [place] [phone] 12/05/2024 8:15 AM TOURIST INFORMATION ASSISTANT Appointment Department of Radiology, [facility] in [place], [place] [address] [place] [address] Seth Bass M.D. [address] [place] [phone] 12/05/2024 9:00 AM TOURIST INFORMATION ASSISTANT Appointment Department of Radiology, [facility], in [place], [place] [address] [place] [address] Seth aBss M.D. [address] [place] [phone] 12/05/2024 1:00 PM TOURIST INFORMATION ASSISTANT Comprehensive Visit Division of Nephrology and Hypertension in [place], [place] [address] [place] [phone] Manjinder Ty M.D. [address] [place] [phone] 01/01/2025 11:00 AM CDT Telemedicine Division of Nephrology and Hypertension in [place], [place] [address] [place] [phone] Seth Bass M.D. [address] [place] [phone] documented as of this encounter Visit Diagnoses Not on filedocumented in this encounter
--- OUTSIDE RECORDS SUMMARY | 2024-10-26 02:02 | XMS_ITS | Encounter Summary ---
Author Organization [facility] Address [address] [place] [address] Care Team Providers Care Gang Hemstitching Machine Operator Name Role Phone Unavailable Primary Care Provider Unavailabl e Reason for Referral * Outpatient (Routine) - Closed Specialty Diagnoses / Procedures Referred By Contac t Referred To Contact Diagnoses Bruit Carotid Artery Procedures US Carotid Bilateral Inocente Avila M.D. [address] [place] [phone] Phone: tel: fax: [facility] Referral ID Status Reason Start Date Expiration Date Visits Re quested Visits Authorized [id number] Closed 10/10/2024 10/10/2025 1 1 ERN WEAVER Reason for Visit * Outpatient (Routine) - Closed Specialty Diagnoses / Procedures Referred By Sheila bustamante Referred To Contact Diagnoses Bruit Carotid Artery Procedures US Carotid Bilateral Inocente Avila M.D. 200 [place] [address] Phone: tel: fax: [facility] Referral ID Status Reason Start Date Expiration Date Visits Re quested Visits Authorized [id number] Closed 10/10/2024 10/10/2025 1 1 Encounter Details Date Type Department Care Team (Latest Contact Info) Description 10/23/2024 11:37 AM PATTERN WEAVER - 10/23/2024 11:59 PM PATTERN WEAVER Hospital Encounter Department of Radiology, [facility], in [place], [place] [address] [place] [phone] Inocente Avila M.D. [address] [place] [phone] Bruit Carotid Artery Discharge Disposition: Home or Self Care Social History Tobacco Use Types Packs/Day Years Used Date Smoking Tobacco: Never Passive Smoke Exposure: Never Smokeless Tobacco: Never Alcohol Use Standard Drinks/Week Comments Yes 1 (1 standard drink = 0.6 oz pur e alcohol) [facility] Utilities Answer Date Recorded In [...] your living situation today? 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 15 tablet 10/24/2024 2:06 PM PATTERN WEAVER 10/24/2024 cefdinir (Omnicef) 300 mg capsuleIndicatio ns:Stone Kidney Take 1 capsule (300 mg total) by mouth 2 (two) times a day before morning and evening meals for 1 day. Please take the day of catheter removal. 2 capsule 10/24/2024 2:06 PM PATTERN WEAVER 10/24/2024 documented as of this encounter Plan of Treatment Upcoming Encounters Date Type Department Care Team (Late st Contact Info) Description 10/27/2024 8:00 AM PATTERN WEAVER Procedure visit Department of Urology in [place], [place] [address] [place] [phone] Seth Bass M.D. [address] [place] [phone] 12/05/2024 7:40 AM PATTERN WEAVER Appointment Department of Laboratory Medicine and Pathology, [place], [place] [address] [place] [phone] Seth Bass M.D. [address] [place] [phone] 12/05/2024 7:50 AM PATTERN WEAVER Appointment Department of Laboratory Medicine and Pathology, [facility] in [place], [place] [address] [place] [phone] Seth Bass M.D. [address] [place] [phone] 12/05/2024 8:15 AM PATTERN WEAVER Appointment Department of Radiology, [place], [place] [address] [place] [phone] Seth Bass M.D. [address] [place] [phone] 12/05/2024 9:00 AM PATTERN WEAVER Appointment Department of Radiology, [facility], in [place], [place] [address] [place] [address] Seth Bass M.D. [address] [place] [phone] 12/05/2024 1:00 PM PATTERN WEAVER Comprehensive Visit Division of Nephrology and Hypertension in [place], [place] [address] [place] [phone] Manjinder Ty M.D. [address] [place] [phone] 01/01/2025 11:00 AM CDT Telemedicine Division of Nephrology and Hypertension in [place], [place] [address] [place] [phone] Seth Bass M.D. [address] [place] [phone] documented as of this encounter Procedures Procedure Name Priority Date/Time Associated Diagnosis Comments US CAROTID BILATERAL RAD - Routine (most inpatients and all outpatients) 10/23/2024 12:30 PM PATTERN WEAVER Bruit Carotid Artery documented in this encounter Results * US Carotid Bilateral (10/23/2024 12:30 PM PATTERN WEAVER) Anatomical Region Laterality Modality Head and Neck, Ultrasound RS T LOS, Ultrasound ARZ LOS, Neuroradiology FLA LOS, Procedural, Vascular Interventional NWWI LOS Bilateral Ultrasound Impressions 10/23/2024 12:45 PM PATTERN WEAVER No significant carotid stenosis Narrative 10/23/2024 12:45 PM PATTERN WEAVER EXAM: US CAROTID BILATERAL Exam performed with [...] normal distal ICA in accordance with [place] Symptomatic Carotid Endarterectomy Trial (NASCET). Procedure Note [...] IMPRESSION: No significant carotid stenosis us Inocente WHITFIELD US PROCEDURES Final Resu lt documented in this encounter Visit Diagnoses Diagnosis Bruit Carotid Artery documented in this encounter
--- OUTSIDE RECORDS SUMMARY | 2024-10-26 02:02 | XMS_ITS | Clinical Summary ---
Author Organization [facility] Address [address] [place] [address] Care Team Providers Care Power Press Supervisor Name Role Phone Elsewhere, Pcp Primary Care Provider Unavailabl e Source Comments Patient records contain information from all sites at [facility]. For routine questions regarding patient records, call [phone] during business hours, M-F 8:00 AM - 5:00 PM Central Time. Record requests for emergency care only can be directed to [phone] at any time.[facility] Allergies No known active allergies Medications atorvastatin (LIPITOR) 10 mg tablet Take 10 mg by mouth daily. 06/16/20 21 Active cholecalcifero l, vitamin D3, 10 mcg (400 unit) capsule Take 2,000 Units by mouth daily. 02/16/20 11 Active metoprolol tartrate (LOPRESSOR) 25 mg tablet [...] tablets by mouth daily. 06/20/20 11 Active allopurinoL (ZYLOPRIM) 100 mg tablet Take 150 mg by mouth 2 (two) times a day. 06/26/20 23 Active fluticasone propionate (FLONASE) 50 mcg/actuation nasal spray Administer into nostril(s) daily. 04/04/20 23 Active indomethacin (INDOCIN) 25 mg capsule For flares 06/26/20 23 Active calcium carbonate-vin min D3 1,500 mg (600 mg calcium)-10 mcg (400 Unit) per tablet Take 1 tablet by mouth 2 (two) times a day with meals. Active sulfamethoxazo le-trimethopri m (Bactrim DS) 800-160 mg per tablet Take 1 tablet by mouth 2 (two) times a day. 10/18/19 25 Active tamsulosin (Flomax) 0.4 mg 24 hr capsule Take 1 capsule (0.4 mg total) by mouth daily as needed (stent/flank pain). 10 capsule 10/24/19 25 Active trospium (Sanctura) 20 mg tablet Take 1 tablet (20 mg total) by mouth 2 (two) times a day as needed (bladder spasms). 15 tablet 5 2:06 PM FINANCIAL INSTITUTION BRANCH MANAGER 10/24/19 25 Active aspirin 81 mg chewable tablet Chew 1 tablet daily. 06/20/20 11 025 Discontinued hydroCHLOROthi azide (HYDRODIURIL) 12.5 mg tablet Stopped for now 05/05/20 21 025 Discontinued(Th erapy completed) bicalutamide (CASODEX) 50 mg tablet Take 1 tablet (50 mg total) by mouth daily. Take at the same time everyday. Take with or without food. 14 tablet 06/28/20 23 025 Discontinued(Th erapy completed) apixaban (Eliquis) 5 mg tablet Take 1 tablet by mouth 2 (two) times a day. 10/08/19 25 025 Discontinued(Th erapy completed) cefdinir (Omnicef) 300 mg capsuleIndicat ions:[facility] Take 1 capsule (300 mg total) by mouth 2 (two) times a day before morning and evening meals for 1 day. Please take the day of catheter removal. 2 capsule 5 2:06 PM FINANCIAL INSTITUTION BRANCH MANAGER 10/24/19 25 025 Active Problems Problem Noted Date Diagnosed Date [...] APRN, C.N.P., D.N.P. on 06/08/2023 Hyperlipidemia 12/21/2006 Encounters Date Type Department Care Team Description 10/24/2024 11:55 AM FINANCIAL INSTITUTION BRANCH MANAGER Ancillary Procedure Department of General Surgery Arrived 10/24/2024 8:34 AM FINANCIAL INSTITUTION BRANCH MANAGER Anesthesia Event Outpatient Procedure Center in [address] [address] Trevor Sheth APRN, CRNA Psomas, Maria N, M.D. 10/24/2024 7:50 AM FINANCIAL INSTITUTION BRANCH MANAGER - 10/24/2024 10:00 AM FINANCIAL INSTITUTION BRANCH MANAGER Surgery Outpatient Procedure Center in [address] [address] Gato Shaw M.D. CYSTOLITHOLAPAXY. 10/24/2024 7:48 AM FINANCIAL INSTITUTION BRANCH MANAGER - 10/24/2024 1:57 PM FINANCIAL INSTITUTION BRANCH MANAGER Hospital Encounter Outpatient Procedure Center in [address] [address] Gato Shaw M.D. [facility]; Hematuria Discharge Disposition: Home or Self Care 10/23/2024 2:00 PM FINANCIAL INSTITUTION BRANCH MANAGER Comprehensive Visit Preoperative Evaluation Center in [address] [address] Winnie Becker M.D., M.S. Silvana Rodriges APRN, C.N.P., M.S.N. Preanesthetic Medical Exam (Primary Dx); [facility]; Primary Malignant Neoplasm Of Prostate (HCC); Hypertension Essential Primary; Other Nonrheumatic Aortic Valve Disorders; Atrial Fibrillation Paroxysmal (HCC); Murmur Heart; Hyperlipidemia; Hematuria 10/23/2024 11:37 AM FINANCIAL INSTITUTION BRANCH MANAGER - 10/23/2024 11:59 PM FINANCIAL INSTITUTION BRANCH MANAGER Hospital Encounter Department of Radiology, [facility], in [place], [place] [address] [place] [phone] Inocente Avila M.D. Bruit Carotid Artery Discharge Disposition: Home or Self Care 10/23/2024 Clinical Communication Department of Cardiovascular Medicine in [place], [place] [address] [place] [phone] Inocente Avila M.D. OSM - Outside Materials (14-day event monitor /zio patch ) 10/23/2024 Clinical Communication Department of Urology in [place], [place] [address] [place] [phone] Gato Shaw M.D. 10/21/2024 1:15 PM FINANCIAL INSTITUTION BRANCH MANAGER Clinical Communication Virtual Review in [place], [place] [address] [place] [address] Pre-visit Intake 10/21/2024 Clinical Communication Department of Urology in [place], [place] [address] [place] [phone] Molly Mac opc proc 10/18/2024 Clinical Communication Department of Urology in [place], [place] [address] [place] [phone] Winnie Becker M.D., M.S. 10/10/2024 2:25 PM FINANCIAL INSTITUTION BRANCH MANAGER - 10/10/2024 11:59 PM FINANCIAL INSTITUTION BRANCH MANAGER Hospital Encounter Department of Cardiovascular Diseases in [place], [place] [address] [place] [phone] Inocente Avila M.D. Stenosis Aortic Valve Acquired Discharge Disposition: Home or Self Care 10/10/2024 2:00 PM FINANCIAL INSTITUTION BRANCH MANAGER Office Visit Department of Cardiovascular Medicine in [place], [place] [address] [place] [phone] Inocente Avila M.D. Stenosis Aortic Valve Acquired (Primary Dx); Stone Kidney; Bruit Carotid Artery; Hematuria; Atrial Fibrillation Paroxysmal (HCC); Other Specified Conduction Disorders; Hypertensive Heart Disease Without Heart Failure; Hyperlipidemia 10/10/2024 11:12 AM FINANCIAL INSTITUTION BRANCH MANAGER - 10/10/2024 2:24 PM FINANCIAL INSTITUTION BRANCH MANAGER Hospital Encounter Department of Radiology, [facility] in [place], [place] [address] [place] [address] Gato Shaw M.D. [facility] Discharge Disposition: Home or Self Care 10/10/2024 10:51 AM FINANCIAL INSTITUTION BRANCH MANAGER - 10/10/2024 11:11 AM [facility] Hospital Encounter Department of Laboratory Medicine and Pathology, [facility] in [place], [place] [address] [place] [phone] Gato Shaw M.D. [facility]; Atrial Fibrillation Paroxysmal (HCC); Myocardial Injury Nonischemic Nontraumatic; Dysfunction Diastolic; Hyperlipidemia Discharge Disposition: Home or Self Care 10/10/2024 10:50 AM FINANCIAL INSTITUTION BRANCH MANAGER Hospital Encounter Department of Laboratory Medicine and Pathology, [facility] in [place], [place] [address] [place] [phone] Gato Shaw M.D. [facility] Discharge Disposition: Home or Self Care 10/10/2024 Orders Only Department of Cardiovascular Medicine in [address] [phone] Inocente Avila M.D. Atrial Fibrillation Paroxysmal (HCC) (Primary Dx); Myocardial Injury Nonischemic Nontraumatic; Dysfunction Diastolic; Hyperlipidemia 10/08/2024 Orders Only Department of Urology in [place], [place] [address] [place] [phone] Hortensia Dwyer R.N. Stone Kidney (Primary Dx) 10/08/2024 Clinical Communication Department of Urology in [place], [place] [address] [place] [phone] Ghanshyam Ye 10/02/2024 Clinical Communication Department of Cardiovascular Medicine in [place], [place] [address] [place] [phone] Legal CoordinatorSudarshan M.D. Triage 09/30/2024 Clinical Communication Department of Urology in [place], [place] [address] [place] [phone] Gato Shaw M.D. 09/08/2024 10:30 AM FINANCIAL INSTITUTION BRANCH MANAGER Comprehensive Visit Department of Urology in [place], [place] [address] [place] [phone] Gato Shaw M.D. [facility] (Primary Dx) 09/08/2024 9:00 AM FINANCIAL INSTITUTION BRANCH MANAGER Procedure visit Department of Urology in [place], [place] [address] [place] [phone] Shellei Howe APRN, C.N.P., D.N.P. Hortensia Quiroga P.A.-C. Hematuria 09/08/2024 8:02 AM FINANCIAL INSTITUTION BRANCH MANAGER - 09/08/2024 11:59 PM FINANCIAL INSTITUTION BRANCH MANAGER Hospital Encounter Department of Laboratory Medicine and Pathology, [facility] in [address] [phone] Shellie Howe APRN, C.N.P., D.N.P. Hematuria Discharge Disposition: Home or Self Care 09/08/2024 8:02 AM FINANCIAL INSTITUTION BRANCH MANAGER - 09/08/2024 11:59 PM FINANCIAL INSTITUTION BRANCH MANAGER Hospital Encounter Department of Laboratory Medicine and Pathology, [facility] in [address] [phone] Shellie Howe APRN, C.N.P., D.N.P. [facility] Discharge Disposition: Home or Self Care 09/04/2024 12:45 PM FINANCIAL INSTITUTION BRANCH MANAGER Clinical Communication Virtual Review in [place], [place] [address] [place] [address] Pre-visit Intake 08/19/2024 Orders Only Department of Urology in [address] [phone] Shellie Howe APRN C.N.P., D.N.P. Hematuria (Primary Dx) 08/14/2024 Orders Only Department of Urology in [address] [phone] Shellie Howe APRN, C.N.PDaisy, D.N.P. [facility] (Primary Dx) 08/13/2024 12:04 PM FINANCIAL INSTITUTION BRANCH MANAGER - 08/13/2024 11:59 PM FINANCIAL INSTITUTION BRANCH MANAGER Hospital Encounter Department of Radiology, [facility] in [address] [phone] Shellie Howe APRN, C.N.PDaisy, D.N.P. Hematuria Discharge Disposition: Home or Self Care 08/11/2024 9:20 AM FINANCIAL INSTITUTION BRANCH MANAGER - 08/11/2024 11:59 PM FINANCIAL INSTITUTION BRANCH MANAGER Hospital Encounter Department of Laboratory Medicine and Pathology, [place] [phone] Shellie Howe APRN, Missy.N.PDaisy, D.N.P. Hematuria Discharge Disposition: Home or Self Care 08/08/2024 3:00 PM FINANCIAL INSTITUTION BRANCH MANAGER Comprehensive Visit Department of Urology in [address] [phone] Maryana Malik, AMELIAS, P.A.-Missy. Shellie Howe APRN, C.N.P., D.N.P. Hematuria (Primary Dx); Symptom Urinary 08/08/2024 2:30 PM FINANCIAL INSTITUTION BRANCH MANAGER Procedure visit Department of Urology in [address] [phone] Rigoberto Flores M.D. Franson, Jane E, R.Adam Incontinence Urinary Stress And Urge (Primary Dx); Symptom Urinary 08/08/2024 11:27 AM FINANCIAL INSTITUTION BRANCH MANAGER - 08/08/2024 11:59 PM FINANCIAL INSTITUTION BRANCH MANAGER Hospital Encounter Department of Laboratory Medicine and Pathology, [facility] in [address] [phone] Rigoberto Flores M.D. Symptom Urinary Discharge Disposition: Home or Self Care 08/06/2024 9:58 AM FINANCIAL INSTITUTION BRANCH MANAGER - 08/06/2024 11:29 AM FINANCIAL INSTITUTION BRANCH MANAGER Hospital Encounter Department of Radiation Oncology in [address] [phone] Gato Larkin APRN, C.N.P., D.N.P. Primary Malignant Neoplasm Of Prostate (HCC) (Primary Dx) 08/04/2024 12:00 PM FINANCIAL INSTITUTION BRANCH MANAGER Clinical Communication Virtual Review in [place], [place] [address] [place] [address] Pre-visit Intake from Last 3 Months Family History Medical History Relation Name Comments Hyperlipidemia Brother 1 Rahat Hypertension Brother 1 Rahat Prostate cancer Brother 1 Rahat Hyperlipidemia Brother 2 Rc Prostate cancer Brother 2 Rc Relation Name Status Comments Brother 1 Rahat Brother 2 Rc Alive Social History Tobacco Use Types Packs/Day Years Used Date Smoking Tobacco: Never Passive Smoke Exposure: Never Smokeless Tobacco: Never Tobacco Cessation:Counseling Given: Not Answered Alcohol Use Standard Drinks/Week Comments Yes 1 (1 standard drink = 0.6 oz pur e alcohol) [facility] Utilities Answer Date Recorded In the past 12 months has e [employer], gas, oil, or water [employer] threatened to shut off services in your [...] [facility] 10/17/2024 Sex and Gender Information Value Date Recorded Sex Assigned at Male 08/08/2023 11:08 AM FINANCIAL INSTITUTION BRANCH MANAGER Legal Sex Male 11:22 AM FINANCIAL INSTITUTION BRANCH MANAGER Gender Identity Male 08/08/2023 11:08 AM FINANCIAL INSTITUTION BRANCH MANAGER Sexual Orientation Straight 08/08/2023 11 :08 AM FINANCIAL INSTITUTION BRANCH MANAGER 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 Not on f ile Not on file Not on file Last Filed Vital Signs Vital Sign Reading Time Taken Comments Blood Pressure 136/65 10/24/2024 12:45 PM FINANCIAL INSTITUTION BRANCH MANAGER Pulse 48 10/24/2024 1:10 PM FINANCIAL INSTITUTION BRANCH MANAGER Temperature 36.4 C (97.5 F) 10/24/2024 11:24 AM FINANCIAL INSTITUTION BRANCH MANAGER Respiratory Rate 14 10/24/2024 1:10 PM FINANCIAL INSTITUTION BRANCH MANAGER Oxygen Saturation 98% 10/24/2024 1:10 PM FINANCIAL INSTITUTION BRANCH MANAGER Inhaled Oxygen Concentration - - Weight 91.8 kg (202 lb 6.1 oz) 10/23/2024 1:53 P M FINANCIAL INSTITUTION BRANCH MANAGER Height 179 cm (5' 10.47) 10/23/2024 1:53 PM FINANCIAL INSTITUTION BRANCH MANAGER Body Mass Index 28.65 10/23/2024 1:53 PM FINANCIAL INSTITUTION BRANCH MANAGER Plan of Treatment Upcoming Encounters Date Type Department Care Team (Late st Contact Info) Description 10/27/2024 8:00 AM FINANCIAL INSTITUTION BRANCH MANAGER Procedure visit Department of Urology in [place], [place] [address] [place] [address] Seth Bass M.D. [address] [place] [address] 12/05/2024 7:40 AM FINANCIAL INSTITUTION BRANCH MANAGER Appointment Department of Laboratory Medicine and Pathology, [facility], in [place], [place] [address] [place] [address] Seth Bass M.D. [address] [place] [phone] 12/05/2024 7:50 AM FINANCIAL INSTITUTION BRANCH MANAGER Appointment Department of Laboratory Medicine and Pathology, [facility] in [place], [place] [address] [place] [address] Seth Bass M.D. [address] [place] [phone] 12/05/2024 8:15 AM FINANCIAL INSTITUTION BRANCH MANAGER Appointment Department of Radiology, [facility] in [place], [place] [address] [place] [address] Seth Bass M.D. [address] [place] [phone] 12/05/2024 9:00 AM FINANCIAL INSTITUTION BRANCH MANAGER Appointment Department of Radiology, [facility] in [place], [place] [address] [place] [address] Seth Bass M.D. [address] [place] [phone] 12/05/2024 1:00 PM FINANCIAL INSTITUTION BRANCH MANAGER Comprehensive Visit Division of Nephrology and Hypertension in [place], [place] [address] [place] [phone] Manjinder Ty M.D. [address] [place] [phone] 01/01/2025 11:00 AM CDT Telemedicine Division of Nephrology and Hypertension in [place], [place] [address] [place] [phone] Seth Bass M.D. [address] [place] [phone] Health Maintenance Due Date Last Done Comments Depression Screening (Annual PHQ-2) 10/01/2024 DTaP,Tdap,and Td Vaccines (2 - Td or Tdap) 11/05/2024 11/05/2014, 07/19/2011 Office Visit for Blood Pressure Check / Re-check 10/23/2025 10/23/2024 Pneumococcal vaccine (50+ years) Completed 11/05/2014, 05/05/2011 Zoster Vaccines Completed 01/16/2019, 05/2019, 05/01/2010 RSV vaccine - (32-36 weeks) or 60+ years Completed 06/27/2023 COVID-19 Vaccine Completed 06/30/2024, 03/2023, 03/30/2023, Additional history exists Influenza Vaccine Completed 06/30/2024, , 07/11/2022, Additional history exists Fall Risk Screen (Annual) Completed 10/24/2024 HPV Vaccines Aged Out No longer eligi ble based on patient's age to complete this topic IPV Vaccines Aged Out No longer eligi ble based on patient's age to complete this topic Medical Devices Implanted Type Area Ribbon Hand Device Identifier Shelf Expiration Date Model / Serial / Lot Marker Tissue Biomarc Kv 1x5 - [id number] Implanted:Qty : 4 on 08/08/2023 by Thaddeus Ding M.D. at [facility] Imaging Marker [facility] [id number] 12/01/2027 [id number] / / [id number] Stnt Uret Inl [id number] - [id number] Implanted:Qty : 1 on 10/24/2024 by Gato Shaw M.D. at [facility] Ureteral Stent C.[employer].Bard [id number] 07/31/2028 [id number] / / [id number] Procedures Procedure Name Priority Date/Time Associated Diagnosis Comments FL FLUORO LESS THAN 1 HOUR RAD - Routine (most inpatients and all outpatients) 10/24/2024 11:19 AM FINANCIAL INSTITUTION BRANCH MANAGER SURGERY IMAGE EXAM Routine 10/24/2024 11 :17 AM FINANCIAL INSTITUTION BRANCH MANAGER LDA ANE NON-SURGICAL AIRWAY Routine 10/24/2024 8:41 AM FINANCIAL INSTITUTION BRANCH MANAGER US CAROTID BILATERAL RAD - Routine (most inpatients and all outpatients) 10/23/2024 12:30 PM FINANCIAL INSTITUTION BRANCH MANAGER Bruit Carotid Artery (TTE) 2D ECHO DOPPLER COLOR Routine 10/10/2024 4:00 PM FINANCIAL INSTITUTION BRANCH MANAGER Stenosis Aortic Valve Acquired MICROSCOPIC MANUAL Routine 10/10/2024 1: 05 PM FINANCIAL INSTITUTION BRANCH MANAGER PH, U Routine 10/10/2024 1:05 PM FINANCIAL INSTITUTION BRANCH MANAGER DIPSTICK, U Routine 10/10/2024 1:05 PM FINANCIAL INSTITUTION BRANCH MANAGER OSMOLALITY, U Routine 10/10/2024 1:05 PM FINANCIAL INSTITUTION BRANCH MANAGER URINALYSIS WITH MICROSCOPIC Routine 10/10/2024 1:05 PM FINANCIAL INSTITUTION BRANCH MANAGER [facility] BACTERIAL CULTURE, AEROBIC + SUSC, URINE Routine 10/10/2024 1:05 PM FINANCIAL INSTITUTION BRANCH MANAGER [facility] ECG Routine 10/10/2024 11:52 AM FINANCIAL INSTITUTION BRANCH MANAGER [facility] DX CHEST AP OR PA AND LATERAL 2 VIEWS RAD - Routine (most inpatients and all outpatients) 10/10/2024 11:22 AM FINANCIAL INSTITUTION BRANCH MANAGER [facility] LIPID PANEL, S Routine 10/10/2024 11:03 AM FINANCIAL INSTITUTION BRANCH MANAGER Atrial Fibrillation Paroxysmal (HCC) 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 Hyperlipidemia THYROID FUNCTION CASCADE, S Routine 10/10/2024 11:03 AM FINANCIAL INSTITUTION BRANCH MANAGER Atrial Fibrillation Paroxysmal (HCC) 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 Hyperlipidemia NT-PRO B-TYPE NATRIURETIC PEPTIDE (BNP), S Routine 10/10/2024 11:03 AM FINANCIAL INSTITUTION BRANCH MANAGER Atrial Fibrillation Paroxysmal (HCC) 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 Hyperlipidemia TROPONIN T, 5TH GEN, P Routine 10/10/2024 11:03 AM FINANCIAL INSTITUTION BRANCH MANAGER Atrial Fibrillation Paroxysmal (HCC) 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 Hyperlipidemia BASIC METABOLIC PANEL, S/P Routine 10/10/2024 11:03 AM FINANCIAL INSTITUTION BRANCH MANAGER [facility] CBC WITHOUT DIFFERENTIAL, B Routine 10/10/2024 11:03 AM FINANCIAL INSTITUTION BRANCH MANAGER [facility] OUTSIDE US CARD Routine 09/29/2024 12:00 AM FINANCIAL INSTITUTION BRANCH MANAGER CYTOLOGY NON-ESCROW PROCESSOR (SCHEDULED) Routine 09/08/2024 9:07 AM FINANCIAL INSTITUTION BRANCH MANAGER Hematuria URO CYSTOSCOPY (GENERAL) Routine 09/08/2024 9:00 AM FINANCIAL INSTITUTION BRANCH MANAGER Hematuria BASIC METABOLIC PANEL, S/P Routine 09/08/2024 8:25 AM FINANCIAL INSTITUTION BRANCH MANAGER [facility] CT UROGRAM WITHOUT AND WITH IV CONTRAST RAD - Routine (most inpatients and all outpatients) 08/13/2024 1:03 PM FINANCIAL INSTITUTION BRANCH MANAGER Hematuria CREATININE WITH EGFR, S/P Routine 08/11/2024 10:20 AM FINANCIAL INSTITUTION BRANCH MANAGER Hematuria URO UROFLOW Routine 08/08/2024 2:30 PM FINANCIAL INSTITUTION BRANCH MANAGER Symptom Urinary PH, U Routine 08/08/2024 11:45 AM FINANCIAL INSTITUTION BRANCH MANAGER DIPSTICK, U Routine 08/08/2024 11:45 AM FINANCIAL INSTITUTION BRANCH MANAGER OSMOLALITY, U Routine 08/08/2024 11:45 AM FINANCIAL INSTITUTION BRANCH MANAGER MICROSCOPIC AUTOMATED Routine 08/08/2024 11:45 AM FINANCIAL INSTITUTION BRANCH MANAGER URINALYSIS WITH MICROSCOPIC Routine 08/08/2024 11:45 AM FINANCIAL INSTITUTION BRANCH MANAGER Symptom Urinary PROSTATE-SPECIFIC AG (PSA) DIAGNOSTIC, S Routine 08/06/2024 8:45 AM FINANCIAL INSTITUTION BRANCH MANAGER Primary Malignant Neoplasm Of Prostate (HCC) from Last 3 Months Results * FL Fluoro Less Than 1 Hour (10/24/2024 11:19 AM FINANCIAL INSTITUTION BRANCH MANAGER) Narrative [id number] - 10/24/2024 12:20 PM FINANCIAL INSTITUTION BRANCH MANAGER This exam does not require a radiologist review or interpretation. Please refer to the patient's medical record on this date for clinical details. us Seth Bass M.D. IMG FLUOROSCOPY PROCEDURES Fi nal Result Performing Organization Address [facility] de Phone Number [id number] NA * BLADDER-Surgery Image Exam (10/24/2024 11:17 AM FINANCIAL INSTITUTION BRANCH MANAGER) 10/24/2024 11:5 4 AM FINANCIAL INSTITUTION BRANCH MANAGER Narrative IIMS - 10/24/2024 11:17 AM FINANCIAL INSTITUTION BRANCH MANAGER This order has been created and auto-finalized to support the import of images acquired without order. The clinical documentation to support these images can be found on the encounter that produced images. Provider Not In System IMG NON RAD IMAGING PROCE DURES Final Result Performing Organization Address [facility] de Phone Number IIMS NA * LDA ANE NON-SURGICAL AIRWAY (10/24/2024 8:41 AM FINANCIAL INSTITUTION BRANCH MANAGER) Narrative Trevor Sheth APRN, CRNA - 10/24/2024 8:41 AM FINANCIAL INSTITUTION BRANCH MANAGER Trevor Sheth APRN, CRNA 10/24/2024 8:51 AM [...] Procedure outcome: successful Notable Events: no complications us Trevor Botello Meryl RELIEF SALESPERSON, JAKI ANESTHESIA ORDERABLES Fin al Result * US Carotid Bilateral (10/23/2024 12:30 PM FINANCIAL INSTITUTION BRANCH MANAGER) Anatomical Region Laterality Modality Head and Neck, Ultrasound RS T LOS, Ultrasound ARZ LOS, Neuroradiology FLA LOS, Procedural, Vascular Interventional NWWI LOS Bilateral Ultrasound Impressions 10/23/2024 12:45 PM FINANCIAL INSTITUTION BRANCH MANAGER No significant carotid stenosis Narrative 10/23/2024 12:45 PM FINANCIAL INSTITUTION BRANCH MANAGER EXAM: US CAROTID BILATERAL Exam performed with [...] normal distal ICA in accordance with [place] Symptomatic Carotid Endarterectomy Trial (NASCET). Procedure Note [...] 2D ECHO DOPPLER COLOR (10/10/2024 4:00 PM FINANCIAL INSTITUTION BRANCH MANAGER) Ejection Fraction 65 MC CV EIMS Mid-Ascending [...] Region Laterality Modality Echocardiography 10/10/2024 2:51 PM FINANCIAL INSTITUTION BRANCH MANAGER Impressions 10/10/2024 4:01 PM FINANCIAL INSTITUTION BRANCH MANAGER LEFT VENTRICLE:Normal left ventricular chamber size. Normal [...] the Order-Level Documents. Narrative 10/10/2024 4:01 PM FINANCIAL INSTITUTION BRANCH MANAGER For the complete report, see the Order-Level [...] collapse (>50%). 8. There are no previous [facility] echocardiograms available for comparison. Procedure Note Paras Diaz M.D. - 10/10/2024 For the complete report, see the Order-Level Documents. Hemodynamics Heart Rate: 46 BPM Blood Pressure: 152 / 71 mmHg ECG: Sinus rhythm, Bradycardia Final Impressions 1. Moderate calcific aortic valve stenosis, systolic mean Doppler [id number] mmHg, valve area by Doppler 1.08 cm2. [...] inspiratory collapse(>50%). 8. There are no previous [facility] echocardiograms available forcomparison. Findings LEFT VENTRICLE:Normal [...] * (ABNORMAL) Dipstick, Urine (10/10/2024 1:05 PM FINANCIAL INSTITUTION BRANCH MANAGER) Only the most recent of2 resultswithin the time period is included. Pathologist [facility] Hemoglobin, QL, U Large(A) Negative 10/10/2024 2:08 PM FINANCIAL INSTITUTION BRANCH MANAGER DTL Leukocyte Esterase, U Trace(A) Negative 10/10/2024 2:08 PM FINANCIAL INSTITUTION BRANCH MANAGER DTL Nitrite, U Negative Negative 10/10/2024 2:08 PM FINANCIAL INSTITUTION BRANCH MANAGER DTL Ketone, U Negative Negative mg/dL 10/10/2024 2:08 PM FINANCIAL INSTITUTION BRANCH MANAGER DTL Glucose, U Negative Negative mg/dL 10/10/2024 2:08 PM FINANCIAL INSTITUTION BRANCH MANAGER DTL Urine 10/10/2024 1:05 PM FINANCIAL INSTITUTION BRANCH MANAGER 10/10/2024 1:25 PM FINANCIAL INSTITUTION BRANCH MANAGER us Gato Shaw M.D. LAB URINE ORDERABLES Final Re sult [facility] [address] [place] [address], [place] [facility] [address] [place] [address] * (ABNORMAL) Microscopic Manual (10/10/2024 1:05 PM FINANCIAL INSTITUTION BRANCH MANAGER) Pathologist [facility] Microscopy Abnormal 10/10/2024 2:51 PM FINANCIAL INSTITUTION BRANCH MANAGER DTL RBC >100(A) <3 /hpf 10/10/2024 2:51 PM FINANCIAL INSTITUTION BRANCH MANAGER DTL Dysmorphic RBC <25 <25 % 10/10/2024 2:51 PM FINANCIAL INSTITUTION BRANCH MANAGER DTL WBC 4-10(A) /hpf 10/10/2024 2:51 PM FINANCIAL INSTITUTION BRANCH MANAGER DTL Comment: ----REFERENCE VALUE---- <4 (Males) <11 (Females) Urine 10/10/2024 1:05 PM FINANCIAL INSTITUTION BRANCH MANAGER 10/10/2024 2:08 PM FINANCIAL INSTITUTION BRANCH MANAGER Gato Shaw M.D. LAB URINE ORDERABLES Final Re sult Performing Organization Address City/[facility] [place] [address] * Bacterial Culture, Aerobic + Susceptibility, Urine (10/10/2024 1:05 PM FINANCIAL INSTITUTION BRANCH MANAGER) Pathologist [facility] Urine Culture Urogenital microbiota, susceptibilities not performed per laboratory criteria. 10/11/2024 2:46 PM FINANCIAL INSTITUTION BRANCH MANAGER DTL Urine (Urine, Midstream) 10/10/2024 1:05 PM FINANCIAL INSTITUTION BRANCH MANAGER 10/10/2024 2:06 PM FINANCIAL INSTITUTION BRANCH MANAGER Comment:Specimen Source Site : Urine us Gato Shaw M.D. LAB MICROBIOLOGY - GENERAL OR DERABLES Final Result Performing Organization Address City/[facility]/[place] [address] * pH, Urine (10/10/2024 1:05 PM FINANCIAL INSTITUTION BRANCH MANAGER) Only the most recent of2 resultswithin the time period is included. pH, U 6.0 4.5 - 8.0 10/10/2024 2:3 6 PM FINANCIAL INSTITUTION BRANCH MANAGER DTL Urine 10/10/2024 1:05 PM FINANCIAL INSTITUTION BRANCH MANAGER 10/10/2024 1:25 PM FINANCIAL INSTITUTION BRANCH MANAGER us Gato Shaw M.D. LAB URINE ORDERABLES Final [facility] Performing Organization Address [facility] de Phone Number [facility] [address] [place] [address], [place] [address] * Osmolality, Urine (10/10/2024 1:05 PM FINANCIAL INSTITUTION BRANCH MANAGER) Only the most recent of2 resultswithin the time period is included. Osmolality, U 607 150 - 1150 mOsm/kg 10/10/2024 2:36 PM FINANCIAL INSTITUTION BRANCH MANAGER DTL Urine 10/10/2024 1:05 PM FINANCIAL INSTITUTION BRANCH MANAGER 10/10/2024 1:25 PM FINANCIAL INSTITUTION BRANCH MANAGER Gato Shaw M.D. LAB URINE ORDERABLES Final [facility] Performing Organization Address [facility] de Phone Number [facility] [address] [place] [address], [place] [address] * (ABNORMAL) Urinalysis, with Microscopic: Urine, Midstream (10/10/2024 1:05 PM FINANCIAL INSTITUTION BRANCH MANAGER) Only the most recent of2 resultswithin the time period is included. Source Urine, Urine, Midstream 10/10/2024 1:25 PM FINANCIAL INSTITUTION BRANCH MANAGER DTL Color, U Yellow 10/10/2024 1:25 PM FINANCIAL INSTITUTION BRANCH MANAGER DTL Clarity, U Clear 10/10/2024 1:25 PM FINANCIAL INSTITUTION BRANCH MANAGER DTL Protein, U 58(H) <26 mg/dL 10/10/2024 2:19 PM FINANCIAL INSTITUTION BRANCH MANAGER DTL Protein/Osmol ality 0.96(H) <0.42 ratio 10/10/2024 2:36 PM FINANCIAL INSTITUTION BRANCH MANAGER DTL Predicted 24 HR Protein, U 902(H) <229 mg/24 h 10/10/2024 2:36 PM FINANCIAL INSTITUTION BRANCH MANAGER DTL Predicted Range 286-2841 mg/24 h 10/10/2024 2:36 PM FINANCIAL INSTITUTION BRANCH MANAGER DTL Urine (Urine, Midstream) 10/10/2024 1:05 PM FINANCIAL INSTITUTION BRANCH MANAGER 10/10/2024 1:24 PM FINANCIAL INSTITUTION BRANCH MANAGER Gato Shaw M.D. LAB URINE ORDERABLES Final Re sult Performing Organization Address [facility] Co de Phone Number [facility] [address] [place] [address], [facility] DTL [facility] [address] [place] [address] * ECG 12 Lead (10/10/2024 11:52 AM FINANCIAL INSTITUTION BRANCH MANAGER) Ventricular Rate ECG/Min 42 BPM MUSE AL Interval 190 ms MUSE QRSD Interval 106 ms MUSE QT Interval 514 ms MUSE QTC Interval 429 ms MUSE P Bertha 12 degrees MUSE R Bertha -11 degrees MUSE T Wave Bertha -1 degrees MUSE 10/10/2024 11:5 2 AM FINANCIAL INSTITUTION BRANCH MANAGER 10/10/2024 2:31 PM FINANCIAL INSTITUTION BRANCH MANAGER Impressions MUSE - 10/10/2024 11:54 AM FINANCIAL INSTITUTION BRANCH MANAGER Marked sinus bradycardia Minimal voltage criteria for [...] Edited Result - Final Performing Organization Address City/[facility]/ZIP Co de Phone Number MUSE NA * DX Chest AP or PA and Lateral 2 Views (10/10/2024 11:22 AM FINANCIAL INSTITUTION BRANCH MANAGER) Anatomical Region Laterality Modality Chest, Thoracic RST LOS, Tho racic ARZ LOS, Thoracic FLA LOS N/A Digital Radiography Impressions 10/10/2024 11:38 AM FINANCIAL INSTITUTION BRANCH MANAGER Interstitial opacities within the bilateral mid and lower lungs, greater on the left. These likely correspond with fibrotic change seen on 08/13/2024 CT urogram. Aortic calcification. Hypertrophic degenerative changes thoracic spine with mild anterior wedging of several midthoracic vertebral bodies. Chest otherwise negative. Narrative 10/10/2024 11:38 AM FINANCIAL INSTITUTION BRANCH MANAGER EXAM: DX CHEST AP OR PA AND [...] * (ABNORMAL) Lipid Panel (10/10/2024 11:03 AM FINANCIAL INSTITUTION BRANCH MANAGER) Triglycerides 163(H) mg/dL 10/10/2024 12:20 PM FINANCIAL INSTITUTION BRANCH MANAGER DTL Comment: ----REFERENCE VALUE---- Normal: <150 mg/dL Borderline High: 150-199 mg/dL High: 200-499 mg/dL Very High: > or =500 mg/dL Cholesterol, Total 143 mg/dL 2024 12:20 PM FINANCIAL INSTITUTION BRANCH MANAGER DTL Comment: ----REFERENCE VALUE---- Desirable: < 200 mg/dL Borderline High: 200 - 239 mg/dL High: > or = 240 mg/dL Cholesterol, LDL, Calculated 78 mg/dL 10/10/2024 12:20 PM FINANCIAL INSTITUTION BRANCH MANAGER DTL Comment: ----REFERENCE VALUE---- Desirable: <100 mg/dL Above Desirable: 100-129 mg/dL Borderline High: 130-159 mg/dL High: 160-189 mg/dL Very High: >=190 mg/dL ----ADDITIONAL INFORMATION---- LDL cholesterol calculated using the Sawant/NIH equation. Cholesterol, HDL, S 37(L) >=40 mg/dL 10/10/2024 12:20 PM FINANCIAL INSTITUTION BRANCH MANAGER DTL Cholesterol, Non-HDL, Calculated 106 mg/dL 10/10/2024 12:20 PM FINANCIAL INSTITUTION BRANCH MANAGER DTL Comment: ----REFERENCE VALUE---- Desirable: <130 mg/dL Above Desirable: 130-159 mg/dL Borderline High: 160-189 mg/dL High: 190-219 mg/dL Very High: > or =220 mg/dL Fasting (8 HR or more) Yes 10/10/2024 11:03 AM FINANCIAL INSTITUTION BRANCH MANAGER DTL Blood (Blood, Venous) 10/10/2024 11:03 AM FINANCIAL INSTITUTION BRANCH MANAGER 10/10/2024 11:36 AM FINANCIAL INSTITUTION BRANCH MANAGER us Inocente Avila M.D. LAB BLOOD ADD-ON Final Resul t Performing Organization Address City/[facility]/ZIP Co de Phone Number [address] [place] [address] * Thyroid Function Early (10/10/2024 11:03 AM FINANCIAL INSTITUTION BRANCH MANAGER) Pathologist [facility] TSH, Sensitive 1.9 0.3 - 4.2 mIU/L 10/10/2024 12:20 PM FINANCIAL INSTITUTION BRANCH MANAGER DTL Blood (Blood, Venous) 10/10/2024 11:03 AM FINANCIAL INSTITUTION BRANCH MANAGER 10/10/2024 11:36 AM FINANCIAL INSTITUTION BRANCH MANAGER us Inocente Avila M.D. LAB BLOOD ADD-ON Final Resul t Performing Organization Address City/[facility] Co de Phone Number [address] [place] [address] * (ABNORMAL) NT-Pro B-Type Natriuretic Peptide (BNP) (10/10/2024 11:03 AM FINANCIAL INSTITUTION BRANCH MANAGER) [facility] NT-Pro BNP 710(H) <=540 pg/mL 10/10/2024 12:20 PM FINANCIAL INSTITUTION BRANCH MANAGER DTL Comment: NT-proBNP values less than [...] failure. Blood (Blood, Venous) 10/10/2024 11:03 AM FINANCIAL INSTITUTION BRANCH MANAGER 10/10/2024 11:36 AM FINANCIAL INSTITUTION BRANCH MANAGER us Inocente Avila M.D. LAB BLOOD ADD-ON Final Resul t Performing Organization Address [facility]/ZIP Co de Phone Number [facility] [address] [place], [place] [address] [place] [address] DTL [facility] [address] [place] [address] * (ABNORMAL) CBC without Differential (10/10/2024 11:03 AM FINANCIAL INSTITUTION BRANCH MANAGER) Hemoglobin 13.1(L) 13.2 - 16.6 g/dL 10/10/2024 11:43 AM FINANCIAL INSTITUTION BRANCH MANAGER DTL Hematocrit 41.4 38.3 - 48.6 % 10/10/2024 11:43 AM FINANCIAL INSTITUTION BRANCH MANAGER DTL Erythrocytes 4.36 4.35 - 5.65 x10(12)/L 10/10/2024 11:43 AM FINANCIAL INSTITUTION BRANCH MANAGER DTL MCV 95.0 78.2 - 97.9 fL 10/10/2024 11:43 AM FINANCIAL INSTITUTION BRANCH MANAGER DTL RBC Distrib Width 13.2 11.8 - 14.5 % 10/10/2024 11:43 AM FINANCIAL INSTITUTION BRANCH MANAGER DTL Platelet Count 325(H) 135 - 317 x10(9)/L 10/10/2024 11:43 AM FINANCIAL INSTITUTION BRANCH MANAGER DTL Leukocytes 5.2 3.4 - 9.6 x10(9)/L 10/10/2024 11:43 AM FINANCIAL INSTITUTION BRANCH MANAGER DTL Blood (Blood, Venous) 10/10/2024 11:03 AM FINANCIAL INSTITUTION BRANCH MANAGER 10/10/2024 11:23 AM FINANCIAL INSTITUTION BRANCH MANAGER us Gato Shaw M.D. LAB BLOOD ADD-ON Final Result Performing Organization Address [facility]/ZIP Co de Phone Number [facility] [address] [place], [place] [address] DTL [facility] [address] [place] [address] * (ABNORMAL) Troponin T, 5th Generation (10/10/2024 11:03 AM FINANCIAL INSTITUTION BRANCH MANAGER) [facility] Troponin T, 5th gen 34(H) <=15 ng/L 10/10/2024 12:25 PM FINANCIAL INSTITUTION BRANCH MANAGER DTL Blood (Blood, Venous) 10/10/2024 11:03 AM FINANCIAL INSTITUTION BRANCH MANAGER 10/10/2024 11:37 AM FINANCIAL INSTITUTION BRANCH MANAGER us Inocente Avila M.D. LAB BLOOD ADD-ON Final Resul t [facility] [address] [place] [address], [facility] [address] [place] [address] * Basic Metabolic Panel (10/10/2024 11:03 AM FINANCIAL INSTITUTION BRANCH MANAGER) Only the most recent of2 resultswithin the time period is included. [facility] Potassium, S 4.7 3.6 - 5.2 mmol/L 10/10/2024 12:20 PM FINANCIAL INSTITUTION BRANCH MANAGER DTL Sodium, S 141 135 - 145 mmol/L 10/10/2024 12:20 PM FINANCIAL INSTITUTION BRANCH MANAGER DTL Chloride, S 104 98 - 107 mmol/L 10/10/2024 12:20 PM FINANCIAL INSTITUTION BRANCH MANAGER DTL Bicarbonate, S 26 22 - 29 mmol/L 10/10/2024 12:20 PM FINANCIAL INSTITUTION BRANCH MANAGER DTL Anion Gap 11 7 - 15 10/10/2024 12:20 PM FINANCIAL INSTITUTION BRANCH MANAGER DTL BUN (Blood Urea Nitrogen), S 17 8 - 24 mg/dL 10/10/2024 12:20 PM FINANCIAL INSTITUTION BRANCH MANAGER DTL Creatinine 1.15 0.74 - 1.35 mg/dL 10/10/2024 12:20 PM FINANCIAL INSTITUTION BRANCH MANAGER DTL Estimated GFR (eGFR) 64 >=60 mL/min/BSA 10/10/2024 12:20 PM FINANCIAL INSTITUTION BRANCH MANAGER DTL Comment: Estimated GFR calculated using the 2020 CKD_EPI creatinine equation. Calcium, Total, S 9.9 8.8 - 10.2 mg/dL 10/10/2024 12:20 PM FINANCIAL INSTITUTION BRANCH MANAGER DTL Glucose, S 91 70 - 140 mg/dL 10/10/2024 12:20 PM FINANCIAL INSTITUTION BRANCH MANAGER DTL Blood (Blood, Venous) 10/10/2024 11:03 AM FINANCIAL INSTITUTION BRANCH MANAGER 10/10/2024 11:36 AM FINANCIAL INSTITUTION BRANCH MANAGER us Gato Shaw M.D. LAB BLOOD ADD-ON Final Result Performing Organization Address [facility] Co de Phone Number [facility] [address] [place] [address], [place] DTL [facility] [address] [place] [address] * ECHO TTE COMPLETE W CONTRAST-Outside US Card (09/29/2024 12:00 AM FINANCIAL INSTITUTION BRANCH MANAGER) Narrative IIMS - 10/02/2024 2:10 PM FINANCIAL INSTITUTION BRANCH MANAGER This order has been created and auto-finalized [...] PROCE DURES Final Result Performing Organization Address [facility] de Phone Number [facility] NA * (ABNORMAL) Cytology Non-ESCROW PROCESSOR (Scheduled) (09/08/2024 9:07 AM FINANCIAL INSTITUTION BRANCH MANAGER) (A ) 09/09/2024 2:39 PM FINANCIAL INSTITUTION BRANCH MANAGER DTL Participated in the Interpretation Franki Berry M.D.-Patholog y Fellow(A) 09/09/2024 2:39 PM FINANCIAL INSTITUTION BRANCH MANAGER DTL Report electronically signed by Jair Vences M.D., Ph.D. I verify that I have examined all relevant slides/materi als for the specimen(s) and rendered or confirmed the diagnosis. (A) 09/09/2024 2:39 PM FINANCIAL INSTITUTION BRANCH MANAGER DTL Gross Description Received 60 cc of yellow fluid.(A) 09/09/2024 2:39 PM FINANCIAL INSTITUTION BRANCH MANAGER DTL Source A. Urine, voided(A) 09/09/2024 2:39 PM FINANCIAL INSTITUTION BRANCH MANAGER DTL Interpretation A. 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 (A) 09/09/2024 2:39 PM FINANCIAL INSTITUTION BRANCH MANAGER DTL Urine 09/08/2024 9:07 AM FINANCIAL INSTITUTION BRANCH MANAGER 09/08/2024 10:52 AM FINANCIAL INSTITUTION BRANCH MANAGER Missy Castillo APRN.N.PDaisy, Matteo.N.P. LAB SURG PATH ORDERABLES Final Result [facility] [address] [place] [address], [facility] DTL [address] [place] [address] * URO Cystoscopy (general) (09/08/2024 9:00 AM FINANCIAL INSTITUTION BRANCH MANAGER) Narrative Hortensia Quiroga P.A.-C. - 09/08/2024 9:00 AM FINANCIAL INSTITUTION BRANCH MANAGER Hortensia Quiroga P.A.-C. 09/08/2024 9:27 AM URO Cystoscopy (general) Performed by: Hortensia Quiroga P.A.-C. Authorized by: Shellie Howe APRN C.N.PDaisy, JordanN.PDaisy Care team members present 1. Hortensia Quiroga [...] and with IV Contrast (08/13/2024 1:03 PM FINANCIAL INSTITUTION BRANCH MANAGER) Anatomical Region Laterality Modality Abdomen, Pelvis, Abdominal R ST LOS, Abdominal ARZ LOS, Abdominal FLA LOS N/A Computed Tomograp hy, Computed Tomography 08/13/2024 12:4 6 PM FINANCIAL INSTITUTION BRANCH MANAGER Impressions 08/13/2024 3:31 PM FINANCIAL INSTITUTION BRANCH MANAGER 1. 9 mm nonobstructing calculus at the left UPJ, with surrounding ureteral wall thickening and enhancement and periureteral stranding. 2. Additional 10 mm calculus in the urinary bladder and 8 mm nonobstructing calculus in the lower pole right kidney. Narrative 08/13/2024 3:31 PM FINANCIAL INSTITUTION BRANCH MANAGER EXAM: CT UROGRAM WITHOUT AND WITH IV [...] in the lower pole right kidney. us Shellie Howe APRN, C.N.P., D.N.P. IMG CT P ROCEDURES Final Result * Creatinine with Estimated GFR (08/11/2024 10:20 AM FINANCIAL INSTITUTION BRANCH MANAGER) Creatinine 1.21 0.74 - 1.35 mg/dL 08/11/2024 11:29 AM FINANCIAL INSTITUTION BRANCH MANAGER DTL Estimated GFR (eGFR) 61 >=60 mL/min/BSA 08/11/2024 11:29 AM FINANCIAL INSTITUTION BRANCH MANAGER DTL Comment: Estimated GFR calculated using the 2020 CKD_EPI creatinine equation. Blood (Blood, Venous) 08/11/2024 10:20 AM FINANCIAL INSTITUTION BRANCH MANAGER 08/11/2024 11:01 AM FINANCIAL INSTITUTION BRANCH MANAGER Shellie Howe APRN C.N.P., D.N.P. LAB BLOO D ADD-ON Final Result [facility] [address] [place] [address], [facility] DTL [facility] [address] [place] [address] * URO Uroflow (08/08/2024 2:30 PM FINANCIAL INSTITUTION BRANCH MANAGER) Narrative Piter Ferrell M.D. - 08/08/2024 2:30 PM FINANCIAL INSTITUTION BRANCH MANAGER Piter Ferrell M.D. 08/09/2024 8:25 AM Reason [...] Low voided volume with low postvoid residual. Rigoberto Flores M.D. UROLOGY ORDERABLES Final Resul t * (ABNORMAL) Microscopic Automated (08/08/2024 11:45 AM FINANCIAL INSTITUTION BRANCH MANAGER) Microscopy Abnormal 08/08/2024 1:17 PM FINANCIAL INSTITUTION BRANCH MANAGER DTL RBC 11-20(A) <3 /hpf 08/08/2024 1:17 PM FINANCIAL INSTITUTION BRANCH MANAGER DTL Dysmorphic RBC <25 <25 % 08/08/2024 1:17 PM FINANCIAL INSTITUTION BRANCH MANAGER DTL WBC 4-10(A) /hpf 08/08/2024 1:17 PM FINANCIAL INSTITUTION BRANCH MANAGER DTL Comment: ----REFERENCE VALUE---- <4 (Males) <11 (Females) Urine 08/08/2024 11:4 5 AM FINANCIAL INSTITUTION BRANCH MANAGER 08/08/2024 12:51 PM FINANCIAL INSTITUTION BRANCH MANAGER Rigoberto Flores M.D. LAB URINE ORDERABLES Final Res ult Performing Organization Address City/[facility]/ZIP Co de Phone Number [facility] [address] [place] [address], [facility] [address] [place] [address] * PSA (Prostate-Specific Antigen), Diagnostic (08/06/2024 8:45 AM FINANCIAL INSTITUTION BRANCH MANAGER) Prostate-Specific Ag <0.10 <=7.2 ng/mL 08/06/2024 9:47 AM FINANCIAL INSTITUTION BRANCH MANAGER DT Comment: ----ADDITIONAL INFORMATION---- The testing method is an electrochemiluminescence assay manufactured by [employer] and performed on the Modular or Kerrie system. Values obtained with different assay methods or kits may be different and cannot be used interchangeably. Test results cannot be interpreted as absolute evidence for the presence or absence of malignant disease. Blood (Blood, Venous) 08/06/2024 8:45 AM FINANCIAL INSTITUTION BRANCH MANAGER 08/06/2024 9:10 AM FINANCIAL INSTITUTION BRANCH MANAGER Gato Larkin APRN, C.N.P., D.N.P. LAB BLOOD ADD -ON Final Result Performing Organization Address [facility] Co de Phone Number [facility] [address] [place] [address], [facility] [address] [place] [address] from Last 3 Months Insurance [facility] Advance Directives For more information, please contact: [phone] * Full Code (Latest Code Status on File) Date Activated Date Inactivated Comments 10/24/2024 8:10 AM 10/24/2024 3:58 PM Question Answer Comments Full Code: Discussed Care Teams Power Press Supervisor Relationship Specialty Start Date End Date Elsewhere, Pcp PCP - General Internal Medicine 10/24/24
--- OUTSIDE RECORDS SUMMARY | 2024-10-26 02:02 | XMS_ITS | Referral Summary ---
Author Organization [facility] Address [address] [place] [address] Care Team Providers Care Cigarette Machine Operator Name Role Phone Elsewhere, Pcp Primary Care Provider Unavailabl e Source Comments Patient records contain information from all sites at [facility]. For routine questions regarding patient records, call [phone] during business hours, M-F 8:00 AM - 5:00 PM Central Time. Record requests for emergency care only can be directed to [phone] at any time.[facility] Encounters Date Type Department Care Team Description 10/24/2024 11:55 AM PARACHUTE PACKER Ancillary Procedure Department of General Surgery Arrived 10/24/2024 8:34 AM PARACHUTE PACKER Anesthesia Event Outpatient Procedure Center in [place], [place] [address] [place] [phone] Trevor Sheth APRN, CRNA Psomas, Maria N, M.D. 10/24/2024 7:50 AM PARACHUTE PACKER - 10/24/2024 10:00 AM PARACHUTE PACKER Surgery Outpatient Procedure Center in [place], [place] [address] [place] [phone] Gato Shaw M.D. CYSTOLITHOLAPAXY. 10/24/2024 7:48 AM PARACHUTE PACKER - 10/24/2024 1:57 PM PARACHUTE PACKER Hospital Encounter Outpatient Procedure Center in [place], [place] [address] [place] [phone] Gato Shaw M.D. Stone Kidney; Hematuria Discharge Disposition: Home or Self Care 10/23/2024 Clinical Communication Department of Cardiovascular Medicine in [place], [place] [address] [place] [phone] Inocente Avila M.D. OSM - Outside Materials (14-day event monitor /zio patch ) 10/23/2024 Clinical Communication Department of Urology in [place], [place] [address] [place] [phone] Gato Shaw M.D. 10/23/2024 11:37 AM PARACHUTE PACKER - 10/23/2024 11:59 PM PARACHUTE PACKER Hospital Encounter Department of Radiology, [facility] in [place], [place] [address] [place] [phone] Inocente Avila M.D. Bruit Carotid Artery Discharge Disposition: Home or Self Care 10/23/2024 2:00 PM PARACHUTE PACKER Comprehensive Visit Preoperative Evaluation Center in [place], [place] [address] [place] [phone] Winnie Becker M.D., M.S. Silvana Rodriges APRN, C.N.P., M.S.N. Preanesthetic Medical Exam (Primary Dx); Stone Kidney; Primary Malignant Neoplasm Of Prostate (HCC); Hypertension Essential Primary; Other Nonrheumatic Aortic Valve Disorders; Atrial Fibrillation Paroxysmal (HCC); Murmur Heart; Hyperlipidemia; Hematuria 10/21/2024 Clinical Communication Department of Urology in [place], [place] [address] [place] [phone] Molly Mac opc proc 10/21/2024 1:15 PM [facility] Clinical Communication Virtual Review in [place], [place] 200 [place] [address] Pre-visit Intake 10/18/2024 Clinical Communication Department of Urology in [place], [place] [address] [place] [phone] Winnie Becker M.D., M.S. 10/10/2024 2:25 PM PARACHUTE PACKER - 10/10/2024 11:59 PM PARACHUTE PACKER Hospital Encounter Department of Cardiovascular Diseases in [place], [place] [address] [place] [phone] Inocente Avila M.D. Stenosis Aortic Valve Acquired Discharge Disposition: Home or Self Care 10/10/2024 Orders Only Department of Cardiovascular Medicine in [place], [place] [address] [place] [phone] Inocente Avila M.D. Atrial Fibrillation Paroxysmal (HCC) (Primary Dx); Myocardial Injury Nonischemic Nontraumatic; Dysfunction Diastolic; Hyperlipidemia 10/10/2024 10:50 AM PARACHUTE PACKER Hospital Encounter Department of Laboratory Medicine and Pathology, [place], [place] [address] [place] [phone] Gato Shaw M.D. Stone Kidney Discharge Disposition: Home or Self Care 10/10/2024 11:12 AM PARACHUTE PACKER - 10/10/2024 2:24 PM PARACHUTE PACKER Hospital Encounter Department of Radiology, [address] [phone] Gato Shaw M.D. Stone Kidney Discharge Disposition: Home or Self Care 10/10/2024 10:51 AM PARACHUTE PACKER - 10/10/2024 11:11 AM PARACHUTE PACKER Hospital Encounter Department of Laboratory Medicine and Pathology, [facility] in [place], [place] [address] [place] [phone] Gato Shaw M.D. Stone Kidney; Atrial Fibrillation Paroxysmal (HCC); Myocardial Injury Nonischemic Nontraumatic; Dysfunction Diastolic; Hyperlipidemia Discharge Disposition: Home or Self Care 10/10/2024 2:00 PM PARACHUTE PACKER Office Visit Department of Cardiovascular Medicine in [address] [phone] Inocente Avila M.D. Stenosis Aortic Valve Acquired (Primary Dx); Stone Kidney; Bruit Carotid Artery; Hematuria; Atrial Fibrillation Paroxysmal (HCC); Other Specified Conduction Disorders; Hypertensive Heart Disease Without Heart Failure; Hyperlipidemia 10/08/2024 Orders Only Department of Urology in [address] [phone] Hortensia Dwyer R.N. Stone Kidney (Primary Dx) 10/08/2024 Clinical Communication Department of Urology in [place], [place] [address] [place] [phone] Ghanshyam Ye 10/02/2024 Clinical Communication Department of Cardiovascular Medicine in [place], [place] [address] [place] [phone] Acute Care Certified Nursing AssistantSudarshan M.D. Triage 09/30/2024 Clinical Communication Department of Urology in [place], [place] [address] [place] [phone] Gato Shaw M.D. 09/08/2024 8:02 AM PARACHUTE PACKER - 09/08/2024 11:59 PM PARACHUTE PACKER Hospital Encounter Department of Laboratory Medicine and Pathology, [facility] in [place], [place] [address] [place] [phone] Shellie Howe APRN C.N.PDaisy, D.N.P. Hematuria Discharge Disposition: Home or Self Care 09/08/2024 8:02 AM PARACHUTE PACKER - 09/08/2024 11:59 PM PARACHUTE PACKER Hospital Encounter Department of Laboratory Medicine and Pathology, [facility] in [place], [place] [address] [place] [phone] Shellie Howe APRN, C.N.P., D.N.P. Stone Kidney Discharge Disposition: Home or Self Care 09/08/2024 10:30 AM PARACHUTE PACKER Comprehensive Visit Department of Urology in [place], [place] [address] [place] [phone] Gato Shaw M.D. Stone Kidney (Primary Dx) 09/08/2024 9:00 AM PARACHUTE PACKER Procedure visit Department of Urology in [place], [place] [address] [place] [phone] Shellie Howe APRN, C.N.P., D.N.P. Hortensia Quiroga, P.A.-C. Hematuria 09/04/2024 12:45 PM PARACHUTE PACKER Clinical Communication Virtual Review in [place], [place] 200 [place] [address] Pre-visit Intake 08/19/2024 Orders Only Department of Urology in [place], [place] [address] [place] [phone] Shellie Howe APRN, C.N.PDaisy, D.N.P. Hematuria (Primary Dx) 08/14/2024 Orders Only Department of Urology in [address] [phone] Shellie Howe APRN, Missy.N.P., D.N.P. Stone Kidney (Primary Dx) 08/13/2024 12:04 PM PARACHUTE PACKER - 08/13/2024 11:59 PM PARACHUTE PACKER Hospital Encounter Department of Radiology, [address] [phone] Shellie Howe APRN, C.N.P., D.N.P. Hematuria Discharge Disposition: Home or Self Care 08/11/2024 9:20 AM PARACHUTE PACKER - 08/11/2024 11:59 PM PARACHUTE PACKER Hospital Encounter Department of Laboratory Medicine and Pathology, [address] [phone] Shellie Howe APRN C.N.P., D.N.P. Hematuria Discharge Disposition: Home or Self Care 08/08/2024 3:00 PM PARACHUTE PACKER Comprehensive Visit Department of Urology in [address] [phone] Maryana Malik MPAS, P.A.-Missy. Shellie Howe APRN, C.N.P., D.N.P. Hematuria (Primary Dx); Symptom Urinary 08/08/2024 2:30 PM PARACHUTE PACKER Procedure visit Department of Urology in [address] [phone] Rigoberto Flores M.D. Franson, Jane E, RPatti Incontinence Urinary Stress And Urge (Primary Dx); Symptom Urinary 08/08/2024 11:27 AM PARACHUTE PACKER - 08/08/2024 11:59 PM PARACHUTE PACKER Hospital Encounter Department of Laboratory Medicine and Pathology, [address] [phone] Rigoberto Flores M.D. Symptom Urinary Discharge Disposition: Home or Self Care 08/06/2024 9:58 AM PARACHUTE PACKER - 08/06/2024 11:29 AM PARACHUTE PACKER Hospital Encounter Department of Radiation Oncology in [place], [place] [address] [place] [address] Gato Larkin APRN, C.N.P., D.N.P. Primary Malignant Neoplasm Of Prostate (HCC) (Primary Dx) 08/04/2024 12:00 PM PARACHUTE PACKER Clinical Communication Virtual Review in [place], [place] [address] [place] [address] Pre-visit Intake from Last 3 Months Allergies [...] (bladder spasms). 15 tablet 5 2:06 PM PARACHUTE PACKER 10/24/19 25 Active aspirin 81 mg chewable tablet Chew 1 tablet daily. 06/20/20 11 025 Discontinued hydroCHLOROthi azide (HYDRODIURIL) 12.5 mg tablet Stopped for now 05/05/20 21 025 Discontinued( erapy completed) bicalutamide (CASODEX) 50 mg tablet Take 1 tablet (50 mg total) by mouth daily. Take at the same time everyday. Take with or without food. 14 tablet 06/28/20 23 025 Discontinued( erapy completed) apixaban (Eliquis) 5 mg tablet Take 1 tablet by mouth 2 (two) times a day. 10/08/19 25 025 Discontinued( erapy completed) cefdinir (Omnicef) 300 mg capsuleIndicat ions:Stone Kidney Take 1 capsule (300 mg total) by mouth 2 (two) times a day before morning and evening meals for 1 day. Please take the day of catheter removal. 2 capsule 5 2:06 PM PARACHUTE PACKER 10/24/19 25 025 Active Problems Problem Noted [...] APRN, C.N.P., D.N.P. on 06/08/2023 Hyperlipidemia 12/21/2006 Social History Tobacco Use Types Packs/Day Years Used Date Smoking Tobacco: Never Passive Smoke Exposure: Never Smokeless Tobacco: Never Tobacco Cessation:Counseling Given: Not Answered Alcohol Use Standard Drinks/Week Comments Yes 1 (1 standard drink = 0.6 oz pur e alcohol) [facility] Utilities Answer Date Recorded In the past 12 months has e [employer], gas, oil, or water [employer] threatened to shut off services in your [...] your living situation today? 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 Not on f ile Not on file Not on file Last Filed Vital Signs Vital Sign Reading Time Taken Comments Blood Pressure 136/65 10/24/2024 12:45 PM PARACHUTE PACKER Pulse 48 10/24/2024 1:10 PM PARACHUTE PACKER Temperature 36.4 C (97.5 F) 10/24/2024 11:24 AM PARACHUTE PACKER Respiratory Rate 14 10/24/2024 1:10 PM PARACHUTE PACKER Oxygen Saturation 98% 10/24/2024 1:10 PM PARACHUTE PACKER Inhaled Oxygen Concentration - - Weight 91.8 kg (202 lb 6.1 oz) 10/23/2024 1:53 P M PARACHUTE PACKER Height 179 cm (5' 10.47) 10/23/2024 1:53 PM PARACHUTE PACKER Body Mass Index 28.65 10/23/2024 1:53 PM PARACHUTE PACKER Plan of Treatment Upcoming Encounters Date Type Department Care Team (Late st Contact Info) Description 10/27/2024 8:00 AM PARACHUTE PACKER Procedure visit Department of Urology in [place], [place] 200 [place] [phone] Seth Bass M.D. 200 [place] [phone] 12/05/2024 7:40 AM PARACHUTE PACKER Appointment Department of Laboratory Medicine and Pathology, [facility], in [place], [place] [address] [place] [phone] Seth Bass M.D. 200 [place] [phone] 12/05/2024 7:50 AM PARACHUTE PACKER Appointment Department of Laboratory Medicine and Pathology, [facility] in [place], [place] [address] [place] [phone] Seth Bass M.D. [address] [place] [phone] 12/05/2024 8:15 AM PARACHUTE PACKER Appointment Department of Radiology, [facility] in [place], [place] [address] [place] [phone] Seth Bass M.D. [address] [place] [phone] 12/05/2024 9:00 AM PARACHUTE PACKER Appointment Department of Radiology, [facility] in [place], [place] [address] [place] [address] Seth Bass M.D. [address] [place] [phone] 12/05/2024 1:00 PM PARACHUTE PACKER Comprehensive Visit Division of Nephrology and Hypertension in [place], [place] [address] [place] [phone] Manjinder Ty M.D. [address] [place] [phone] 01/01/2025 11:00 AM CDT Telemedicine Division of Nephrology and Hypertension in [place], [place] [address] [place] [phone] Seth Bass M.D. [address] [place] [phone] Medical Devices Implanted Type Area Youth Accommodation Support Worker Device Identifier Shelf Expiration Date Model / Serial / Lot Marker Tissue Biomarc Kv 1x5 - [id number] Implanted:Qty : 4 on 08/08/2023 by Thaddeus Ding M.D. at [facility] Imaging Marker [facility] [id number] 12/01/2027 [id number] / / [id number] Stnt Uret Inl [id number] - [id number] Implanted:Qty : 1 on 10/24/2024 by Gato Shaw M.D. at [facility]/[employer] [id number] 07/31/2028 [id number] / / [id number] Procedures Procedure Name Priority Date/Time Associated Diagnosis Comments FL FLUORO LESS THAN 1 HOUR RAD - Routine (most inpatients and all outpatients) 10/24/2024 11:19 AM PARACHUTE PACKER SURGERY IMAGE EXAM Routine 10/24/2024 11 :17 AM PARACHUTE PACKER LDA ANE NON-SURGICAL AIRWAY Routine 10/24/2024 8:41 AM PARACHUTE PACKER US CAROTID BILATERAL RAD - Routine (most inpatients and all outpatients) 10/23/2024 12:30 PM PARACHUTE PACKER Bruit Carotid Artery (TTE) 2D ECHO DOPPLER COLOR Routine 10/10/2024 4:00 PM PARACHUTE PACKER Stenosis Aortic Valve Acquired MICROSCOPIC MANUAL Routine 10/10/2024 1: 05 PM PARACHUTE PACKER PH, U Routine 10/10/2024 1:05 PM PARACHUTE PACKER DIPSTICK, U Routine 10/10/2024 1:05 PM PARACHUTE PACKER OSMOLALITY, U Routine 10/10/2024 1:05 PM PARACHUTE PACKER URINALYSIS WITH MICROSCOPIC Routine 10/10/2024 1:05 PM PARACHUTE PACKER Stone Kidney BACTERIAL CULTURE, AEROBIC + SUSC, URINE Routine 10/10/2024 1:05 PM PARACHUTE PACKER Stone Kidney ECG Routine 10/10/2024 11:52 AM PARACHUTE PACKER Stone Kidney DX CHEST AP OR PA AND LATERAL 2 VIEWS RAD - Routine (most inpatients and all outpatients) 10/10/2024 11:22 AM PARACHUTE PACKER Stone Kidney LIPID PANEL, S Routine 10/10/2024 11:03 AM PARACHUTE PACKER Atrial Fibrillation Paroxysmal (HCC) 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 Hyperlipidemia THYROID FUNCTION CASCADE, S Routine 10/10/2024 11:03 AM PARACHUTE PACKER Atrial Fibrillation Paroxysmal (HCC) 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 Hyperlipidemia NT-PRO B-TYPE NATRIURETIC PEPTIDE (BNP), S Routine 10/10/2024 11:03 AM PARACHUTE PACKER Atrial Fibrillation Paroxysmal (HCC) 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 Hyperlipidemia TROPONIN T, 5TH GEN, P Routine 10/10/2024 11:03 AM PARACHUTE PACKER Atrial Fibrillation Paroxysmal (HCC) 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 Hyperlipidemia BASIC METABOLIC PANEL, S/P Routine 10/10/2024 11:03 AM PARACHUTE PACKER Stone Kidney CBC WITHOUT DIFFERENTIAL, B Routine 10/10/2024 11:03 AM PARACHUTE PACKER Stone Kidney OUTSIDE US CARD Routine 09/29/2024 12:00 AM PARACHUTE PACKER CYTOLOGY NON-ELECTRICAL DESIGN TECHNOLOGIST (SCHEDULED) Routine 09/08/2024 9:07 AM PARACHUTE PACKER Hematuria URO CYSTOSCOPY (GENERAL) Routine 09/08/2024 9:00 AM PARACHUTE PACKER Hematuria BASIC METABOLIC PANEL, S/P Routine 09/08/2024 8:25 AM PARACHUTE PACKER Stone Kidney CT UROGRAM WITHOUT AND WITH IV CONTRAST RAD - Routine (most inpatients and all outpatients) 08/13/2024 1:03 PM PARACHUTE PACKER Hematuria CREATININE WITH EGFR, S/P Routine 08/11/2024 10:20 AM PARACHUTE PACKER Hematuria URO UROFLOW Routine 08/08/2024 2:30 PM PARACHUTE PACKER Symptom Urinary PH, U Routine 08/08/2024 11:45 AM PARACHUTE PACKER DIPSTICK, U Routine 08/08/2024 11:45 AM PARACHUTE PACKER OSMOLALITY, U Routine 08/08/2024 11:45 AM PARACHUTE PACKER MICROSCOPIC AUTOMATED Routine 08/08/2024 11:45 AM PARACHUTE PACKER URINALYSIS WITH MICROSCOPIC Routine 08/08/2024 11:45 AM PARACHUTE PACKER Symptom Urinary PROSTATE-SPECIFIC AG (PSA) DIAGNOSTIC, S Routine 08/06/2024 8:45 AM PARACHUTE PACKER Primary Malignant Neoplasm Of Prostate (HCC) from Last 3 Months Results * FL Fluoro Less Than 1 Hour (10/24/2024 11:19 AM PARACHUTE PACKER) Narrative [id number] - 10/24/2024 12:20 PM PARACHUTE PACKER This exam does not require a radiologist review or interpretation. Please refer to the patient's medical record on this date for clinical details. us Seth Bass M.D. IMG FLUOROSCOPY PROCEDURES Fi nal Result Performing Organization Address [facility] Co de Phone Number [id number] NA * BLADDER-Surgery Image Exam (10/24/2024 11:17 AM PARACHUTE PACKER) 10/24/2024 11:5 4 AM PARACHUTE PACKER Narrative IIMS - 10/24/2024 11:17 AM PARACHUTE PACKER This order has been created and auto-finalized to support the import of images acquired without order. The clinical documentation to support these images can be found on the encounter that produced images. us Provider Not In System IMG NON RAD IMAGING PROCE DURES Final Result Performing Organization Address [facility]/ZIP Co de Phone Number IIMS NA * LDA ANE NON-SURGICAL AIRWAY (10/24/2024 8:41 AM PARACHUTE PACKER) Narrative Trevor Sheth APRN, CRNA - 10/24/2024 8:41 AM PARACHUTE PACKER Trevor Sheth APRN, CRNA 10/24/2024 8:51 AM [...] successful Notable Events: no complications us Trevor Sheth APRN, CRNA ANESTHESIA ORDERABLES Fin al Result * US Carotid Bilateral (10/23/2024 12:30 PM PARACHUTE PACKER) Anatomical Region Laterality Modality Head and Neck, Ultrasound RS T LOS, Ultrasound ARZ LOS, Neuroradiology FLA LOS, Procedural, Vascular Interventional NWWI LOS Bilateral Ultrasound Impressions 10/23/2024 12:45 PM PARACHUTE PACKER No significant carotid stenosis Narrative 10/23/2024 12:45 PM PARACHUTE PACKER EXAM: US CAROTID BILATERAL Exam performed with [...] normal distal ICA in accordance with [place] Symptomatic Carotid Endarterectomy Trial (NASCET). Procedure Note [...] 2D ECHO DOPPLER COLOR (10/10/2024 4:00 PM PARACHUTE PACKER) Ejection Fraction 65 MC CV EIMS Mid-Ascending [...] Region Laterality Modality Echocardiography 10/10/2024 2:51 PM PARACHUTE PACKER Impressions 10/10/2024 4:01 PM PARACHUTE PACKER LEFT VENTRICLE:Normal left ventricular chamber size. Normal [...] the Order-Level Documents. Narrative 10/10/2024 4:01 PM PARACHUTE PACKER For the complete report, see the Order-Level [...] collapse (>50%). 8. There are no previous [facility] echocardiograms available for comparison. Procedure Note Paras Diaz M.D. - 10/10/2024 For the complete report, see the Order-Level Documents. Hemodynamics Heart Rate: 46 BPM Blood Pressure: 152 / 71 mmHg ECG: Sinus rhythm, Bradycardia Final Impressions 1. Moderate calcific aortic valve stenosis, systolic mean Doppler [id number] mmHg, valve area by Doppler 1.08 cm2. [...] inspiratory collapse(>50%). 8. There are no previous [facility] echocardiograms available forcomparison. Findings LEFT VENTRICLE:Normal [...] * (ABNORMAL) Dipstick, Urine (10/10/2024 1:05 PM PARACHUTE PACKER) Only the most recent of2 resultswithin the time period is included. Hemoglobin, QL, U Large(A) Negative 10/10/2024 2:08 PM PARACHUTE PACKER DTL Leukocyte Esterase, U Trace(A) Negative 10/10/2024 2:08 PM PARACHUTE PACKER DTL Nitrite, U Negative Negative 10/10/2024 2:08 PM PARACHUTE PACKER DTL Ketone, U Negative Negative mg/dL 10/10/2024 2:08 PM PARACHUTE PACKER DTL Glucose, U Negative Negative mg/dL 10/10/2024 2:08 PM PARACHUTE PACKER DTL Urine 10/10/2024 1:05 PM PARACHUTE PACKER 10/10/2024 1:25 PM PARACHUTE PACKER us Gato Shaw M.D. LAB URINE ORDERABLES Final Re sult Performing Organization Address City/[facility] Co de Phone Number [facility] [address] [place] [address], [facility] DTL [facility] [address] [place] [address] * (ABNORMAL) Microscopic Manual (10/10/2024 1:05 PM PARACHUTE PACKER) Microscopy Abnormal 10/10/2024 2:51 PM PARACHUTE PACKER DTL RBC >100(A) <3 /hpf 10/10/2024 2:51 PM PARACHUTE PACKER DTL Dysmorphic RBC <25 <25 % 10/10/2024 2:51 PM PARACHUTE PACKER DTL WBC 4-10(A) /hpf 10/10/2024 2:51 PM PARACHUTE PACKER DTL Comment: ----REFERENCE VALUE---- <4 (Males) <11 (Females) Urine 10/10/2024 1:05 PM PARACHUTE PACKER 10/10/2024 2:08 PM PARACHUTE PACKER us Gato Shaw M.D. LAB URINE ORDERABLES Final Re sult Performing Organization Address City/[facility] Co de Phone Number [facility] [address] [place] [address], [facility] DTL [facility] [address] [place] [address] * Bacterial Culture, Aerobic + Susceptibility, Urine (10/10/2024 1:05 PM PARACHUTE PACKER) Urine Culture Urogenital microbiota, susceptibilities not performed per laboratory criteria. 10/11/2024 2:46 PM PARACHUTE PACKER DTL Urine (Urine, Midstream) 10/10/2024 1:05 PM PARACHUTE PACKER 10/10/2024 2:06 PM PARACHUTE PACKER Comment:Specimen Source Site : Urine us Gato Shaw M.D. LAB MICROBIOLOGY - GENERAL OR DERABLES Final Result Performing Organization Address City/[facility] Co de Phone Number [facility] [address] [place] [address], [facility] [address] [place] [address] * pH, Urine (10/10/2024 1:05 PM PARACHUTE PACKER) Only the most recent of2 resultswithin the time period is included. pH, U 6.0 4.5 - 8.0 10/10/2024 2:3 6 PM PARACHUTE PACKER DT Urine 10/10/2024 1:05 PM PARACHUTE PACKER 10/10/2024 1:25 PM PARACHUTE PACKER us Gato Shaw M.D. LAB URINE ORDERABLES Final Re sult Performing Organization Address City/[facility] Co de Phone Number [facility] [address] [place] [address] * Osmolality, Urine (10/10/2024 1:05 PM PARACHUTE PACKER) Only the most recent of2 resultswithin the time period is included. Osmolality, U 607 150 - 1150 mOsm/kg 10/10/2024 2:36 PM PARACHUTE PACKER DTL Urine 10/10/2024 1:05 PM PARACHUTE PACKER 10/10/2024 1:25 PM PARACHUTE PACKER us Gato Shaw M.D. LAB URINE ORDERABLES Final Re sult Performing Organization Address City/[facility] Co de Phone Number [facility] [address] [place] [address], [facility] [address] [place] [address] * (ABNORMAL) Urinalysis, with Microscopic: Urine, Midstream (10/10/2024 1:05 PM PARACHUTE PACKER) Only the most recent of2 resultswithin the time period is included. Source Urine, Urine, Midstream 10/10/2024 1:25 PM PARACHUTE PACKER DTL Color, U Yellow 10/10/2024 1:25 PM PARACHUTE PACKER DTL Clarity, U Clear 10/10/2024 1:25 PM PARACHUTE PACKER DTL Protein, U 58(H) <26 mg/dL 10/10/2024 2:19 PM PARACHUTE PACKER DTL Protein/Osmol ality 0.96(H) <0.42 ratio 10/10/2024 2:36 PM PARACHUTE PACKER DTL Predicted 24 HR Protein, U 902(H) <229 mg/24 h 10/10/2024 2:36 PM PARACHUTE PACKER DTL Predicted Range 286-2841 mg/24 h 10/10/2024 2:36 PM PARACHUTE PACKER DTL Urine (Urine, Midstream) 10/10/2024 1:05 PM PARACHUTE PACKER 10/10/2024 1:24 PM PARACHUTE PACKER us Gato Shaw M.D. LAB URINE ORDERABLES Final Re sult [facility] [address] [place] [address], [facility] [address] [place] [address] * ECG 12 Lead (10/10/2024 11:52 AM PARACHUTE PACKER) Ventricular Rate ECG/Min 42 BPM MUSE CA Interval 190 ms MUSE QRSD Interval 106 ms MUSE QT Interval 514 ms MUSE QTC Interval 429 ms MUSE P Creola 12 degrees MUSE R Creola -11 degrees MUSE T Wave Creola -1 degrees MUSE 10/10/2024 11:5 2 AM PARACHUTE PACKER 10/10/2024 2:31 PM PARACHUTE PACKER Impressions MUSE - 10/10/2024 11:54 AM PARACHUTE PACKER Marked sinus bradycardia Minimal voltage criteria for [...] and Lateral 2 Views (10/10/2024 11:22 AM PARACHUTE PACKER) Anatomical Region Laterality Modality Chest, Thoracic RST LOS, Tho racic ARZ LOS, Thoracic FLA LOS N/A Digital Radiography Impressions 10/10/2024 11:38 AM PARACHUTE PACKER Interstitial opacities within the bilateral mid and lower lungs, greater on the left. These likely correspond with fibrotic change seen on 08/13/2024 CT urogram. Aortic calcification. Hypertrophic degenerative changes thoracic spine with mild anterior wedging of several midthoracic vertebral bodies. Chest otherwise negative. Narrative 10/10/2024 11:38 AM PARACHUTE PACKER EXAM: DX CHEST AP OR PA AND [...] * (ABNORMAL) Lipid Panel (10/10/2024 11:03 AM PARACHUTE PACKER) Triglycerides 163(H) mg/dL 10/10/2024 12:20 PM PARACHUTE PACKER DTL Comment: ----REFERENCE VALUE---- Normal: <150 mg/dL Borderline High: 150-199 mg/dL High: 200-499 mg/dL Very High: > or =500 mg/dL Cholesterol, Total 143 mg/dL 2024 12:20 PM PARACHUTE PACKER DTL Comment: ----REFERENCE VALUE---- Desirable: < 200 mg/dL Borderline High: 200 - 239 mg/dL High: > or = 240 mg/dL Cholesterol, LDL, Calculated 78 mg/dL 10/10/2024 12:20 PM PARACHUTE PACKER DTL Comment: ----REFERENCE VALUE---- Desirable: <100 mg/dL Above Desirable: 100-129 mg/dL Borderline High: 130-159 mg/dL High: 160-189 mg/dL Very High: >=190 mg/dL ----ADDITIONAL INFORMATION---- LDL cholesterol calculated using the Sawant/NIH equation. Cholesterol, HDL, S 37(L) >=40 mg/dL 10/10/2024 12:20 PM PARACHUTE PACKER DTL Cholesterol, Non-HDL, Calculated 106 mg/dL 10/10/2024 12:20 PM PARACHUTE PACKER DTL Comment: ----REFERENCE VALUE---- Desirable: <130 mg/dL Above Desirable: 130-159 mg/dL Borderline High: 160-189 mg/dL High: 190-219 mg/dL Very High: > or =220 mg/dL Fasting (8 HR or more) Yes 10/10/2024 11:03 AM PARACHUTE PACKER DTL Blood (Blood, Venous) 10/10/2024 11:03 AM PARACHUTE PACKER 10/10/2024 11:36 AM PARACHUTE PACKER us Inocente Avila M.D. LAB BLOOD ADD-ON Final Resul t [facility] [address] [place] [address], [facility] [address] [place] [address] * Thyroid Function Warren (10/10/2024 11:03 AM PARACHUTE PACKER) TSH, Sensitive 1.9 0.3 - 4.2 mIU/L 10/10/2024 12:20 PM PARACHUTE PACKER DTL Blood (Blood, Venous) 10/10/2024 11:03 AM PARACHUTE PACKER 10/10/2024 11:36 AM PARACHUTE PACKER us Inocente Avila M.D. LAB BLOOD ADD-ON Final Resul t Performing Organization Address City/[facility]/ZIP Co de Phone Number [facility] [address] [place] [address] * (ABNORMAL) NT-Pro B-Type Natriuretic Peptide (BNP) (10/10/2024 11:03 AM PARACHUTE PACKER) NT-Pro BNP 710(H) <=540 pg/mL 10/10/2024 12:20 PM PARACHUTE PACKER DTL Comment: NT-proBNP values less than 300 [...] failure. Blood (Blood, Venous) 10/10/2024 11:03 AM PARACHUTE PACKER 10/10/2024 11:36 AM PARACHUTE PACKER us Inocente Avila M.D. LAB BLOOD ADD-ON Final Resul t Performing Organization Address City/[facility] Co de Phone Number [facility] [address] [place], [place] [id number] [place] [address] * (ABNORMAL) CBC without Differential (10/10/2024 11:03 AM PARACHUTE PACKER) Hemoglobin 13.1(L) 13.2 - 16.6 g/dL 10/10/2024 11:43 AM PARACHUTE PACKER DTL Hematocrit 41.4 38.3 - 48.6 % 10/10/2024 11:43 AM PARACHUTE PACKER DTL Erythrocytes 4.36 4.35 - 5.65 x10(12)/L 10/10/2024 11:43 AM PARACHUTE PACKER DTL MCV 95.0 78.2 - 97.9 fL 10/10/2024 11:43 AM PARACHUTE PACKER DTL RBC Distrib Width 13.2 11.8 - 14.5 % 10/10/2024 11:43 AM PARACHUTE PACKER DTL Platelet Count 325(H) 135 - 317 x10(9)/L 10/10/2024 11:43 AM PARACHUTE PACKER DTL Leukocytes 5.2 3.4 - 9.6 x10(9)/L 10/10/2024 11:43 AM PARACHUTE PACKER DTL Blood (Blood, Venous) 10/10/2024 11:03 AM PARACHUTE PACKER 10/10/2024 11:23 AM PARACHUTE PACKER us Gato Shaw M.D. LAB BLOOD ADD-ON Final Result Performing Organization Address City/[facility]/ZIP Co de Phone Number [facility] 200 [place] [address] * (ABNORMAL) Troponin T, 5th Generation (10/10/2024 11:03 AM PARACHUTE PACKER) Pathologist [facility] [place] Troponin T, 5th gen 34(H) <=15 ng/L 10/10/2024 12:25 PM PARACHUTE PACKER DTL Blood (Blood, Venous) 10/10/2024 11:03 AM PARACHUTE PACKER 10/10/2024 11:37 AM PARACHUTE PACKER Inocente Avila M.D. LAB BLOOD ADD-ON Final Resul t Performing Organization Address City/[facility]/ZIP Co de Phone Number [facility] [address] [place] [address] * Basic Metabolic Panel (10/10/2024 11:03 AM PARACHUTE PACKER) Only the most recent of2 resultswithin the time period is included. Potassium, S 4.7 3.6 - 5.2 mmol/L 10/10/2024 12:20 PM PARACHUTE PACKER DTL Sodium, S 141 135 - 145 mmol/L 10/10/2024 12:20 PM PARACHUTE PACKER DTL Chloride, S 104 98 - 107 mmol/L 10/10/2024 12:20 PM PARACHUTE PACKER DTL Bicarbonate, S 26 22 - 29 mmol/L 10/10/2024 12:20 PM PARACHUTE PACKER DTL Anion Gap 11 7 - 15 10/10/2024 12:20 PM PARACHUTE PACKER DTL BUN (Blood Urea Nitrogen), S 17 8 - 24 mg/dL 10/10/2024 12:20 PM PARACHUTE PACKER DTL Creatinine 1.15 0.74 - 1.35 mg/dL 10/10/2024 12:20 PM PARACHUTE PACKER DTL Estimated GFR (eGFR) 64 >=60 mL/min/BSA 10/10/2024 12:20 PM PARACHUTE PACKER DTL Comment: Estimated GFR calculated using the 2020 CKD_EPI creatinine equation. Calcium, Total, S 9.9 8.8 - 10.2 mg/dL 10/10/2024 12:20 PM PARACHUTE PACKER DTL Glucose, S 91 70 - 140 mg/dL 10/10/2024 12:20 PM PARACHUTE PACKER DTL Blood (Blood, Venous) 10/10/2024 11:03 AM PARACHUTE PACKER 10/10/2024 11:36 AM PARACHUTE PACKER us Gato Shaw M.D. LAB BLOOD ADD-ON Final Result [address] [address], [facility] [place] [address] * ECHO TTE COMPLETE W CONTRAST-Outside US Card (09/29/2024 12:00 AM PARACHUTE PACKER) Narrative IIMS - 10/02/2024 2:10 PM PARACHUTE PACKER This order has been created and auto-finalized [...] Final Result IIMS NA * (ABNORMAL) Cytology Non-ELECTRICAL DESIGN TECHNOLOGIST (Scheduled) (09/08/2024 9:07 AM PARACHUTE PACKER) (A ) 09/09/2024 2:39 PM PARACHUTE PACKER DTL Participated in the Interpretation Franki Berry M.D.-Patholog y Fellow(A) 09/09/2024 2:39 PM PARACHUTE PACKER DTL Report electronically signed by Jair Vences M.D., Ph.D. I verify that I have examined all relevant slides/materi als for the specimen(s) and rendered or confirmed the diagnosis. (A) 09/09/2024 2:39 PM PARACHUTE PACKER DTL Gross Description Received 60 cc of yellow fluid.(A) 09/09/2024 2:39 PM PARACHUTE PACKER DTL Source A. Urine, voided(A) 09/09/2024 2:39 PM PARACHUTE PACKER DTL Interpretation A. 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 (A) 09/09/2024 2:39 PM PARACHUTE PACKER DTL Urine 09/08/2024 9:07 AM PARACHUTE PACKER 09/08/2024 10:52 AM PARACHUTE PACKER Shellie Howe APRN, C.N.P., D.N.P. LAB SURG PATH ORDERABLES Final Result [facility] [address] [place] [address], [facility] DTL [address] [place] [address] * URO Cystoscopy (general) (09/08/2024 9:00 AM PARACHUTE PACKER) Narrative Hortensia Quiroga P.A.-C. - 09/08/2024 9:00 AM PARACHUTE PACKER Hortensia Quiroga P.A.-C. 09/08/2024 9:27 AM URO [...] completed successfully: yes Complications: no apparent complications Shellie Howe APRN, C.N.P., D.N.P. UROLOGY ORDERABLES Final Result * CT Urogram without and with IV Contrast (08/13/2024 1:03 PM PARACHUTE PACKER) Anatomical Region Laterality Modality Abdomen, Pelvis, Abdominal R ST LOS, Abdominal ARZ LOS, Abdominal FLA LOS N/A Computed Tomograp hy, Computed Tomography 08/13/2024 12:4 6 PM PARACHUTE PACKER Impressions 08/13/2024 3:31 PM PARACHUTE PACKER 1. 9 mm nonobstructing calculus at the left UPJ, with surrounding ureteral wall thickening and enhancement and periureteral stranding. 2. Additional 10 mm calculus in the urinary bladder and 8 mm nonobstructing calculus in the lower pole right kidney. Narrative 08/13/2024 3:31 PM PARACHUTE PACKER EXAM: CT UROGRAM WITHOUT AND WITH IV [...] Creatinine with Estimated GFR (08/11/2024 10:20 AM PARACHUTE PACKER) Creatinine 1.21 0.74 - 1.35 mg/dL 08/11/2024 11:29 AM PARACHUTE PACKER DTL Estimated GFR (eGFR) 61 >=60 mL/min/BSA 08/11/2024 11:29 AM PARACHUTE PACKER DTL Comment: Estimated GFR calculated using the 2020 CKD_EPI creatinine equation. Blood (Blood, Venous) 08/11/2024 10:20 AM PARACHUTE PACKER 08/11/2024 11:01 AM PARACHUTE PACKER Shellie Howe APRN, C.N.P., D.N.P. LAB BLOO D ADD-ON Final Result [facility] [address] [place] [address], [facility] DTL [facility] [address] [place] [address] * URO Uroflow (08/08/2024 2:30 PM PARACHUTE PACKER) Narrative Piter Ferrell M.D. - 08/08/2024 2:30 PM PARACHUTE PACKER Piter Ferrell M.D. 08/09/2024 8:25 AM Reason [...] * (ABNORMAL) Microscopic Automated (08/08/2024 11:45 AM PARACHUTE PACKER) Microscopy Abnormal 08/08/2024 1:17 PM PARACHUTE PACKER DTL RBC 11-20(A) <3 /hpf 08/08/2024 1:17 PM PARACHUTE PACKER DTL Dysmorphic RBC <25 <25 % 08/08/2024 1:17 PM PARACHUTE PACKER DTL WBC 4-10(A) /hpf 08/08/2024 1:17 PM PARACHUTE PACKER DTL Comment: ----REFERENCE VALUE---- <4 (Males) <11 (Females) Urine 08/08/2024 11:4 5 AM PARACHUTE PACKER 08/08/2024 12:51 PM PARACHUTE PACKER Rigoberto Flores M.D. LAB URINE ORDERABLES [place] [address], [facility] [place] [address] * PSA (Prostate-Specific Antigen), Diagnostic (08/06/2024 8:45 AM PARACHUTE PACKER) Pathologist [facility] [place] Prostate-Specific Ag <0.10 <=7.2 ng/mL 08/06/2024 9:47 AM PARACHUTE PACKER DTL Comment: ----ADDITIONAL INFORMATION---- The testing method is an electrochemiluminescence assay manufactured by [employer] and performed on the Modular or Kerrie system. Values obtained with different assay methods or kits may be different and cannot be used interchangeably. Test results cannot be interpreted as absolute evidence for the presence or absence of malignant disease. Blood (Blood, Venous) 08/06/2024 8:45 AM PARACHUTE PACKER 08/06/2024 9:10 AM PARACHUTE PACKER Gato Larkin APRN, C.N.P., D.NDaisyP. LAB BLOOD ADD -ON Final Result [facility] [address] [place] [address], [place] DTL [facility] [address] [place] [address] from Last 3 Months Insurance [facility] Advance Directives For more information, please contact: [phone] * Full Code (Latest Code Status on File) Date Activated Date Inactivated Comments 10/24/2024 8:10 AM 10/24/2024 3:58 PM Question Answer Comments Full Code: Discussed Care Teams Cigarette Machine Operator Relationship Specialty Start Date End Date Elsewhere, Pcp PCP - General Internal Medicine 10/24/24
--- OUTSIDE RECORDS SUMMARY | 2024-10-26 02:02 | XMS_ITS | Encounter Summary ---
Author Organization [facility] Address [address] [place] [address] Care Team Providers Care Photography Coordinator Name Role Phone Unavailable Primary Care Provider Unavailabl e Reason for Visit * Reason Onset Date Comments Pre-visit Intake 10/21/2024 * Appointment Request (Routine) - Authorized Specialty Diagnoses / Procedures Referred By Sheila t Referred To Contact Urology Referral ID Status Reason Start Date Expiration Date V isits Requested Visits Authorized [id number] Authorized 09/16/2024 09/16/2025 1 1 Encounter Details Date Type Department Care Team (Latest Contact Info) Description 10/21/2024 1:15 PM LANDSCAPE CONTRACTOR Clinical Communication Virtual Review in [address] [phone] Pre-visit Intake Social History Tobacco Use Types Packs/Day Years Used Date Smoking Tobacco: Never Passive Smoke Exposure: Never Smokeless Tobacco: Never Alcohol Use Standard Drinks/Week Comments Yes 1 (1 standard drink = 0.6 oz pur e alcohol) [facility] Utilities Answer Date Recorded In the past 12 months has [employer], gas, oil, or water [employer] threatened to shut off services in your [...] your living situation today? 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 200 [place] [address] 12/05/2024 7:40 AM LANDSCAPE CONTRACTOR Appointment Department of Laboratory Medicine and Pathology, [facility], in [place], [place] [address] [place] [phone] Seth Bass M.D. [address] [place] [address] 12/05/2024 7:50 AM LANDSCAPE CONTRACTOR Appointment Department of Laboratory Medicine and Pathology, [facility] in [place], [place] [address] [place] [address] Seht Bass M.D. [address] [place] [phone] 12/05/2024 8:15 AM LANDSCAPE CONTRACTOR Appointment Department of Radiology, [facility] in [place], [place] [address] [place] [address] Seth Bass M.D. [address] [place] [phone] 12/05/2024 9:00 AM LANDSCAPE CONTRACTOR Appointment Department of Radiology, [facility], in [place], [place] [address] [place] [address] Seth Bass M.D. [address] [place] [phone] 12/05/2024 1:00 PM LANDSCAPE CONTRACTOR Comprehensive Visit Division of Nephrology and Hypertension in [place], [place] [address] [place] [address] Manjinder Ty M.D. [address] [place] [phone] 01/01/2025 11:00 AM CDT Telemedicine Division of Nephrology and Hypertension in [place], [place] [address] [place] [address] Seth Bass M.D. [address] [place] [phone] documented as of this encounter Visit Diagnoses Not on filedocumented in this encounter
--- OUTSIDE RECORDS SUMMARY | 2024-10-26 02:02 | XMS_ITS | Encounter Summary ---
Author Organization [facility] Address [address] [place] [address] Care Team Providers Care Finger Buff Sewer Name Role Phone Unavailable Primary Care Provider Unavailabl e Encounter Details Date Type Department Care Team (Late st Contact Info) Description 10/23/2024 Clinical Communication Department of Urology in [place], [place] [address] [place] [phone] Gato Shaw M.D. [address] [place] [phone] Social History Tobacco Use Types Packs/Day Years Used Date Smoking Tobacco: Never Passive Smoke Exposure: Never Smokeless Tobacco: Never Alcohol Use Standard Drinks/Week Comments Yes 1 (1 standard drink = 0.6 oz pur e alcohol) [facility] Utilities Answer Date Recorded In the past 12 months has [facility] [employer], gas, oil, or water [employer] threatened to shut off services in your [...] your living situation today? 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 - 10/23/2024 3:41 PM PULVI MIXER OPERATOR SUBJECTIVE CHIEF COMPLAINT / REASON FOR CALL No chief complaint on file. PLAN The following information was provided: Spoke with patient and answered questions regarding tomorrow's outpatient surgery. Confirmed patient has been holding Eliquis. All questions answered to patient's apparent satisfaction and he was appreciative of phone call. No further concerns at this time. Information/Education: patient/caller able to teach back The following references were used: nursing clinical judgement I MIXER OPERATOR * Telephone Encounter - Gato Shaw M.D. - 10/23/2024 2:57 PM CST ----- Message from Jesse Calderon sent at 10/23/2024 2:51 PM PULVI MIXER OPERATOR ----- Pt. Is scheduled for a procedure with Dr. Shaw Sunday10/24/24, pt.called in having some questions about the procedure, could someone please call him. [phone] I MIXER OPERATOR documented in this encounter Plan of Treatment Upcoming Encounters Date Type Department Care Team (Late st Contact Info) Description 10/27/2024 8:00 AM PULVI MIXER OPERATOR Procedure visit Department of Urology in [place], [place] [address] [place] [phone] Seth Bass M.D. [address] [place] [phone] 12/05/2024 7:40 AM PULVI MIXER OPERATOR Appointment Department of Laboratory Medicine and Pathology, [place], [place] [address] [place] [phone] Seth Bass M.D. [address] [place] [phone] 12/05/2024 7:50 AM PULVI MIXER OPERATOR Appointment Department of Laboratory Medicine and Pathology, [facility] in [place], [place] [address] [place] [phone] Seth Bass M.D. [address] [place] [place] [phone] 12/05/2024 8:15 AM PULVI MIXER OPERATOR Appointment Department of Radiology, [facility] in [place], [place] [address] [place] [phone] Seth Bass M.D. [address] [place] [phone] 12/05/2024 9:00 AM PULVI MIXER OPERATOR Appointment Department of Radiology, [facility], in [place], [place] [address] [place] [address] Seth Bass M.D. [address] [place] [phone] 12/05/2024 1:00 PM PULVI MIXER OPERATOR Comprehensive Visit Division of Nephrology and Hypertension in [place], [place] [address] [place] [address] Manjinder Ty M.D. [address] [place] [place] [phone] 01/01/2025 11:00 AM CDT Telemedicine Division of Nephrology and Hypertension in [place], [place] [address] [place] [address] Seth Bass M.D. [address] [place] [place] [phone] documented as of this encounter Visit Diagnoses Not on filedocumented in this encounter
--- OUTSIDE RECORDS SUMMARY | 2024-10-26 02:03 | XMS_ITS ---
Author Organization [facility] Address [address] [place] [address] Care Team Providers Care Driver/Refuse Collector Name Role Phone Elsewhere, Pcp Primary Care Provider Unavailabl e Active Problems [...] C.N.P., D.N.P. on 06/08/2023 Hyperlipidemia 12/21/2006 Current Treatment and Therapy Plans No current plan information found. Past Treatment and Therapy Plans Infusion Therapy 1 Plan Name Start Date Discontinue Date Treatment Medications Discontinue Reason Plan Provider leuprolide (LUPRON) 06/13/2023 06/28/2023 No medications scheduled. Therapy Complete Gato Larkin APRN, C.N.P., D.N.P. Past Radiation Episodes * Proton Beam: ProstateOverview* First Treatment Date Last Treatment Date Treatment Site Technique Goal Episode Provider 08/20/2023 08/30/2023 Prostate Proton Beam Curative Juana Avilez S, R.N. * Linked Problems Primary Malignant Neoplasm O f Prostate Treatment Courses* Course [id number] 08/20/2023 - 08/30/2023 Treatment Period Fraction Dose Fractions Total Dose Plans Planned [id number] 08/20/2023 - 08/30/2023 800 cGy 5 / 5 4 ,000 cGy Reference Points Delivered [id number] 08/20/2023 - 08/30/2023 4,000 cGy Lifetime Dose Tracking * Chemical Lifetime Dose Automatic Entry Manual Entr y Radiation 4.5 mGy 4.5 mGy 0 mGy Fluoro Time 0.8 minutes 0.8 minutes 0 minutes
--- OUTSIDE RECORDS SUMMARY | 2024-10-26 02:03 | XMS_ITS | Encounter Summary ---
Author Organization [facility] Address [address] [place] [address] Care Team Providers Care Coke Handling Supervisor Name Role Phone Elsewhere, Pcp Primary Care Provider Unavailabl e Encounter Details Date Type Department Care Team (Late st Contact Info) Description 10/24/2024 11:55 AM BATCHER OPERATOR Ancillary Procedure Department of General Surgery Arrived Social History Tobacco Use Types Packs/Day Years Used Date Smoking Tobacco: Never Passive Smoke Exposure: Never Smokeless Tobacco: Never Alcohol Use Standard Drinks/Week Comments Yes 1 (1 standard drink = 0.6 oz pur e alcohol) [facility] Utilities Answer Date Recorded In the [...] your living situation today? 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 [address] [place] [phone] 12/05/2024 7:40 AM BATCHER OPERATOR Appointment Department of Laboratory Medicine and Pathology, [facility] in [place], [place] [address] [place] [address] Seth Bass M.D. [address] [place] [phone] 12/05/2024 7:50 AM BATCHER OPERATOR Appointment Department of Laboratory Medicine and Pathology, [facility] in [place], [place] [address] [place] [address] Seth Bass M.D. [address] [place] [phone] 12/05/2024 8:15 AM BATCHER OPERATOR Appointment Department of Radiology, [facility], in [place], [place] [address] [place] [phone] Seth Bass M.D. [address] [place] [phone] 12/05/2024 9:00 AM BATCHER OPERATOR Appointment Department of Radiology, [facility], in [place], [place] [address] [place] [phone] Seth Bass M.D. [address] [place] [phone] 12/05/2024 1:00 PM BATCHER OPERATOR Comprehensive Visit Division of Nephrology and Hypertension in [place], [place] [address] [place] [phone] Manjinder Ty M.D. [address] [place] [phone] 01/01/2025 11:00 AM CDT Telemedicine Division of Nephrology and Hypertension in [address] [phone] Seth Bass M.D. [address] [place] [phone] documented as of this encounter Procedures Procedure Name Priority Date/Time Associated Diagnosis Comments SURGERY IMAGE EXAM Routine 10/24/2024 11 :17 AM BATCHER OPERATOR documented in this encounter Results * BLADDER-Surgery Image Exam (10/24/2024 11:17 AM BATCHER OPERATOR) 10/24/2024 11:5 4 AM BATCHER OPERATOR Narrative IIMS - 10/24/2024 11:17 AM BATCHER OPERATOR This order has been created and auto-finalized to support the import of images acquired without order. The clinical documentation to support these images can be found on the encounter that produced images. us Provider Not In System IMG NON RAD IMAGING PROCE DURES Final Result [facility]IMS NA documented in this encounter Visit Diagnoses Not on filedocumented in this encounter Care Teams Coke Handling Supervisor Relationship Specialty Start Date End Date Elsewhere, Pcp PCP - General Internal Medicine 10/24/24 documented as of this encounter
[2024-10-26 02:12] VITALS: BP 180/75; PULSE 59; RESP 18; TEMP 36.6; O2SAT 95; BMI 27.2
[2024-10-26 02:45] VITALS: O2SAT 95
--- NOTE | 2024-10-26 02:46 | CRLHL7_ITS ---
For Patients: As a result of the Century Cures Act, medical imaging exams and procedure reports are released immediately into your electronic medical record. You may view this report before your referring provider. If you have questions, please contact your health care provider. INDICATION: Chest pain, crackle. TECHNIQUE: Chest 2 views. COMPARISON: 09/28/2024. FINDINGS: Cardiovascular and mediastinum: Stable cardiomediastinal contours. Calcifications of the aortic arch Lungs and pleural spaces: Mild slzb-aoyshyt-oggz-right base consolidation. No sign of pleural effusion. No pneumothorax. Bones and soft tissues: No significant findings. IMPRESSION: Mild left greater than right lung base consolidation is nonspecific but could represent atelectasis, aspiration, or pneumonia if clinically suspected. Dictated by Justin Son MD @ 10/26/2024 3:09:10 AM (Electronically Signed)
--- NOTE | 2024-10-26 02:47 | ED.GENADULT ---
HPI - General Adult General Chief complaint: Chest Pain Stated complaint: Chest Pressure Time Seen by Provider: 10/26/24 02:38 Source: patient and family Mode of arrival: ambulatory Limitations: no limitations History of Present Illness HPI narrative: 79-year-old male presents the emergency department for evaluation of chest pain. No fevers, no trauma or injury. Reports he was hospitalized for a few days here at [facility] starting on 09/27. He had some subtle changes that warranted an echo and slight cardiac workup. He does not know the results of this. He had a Holter monitor placed as well. He reports that this has not yet been read. He has had recent kidney stones and had a workup at [facility]. It sounds like they also did an EKG and an echo. No stress test, no angiogram. No prior history of coronary artery disease. Patient had onset of chest pain central chest rated as a 1 to 3/10 slight radiation to the back 3 hours ago. Tried some Mylanta just prior to coming to the ED and now reports that the pain is improved. No recent illness. Denies prior similar episodes. Does have a history of atrial fibrillation, anticoagulated on Eliquis. Denies prior history of DVT or PE. Hospital notes and recent echo reviewed. Moderate aortic stenosis with EF of 60-65%. No major wall motion issues. Past medical history most notable for recent kidney stones, gout, AFib, hyperlipidemia. Patient reports that his medications are not accurate as reflected, the nurse will update these for me and I will again review. Nonsmoker. No known drug allergies. ROS is notable for the chest pain only, otherwise denies times 12 systems. Related Data Home Medications ?Medication ?Instructions ?Recorded ?Confirmed allopurinol 300 mg tablet 300 mg PO DAILY 09/28/24 10/17/24 atorvastatin 10 mg tablet 10 mg PO HS 09/28/24 10/17/24 metoprolol tartrate 25 mg tablet 50 mg PO DAILY 09/29/24 10/17/24 metoprolol tartrate 25 mg tablet 25 mg PO HS 09/30/24 09/30/24 apixaban 5 mg tablet (Eliquis) 5 mg PO DAILY 10/17/24 10/17/24 fluconazole 150 mg tablet mg 10/17/24 tamsulosin 0.4 mg capsule (Flomax) 0.4 mg PO QHS 10/17/24 10/17/24 Previous Rx's ?Medication ?Instructions ?Recorded sulfamethoxazole 800 1 tab PO BID 7 days #14 tabs 10/18/24 mg-trimethoprim 160 mg tablet (Bactrim DS) Allergies Allergy/AdvReac Type Severity Reaction Status Date / Time No Known Drug Allergies Allergy Verified 06/18/23 11:39 [facility] Medical History Hydronephrosis ?N13.30 - Unspecified hydronephrosis (ICD-10) New onset atrial fibrillation ?I48.91 - Unspecified atrial fibrillation (ICD-10) Aortic valve sclerosis ?I35.8 - Other nonrheumatic aortic valve disorders (ICD-10) Kidney stone ?N20.0 - Calculus of kidney (ICD-10) Essential hypertension ?I10 - Essential (primary) hypertension (ICD-10) BPH (benign prostatic hyperplasia) ?N40.0 - Benign prostatic hyperplasia without lower urinary tract symptoms (ICD-10) Surgical History History of colonoscopy ?Z98.890 - Other specified postprocedural states (ICD-10) H/O cataract removal with insertion of prosthetic lens ?Z98.49 - Cataract extraction status, unspecified eye (ICD-10) ?Z96.1 - Presence of intraocular lens (ICD-10) Social History What is your current living situation?: I presently have a place to live Problems where you live: no known problems Problems where you live details: n/a In the past 12 months, utilities in danger of being shut off: no In past 12 months, lack of transportation kept you from medical appts, meetings, work, or getting things needed for daily living: no In the past 12 mos, have been you worried that your food would run out before you had money to buy more?: never true In the past 12 mos, the food you bought just didn't last and you didn't have money to buy more?: never true Smoking Status: Never smoker How often do you have a drink containing alcohol: monthly or less How often do you have six or more drinks on one occasion: Never AUDIT-C Alcohol total score: 1 Non-prescribed substance use: denies use Caffeine: No How often does anyone, including family, friends and others, physically hurt you: never How often does anyone, including family, friends and others, insult or talk down to you: never How often does anyone, including family, friends and others, threaten you with harm: never How often does anyone, including family, friends and others, scream or curse at you: never Exam Const: Vital Signs, click to edit/add: Vital Signs - 24 hr 10/26/24 02:12 10/26/24 04:02 Temperature 97.8 F Pulse Rate 60 Pulse Rate [Pulse Oximeter] 59 L Respiratory Rate 18 20 Blood Pressure 163/72 H Blood Pressure [Le ft Upper Arm] 180/75 H Pulse Oximetry 95 95 Oxygen Delivery Me thod Room Air Documenting provider has reviewed patient's vital signs: yes Common normals: no apparent distress and alert General appearance: cooperative, comfortable and well kempt HENMT: Common normals: normocephalic, moist oral mucous membranes and oropharynx normal Head and scalp: normocephalic Mouth: oral and palatal mucosa normal Throat: posterior oropharynx normal Eye: Common normals: EOMs intact bilaterally and conjunctivae normal General eye: normal appearance of both eyes Conjunctiva: conjunctiva(e) normal Neck & C-Spine: Common normals: full ROM and no lymphadenopathy General: normal visual inspection Chest: Common normals: inspection of chest normal Resp: Common normals: normal respiratory effort and no use of accessory muscles Effort & inspection: able to speak in complete sentences Other: Think crackles right lung miranda, posterior mid and inferior Cardio: Common normals: regular rate and regular rhythm Rate: regular rate Rhythm: regular rhythm Other: 2/6 aortic murmur. GI: Common normals: Normal to inspection, nondistended, normoactive bowel sounds present, soft to palpation, non-tender, no hepatosplenomegaly and no masses Palpation: soft and no hepatosplenomegaly : Common normals: no CVA tenderness Bladder/kidney exam: no CVA tenderness Back & Pelvis: Common normals: no CVA tenderness and thoracic and lumbar spine normal to inspection Extremity: Common normals: normal to inspection, full ROM, normal capillary refill and no pedal edema Neuro: Sensorium/orientation: alert Speech: speech normal Motor exam: no movement abnormalities noted Psych: Common normals: speech normal Appearance: well kempt Attitude: engaged Activity/motor behavior: appropriate eye contact Speech: normal speech Attention/concentration: attention grossly intact Insight: insight good Judgement: judgment good Skin: Common normals: no rashes or lesions noted General skin exam: no rashes or lesions noted Course Course ED Course: 7-year-old male with chest pain history of AFib. Currently seems to be in sinus rhythm with stable vital signs. Differential diagnosis includes acute coronary syndrome, pulmonary embolism, musculoskeletal etiology, esophagitis, GERD. Improvement on Mylanta does suggest potentially a gastrointestinal etiology. Can not exclude atypical presentation of gallbladder disease, pancreatitis, amongst others. I do hear some crackles in the right chest which is more suggestive of a pulmonary process. Of will give famotidine p.o. x1, obtain chest x-ray, viral. Swabs and typical blood work to exclude acute coronary syndrome. EKG and director of cardiac cath lab. Await findings. Reevaluation(s) Time of Reevaluation #1: 04:14 Reevaluation #1: Counseled patient on findings. Labs are essentially reassuring. Chest x-ray is suggestive of new infiltrate. We have good comparison so I do think this is new. No signs of heart failure or heart attack. Troponins are better than when he was hospitalized. To recent reassuring echoes. He is at high risk of infection especially as he has the urinary stent still in place which will come out tomorrow. I do recommend we do a short course of antibiotics. I prescribed doxycycline 100 mg p.o. b.i.d. for a week. Alarm symptoms reviewed would warrant ED presentation. It is okay to continue Tylenol and antacids if this helps as well. He verbalized understanding and agreement. Written instructions provided. Vital Signs Vital signs: Initial Vital Signs Temperature 97.8 F 10/26/24 02:12 Temperature Source Temporal Artery Scan 10/26/24 02:12 Pulse Rate 59 L 10/26/24 02:12 Respiratory Rate 18 10/26/24 02:12 Blood Pressure 180/75 H 10/26/24 02:12 Blood Pressure Mean 110 H 10/26/24 02:12 Blood Pressure Position Sitting 10/26/24 02:12 Pulse Oximetry 95 10/26/24 02:12 Oxygen Delivery Method Room Air 10/26/24 02:12 Vital Signs Temperature 97.8 F 10/26/24 02:12 Pulse Rate 59 L 10/26/24 02:12 Respiratory Rate 18 10/26/24 02:12 Blood Pressure 180/75 H 10/26/24 02:12 Pulse Oximetry 95 10/26/24 02:12 Oxygen Delivery Method Room Air 10/26/24 02:12 Temperature 97.8 F 10/26/24 02:12 Pulse Rate 60 10/26/24 04:02 Respiratory Rate 20 10/26/24 04:02 Blood Pressure 163/72 H 10/26/24 04:02 Pulse Oximetry 95 10/26/24 04:02 Oxygen Delivery Method Room Air 10/26/24 02:12 Medications Administered Medications: Generic Name Dose Route Start Last Admin Trade Name Freq PRN Reason Stop Dose Admin Famotidine 20 mg 10/26/24 02:51 10/26/24 02:58 Famotidine 20 Mg Tablet PO 10/26/24 02:52 20 mg ONCE ONE Administration Medical Decision Making Lab Data Lab results reviewed: Yes I reviewed the patient's lab results Lab results narrative: Labs overall quite reassuring. Labs: Lab Results 10/26/24 10/26/24 Range/Units 02:00 03:00 Sodium 136 (135-149) mmol/L Potassium 4.6 (3.6-5.1) mmol/L Chloride 102 (96-114) mmol/L Carbon Dioxide 27 (20-32) mmol/L Anion Gap 7 (7-15) mEq/L BUN 26 (7-30) mg/dL Creatinine 1.2 (0.5-1.5) mg/dL Estimated Creat Clear 52.29 Estimated GFR 61 ml/min Glucose 93 (60-115) mg/dL Calcium 9.4 (8.4-10.6) mg/dL Total Bilirubin 0.5 (0.1-1.5) mg/dL AST 36 H (12-35) U/L ALT 22 (4-50) U/L Alkaline Phosphatase 106 (40-150) U/L Troponin I 0.02 (0.01-0.04) ng/mL C-Reactive Protein < 0.5 L (0.5-1.0) mg/dL NT-Pro-B Natriuret Pep 728 pg/mL Total Protein 6.9 (6.0-8.3) g/dL Albumin 4.2 (3.3-5.0) g/dL Lipase 63 (23-300) U/L SARS-CoV-2 (PCR) Negative SARS-CoV-2 (Negative) Influenza Type A (PCR) Negative PCR FLU A (Negative) Influenza Type B (PCR) Negative PCR FLU B (Negative) RSV (PCR) Negative PCR RSV (Negative) POC Troponin I 0.02 (0.01-0.04) ng/ml Imaging Data Chest x-ray: Attestation: I have reviewed the pertinent imaging results. My impression: Bibasilar infiltrates, no cardiomegaly or effusion Radiologist's impression: IMPRESSION: Mild left greater than right lung base consolidation is nonspecific but could represent atelectasis, aspiration, or pneumonia if clinically suspected. Dictated by Justin Son MD @ 10/26/2024 3:09:10 AM ECG Data Attestation: I personally reviewed and interpreted this ECG as follows: Prior ECG tracings: available for review Interpretation: Comparison 09/29/2024. Sinus bradycardia rate around 60. QRS widening suggestive of a left bundle branch block is stable. No other significant ST or T-wave abnormalities. Stable EKG. Normal axis. Otherwise normal intervals. Discharge Plan Discharge Clinical Impression: Pneumonia Patient Disposition: Home w/ Parent or Adult Condition: Improved Instructions: Community Acquired Pneumonia (DC) Additional Instructions: As we discussed, your labs look quite reassuring. Your heart is not showing any signs of complication. There are signs of a new early pneumonia developing. This could explain your chest pain. I do recommend that we start you on an antibiotic, doxycycline. He will take 1 pill 2 times daily for the next 7 days. Keep your appointment to have her stent removed tomorrow as as planned. If you have any severe chest pain especially if accompanied by shortness of breath, severe weakness or other alarming symptoms, please come back to the emergency room. It is okay to use Tylenol and antacids as needed. If these help with her symptoms, it does not need urgent evaluation. Activity Level: No Restrictions Discharge Diet: Regular Prescriptions: No Action atorvastatin 10 mg tablet 10 mg PO HS allopurinol 300 mg tablet 300 mg PO DAILY metoprolol tartrate 25 mg tablet 50 mg PO DAILY metoprolol tartrate 25 mg tablet 25 mg PO HS tamsulosin [Flomax] 0.4 mg capsule 0.4 mg PO QHS fluconazole 150 mg tablet Patient Comments: Take 1 tablet BY MOUTH today, repeat in 1 week.* Eliquis 5 mg Tablet 5 mg PO DAILY sulfamethoxazole-trimethoprim [Bactrim DS] 800-160 mg tablet 1 tab PO BID 7 Days Qty: 14 0RF Follow Up/Referrals: Trevor Saha MD [Primary Care Provider] - Stand Alone Forms: [facility] Info Instructions
[2024-10-26] MEDS: FAMOTIDINE 20 MG TABLET PO (02:58)
[2024-10-26 03:17] LABS: Troponin, Point-of-Care* 0.02 ng/ml (0.01-0.04)
[2024-10-26 03:33] LABS: PCR FLU A Negative PCR FLU A (Negative); PCR FLU B Negative PCR FLU B (Negative); PCR RSV Negative PCR RSV (Negative); SARS PCR* Negative SARS-CoV-2 (Negative)
--- OUTSIDE RECORDS SUMMARY | 2024-10-26 03:56 | XMS_ITS | Encounter Summary ---
Author Organization [facility] Address [address] [place] [phone] Care Team Providers Care Investigator Welfare Name Role Phone Unavailable Primary Care Provider Unavailabl e Encounter Details Date Type Department Care Team (Late st Contact Info) Description 10/08/2024 Orders Only Department of Urology in [place], [place] [address] [place] [phone] Hortensia Dwyer, RDaisyNDaisy [address] [place] [address] Stone Kidney (Primary Dx) Social History Tobacco [...] your living situation today? 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 Not on f ile Not on file Not on file documented as of this encounter Plan of Treatment Upcoming Encounters Date Type Department Care Team (Late st Contact Info) Description 10/27/2024 8:00 AM MECHANICAL DRAFTER Procedure visit Department of Urology in [place], [place] [address] [place] [phone] Seth Bass M.D. [address] [place] [phone] 12/05/2024 7:40 AM MECHANICAL DRAFTER Appointment Department of Laboratory Medicine and Pathology, [place], [place] [address] [place] [phone] Steh Bass M.D. [address] [place] [phone] 12/05/2024 7:50 AM MECHANICAL DRAFTER Appointment Department of Laboratory Medicine and Pathology, [place], [place] [address] [place] [address] Seth Bass M.D. [address] [place] [phone] 12/05/2024 8:15 AM MECHANICAL DRAFTER Appointment Department of Radiology, [facility], in [place], [place] [address] [place] [phone] Seth Bass M.D. [address] [place] [phone] 12/05/2024 9:00 AM MECHANICAL DRAFTER Appointment Department of Radiology, [facility], in [place], [place] [address] [place] [address] Seth Bass M.D. [address] [place] [phone] 12/05/2024 1:00 PM MECHANICAL DRAFTER Comprehensive Visit Division of Nephrology and Hypertension in [place], [place] [address] [place] [phone] Manjinder Ty M.D. [address] [place] [phone] 01/01/2025 11:00 AM CDT Telemedicine Division of Nephrology and Hypertension in [place], [place] [address] [place] [phone] Seth Bass M.D. [address] [place] [phone] documented as of this encounter Results * Bacterial Culture, Aerobic + Susceptibility, Urine (10/10/2024 1:05 PM MECHANICAL DRAFTER) Urine Culture Urogenital microbiota, susceptibilities not performed per laboratory criteria. 10/11/2024 2:46 PM MECHANICAL DRAFTER DTL Urine (Urine, Midstream) 10/10/2024 1:05 PM MECHANICAL DRAFTER 10/10/2024 2:06 PM MECHANICAL DRAFTER Comment:Specimen Source Site : Urine Gato Shaw M.D. LAB MICROBIOLOGY - GENERAL OR DERABLES Final Result Performing Organization Address [facility]/ZIP Co de Phone Number [facility] [address] [place] [address], [facility] DTL [facility] 200 [place] [address] * (ABNORMAL) Urinalysis, with Microscopic: Urine, Midstream (10/10/2024 1:05 PM MECHANICAL DRAFTER) Source Urine, Urine, Midstream 10/10/2024 1:25 PM MECHANICAL DRAFTER DTL Color, U Yellow 10/10/2024 1:25 PM MECHANICAL DRAFTER DTL Clarity, U Clear 10/10/2024 1:25 PM MECHANICAL DRAFTER DTL Protein, U 58(H) <26 mg/dL 10/10/2024 2:19 PM MECHANICAL DRAFTER DTL Protein/Osmol ality 0.96(H) <0.42 ratio 10/10/2024 2:36 PM MECHANICAL DRAFTER DTL Predicted 24 HR Protein, U 902(H) <229 mg/24 h 10/10/2024 2:36 PM MECHANICAL DRAFTER DTL Predicted Range 286-2841 mg/24 h 10/10/2024 2:36 PM MECHANICAL DRAFTER DTL Urine (Urine, Midstream) 10/10/2024 1:05 PM MECHANICAL DRAFTER 10/10/2024 1:24 PM MECHANICAL DRAFTER us Gato Shaw M.D. LAB URINE ORDERABLES Final Re sult Performing Organization Address [facility]/ZIP Co de Phone Number [facility] [address] [place] [address], [facility] DTL [facility] 200 [place] [address] documented in this encounter Visit Diagnoses Diagnosis Stone Kidney- Primary documented in this encounter
--- OUTSIDE RECORDS SUMMARY | 2024-10-26 03:56 | XMS_ITS | Encounter Summary ---
Author Organization [facility] Address [address] [place] [address] Care Team Providers Care Physician Internist Name Role Phone Elsewhere, Pcp Primary Care Provider Unavailabl e Encounter Details Date Type Department Care Team (Late st Contact Info) Description 10/08/2024 Clinical Communication Department of Urology in [place], [place] [address] [place] [address] Ghanshyam Ye Social History Tobacco Use Types [...] living situation today? 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 [address] [place] [phone] 12/05/2024 7:40 AM SPECIAL NEEDS LIBRARIAN Appointment Department of Laboratory Medicine and Pathology, [place], [place] [address] [place] [address] Seth Bass M.D. [address] [place] [phone] 12/05/2024 7:50 AM SPECIAL NEEDS LIBRARIAN Appointment Department of Laboratory Medicine and Pathology, [place], [place] [address] [place] [address] Seth Bass M.D. [address] [place] [phone] 12/05/2024 8:15 AM SPECIAL NEEDS LIBRARIAN Appointment Department of Radiology, [place], [place] [address] [place] [address] Seth Bass M.D. [address] [place] [phone] 12/05/2024 9:00 AM SPECIAL NEEDS LIBRARIAN Appointment Department of Radiology, [facility], in [place], [place] [address] [place] [address] Seth Bass M.D. [address] [place] [phone] 12/05/2024 1:00 PM SPECIAL NEEDS LIBRARIAN Comprehensive Visit Division of Nephrology and Hypertension in [place], [place] [address] [place] [address] Manjinder Ty M.D. [address] [place] [phone] 01/01/2025 11:00 AM CDT Telemedicine Division of Nephrology and Hypertension in [place], [place] [address] [place] [address] Seth Bass M.D. [address] [place] [phone] documented as of this encounter Visit Diagnoses Not on filedocumented in this encounter Care Teams Physician Internist Relationship Specialty Start Date End Date Elsewhere, Pcp PCP - General Internal Medicine 10/24/24 documented as of this encounter
--- OUTSIDE RECORDS SUMMARY | 2024-10-26 03:56 | XMS_ITS | Encounter Summary ---
Author Organization [facility] Address [address] [place] [address] Care Team Providers Care Motorboat Mechanic Helper Name Role Phone Unavailable Primary Care Provider Unavailabl e Reason for Referral * Outpatient (Routine) - Closed Specialty Diagnoses / Procedures Referred By Contac t Referred To Contact Diagnoses Bruit Carotid Artery Procedures US Carotid Bilateral Inocente Avila M.D. 200 [place] [address] Phone: tel: fax: [facility] Referral ID Status Reason Start Date Expiration Date Visits Re quested Visits Authorized [id number] Closed 10/10/2024 10/10/2025 1 1 RMATION SCIENTIST * Cardiovascular-Diagnostic (Routine) - Closed Specialty Diagnoses / Procedures Referred By Contac t Referred To Contact Diagnoses Stenosis Aortic Valve Acquired Procedures Echo Transthoracic (TTE) Inocente Avila M.D. [address] [place] [address] Phone: tel: fax: [facility] Referral ID Status Reason Start Date Expiration Date Visits Re quested Visits Authorized [id number] Closed 10/10/2024 10/10/2025 1 1 RMATION SCIENTIST Reason for Visit * Outpatient (Routine) - Closed Specialty Diagnoses / Procedures Referred By Contact Referred To Contact Cardiovascular Diseases / Cardiovascular Disease Diagnoses Stone Kidney Gato Shaw M.D. [address] [place] [address] Phone: tel: fax: [facility] Referral ID Status Reason Start Date Expiration Date Visits Re quested Visits Authorized [id number] Closed 09/30/2024 04/01/2026 1 1 Encounter Details Date Type Department Care Team (Latest Contact Info) Description 10/10/2024 2:00 PM INFORMATION SCIENTIST Office Visit Department of Cardiovascular Medicine in [place], [place] [address] [place] [phone] Inocente Avila M.D. [address] [place] [phone] Stenosis Aortic Valve Acquired (Primary Dx); Stone [...] your living situation today? 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 - 10/10/2024 2:00 PM CST SUBJECTIVE Referring Provider: Gato Shaw M.D. HISTORY OF PRESENT ILLNESS Mr. Lyle Mendez is a 79 y.o. male who is referred to [facility] Cardiovascular Medicine for a cardiovascular preoperative [...] in winter months he walks indoors at [employer] and tries to walk for 30 to [...] current laboratory, imaging, and other diagnostic studies. [facility] laboratory on 08 September 2024 with [...] sinus bradycardia 42 beats per minute. Normal MD interval with QRS duration 106 ms and [...] (uncertain if they will be available via [facility]). #6 Hypertension with increased left ventricular wall [...] follows up with Dr. Saha (Family Medicine; [facility]). #7 Query carotid artery disease Auscultation notable [...] reiterated the assessment and plan as above. RMATION SCIENTIST documented in this encounter Plan of Treatment Upcoming Encounters Date Type Department Care Team (Late st Contact Info) Description 10/27/2024 8:00 AM INFORMATION SCIENTIST Procedure visit Department of Urology in [place], [place] [address] [place] [address] Seth Bass M.D. [address] [place] [phone] 12/05/2024 7:40 AM INFORMATION SCIENTIST Appointment Department of Laboratory Medicine and Pathology, [facility] in [place], [place] [address] [place] [phone] Seth Bass M.D. [address] [place] [phone] 12/05/2024 7:50 AM INFORMATION SCIENTIST Appointment Department of Laboratory Medicine and Pathology, [facility] in [place], [place] [address] [place] [address] Seth Bass M.D. [address] [place] [phone] 12/05/2024 8:15 AM INFORMATION SCIENTIST Appointment Department of Radiology, [facility] in [place], [place] [address] [place] [address] Seth Bass M.D. [address] [place] [phone] 12/05/2024 9:00 AM INFORMATION SCIENTIST Appointment Department of Radiology, [facility], in [place], [place] [address] [place] [address] Seth Bass M.D. [address] [place] [phone] 12/05/2024 1:00 PM INFORMATION SCIENTIST Comprehensive Visit Division of Nephrology and Hypertension in [place], [place] [address] [place] [phone] Manjinder Ty M.D. [address] [place] [phone] 01/01/2025 11:00 AM CDT Telemedicine Division of Nephrology and Hypertension in [place], [place] [address] [place] [phone] Seth Bass M.D. [address] [place] [address] documented as of this encounter Results * US Carotid Bilateral (10/23/2024 12:30 PM INFORMATION SCIENTIST) Anatomical Region Laterality Modality Head and Neck, Ultrasound RS T LOS, Ultrasound ARZ LOS, Neuroradiology FLA LOS, Procedural, Vascular Interventional NWWI LOS Bilateral Ultrasound Impressions 10/23/2024 12:45 PM INFORMATION SCIENTIST No significant carotid stenosis Narrative 10/23/2024 12:45 PM INFORMATION SCIENTIST EXAM: US CAROTID BILATERAL Exam performed with [...] normal distal ICA in accordance with [place] Symptomatic Carotid Endarterectomy Trial (NASCET). Procedure Note [...] 2D ECHO DOPPLER COLOR (10/10/2024 4:00 PM INFORMATION SCIENTIST) [facility] Ejection Fraction 65 MC CV EIMS Mid-Ascending [...] Region Laterality Modality Echocardiography 10/10/2024 2:51 PM INFORMATION SCIENTIST Impressions 10/10/2024 4:01 PM INFORMATION SCIENTIST LEFT VENTRICLE:Normal left ventricular chamber size. Normal [...] the Order-Level Documents. Narrative 10/10/2024 4:01 PM INFORMATION SCIENTIST For the complete report, see the Order-Level [...] collapse (>50%). 8. There are no previous [facility] echocardiograms available for comparison. Procedure Note Paras Diaz M.D. - 10/10/2024 For the complete report, see the Order-Level Documents. Hemodynamics Heart Rate: 46 BPM Blood Pressure: 152 / 71 mmHg ECG: Sinus rhythm, Bradycardia Final Impressions 1. Moderate calcific aortic valve stenosis, systolic mean Doppler [id number] mmHg, valve area by Doppler 1.08 cm2. [...] inspiratory collapse(>50%). 8. There are no previous [facility] echocardiograms available forcomparison. Findings LEFT VENTRICLE:Normal [...]
--- OUTSIDE RECORDS SUMMARY | 2024-10-26 03:56 | XMS_ITS | Encounter Summary ---
Author Organization [facility] Address [address] [place] [address] Care Team Providers Care Document Management Consultant Name Role Phone Elsewhere, Pcp Primary Care Provider Unavailabl e Reason for Visit * Reason Onset Date Comments Triage 10/02/2024 Encounter Details Date Type Department Care Team (Latest Contact Info) Description 10/02/2024 Clinical Communication Department of Cardiovascular Medicine in [place], [place] [address] [place] [address] Software Systems AnalystSudarshan M.D. 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 Coco Rollins at [facility]. She knows Mr. Mendez will be [...] (CBC/BMP) ECG CXR Hospital DC Summary: 10/01/24 ([facility]) Echo: 09/29/24 ([facility]) 1. Normal LV size, moderately [...] Facility Information if known (name, city/state, phone/fax): -[facility], ph [phone] Medical records needed and approximate date: -Echo images. Date: 09/29/24 Date/timeframe records needed by: -Prior to CV appt Notification of records received: -No notification needed (provider will review at time of appt) CH HOUSE OPERATOR CH HOUSE OPERATOR documented in this encounter Plan of Treatment Upcoming Encounters Date Type Department Care Team (Late st Contact Info) Description 10/27/2024 8:00 AM SWITCH HOUSE OPERATOR Procedure visit Department of Urology in [place], [place] [address] [place] [phone] Seth Bass M.D. [address] [place] [phone] 12/05/2024 7:40 AM SWITCH HOUSE OPERATOR Appointment Department of Laboratory Medicine and Pathology, [facility], in [place], [place] [address] [place] [phone] Seth Bass M.D. [address] [place] [phone] 12/05/2024 7:50 AM SWITCH HOUSE OPERATOR Appointment Department of Laboratory Medicine and Pathology, [facility] in [place], [place] [address] [place] [address] Seth Bass M.D. [address] [place] [phone] 12/05/2024 8:15 AM SWITCH HOUSE OPERATOR Appointment Department of Radiology, [facility] in [place], [place] [address] [place] [address] Seth Bass M.D. [address] [place] [phone] 12/05/2024 9:00 AM SWITCH HOUSE OPERATOR Appointment Department of Radiology, [facility] in [place], [place] [address] [place] [address] Seth Bass M.D. [address] [place] [phone] 12/05/2024 1:00 PM SWITCH HOUSE OPERATOR Comprehensive Visit Division of Nephrology and Hypertension in [place], [place] [address] [place] [address] Manjinder Ty M.D. [address] [place] [phone] 01/01/2025 11:00 AM CDT Telemedicine Division of Nephrology and Hypertension in [place], [place] [address] [place] [address] Seth aBss M.D. [address] [place] [phone] documented as of this encounter Visit Diagnoses Not on filedocumented in this encounter Care Teams Document Management Consultant Relationship Specialty Start Date End Date Elsewhere, Pcp PCP - General Internal Medicine 10/24/24 documented as of this encounter
--- OUTSIDE RECORDS SUMMARY | 2024-10-26 03:56 | XMS_ITS | Encounter Summary ---
Author Organization [facility] Address [address] [place] [address] Care Team Providers Care Card Cleaner Name Role Phone Unavailable Primary Care Provider Unavailabl e Encounter Details Date Type Department Care Team (Latest Contact Info) Description 10/10/2024 10:50 AM [facility] Hospital Encounter Department of Laboratory Medicine and Pathology, [facility] in [place], [place] [address] [place] [phone] Gato Shaw M.D. [address] [place] [phone] Stone Kidney Discharge Disposition: Home or Self [...] your living situation today? 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 15 tablet 10/24/2024 2:06 PM REGENERATOR OPERATOR 10/24/2024 cefdinir (Omnicef) 300 mg capsuleIndicatio ns:Stone Kidney Take 1 capsule (300 mg total) by mouth 2 (two) times a day before morning and evening meals for 1 day. Please take the day of catheter removal. 2 capsule 10/24/2024 2:06 PM REGENERATOR OPERATOR 10/24/2024 5 apixaban (Eliquis) 5 mg tablet [...] st Contact Info) Description 10/27/2024 8:00 AM REGENERATOR OPERATOR Procedure visit Department of Urology in [place], [place] [address] [place] [phone] Seth Bass M.D. 200 [place] [address] 12/05/2024 7:40 AM REGENERATOR OPERATOR Appointment Department of Laboratory Medicine and Pathology, [facility] in [place], [place] [address] [place] [phone] Seth Bass M.D. [address] [place] [phone] 12/05/2024 7:50 AM REGENERATOR OPERATOR Appointment Department of Laboratory Medicine and Pathology, [facility] in [place], [place] [address] [place] [address] Seth Bass M.D. [address] [place] [phone] 12/05/2024 8:15 AM REGENERATOR OPERATOR Appointment Department of Radiology, [facility] in [place], [place] [address] [place] [address] Seth Bass M.D. [address] [place] [phone] 12/05/2024 9:00 AM REGENERATOR OPERATOR Appointment Department of Radiology, [facility] in [place], [place] [address] [place] [address] Seth Bass M.D. [address] [place] [phone] 12/05/2024 1:00 PM REGENERATOR OPERATOR Comprehensive Visit Division of Nephrology and Hypertension in [place], [place] [address] [place] [phone] Manjinder Ty M.D. [address] [place] [phone] 01/01/2025 11:00 AM CDT Telemedicine Division of Nephrology and Hypertension in [place], [place] [address] [place] [phone] Seth Bass M.D. [address] [place] [phone] (work) documented as of this encounter Procedures Procedure Name Priority Date/Time Associated Diagnosis Comments DIPSTICK, U Routine 10/10/2024 1:05 PM REGENERATOR OPERATOR MICROSCOPIC MANUAL Routine 10/10/2024 1: 05 PM REGENERATOR OPERATOR BACTERIAL CULTURE, AEROBIC + SUSC, URINE Routine 10/10/2024 1:05 PM REGENERATOR OPERATOR Stone Kidney PH, U Routine 10/10/2024 1:05 PM REGENERATOR OPERATOR OSMOLALITY, U Routine 10/10/2024 1:05 PM REGENERATOR OPERATOR URINALYSIS WITH MICROSCOPIC Routine 10/10/2024 1:05 PM REGENERATOR OPERATOR Stone Kidney documented in this encounter Results * (ABNORMAL) Microscopic Manual (10/10/2024 1:05 PM REGENERATOR OPERATOR) Microscopy Abnormal 10/10/2024 2:51 PM REGENERATOR OPERATOR DTL RBC >100(A) <3 /hpf 10/10/2024 2:51 PM REGENERATOR OPERATOR DTL Dysmorphic RBC <25 <25 % 10/10/2024 2:51 PM REGENERATOR OPERATOR DTL WBC 4-10(A) /hpf 10/10/2024 2:51 PM REGENERATOR OPERATOR DTL Comment: ----REFERENCE VALUE---- <4 (Males) <11 (Females) Urine 10/10/2024 1:05 PM REGENERATOR OPERATOR 10/10/2024 2:08 PM REGENERATOR OPERATOR us Gato Shaw M.D. LAB URINE ORDERABLES Final Re sult [facility] [address] [place] [address], [place] DTL [facility] [address] [place] [address] * pH, Urine (10/10/2024 1:05 PM REGENERATOR OPERATOR) pH, U 6.0 4.5 - 8.0 10/10/2024 2:3 6 PM REGENERATOR OPERATOR DTL Urine 10/10/2024 1:05 PM REGENERATOR OPERATOR 10/10/2024 1:25 PM REGENERATOR OPERATOR us Gato Shaw M.D. LAB URINE ORDERABLES Final Re sult Performing Organization Address [facility] Co de Phone Number [facility] [address] [place] [address], [facility] [address] [place] [address] * (ABNORMAL) Dipstick, Urine (10/10/2024 1:05 PM REGENERATOR OPERATOR) Hemoglobin, QL, U Large(A) Negative 10/10/2024 2:08 PM REGENERATOR OPERATOR DTL Leukocyte Esterase, U Trace(A) Negative 10/10/2024 2:08 PM REGENERATOR OPERATOR DTL Nitrite, U Negative Negative 10/10/2024 2:08 PM REGENERATOR OPERATOR DTL Ketone, U Negative Negative mg/dL 10/10/2024 2:08 PM REGENERATOR OPERATOR DTL Glucose, U Negative Negative mg/dL 10/10/2024 2:08 PM REGENERATOR OPERATOR DTL Urine 10/10/2024 1:05 PM REGENERATOR OPERATOR 10/10/2024 1:25 PM REGENERATOR OPERATOR Result Xuan Shaw M.D. LAB URINE ORDERABLES Final Re sult Performing Organization Address [facility] Co de Phone Number [facility] [address] [place] [address], [facility] [address] [place] [address] * Osmolality, Urine (10/10/2024 1:05 PM REGENERATOR OPERATOR) Osmolality, U 607 150 - 1150 mOsm/kg 10/10/2024 2:36 PM REGENERATOR OPERATOR DTL Urine 10/10/2024 1:05 PM REGENERATOR OPERATOR 10/10/2024 1:25 PM REGENERATOR OPERATOR us Gato Shaw M.D. LAB URINE ORDERABLES Final Re sult Performing Organization Address [facility] Co de Phone Number [facility] [address] [place] [address], [place] [address] * Bacterial Culture, Aerobic + Susceptibility, Urine (10/10/2024 1:05 PM REGENERATOR OPERATOR) Urine Culture Urogenital microbiota, susceptibilities not performed per laboratory criteria. 10/11/2024 2:46 PM REGENERATOR OPERATOR DTL Urine (Urine, Midstream) 10/10/2024 1:05 PM REGENERATOR OPERATOR 10/10/2024 2:06 PM REGENERATOR OPERATOR Comment:Specimen Source Site : Urine Gato Shaw M.D. LAB MICROBIOLOGY - GENERAL OR DERABLES Final Result Performing Organization Address [facility] Co de Phone Number [facility] [address] [place] [address], [facility] [address] [place] [address] * (ABNORMAL) Urinalysis, with Microscopic: Urine, Midstream (10/10/2024 1:05 PM REGENERATOR OPERATOR) Source Urine, Urine, Midstream 10/10/2024 1:25 PM REGENERATOR OPERATOR DTL Color, U Yellow 10/10/2024 1:25 PM REGENERATOR OPERATOR DTL Clarity, U Clear 10/10/2024 1:25 PM REGENERATOR OPERATOR DTL Protein, U 58(H) <26 mg/dL 10/10/2024 2:19 PM REGENERATOR OPERATOR DTL Protein/Osmol ality 0.96(H) <0.42 ratio 10/10/2024 2:36 PM REGENERATOR OPERATOR DTL Predicted 24 HR Protein, U 902(H) <229 mg/24 h 10/10/2024 2:36 PM REGENERATOR OPERATOR DTL Predicted Range 286-2841 mg/24 h 10/10/2024 2:36 PM REGENERATOR OPERATOR DTL Urine (Urine, Midstream) 10/10/2024 1:05 PM REGENERATOR OPERATOR 10/10/2024 1:24 PM REGENERATOR OPERATOR us Gato Shaw M.D. LAB URINE ORDERABLES Final Re sult [facility] [address] [place] [address], [facility] [address] [place] [address] documented in this encounter Visit Diagnoses Diagnosis Stone Kidney documented in this encounter
--- OUTSIDE RECORDS SUMMARY | 2024-10-26 03:56 | XMS_ITS | Encounter Summary ---
Author Organization [facility] Address [address] [place] [address] Care Team Providers Care Architectural Manager Name Role Phone Unavailable Primary Care Provider Unavailabl e Reason for Referral * Outpatient (Routine) - Closed Specialty Diagnoses / Procedures Referred By Sheila bustamante Referred To Contact Diagnoses [facility] Procedures DX Chest AP or PA and Lateral 2 Views Gato Shaw M.D. [address] [place] [phone] Phone: tel: fax: [facility] Referral ID Status Reason Start Date Expiration Date Visits Re quested Visits Authorized [id number] Closed 09/30/2024 09/30/2025 1 1 YSIS INTERN Reason for Visit * Outpatient (Routine) - Closed Specialty Diagnoses / Procedures Referred By Sheila bustamante Referred To Contact Diagnoses [facility] Procedures DX Chest AP or PA and Lateral 2 Views Gato Shaw M.D. [address] [place] [phone] Phone: tel: fax: [facility] Referral ID Status Reason Start Date Expiration Date Visits Re quested Visits Authorized [id number] Closed 09/30/2024 09/30/2025 1 1 Encounter Details Date Type Department Care Team (Latest Contact Info) Description 10/10/2024 11:12 AM ANALYSIS INTERN - 10/10/2024 2:24 PM ANALYSIS INTERN Hospital Encounter Department of Radiology, [facility], in [place], [place] [address] [place] [address] [place] [phone] Gato Shaw M.D. [address] [place] [address] [facility] Discharge Disposition: Home or Self [...] situation today? 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 15 tablet 10/24/2024 2:06 PM ANALYSIS INTERN 10/24/2024 cefdinir (Omnicef) 300 mg capsuleIndicatio ns:[facility] Take 1 capsule (300 mg total) by mouth 2 (two) times a day before morning and evening meals for 1 day. Please take the day of catheter removal. 2 capsule 10/24/2024 2:06 PM ANALYSIS INTERN 10/24/2024 5 apixaban (Eliquis) 5 mg tablet [...] st Contact Info) Description 10/27/2024 8:00 AM ANALYSIS INTERN Procedure visit Department of Urology in [place], [place] [address] [place] [phone] Seth Bass M.D. [address] [place] [phone] 12/05/2024 7:40 AM ANALYSIS INTERN Appointment Department of Laboratory Medicine and Pathology, [place], [place] [address] [place] [phone] Seth Bass M.D. [address] [place] [phone] 12/05/2024 7:50 AM ANALYSIS INTERN Appointment Department of Laboratory Medicine and Pathology, [place], [place] [address] [place] [phone] Seth Bass M.D. [address] [place] [phone] 12/05/2024 8:15 AM ANALYSIS INTERN Appointment Department of Radiology, [place], [place] [address] [place] [phone] Seth Bass M.D. [address] [place] [phone] 12/05/2024 9:00 AM ANALYSIS INTERN Appointment Department of Radiology, [facility], in [place], [place] [address] [place] [phone] Seth Bass M.D. [address] [place] [phone] 12/05/2024 1:00 PM ANALYSIS INTERN Comprehensive Visit Division of Nephrology and Hypertension in [place], [place] [address] [place] [phone] Manjinder Ty M.D. [address] [place] [phone] 01/01/2025 11:00 AM CDT Telemedicine Division of Nephrology and Hypertension in [place], [place] [address] [place] [phone] Seth Bass M.D. [address] [place] [phone] documented as of this encounter Procedures Procedure Name Priority Date/Time Associated Diagnosis Comments DX CHEST AP OR PA AND LATERAL 2 VIEWS RAD - Routine (most inpatients and all outpatients) 10/10/2024 11:22 AM ANALYSIS INTERN [facility] documented in this encounter Results * DX Chest AP or PA and Lateral 2 Views (10/10/2024 11:22 AM ANALYSIS INTERN) Anatomical Region Laterality Modality Chest, Thoracic RST LOS, Tho racic ARZ LOS, Thoracic FLA LOS N/A Digital Radiography Impressions 10/10/2024 11:38 AM ANALYSIS INTERN Interstitial opacities within the bilateral mid and lower lungs, greater on the left. These likely correspond with fibrotic change seen on 08/13/2024 CT urogram. Aortic calcification. Hypertrophic degenerative changes thoracic spine with mild anterior wedging of several midthoracic vertebral bodies. Chest otherwise negative. Narrative 10/10/2024 11:38 AM ANALYSIS INTERN EXAM: DX CHEST AP OR PA AND [...]
--- OUTSIDE RECORDS SUMMARY | 2024-10-26 03:56 | XMS_ITS | Encounter Summary ---
Author Organization [facility] Address [address] [place] [address] Care Team Providers Care Semiconductor Bonder Name Role Phone Unavailable Primary Care Provider Unavailabl e Encounter Details Date Type Department Care Team (Latest Contact Info) Description 10/10/2024 10:51 AM HEEL TRIMMER - 10/10/2024 11:11 AM [facility] Hospital Encounter Department of Laboratory Medicine and Pathology, [facility] in [place], [place] [address] [place] [phone] Gato Shaw M.D. [address] [place] [phone] [facility]; Atrial Fibrillation Paroxysmal (HCC); Myocardial [...] your living situation today? 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 15 tablet 10/24/2024 2:06 PM HEEL TRIMMER 10/24/2024 cefdinir (Omnicef) 300 mg capsuleIndicatio ns:[facility] Take 1 capsule (300 mg total) by mouth 2 (two) times a day before morning and evening meals for 1 day. Please take the day of catheter removal. 2 capsule 10/24/2024 2:06 PM HEEL TRIMMER 10/24/2024 5 apixaban (Eliquis) 5 mg tablet [...] st Contact Info) Description 10/27/2024 8:00 AM HEEL TRIMMER Procedure visit Department of Urology in [place], [place] [address] [place] [phone] Seth Bass M.D. [address] [place] [phone] 12/05/2024 7:40 AM HEEL TRIMMER Appointment Department of Laboratory Medicine and Pathology, [facility] in [place], [place] [address] [place] [phone] Seth Bass M.D. [address] [place] [phone] 12/05/2024 7:50 AM HEEL TRIMMER Appointment Department of Laboratory Medicine and Pathology, [facility] in [place], [place] [address] [place] [phone] Seth Bass M.D. [address] [place] [phone] 12/05/2024 8:15 AM HEEL TRIMMER Appointment Department of Radiology, [facility] in [place], [place] [address] [place] [phone] Seth Bass M.D. [address] [place] [phone] 12/05/2024 9:00 AM HEEL TRIMMER Appointment Department of Radiology, [facility], in [place], [place] [address] [place] [address] Seth Bass M.D. [address] [place] [phone] 12/05/2024 1:00 PM HEEL TRIMMER Comprehensive Visit Division of Nephrology and Hypertension in [place], [place] [address] [place] [phone] Manjinder Ty M.D. [address] [place] [phone] 01/01/2025 11:00 AM CDT Telemedicine Division of Nephrology and Hypertension in [place], [place] [address] [place] [phone] Seth Bass M.D. [address] [place] [phone] documented as of this encounter Procedures Procedure Name Priority Date/Time Associated Diagnosis Comments LIPID PANEL, S Routine 10/10/2024 11:03 AM HEEL TRIMMER Atrial Fibrillation Paroxysmal (HCC) 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 Hyperlipidemia THYROID FUNCTION CASCADE, S Routine 10/10/2024 11:03 AM HEEL TRIMMER Atrial Fibrillation Paroxysmal (HCC) 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 Hyperlipidemia NT-PRO B-TYPE NATRIURETIC PEPTIDE (BNP), S Routine 10/10/2024 11:03 AM HEEL TRIMMER Atrial Fibrillation Paroxysmal (HCC) 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 Hyperlipidemia CBC WITHOUT DIFFERENTIAL, B Routine 10/10/2024 11:03 AM HEEL TRIMMER [facility] TROPONIN T, 5TH GEN, P Routine 10/10/2024 11:03 AM HEEL TRIMMER Atrial Fibrillation Paroxysmal (HCC) 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 Hyperlipidemia BASIC METABOLIC PANEL, S/P Routine 10/10/2024 11:03 AM HEEL TRIMMER [facility] documented in this encounter Results * (ABNORMAL) Lipid Panel (10/10/2024 11:03 AM HEEL TRIMMER) Triglycerides 163(H) mg/dL 10/10/2024 12:20 PM HEEL TRIMMER DTL Comment: ----REFERENCE VALUE---- Normal: <150 mg/dL Borderline High: 150-199 mg/dL High: 200-499 mg/dL Very High: > or =500 mg/dL Cholesterol, Total 143 mg/dL 2024 12:20 PM HEEL TRIMMER DTL Comment: ----REFERENCE VALUE---- Desirable: < 200 mg/dL Borderline High: 200 - 239 mg/dL High: > or = 240 mg/dL Cholesterol, LDL, Calculated 78 mg/dL 10/10/2024 12:20 PM HEEL TRIMMER DTL Comment: ----REFERENCE VALUE---- Desirable: <100 mg/dL Above Desirable: 100-129 mg/dL Borderline High: 130-159 mg/dL High: 160-189 mg/dL Very High: >=190 mg/dL ----ADDITIONAL INFORMATION---- LDL cholesterol calculated using the Sawant/NIH equation. Cholesterol, HDL, S 37(L) >=40 mg/dL 10/10/2024 12:20 PM HEEL TRIMMER DTL Cholesterol, Non-HDL, Calculated 106 mg/dL 10/10/2024 12:20 PM HEEL TRIMMER DTL Comment: ----REFERENCE VALUE---- Desirable: <130 mg/dL Above Desirable: 130-159 mg/dL Borderline High: 160-189 mg/dL High: 190-219 mg/dL Very High: > or =220 mg/dL Fasting (8 HR or more) Yes 10/10/2024 11:03 AM HEEL TRIMMER DTL Blood (Blood, Venous) 10/10/2024 11:03 AM HEEL TRIMMER 10/10/2024 11:36 AM HEEL TRIMMER us Inocente Avila M.D. LAB BLOOD ADD-ON Final Resul t Performing Organization Address City/[facility]/ZIP Co de Phone Number [facility] [address] [place] [address] * Thyroid Function [place] (10/10/2024 11:03 AM HEEL TRIMMER) TSH, Sensitive 1.9 0.3 - 4.2 mIU/L 10/10/2024 12:20 PM HEEL TRIMMER DTL Blood (Blood, Venous) 10/10/2024 11:03 AM HEEL TRIMMER 10/10/2024 11:36 AM HEEL TRIMMER us Inocente Avila M.D. LAB BLOOD ADD-ON Final Resul t Performing Organization Address [facility]/ZIP Co de Phone Number [facility] [address] DTL [facility] 200 [place] [address] * (ABNORMAL) NT-Pro B-Type Natriuretic Peptide (BNP) (10/10/2024 11:03 AM HEEL TRIMMER) [facility] NT-Pro BNP 710(H) <=540 pg/mL 10/10/2024 12:20 PM HEEL TRIMMER DTL Comment: NT-proBNP values less than 300 [...] failure. Blood (Blood, Venous) 10/10/2024 11:03 AM HEEL TRIMMER 10/10/2024 11:36 AM HEEL TRIMMER us Inocente Avila M.D. LAB BLOOD ADD-ON Final Resul t Performing Organization Address [facility]/ZIP Co de Phone Number [facility] [address] [place] [address] * (ABNORMAL) Troponin T, 5th Generation (10/10/2024 11:03 AM HEEL TRIMMER) [facility] Troponin T, 5th gen 34(H) <=15 ng/L 10/10/2024 12:25 PM HEEL TRIMMER DT Blood (Blood, Venous) 10/10/2024 11:03 AM HEEL TRIMMER 10/10/2024 11:37 AM HEEL TRIMMER us Inocente Avila M.D. LAB BLOOD ADD-ON Final Resul t [facility] [address] [address] * Basic Metabolic Panel (10/10/2024 11:03 AM HEEL TRIMMER) Potassium, S 4.7 3.6 - 5.2 mmol/L 10/10/2024 12:20 PM HEEL TRIMMER DTL Sodium, S 141 135 - 145 mmol/L 10/10/2024 12:20 PM HEEL TRIMMER DTL Chloride, S 104 98 - 107 mmol/L 10/10/2024 12:20 PM HEEL TRIMMER DTL Bicarbonate, S 26 22 - 29 mmol/L 10/10/2024 12:20 PM HEEL TRIMMER DTL Anion Gap 11 7 - 15 10/10/2024 12:20 PM HEEL TRIMMER DTL BUN (Blood Urea Nitrogen), S 17 8 - 24 mg/dL 10/10/2024 12:20 PM HEEL TRIMMER DTL Creatinine 1.15 0.74 - 1.35 mg/dL 10/10/2024 12:20 PM HEEL TRIMMER DTL Estimated GFR (eGFR) 64 >=60 mL/min/BSA 10/10/2024 12:20 PM HEEL TRIMMER DTL Comment: Estimated GFR calculated using the 2020 CKD_EPI creatinine equation. Calcium, Total, S 9.9 8.8 - 10.2 mg/dL 10/10/2024 12:20 PM HEEL TRIMMER DTL Glucose, S 91 70 - 140 mg/dL 10/10/2024 12:20 PM HEEL TRIMMER DTL Blood (Blood, Venous) 10/10/2024 11:03 AM HEEL TRIMMER 10/10/2024 11:36 AM HEEL TRIMMER us Gato Shaw M.D. LAB BLOOD ADD-ON Final Result [facility] [address] [place] [address], [facility] [address] [place] [address] * (ABNORMAL) CBC without Differential (10/10/2024 11:03 AM HEEL TRIMMER) Hemoglobin 13.1(L) 13.2 - 16.6 g/dL 10/10/2024 11:43 AM HEEL TRIMMER DTL Hematocrit 41.4 38.3 - 48.6 % 10/10/2024 11:43 AM HEEL TRIMMER DTL Erythrocytes 4.36 4.35 - 5.65 x10(12)/L 10/10/2024 11:43 AM HEEL TRIMMER DTL MCV 95.0 78.2 - 97.9 fL 10/10/2024 11:43 AM HEEL TRIMMER DTL RBC Distrib Width 13.2 11.8 - 14.5 % 10/10/2024 11:43 AM HEEL TRIMMER DTL Platelet Count 325(H) 135 - 317 x10(9)/L 10/10/2024 11:43 AM HEEL TRIMMER DTL Leukocytes 5.2 3.4 - 9.6 x10(9)/L 10/10/2024 11:43 AM HEEL TRIMMER DTL Blood (Blood, Venous) 10/10/2024 11:03 AM HEEL TRIMMER 10/10/2024 11:23 AM HEEL TRIMMER us Gato Shaw M.D. LAB BLOOD ADD-ON Final Result [facility] [address] [place] [address], [facility] 200 [place] [address] documented in this encounter Visit Diagnoses Diagnosis Stone Kidney Atrial Fibrillation Paroxysmal (HCC) 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 Hyperlipidemia documented in this encounter
--- OUTSIDE RECORDS SUMMARY | 2024-10-26 03:56 | XMS_ITS | Encounter Summary ---
Author Organization [facility] Address [address] [place] [id number] Care Team Providers Care Shampooer Name Role Phone Elsewhere, Pcp Primary Care Provider Unavailabl e Reason for Referral * Specialty Diagnoses / Procedures Referred By Sheila bustamante Referred To Contact Diagnoses Stone Kidney Seth Bass M.D. [address] [place] [address] Phone: tel: fax: [facility] Referral ID Status Reason Start Date Expiration Date Visits Re quested Visits Authorized SETTER * Outpatient (Routine) - Authorized Specialty Diagnoses / Procedures Referred By Sheila bustamante Referred To Contact Nephrology and Hypertension Diagnoses Stone Kidney Seth Bass M.D. [address] [place] [address] Phone: tel: fax: [facility] Referral ID Status Reason Start Date Expiration Date V isits Requested Visits Authorized [id number] Authorized 10/24/2024 04/25/2026 1 1 SETTER * Outpatient (Routine) - Authorized Specialty Diagnoses / Procedures Referred By Sheila t Referred To Contact Diagnoses Stone Kidney Procedures DX Kidneys Ureters Bladder Seth Bass M.D. [address] [place] [phone] Phone: tel: fax: [facility] Referral ID Status Reason Start Date Expiration Date V isits Requested Visits Authorized [id number] Authorized 10/24/2024 01/24/2026 1 1 SETTER * Outpatient (Routine) - Authorized Specialty Diagnoses / Procedures Referred By Contsissy t Referred To Contact Diagnoses Stone Kidney Procedures US Kidneys Bilateral with Bladder Seth Bass M.D. [address] [place] [phone] Phone: tel: fax: [facility] Referral ID Status Reason Start Date Expiration Date V isits Requested Visits Authorized [id number] Authorized 10/24/2024 01/24/2026 1 1 SETTER * Outpatient (Routine) - Authorized Specialty Diagnoses / Procedures Referred By Sheila t Referred To Contact Diagnoses Stone Kidney Procedures URO Urethral cath fill / remove / voiding trial (fill / pull) Seth Bass M.D. 200 [place] [address] Phone: tel: fax: [facility] Referral ID Status Reason Start Date Expiration Date V isits Requested Visits Authorized [id number] Authorized 10/24/2024 01/24/2026 1 1 SETTER Reason for Visit * Auth/Cert (Routine) Specialty Diagnoses / Procedures Referred By Contac t Referred To Contact Diagnoses Stone Kidney Hematuria Stone Kidney [N20.0] Hematuria [R31.9] Procedures ME LITHOLAPAXY SMPL <2.5CM ME CYSTHRSCPY W FULG LESNS MINOR ME CYSTHRSCPY/URTRSCPY RMVL CALC CYSTOLITHOLAPAXY CYSTOSCOPY BIOPSY FULGURATION, proceed as indicated URETEROSCOPY STONE EXTRACTION versus stent placement possible return to OR in 90 days Gato Shaw M.D. [address] [place] [address] Phone: tel: fax: Referral ID Status Reason Start Date Expiration Date Visits Re quested Visits Authorized [id number] 1 1 Encounter Details Date Type Department Care Team (Latest Contact Info) Description 10/24/2024 7:48 AM LOCK SETTER - 10/24/2024 1:57 PM LOCK SETTER Hospital Encounter Outpatient Procedure Center in [place], [place] [address] [place] [address] Gato Shaw M.D. [address] [place] [address] Stone Kidney; Hematuria Discharge Disposition: Home or Self Care Social History Tobacco Use Types Packs/Day Years Used Date Smoking Tobacco: Never Passive Smoke Exposure: Never Smokeless Tobacco: Never Alcohol Use Standard Drinks/Week Comments Yes 1 (1 standard drink = 0.6 oz pur e alcohol) [facility] Utilities Answer Date Recorded In the past 12 months has e [employer], gas, oil, or water [employer] threatened to shut off services in your [...] living situation today? 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 * VIDEO: CARE OF YOUR INDWELLING CATHETER: INDWELLING CATHETER CARE FOR MEN (MALAGASY) * Care and Removal of Your Dangle [...] (bladder spasms). 15 tablet 10/24/2024 2:06 PM LOCK SETTER 10/24/2024 cefdinir (Omnicef) 300 mg capsuleIndicatio ns:Stone Kidney Take 1 capsule (300 mg total) by mouth 2 (two) times a day before morning and evening meals for 1 day. Please take the day of catheter removal. 2 capsule 10/24/2024 2:06 PM LOCK SETTER 10/24/2024 5 documented as of this encounter OR Notes * Op Note - Seth Bass M.D. - 10/24/2024 9:01 AM CST Pre-op Diagnosis Stone Kidney Hematuria Post-op Diagnosis Stone Kidney Hematuria Cooler Operator A certified ophthalmic assistant actively participated and was necessary for [...] sequentially dilated using Olga sounds to 30 Mauritanian. The high-flow bipolar resectoscope was advanced into the bladder. The 550 nanometer holmium laser fiber was then used tofragment the bladder stone. All stone fragments were evacuated through the cystoscope sheath. Givenpatient's suspicious cytology with no overt mucosal lesions, decision was made to proceed with mapping bladder biopsies. Nurse Ortho biopsies were taken from the trigone, right [...] the left renal pelvis under fluoroscopic guidance. Log Hauler images did reveal the previously seen renal [...] or clinically significant mucosal injury. A 7 Mauritanian by 28 cm double-J ureteral stent was then advanced into the left renal pelvis under fluoroscopy. The wire was removed and the stent was deployed in the usual fashion with satisfactory proximal curl in the renal pelvis and satisfactory distal curl in the bladder confirmed fluoroscopically. Stent was left on a dangle. An 18 Mauritanian coude catheter was placed into the bladder as its conclusion of the procedure with 10 cc in the balloon. This irrigated easily to clear light pink. The patient was then aroused from anesthesia and transferred to the recovery room in stable condition. He tolerated the procedure well and there were no immediate complications. Seth Bass M.D. Cosigned by Gato Shwa M.D. at 10/24/2024 12:42 PM LOCK SETTER SETTER SETTER documented in this encounter Plan of Treatment Upcoming Encounters Date Type Department Care Team (Late st Contact Info) Description 10/27/2024 8:00 AM LOCK SETTER Procedure visit Department of Urology in [place], [place] [address] [place] [address] Seth Bass M.D. [address] [place] [address] 12/05/2024 7:40 AM LOCK SETTER Appointment Department of Laboratory Medicine and Pathology, [facility] in [place], [place] [address] [place] [address] Seth Bass M.D. [address] [place] [phone] 12/05/2024 7:50 AM LOCK SETTER Appointment Department of Laboratory Medicine and Pathology, [facility] in [place], [place] [address] [place] [address] Seth Bass M.D. [address] [place] [phone] 12/05/2024 8:15 AM LOCK SETTER Appointment Department of Radiology, [facility] in [place], [place] [address] [place] [address] Seth Bass M.D. [address] [place] [phone] 12/05/2024 9:00 AM LOCK SETTER Appointment Department of Radiology, [facility] in [place], [place] [address] [place] [address] Seth Bass M.D. [address] [place] [phone] 12/05/2024 1:00 PM LOCK SETTER Comprehensive Visit Division of Nephrology and Hypertension in [place], [place] [address] [place] [phone] Manjinder Ty M.D. [address] [place] [phone] 01/01/2025 11:00 AM CDT Telemedicine Division of Nephrology and Hypertension in [place], [place] [address] [place] [phone] Seth Bass M.D. [address] [place] [phone] Pending Results Name Type Priority Associated Diagnoses Date /Time Surgical Pathology Pathology and Cytology Routine Stone Kidney Hematuria 10/24/2024 9:34 AM LOCK SETTER Scheduled Orders Name Type Priority Associated Diagnoses [...] inpatients and all outpatients) 10/24/2024 11:19 AM LOCK SETTER documented in this encounter Results * FL Fluoro Less Than 1 Hour (10/24/2024 11:19 AM LOCK SETTER) Narrative [id number] - 10/24/2024 12:20 PM LOCK SETTER This exam does not require a radiologist review or interpretation. Please refer to the patient's medical record on this date for clinical details. us Seth Bass M.D. IMG FLUOROSCOPY PROCEDURES Fi nal Result [id number] NA documented in this encounter Visit Diagnoses [...] in preprocedural area. Given 10/24/2024 8:13 AM LOCK SETTER 1,000 mg chlorhexidine 0.12 % mouthwash 15 [...] of 200 mcg Given 10/24/2024 12:07 PM LOCK SETTER 25 mcg Given 10/24/2024 11:54 AM LOCK SETTER 25 mcg Given 10/24/2024 11:46 AM LOCK SETTER 25 mcg Lactated Ringer's 20 mL/hr, intravenous, Continuous, Starting on Sun10/24/24 at 0830, Pre-Op New Bag 10/24/2024 8:13 AM LOCK SETTER 20 mL/hr 20 mL/h r oxyBUTYnin tablet 5 mg (Ditropan) 5 mg, oral, Once as needed, bladder spasms, Starting on Sun10/24/24 at 1152, For 1 dose, PACU (only), If patient is not required to void prior to dismissal Given 10/24/2024 11:52 AM LOCK SETTER 5 mg oxyCODONE IR tablet 5 mg (Roxicodone) 5 mg, oral, Once as needed, moderate pain or score 4-6 of 10, Starting on Sun10/24/24 at 1140, For 1 dose, PACU (only) Given 10/24/2024 11:52 AM LOCK SETTER 5 mg sodium chloride 0.9 % injection [...] Recently Administered Medications Times are shown in LOCK SETTER. Scheduled Medication Order 10/22/2024 10/23/2024 10/24/2024 acetaminophen [...] 0850 (Given - Provid er: Trevor Sheth, BUSINESS LINE MANAGER, FUNDING ANALYST) sodium chloride 0.9 % injection 3 mL [...] injection documented in this encounter Care Teams Shampooer Relationship Specialty Start Date End Date Elsewhere, Pcp PCP - General Internal Medicine 10/24/24 documented as of this encounter
--- OUTSIDE RECORDS SUMMARY | 2024-10-26 03:56 | XMS_ITS | Encounter Summary ---
Author Organization [facility] Address [address] [place] [address] Care Team Providers Care Prepress Supervisor Name Role Phone Elsewhere, Pcp Primary Care Provider Unavailabl e Reason for Referral * Outpatient (Routine) - Closed Specialty Diagnoses / Procedures Referred By Contac t Referred To Contact Diagnoses Stone Kidney Procedures DX Chest AP or PA and Lateral 2 Views Gato Shaw M.D. 200 [place] [address] Phone: tel: fax: [facility] Referral ID Status Reason Start Date Expiration Date Visits Re quested Visits Authorized [id number] Closed 09/30/2024 09/30/2025 1 1 R ASSOCIATE * Outpatient (Routine) - Closed Specialty Diagnoses / Procedures Referred By Contac t Referred To Contact Diagnoses Stone Kidney Procedures ECG 12 Lead Gato Shaw M.D. 200 [place] [address] Phone: tel: fax: [facility] Referral ID Status Reason Start Date Expiration Date Visits Re quested Visits Authorized [id number] Closed 09/30/2024 09/30/2025 1 1 R ASSOCIATE * Outpatient (Routine) - Closed Specialty Diagnoses / Procedures Referred By Contact Referred To Contact Cardiovascular Diseases / Cardiovascular Disease Diagnoses Stone Kidney Gato Shaw M.D. [address] [place] [address] Phone: tel: fax: [facility] Referral ID Status Reason Start Date Expiration Date Visits Re quested Visits Authorized [id number] Closed 09/30/2024 04/01/2026 1 1 Scheduling Instructions Please schedule at least a week prior to surgery on 10/24 to allow for Eliquis recommendations R ASSOCIATE Encounter Details Date Type Department Care Team (Late st Contact Info) Description 09/30/2024 Clinical Communication Department of Urology in [place], [place] [address] [place] [phone] Gato Shaw M.D. [address] [place] [address] Social History Tobacco Use Types Packs/Day Years [...] your living situation today? 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 [address] [place] [phone] 12/05/2024 7:40 AM FLOOR ASSOCIATE Appointment Department of Laboratory Medicine and Pathology, [place], [place] [address] [place] [address] Seth Bass M.D. [address] [place] [phone] 12/05/2024 7:50 AM FLOOR ASSOCIATE Appointment Department of Laboratory Medicine and Pathology, [place], [place] [address] [place] [phone] Seth Bass M.D. [address] [place] [phone] 12/05/2024 8:15 AM FLOOR ASSOCIATE Appointment Department of Radiology, [place], [place] [address] [place] [address] Seth Bass M.D. [address] [place] [phone] 12/05/2024 9:00 AM FLOOR ASSOCIATE Appointment Department of Radiology, [facility], in [place], [place] [address] [place] [address] Seth Bass M.D. [address] [place] [phone] 12/05/2024 1:00 PM FLOOR ASSOCIATE Comprehensive Visit Division of Nephrology and Hypertension in [place], [place] [address] [place] [phone] Manjinder Ty M.D. [address] [place] [phone] 01/01/2025 11:00 AM CDT Telemedicine Division of Nephrology and Hypertension in [place], [place] [address] [place] [address] Seth Bass M.D. [address] [place] [phone] Scheduled Referrals Name Type Priority Associated Diagnoses Order Schedule Cardiovascular Disease - YESSENIA consult (clinic) Outpatient Referral Routine Stone Kidney Expected: 09/30/2024, Expires: 12/29/2025 documented as of this encounter Results * ECG 12 Lead (10/10/2024 11:52 AM FLOOR ASSOCIATE) Ventricular Rate ECG/Min 42 BPM MUSE AL Interval 190 ms MUSE QRSD Interval 106 ms MUSE QT Interval 514 ms MUSE QTC Interval 429 ms MUSE P Sibley 12 degrees MUSE R S[place] -11 degrees MUSE T Wave S[place] -1 degrees MUSE 10/10/2024 11:5 2 AM FLOOR ASSOCIATE 10/10/2024 2:31 PM FLOOR ASSOCIATE Impressions MUSE - 10/10/2024 11:54 AM FLOOR ASSOCIATE Marked sinus bradycardia Minimal voltage criteria for [...] and Lateral 2 Views (10/10/2024 11:22 AM FLOOR ASSOCIATE) Anatomical Region Laterality Modality Chest, Thoracic RST LOS, Tho racic ARZ LOS, Thoracic FLA LOS N/A Digital Radiography Impressions 10/10/2024 11:38 AM FLOOR ASSOCIATE Interstitial opacities within the bilateral mid and lower lungs, greater on the left. These likely correspond with fibrotic change seen on 08/13/2024 CT urogram. Aortic calcification. Hypertrophic degenerative changes thoracic spine with mild anterior wedging of several midthoracic vertebral bodies. Chest otherwise negative. Narrative 10/10/2024 11:38 AM FLOOR ASSOCIATE EXAM: DX CHEST AP OR PA AND [...] * Basic Metabolic Panel (10/10/2024 11:03 AM FLOOR ASSOCIATE) Potassium, S 4.7 3.6 - 5.2 mmol/L 10/10/2024 12:20 PM FLOOR ASSOCIATE DTL Sodium, S 141 135 - 145 mmol/L 10/10/2024 12:20 PM FLOOR ASSOCIATE DTL Chloride, S 104 98 - 107 mmol/L 10/10/2024 12:20 PM FLOOR ASSOCIATE DTL Bicarbonate, S 26 22 - 29 mmol/L 10/10/2024 12:20 PM FLOOR ASSOCIATE DTL Anion Gap 11 7 - 15 10/10/2024 12:20 PM FLOOR ASSOCIATE DTL BUN (Blood Urea Nitrogen), S 17 8 - 24 mg/dL 10/10/2024 12:20 PM FLOOR ASSOCIATE DTL Creatinine 1.15 0.74 - 1.35 mg/dL 10/10/2024 12:20 PM FLOOR ASSOCIATE DTL Estimated GFR (eGFR) 64 >=60 mL/min/BSA 10/10/2024 12:20 PM FLOOR ASSOCIATE DTL Comment: Estimated GFR calculated using the 2020 CKD_EPI creatinine equation. Calcium, Total, S 9.9 8.8 - 10.2 mg/dL 10/10/2024 12:20 PM FLOOR ASSOCIATE DTL Glucose, S 91 70 - 140 mg/dL 10/10/2024 12:20 PM FLOOR ASSOCIATE DTL Blood (Blood, Venous) 10/10/2024 11:03 AM FLOOR ASSOCIATE 10/10/2024 11:36 AM FLOOR ASSOCIATE us Gato Shaw M.D. LAB BLOOD ADD-ON Final Result [address] [address], [facility] [address] [place] [address] * (ABNORMAL) CBC without Differential (10/10/2024 11:03 AM FLOOR ASSOCIATE) Hemoglobin 13.1(L) 13.2 - 16.6 g/dL 10/10/2024 11:43 AM FLOOR ASSOCIATE DTL Hematocrit 41.4 38.3 - 48.6 % 10/10/2024 11:43 AM FLOOR ASSOCIATE DTL Erythrocytes 4.36 4.35 - 5.65 x10(12)/L 10/10/2024 11:43 AM FLOOR ASSOCIATE DTL MCV 95.0 78.2 - 97.9 fL 10/10/2024 11:43 AM FLOOR ASSOCIATE DTL RBC Distrib Width 13.2 11.8 - 14.5 % 10/10/2024 11:43 AM FLOOR ASSOCIATE DTL Platelet Count 325(H) 135 - 317 x10(9)/L 10/10/2024 11:43 AM FLOOR ASSOCIATE DTL Leukocytes 5.2 3.4 - 9.6 x10(9)/L 10/10/2024 11:43 AM FLOOR ASSOCIATE DTL Blood (Blood, Venous) 10/10/2024 11:03 AM FLOOR ASSOCIATE 10/10/2024 11:23 AM FLOOR ASSOCIATE us Gato Shaw M.D. LAB BLOOD ADD-ON Final Result [facility] [address] [place] [address], [facility] [address] [place] [address] documented in this encounter Visit Diagnoses Diagnosis Stone Kidney- Primary Stone Kidney documented in this encounter Care Teams Prepress Supervisor Relationship Specialty Start Date End Date Elsewhere, Pcp PCP - General Internal Medicine 10/24/24 documented as of this encounter
--- OUTSIDE RECORDS SUMMARY | 2024-10-26 03:56 | XMS_ITS | Clinical Summary ---
Author Organization [facility] Address [place], [place] [address] Care Team Providers Care Belt Conveyor Drier Name Role Phone Trevor Saha MD Primary Care Provider [phone] Marcelo Meek MD Unavailable [phone] Allergies No known active allergies Medications aspirin [...] Type Department Care Team Description 10/23/2024 Telephone [facility] [address] [place] [address] Trevor Saha MD Results (Zio patch) 10/08/2024 1:10 PM BOX SPRING UPHOLSTERER Office Visit [facility] [address] [address] Trevor Saha MD Medicare ANNUAL (subsequent) Visit (Hospital follow up) 10/08/2024 Travel 09/29/2024 11:00 AM BOX SPRING UPHOLSTERER Ancillary Procedure [facility] [place] [facility] [address] [place] [address] 09/28/2024 Orders Only [facility] Scanner 1 scan: (1-Ord) [facility], CT ANGIO CHEST PE PROTOCOL, 09/28/2024 09/28/2024 Orders Only [facility] Scanner 1 scan: (1-Ord) [facility], WEAKNESS, 09/28/2024 09/15/2024 2:55 PM BOX SPRING UPHOLSTERER Phone Office Visit [facility] [address] [place] [address] Francesca Torres PA exposure to influenza 09/15/2024 Travel 08/16/2024 Refill [facility] [address] [place] [address] Trevor Saha MD Refill Request (Atorvastatin) 08/06/2024 Refill [facility] [address] [place] [address] Trevor Saha MD Refill Request (Tamsulosin) 07/30/2024 Refill [facility] [address] [place] [address] Trevor Saha MD Refill Request (Allopurinol) from Last 3 Months Immunizations Name Administration Dates Next Due COVID-19 vaccine (Moderna 100mcg/0.5mL) PF, MDV 01/25/2022 COVID-19 vaccine (Lockstream-Bio NTech 30mcg/0.3mL) PF, MDV 06/30/2021,12/07/2020,11/16/2020 HepA-HepB (Twinrix) [...] arotid artery surgery Heart Disease Father of [place] at 72 Stroke Father age 40s Heart [...] PM CDT Legal Sex Male 6:25 AM BOX SPRING UPHOLSTERER Gender Identity Not on file Sexual Orientation Not on file 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 on file 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 on 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 Not on file Not on file Obstetrics History Last Filed Vital Signs Vital Sign Reading Time Taken Comments Blood Pressure 126/67 10/08/2024 1:17 PM BOX SPRING UPHOLSTERER Pulse 50 10/08/2024 1:17 PM BOX SPRING UPHOLSTERER Temperature 36.3 C (97.4 F) 06/24/2024 1:39 PM CDT Respiratory Rate 16 07/15/2015 8:59 AM CDT Oxygen Saturation 99% 10/08/2024 1:17 PM BOX SPRING UPHOLSTERER Inhaled Oxygen Concentration - - Weight 93 kg (205 lb) 10/08/2024 1:17 PM BOX SPRING UPHOLSTERER Height 179.1 cm (5' 10.5) 10/08/2024 1:17 PM CS T Body Mass Index 29 10/08/2024 1:17 PM BOX SPRING UPHOLSTERER Plan of Treatment Health Maintenance Due Date [...] history exists Medical Devices Implanted Type Area Claim Auditor Device Identifier Shelf Expiration Date Model / Serial / Lot Lens Iol Pcb00 30.0 - [id number] Implanted:Qty: 1 on 07/15/2015 by Connor Hsieh MD at [facility] Right: Eye [employer] 02/12/2018 PCB00# / [id number] / Procedures Procedure Name Priority Date/Time Associated Diagnosis Comments HEMOGLOBIN A1C Routine 10/08/2024 2:25 PM BOX SPRING UPHOLSTERER Hyperglycemia PSA TOTAL Routine 10/08/2024 2:25 PM BOX SPRING UPHOLSTERER Prostate cancer screening URIC ACID Routine 10/08/2024 2:25 PM BOX SPRING UPHOLSTERER Acute idiopathic gout of left foot LIPID PANEL W REFLEX MEASURED LDL Routine 10/08/2024 2:25 PM BOX SPRING UPHOLSTERER Hyperlipidemia LDL goal < 130 BASIC METABOLIC PANEL Routine 10/08/2024 2:25 PM BOX SPRING UPHOLSTERER Essential hypertension ECHO TTE COMPLETE W CONTRAST Routine 09/29/2024 11:48 AM BOX SPRING UPHOLSTERER Newly recognized murmur Dizzinesses SCAN-CT INTERPRETATION 12:00 AM BOX SPRING UPHOLSTERER SCAN-RADIOLOGY REPORT 09/28/2024 12:00 AM BOX SPRING UPHOLSTERER from Last 3 Months Results * HEMOGLOBIN A1C (10/08/2024 2:25 PM BOX SPRING UPHOLSTERER) HEMOGLOBIN A1C 5.6 <5.7 % of total [...] diagnosis of diabetes in children. According to [place] Diabetes Association (ADA) guidelines, hemoglobin A1c <7.0% represents optimal control in non- diabetic patients. Different metrics may apply to specific patient populations. Standards of Medical Care in Diabetes(ADA). Blood BLOOD SPECIMEN / Unknown 10/08/2024 2:25 PM BOX SPRING UPHOLSTERER 10/08/2024 2:25 PM BOX SPRING UPHOLSTERER us Trevor Saha MD CHEMISTRY Final Resu lt [facility] [address] [place] [address], [facility] [address] [place] [address] * (ABNORMAL) LIPID PANEL W REFLEX MEASURED LDL (10/08/2024 2:25 PM BOX SPRING UPHOLSTERER) [facility] CHOLESTEROL, TOTAL 126 <200 mg/dL [facility] Manuel HDL CHOLESTEROL 34(L) > OR = 40 mg/dL [facility] TRIGLYCERIDES 209(H) <150 mg/dL [facility] Jose Manuel Comment: If a non-fasting specimen was collected, consider repeat triglyceride testing on a fasting specimen if clinically indicated. Jayjay et al. J. of Clin. Lipidol. 2015;9:129-169. LDL-CHOLESTEROL 65 mg/dL (calc) [facility] Comment: Reference range: <100 Desirable range <100 mg/dL for primary prevention; <70 mg/dL for patients with CHD or diabetic patients with > or = 2 CHD risk factors. LDL-C is now calculated using the Vicente calculation, which is a validated novel method providing better accuracy than the Friedewald equation in the estimation of LDL-C. Marcelo STREET et al. CARLA. 2013;310(19): 0880-4930 (http://education.[employer]/faq/HAK423) CHOL/HDLC RATIO 3.7 <5.0 (calc) [facility] NON HDL CHOLESTEROL 92 <130 mg/dL (calc) [facility] Comment: For patients with diabetes plus 1 major ASCVD risk factor, treating to a non-HDL-C goal of <100 mg/dL (LDL-C of <70 mg/dL) is considered a therapeutic option. Blood BLOOD SPECIMEN / Unknown 10/08/2024 2:25 PM BOX SPRING UPHOLSTERER 10/08/2024 2:25 PM BOX SPRING UPHOLSTERER Trevor Saha MD CHEMISTRY Final Resu lt Performing Organization Address [facility] Co de Phone Number [facility] [address] [address], [place] [phone] [facility] [address] [place] [address] * (ABNORMAL) URIC ACID (10/08/2024 2:25 PM BOX SPRING UPHOLSTERER) URIC ACID 3.4(L) 4.0 - 8.0 mg/dL [facility] Richard Comment: Therapeutic target for gout patients: <6.0 mg/dL Blood BLOOD SPECIMEN / Unknown 10/08/2024 2:25 PM BOX SPRING UPHOLSTERER 10/08/2024 2:25 PM BOX SPRING UPHOLSTERER Trevor Saha MD CHEMISTRY Final Resu lt Performing Organization Address [facility]/ZIP Co de Phone Number [facility] [address] [place] [phone], [place] [phone] [facility] [address] [place] [address] * PSA TOTAL (10/08/2024 2:25 PM BOX SPRING UPHOLSTERER) PSA, TOTAL 0.09 < OR = 4.00 ng/mL [facility] Comment: The total PSA value from this assay system is standardized against the WHO standard. The test result will be approximately 20% lower when compared to the equimolar-standardized total PSA (Wally Hermosa). Comparison of serial PSA results should be interpreted with this fact in mind. This test was performed using the Siemens chemiluminescent method. Values obtained from different assay methods cannot be used interchangeably. PSA levels, regardless of value, should not be interpreted as absolute evidence of the presence or absence of disease. Blood BLOOD SPECIMEN / Unknown 10/08/2024 2:25 PM BOX SPRING UPHOLSTERER 10/08/2024 2:25 PM BOX SPRING UPHOLSTERER us Trevor Saha MD CHEMISTRY Final Resu lt [facility] [address] [place] [address], [facility] [address] [place] [address] * BASIC METABOLIC PANEL (10/08/2024 2:25 PM BOX SPRING UPHOLSTERER) Pathologist [facility] GLUCOSE 75 65 - 99 mg/dL [facility] Jose Manuel Comment: Fasting reference interval [...] BLOOD SPECIMEN / Unknown 10/08/2024 2:25 PM BOX SPRING UPHOLSTERER 10/08/2024 2:25 PM BOX SPRING UPHOLSTERER us Trevor Saha MD CHEMISTRY Final Resu lt [facility] [address] [place] [address], [place] [phone] [facility] [address] [place] [address] * ECHO TTE COMPLETE W CONTRAST (09/29/2024 11:48 AM BOX SPRING UPHOLSTERER) AORTIC VALVE MEAN PG 35 mmHg LVEDD 4.4 cm EJECTION FRACTION 60 - 65% Anatomical Region Laterality Modality Ultrasound 09/29/2024 10:5 3 AM BOX SPRING UPHOLSTERER Narrative 09/29/2024 12:21 PM BOX SPRING UPHOLSTERER ECHOCARDIOGRAM CRISTIANA MENDEZ : 1945 79 years Study Date: 09/29/2024 10:53:59 AM Gender: M BP: 123/73 mmHg Height: 180.00 cm BSA: 2.10 m Weight: 90.00 kg Tech: [facility] Referring MD: MAGGI MANZO Site: [facility] Reading Location: [facility] Patient Location: Inpatient. Procedure: Color Doppler, Spectral [...] study was interpreted by an [facility] accredited facility. CC: HIM (med records) [facility], Med/Surg - IP [facility]. Final Procedure Note Jonathon Pabon MD - 09/29/2024 ECHOCARDIOGRAM CRISTIANA MENDEZ : 1945 79 years Study Date: 09/29/2024 10:53:59 AM Gender: M BP: 123/73 mmHg Height: 180.00 cm BSA: 2.10 m Weight: 90.00 kg Tech: [facility] Referring MD: MAGGI MANZO Site: [facility] Reading Location: Mobile-IP Patient [...] interpreted by an [facility] accredited facility. CC: [facility]) [facility], Med/Surg - IP [facility]. Final us Maggi Manzo MD ECHO ORD Final Result * SCAN-RADIOLOGY REPORT (09/28/2024 12:00 AM BOX SPRING UPHOLSTERER) Anatomical Region Laterality Modality Other us Scanner OTHER Final Result * SCAN-CT INTERPRETATION (09/28/2024 12:00 AM BOX SPRING UPHOLSTERER) Anatomical Region Laterality Modality Other us Scanner OTHER Final Result from Last 3 Months Insurance MEDICARE PART B HB ONLY [employer] MED[employer]ARE ADVANTAGE Advance Directives Documents on File Type Date Recorded Patient Bi Report Developer Expl anation Healthcare Directive 02/08/2016 2:21 PM IMELDA CASTILLO, 01/28/2016 * Full Code (Latest Code Status on File) Date Activated Date Inactivated Comments 07/15/2015 6:12 AM 07/15/2015 11:36 AM Care Teams Belt Conveyor Drier Relationship Specialty Start Date End Date [place] [address] PCP - General 01/20/09 Marcelo Meek MD [address] [place] [address] Gastroenterology Gastroenterology 01/17/12
--- OUTSIDE RECORDS SUMMARY | 2024-10-26 03:56 | XMS_ITS | Encounter Summary ---
Author Organization [facility] Address [address] [place] [address] Care Team Providers Care Chief Ultrasound Technologist Name Role Phone Unavailable Primary Care Provider Unavailabl e Reason for Referral * Outpatient (Routine) - Closed Specialty Diagnoses / Procedures Referred By Sheila bustamante Referred To Contact Anesthesiology Diagnoses [facility] Winnie Becker M.D., M.S. [address] [place] [phone] Phone: tel: fax: [facility] Referral ID Status Reason Start Date Expiration Date Visits Re quested Visits Authorized [id number] Closed 09/08/2024 03/10/2026 1 1 TYPIST Reason for Visit * Outpatient (Routine) - Closed Specialty Diagnoses / Procedures Referred By Sheila bustamante Referred To Contact Urology Diagnoses [facility] Shellie Howe APRN, C.N.P., D.N.P. [address] [place] [phone] Phone: tel: fax: [facility] Referral ID Status Reason Start Date Expiration Date Visits Re quested Visits Authorized [id number] Closed 08/14/2024 02/13/2026 1 1 Encounter Details Date Type Department Care Team (Latest Contact Info) Description 09/08/2024 10:30 AM TELETYPIST Comprehensive Visit Department of Urology in [place], [place] [address] [place] [phone] Gato Shaw M.D. [address] [place] [address] [facility] (Primary Dx) Social History Tobacco Use Types Packs/Day Years Used Date Smoking Tobacco: Never Passive Smoke Exposure: Never Smokeless Tobacco: Never [facility] Utilities Answer Date Recorded In [...] your living situation today? 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 Valeria Becker M.D., M.S. TYPIST TYPIST * Gato Shaw M.D. - 09/08/2024 10:30 [...] provided by my colleague on the team. TYPIST documented in this encounter Plan of Treatment Upcoming Encounters Date Type Department Care Team (Late st Contact Info) Description 10/27/2024 8:00 AM TELETYPIST Procedure visit Department of Urology in [place], [place] [address] [place] [address] Seth Bass M.D. [address] [place] [phone] 12/05/2024 7:40 AM TELETYPIST Appointment Department of Laboratory Medicine and Pathology, [facility] in [place], [place] [address] [place] [phone] Seth Bass M.D. [address] [place] [phone] 12/05/2024 7:50 AM TELETYPIST Appointment Department of Laboratory Medicine and Pathology, [facility] in [place], [place] [address] [place] [address] Seth Bass M.D. [address] [place] [phone] 12/05/2024 8:15 AM TELETYPIST Appointment Department of Radiology, [facility] in [place], [place] [address] [place] [address] Seth Bass M.D. [address] [place] [phone] 12/05/2024 9:00 AM TELETYPIST Appointment Department of Radiology, [facility], in [place], [place] [address] [place] [address] Seth Bass M.D. [address] [place] [phone] 12/05/2024 1:00 PM TELETYPIST Comprehensive Visit Division of Nephrology and Hypertension in [place], [place] [address] [place] [phone] Manjinder Ty M.D. [address] [place] [phone] 01/01/2025 11:00 AM CDT Telemedicine Division of Nephrology and Hypertension in [place], [place] [address] [place] [address] Steh Bass M.D. 200 [place] [address] Scheduled Referrals Name Type Priority Associated Diagnoses Order Schedule Preoperative Evaluation YESSENIA consult (clinic) Outpatient Referral Routine [facility] Expected: 09/08/2024, Expires: 12/07/2025 documented as of this encounter Visit Diagnoses Diagnosis Stone Kidney- Primary documented in this encounter
--- OUTSIDE RECORDS SUMMARY | 2024-10-26 03:56 | XMS_ITS | Encounter Summary ---
Author Organization [facility] Address [address] [place] [address] Care Team Providers Care Manager Environmental Name Role Phone Unavailable Primary Care Provider Unavailabl e Encounter Details Date Type Department Care Team ([facility] st Contact Info) Description 10/10/2024 Orders Only Department of Cardiovascular Medicine in [place], [place] [address] [place] [phone] Inocente Avila M.D. [address] [place] [address] Atrial Fibrillation Paroxysmal (HCC) (Primary Dx); Myocardial [...] your living situation today? 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 [address] [place] [phone] 12/05/2024 7:40 AM ADVERTISING INSERTER Appointment Department of Laboratory Medicine and Pathology, [facility] in [place], [place] [address] [place] [address] Seth Bass M.D. [address] [place] [phone] 12/05/2024 7:50 AM ADVERTISING INSERTER Appointment Department of Laboratory Medicine and Pathology, [facility] in [place], [place] [address] [place] [phone] Seth Bass M.D. [address] [place] [phone] 12/05/2024 8:15 AM ADVERTISING INSERTER Appointment Department of Radiology, [facility], in [place], [place] [address] [place] [phone] Seth Bass M.D. [address] [place] [phone] 12/05/2024 9:00 AM ADVERTISING INSERTER Appointment Department of Radiology, [facility] in [place], [place] [address] [place] [address] Seth Bass M.D. [address] [place] [phone] 12/05/2024 1:00 PM ADVERTISING INSERTER Comprehensive Visit Division of Nephrology and Hypertension in [place], [place] [address] [place] [phone] Manjinder Ty M.D. [address] [place] [phone] 01/01/2025 11:00 AM CDT Telemedicine Division of Nephrology and Hypertension in [place], [place] [address] [place] [phone] Seth Bass M.D. [address] [place] [phone] documented as of this encounter Results * (ABNORMAL) Lipid Panel (10/10/2024 11:03 AM ADVERTISING INSERTER) Triglycerides 163(H) mg/dL 10/10/2024 12:20 PM ADVERTISING INSERTER DTL Comment: ----REFERENCE VALUE---- Normal: <150 mg/dL Borderline High: 150-199 mg/dL High: 200-499 mg/dL Very High: > or =500 mg/dL Cholesterol, Total 143 mg/dL 2024 12:20 PM ADVERTISING INSERTER DTL Comment: ----REFERENCE VALUE---- Desirable: < 200 mg/dL Borderline High: 200 - 239 mg/dL High: > or = 240 mg/dL Cholesterol, LDL, Calculated 78 mg/dL 10/10/2024 12:20 PM ADVERTISING INSERTER DTL Comment: ----REFERENCE VALUE---- Desirable: <100 mg/dL Above Desirable: 100-129 mg/dL Borderline High: 130-159 mg/dL High: 160-189 mg/dL Very High: >=190 mg/dL ----ADDITIONAL INFORMATION---- LDL cholesterol calculated using the Sawant/NIH equation. Cholesterol, HDL, S 37(L) >=40 mg/dL 10/10/2024 12:20 PM ADVERTISING INSERTER DTL Cholesterol, Non-HDL, Calculated 106 mg/dL 10/10/2024 12:20 PM ADVERTISING INSERTER DTL Comment: ----REFERENCE VALUE---- Desirable: <130 mg/dL Above Desirable: 130-159 mg/dL Borderline High: 160-189 mg/dL High: 190-219 mg/dL Very High: > or =220 mg/dL Fasting (8 HR or more) Yes 10/10/2024 11:03 AM ADVERTISING INSERTER DTL Blood (Blood, Venous) 10/10/2024 11:03 AM ADVERTISING INSERTER 10/10/2024 11:36 AM ADVERTISING INSERTER us Inocente Avila M.D. LAB BLOOD ADD-ON Final Resul t [facility] [address] [place] [address], [facility] [address] [place] [address] * Thyroid Function [place] (10/10/2024 11:03 AM ADVERTISING INSERTER) TSH, Sensitive 1.9 0.3 - 4.2 mIU/L 10/10/2024 12:20 PM ADVERTISING INSERTER DTL Blood (Blood, Venous) 10/10/2024 11:03 AM ADVERTISING INSERTER 10/10/2024 11:36 AM ADVERTISING INSERTER us Inocente Avila M.D. LAB BLOOD ADD-ON Final Resul t [facility] 200 [place], [place] [phone] [place] [phone] * (ABNORMAL) NT-Pro B-Type Natriuretic Peptide (BNP) (10/10/2024 11:03 AM ADVERTISING INSERTER) NT-Pro BNP 710(H) <=540 pg/mL 10/10/2024 12:20 PM ADVERTISING INSERTER DTL Comment: NT-proBNP values less than 300 [...] failure. Blood (Blood, Venous) 10/10/2024 11:03 AM ADVERTISING INSERTER 10/10/2024 11:36 AM ADVERTISING INSERTER Result Xuan Avila M.D. LAB BLOOD ADD-ON Final Resul t Performing Organization Address City[facility] Co de Phone Number [facility] 200 [place] [address], [facility] [address] [place] [address] * (ABNORMAL) Troponin T, 5th Generation (10/10/2024 11:03 AM ADVERTISING INSERTER) Troponin T, 5th gen 34(H) <=15 ng/L 10/10/2024 12:25 PM ADVERTISING INSERTER DTL Blood (Blood, Venous) 10/10/2024 11:03 AM ADVERTISING INSERTER 10/10/2024 11:37 AM ADVERTISING INSERTER Result Xuan Avila M.D. LAB BLOOD ADD-ON Final Resul t [facility] [address] [place] [address], [place] DTL [facility] [address] [place] [address] documented in this encounter Visit Diagnoses Diagnosis Atrial Fibrillation Paroxysmal (HCC)- Primary 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 Hyperlipidemia documented in this encounter
--- OUTSIDE RECORDS SUMMARY | 2024-10-26 03:57 | XMS_ITS | Encounter Summary ---
Author Organization [facility] Address [address] [place] [address] Care Team Providers Care Establishment Guide Name Role Phone Unavailable Primary Care Provider Unavailabl e Reason for Referral * Cardiovascular-Diagnostic (Routine) - Closed Specialty Diagnoses / Procedures Referred By Sheila bustamante Referred To Contact Diagnoses Stenosis Aortic Valve Acquired Procedures Echo Transthoracic (TTE) Inocente Avila M.D. 200 [place] [address] Phone: tel: fax: [facility] Referral ID Status Reason Start Date Expiration Date Visits Re quested Visits Authorized [id number] Closed 10/10/2024 10/10/2025 1 1 ERCIAL PARTS PROFESSIONAL Reason for Visit * Cardiovascular-Diagnostic (Routine) - Closed Specialty Diagnoses / Procedures Referred By Shelia bustamante Referred To Contact Diagnoses Stenosis Aortic Valve Acquired Procedures Echo Transthoracic (TTE) Inocente Avila M.D. 200 [place] [address] Phone: tel: fax: [facility] Referral ID Status Reason Start Date Expiration Date Visits Re quested Visits Authorized [id number] Closed 10/10/2024 10/10/2025 1 1 Encounter Details Date Type Department Care Team (Latest Contact Info) Description 10/10/2024 2:25 PM COMMERCIAL PARTS PROFESSIONAL - 10/10/2024 11:59 PM COMMERCIAL PARTS PROFESSIONAL Hospital Encounter Department of Cardiovascular Diseases in [place], [place] [address] [place] [address] Inocente Avila M.D. [address] [place] [address] Stenosis Aortic Valve Acquired Discharge Disposition: Home [...] your living situation today? 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 15 tablet 10/24/2024 2:06 PM COMMERCIAL PARTS PROFESSIONAL 10/24/2024 cefdinir (Omnicef) 300 mg capsuleIndicatio ns:Stone Kidney Take 1 capsule (300 mg total) by mouth 2 (two) times a day before morning and evening meals for 1 day. Please take the day of catheter removal. 2 capsule 10/24/2024 2:06 PM COMMERCIAL PARTS PROFESSIONAL 10/24/2024 5 apixaban (Eliquis) 5 mg tablet [...] st Contact Info) Description 10/27/2024 8:00 AM COMMERCIAL PARTS PROFESSIONAL Procedure visit Department of Urology in [address] [phone] Seth Bass M.D. [address] [place] [phone] 12/05/2024 7:40 AM COMMERCIAL PARTS PROFESSIONAL Appointment Department of Laboratory Medicine and Pathology, [place], [place] [address] [place] [phone] Seth Bass M.D. [address] [place] [phone] 12/05/2024 7:50 AM COMMERCIAL PARTS PROFESSIONAL Appointment Department of Laboratory Medicine and Pathology, [place], [place] [address] [place] [phone] Seth Bass M.D. [address] [place] [phone] 12/05/2024 8:15 AM COMMERCIAL PARTS PROFESSIONAL Appointment Department of Radiology, [place], [place] [address] [place] [phone] Seth Bass M.D. [address] [place] [phone] 12/05/2024 9:00 AM COMMERCIAL PARTS PROFESSIONAL Appointment Department of Radiology, [facility], in [place], [place] [address] [place] [address] Seth Bass M.D. [address] [place] [phone] 12/05/2024 1:00 PM COMMERCIAL PARTS PROFESSIONAL Comprehensive Visit Division of Nephrology and Hypertension in [place], [place] [address] [place] [address] Manjinder Ty M.D. [address] [place] [phone] 01/01/2025 11:00 AM CDT Telemedicine Division of Nephrology and Hypertension in [place], [place] [address] [place] [address] Seht Bass M.D. [address] [place] [phone] documented as of this encounter Procedures Procedure Name Priority Date/Time Associated Diagnosis Comments (TTE) 2D ECHO DOPPLER COLOR Routine 10/10/2024 4:00 PM COMMERCIAL PARTS PROFESSIONAL Stenosis Aortic Valve Acquired documented in this encounter Results * (TTE) 2D ECHO DOPPLER COLOR (10/10/2024 4:00 PM COMMERCIAL PARTS PROFESSIONAL) Ejection Fraction 65 MC CV EIMS Mid-Ascending [...] Region Laterality Modality Echocardiography 10/10/2024 2:51 PM COMMERCIAL PARTS PROFESSIONAL Impressions 10/10/2024 4:01 PM COMMERCIAL PARTS PROFESSIONAL LEFT VENTRICLE:Normal left ventricular chamber size. Normal [...] the Order-Level Documents. Narrative 10/10/2024 4:01 PM COMMERCIAL PARTS PROFESSIONAL For the complete report, see the Order-Level [...] (>50%). 8. There are no previous [facility] echocardiograms available for comparison. Procedure Note Paras Diaz M.D. - 10/10/2024 For the complete report, see the Order-Level Documents. Hemodynamics Heart Rate: 46 BPM Blood Pressure: 152 / 71 mmHg ECG: Sinus rhythm, Bradycardia Final Impressions 1. Moderate calcific aortic valve stenosis, systolic mean Doppler [id number] mmHg, valve area by Doppler 1.08 cm2. [...] collapse(>50%). 8. There are no previous [facility] echocardiograms available forcomparison. Findings LEFT VENTRICLE:Normal left [...]
--- OUTSIDE RECORDS SUMMARY | 2024-10-26 03:57 | XMS_ITS | Encounter Summary ---
Author Organization [facility] Address [address] [place] [address] Care Team Providers Care Finance Associate Name Role Phone Unavailable Primary Care Provider Unavailabl e Encounter Details Date Type Department Care Team (Late st Contact Info) Description 10/23/2024 Clinical Communication Department of Urology in [place], [place] [address] [place] [phone] Gato Shaw M.D. [address] [place] [phone] Social History Tobacco Use Types Packs/Day Years Used Date Smoking Tobacco: Never Passive Smoke Exposure: Never Smokeless Tobacco: Never Alcohol Use Standard Drinks/Week Comments Yes 1 (1 standard drink = 0.6 oz pur e alcohol) [facility] Utilities Answer Date Recorded In the past [address] 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 - 10/23/2024 3:41 PM STAIN SPRAYER SUBJECTIVE CHIEF COMPLAINT / REASON FOR CALL [...] following references were used: nursing clinical judgement N SPRAYER * Telephone Encounter - Gato Shaw M.D. - 10/23/2024 2:57 PM CST ----- Message from Jesse Calderon sent at 10/23/2024 2:51 PM STAIN SPRAYER ----- Pt. Is scheduled for a procedure with Dr. Shaw Sunday10/24/24, pt.called in having some questions about the procedure, could someone please call him. [phone] N SPRAYER documented in this encounter Plan of Treatment Upcoming Encounters Date Type Department Care Team (Late st Contact Info) Description 10/27/2024 8:00 AM STAIN SPRAYER Procedure visit Department of Urology in [place], [place] [address] [place] [phone] Seth Bass M.D. [address] [place] [phone] 12/05/2024 7:40 AM STAIN SPRAYER Appointment Department of Laboratory Medicine and Pathology, [place], [place] [address] [place] [phone] Seth Bass M.D. [address] [place] [phone] 12/05/2024 7:50 AM STAIN SPRAYER Appointment Department of Laboratory Medicine and Pathology, [facility] in [place], [place] [address] [place] [phone] Seth Bass M.D. [address] [place] [phone] 12/05/2024 8:15 AM STAIN SPRAYER Appointment Department of Radiology, [facility] in [place], [place] [address] [place] [phone] Seth Bass M.D. [address] [place] [phone] 12/05/2024 9:00 AM STAIN SPRAYER Appointment Department of Radiology, [facility], in [place], [place] [address] [place] [address] Seth Bass M.D. [address] [place] [phone] 12/05/2024 1:00 PM STAIN SPRAYER Comprehensive Visit Division of Nephrology and Hypertension in [place], [place] [address] [place] [address] Manjinder Ty M.D. [address] [place] [phone] 01/01/2025 11:00 AM CDT Telemedicine Division of Nephrology and Hypertension in [place], [place] [address] [place] [address] Seth Bass M.D. [address] [place] [phone] documented as of this encounter Visit Diagnoses Not on filedocumented in this encounter
--- OUTSIDE RECORDS SUMMARY | 2024-10-26 03:57 | XMS_ITS | Encounter Summary ---
Author Organization [facility] Address [address] [place] [address] Care Team Providers Care Shag Truck Driver Name Role Phone Elsewhere, Pcp Primary Care Provider Unavailabl e Reason for Visit * Reason Onset Date Comments opc proc 10/21/2024 Encounter Details Date Type Department Care Team (Late st Contact Info) Description 10/21/2024 Clinical Communication Department of Urology in [place], [place] [address] [place] [phone] Molly Mac opc proc Social History Tobacco Use Types Packs/Day Years Used Date Smoking Tobacco: Never Passive Smoke Exposure: Never Smokeless Tobacco: Never Alcohol Use Standard Drinks/Week Comments Yes 1 (1 standard drink = 0.6 oz pur e alcohol) [facility] Utilities Answer Date Recorded In the [...] your living situation today? 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 [address] [place] [phone] 12/05/2024 7:40 AM PARCEL POST CARRIER Appointment Department of Laboratory Medicine and Pathology, [facility], in [place], [place] 200 [place] [address] Seth Bass M.D. [address] [place] [phone] 12/05/2024 7:50 AM PARCEL POST CARRIER Appointment Department of Laboratory Medicine and Pathology, [facility] in [place], [place] [address] [place] [address] Seth Bass M.D. [address] [place] [phone] 12/05/2024 8:15 AM PARCEL POST CARRIER Appointment Department of Radiology, [facility], in [place], [place] [address] [place] [address] Seth Bass M.D. [address] [place] [phone] 12/05/2024 9:00 AM PARCEL POST CARRIER Appointment Department of Radiology, [facility] in [place], [place] [address] [place] [address] Seth Bass M.D. [address] [place] [phone] 12/05/2024 1:00 PM PARCEL POST CARRIER Comprehensive Visit Division of Nephrology and Hypertension in [place], [place] [address] [place] [phone] Manjinder Ty M.D. [address] [place] [phone] 01/01/2025 11:00 AM CDT Telemedicine Division of Nephrology and Hypertension in [place], [place] [address] [place] [phone] Seth Bass M.D. [address] [place] [phone] documented as of this encounter Visit Diagnoses Not on filedocumented in this encounter Care Teams Shag Truck Driver Relationship Specialty Start Date End Date Elsewhere, Pcp PCP - General Internal Medicine 10/24/24 documented as of this encounter
--- OUTSIDE RECORDS SUMMARY | 2024-10-26 03:57 | XMS_ITS | Encounter Summary ---
Author Organization [facility] Address [address] [place] [address] Care Team Providers Care Tube Bender Name Role Phone Elsewhere, Pcp Primary Care Provider Unavailabl e Reason for Visit * Reason Onset Date Comments [employer]SM - Outside Materials 10/23/2024 14-day e vent monitor /zio patch Encounter Details Date Type Department Care Team (Latest Contact Info) Description 10/23/2024 Clinical Communication Department of Cardiovascular Medicine in [place], [place] [address] [place] [address] Inocente Avila M.D. [address] [place] [phone] [employer] - Outside Materials (14-day event monitor /zio patch ) Social History Tobacco Use Types Packs/Day Years Used Date Smoking Tobacco: Never Passive Smoke Exposure: Never Smokeless Tobacco: Never Alcohol Use Standard Drinks/Week Comments Yes 1 (1 standard drink = 0.6 oz pur e alcohol) [facility] Utilities Answer Date Recorded In the past 12 months has [employer], gas, oil, or water [employer] threatened to shut off services in your [...] your living situation today? 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 200 [place] [address] 12/05/2024 7:40 AM GENERAL AGENT Appointment Department of Laboratory Medicine and Pathology, [facility], in [place], [place] [address] [place] [phone] Seth Bass M.D. [address] [place] [phone] 12/05/2024 7:50 AM GENERAL AGENT Appointment Department of Laboratory Medicine and Pathology, [facility] in [place], [place] [address] [place] [address] Seth Bass M.D. [address] [place] [phone] 12/05/2024 8:15 AM GENERAL AGENT Appointment Department of Radiology, [facility] in [place], [place] [address] [place] [address] Seth Bass M.D. [address] [place] [phone] 12/05/2024 9:00 AM GENERAL AGENT Appointment Department of Radiology, [facility] in [place], [place] [address] [place] [address] Seth Bass M.D. [address] [place] [phone] 12/05/2024 1:00 PM GENERAL AGENT Comprehensive Visit Division of Nephrology and Hypertension in [place], [place] [address] [place] [phone] Manjinder Ty M.D. [address] [place] [phone] 01/01/2025 11:00 AM CDT Telemedicine Division of Nephrology and Hypertension in [place], [place] [address] [place] [phone] Seth Bass M.D. [address] [place] [phone] documented as of this encounter Visit Diagnoses Not on filedocumented in this encounter Care Teams Tube Bender Relationship Specialty Start Date End Date Elsewhere, Pcp PCP - General Internal Medicine 10/24/24 documented as of this encounter
--- OUTSIDE RECORDS SUMMARY | 2024-10-26 03:57 | XMS_ITS | Encounter Summary ---
Author Organization [facility] Address [address] [place] [address] Care Team Providers Care Commercial Drone Software Developer Name Role Phone Unavailable Primary Care Provider Unavailabl e Reason for Visit * Outpatient (Routine) - Closed Specialty Diagnoses / Procedures Referred By Sheila bustamante Referred To Contact Anesthesiology Diagnoses Stone Kidney Winnie Becker M.D., M.S. [address] [place] [phone] Phone: tel: fax: [facility] Referral ID Status Reason Start Date Expiration Date Visits Re quested Visits Authorized [id number] Closed 09/08/2024 03/10/2026 1 1 Encounter Details Date Type Department Care Team (Latest Contact Info) Description 10/23/2024 2:00 PM [facility] Comprehensive Visit Preoperative Evaluation Center in [place], [place] [address] [place] [phone] Winnie Becker M.D., M.S. [address] [place] [phone] Silvana Rodriges APRN, C.N.P., M.S.N. [address] [place] [phone] Preanesthetic Medical Exam (Primary Dx); Stone Kidney; [...] drink = 0.6 oz pur e alcohol) [facility] Utilities Answer Date Recorded In [...] your living situation today? 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 on f ile Not on file Not on file documented as of this encounter Last Filed Vital Signs Vital Sign Reading Time Taken Comments Blood Pressure 138/89 10/23/2024 1:53 PM BPM DEVELOPER Pulse 43 10/23/2024 1:53 PM BPM DEVELOPER Temperature 36 C (96.8 F) 10/23/2024 1:53 PM BPM DEVELOPER Respiratory Rate - - Oxygen Saturation 97% 10/23/2024 1:53 PM BPM DEVELOPER Inhaled Oxygen Concentration - - Weight 91.8 kg (202 lb 6.1 oz) 10/23/2024 1:53 P M BPM DEVELOPER Height 179 cm (5' 10.47) 10/23/2024 1:53 PM BPM DEVELOPER Body Mass Index 28.65 10/23/2024 1:53 PM BPM DEVELOPER documented in this encounter H&P Notes * Silvana Rodriges APRN, C.N.P., M.S.N. - 10/23/2024 2:00 PM CST REASON FOR VISIT: Preoperative Medical Evaluation REFERRING PHYSICIAN: Winnie Becker M.D., M.S. 10/24/2024: CYSTOLITHOLAPAXY; Gato Shaw M.D. 10/24/2024: CYSTOLITHOLAPAXY; Gtao Shaw M.D. Surgery Specific Risk Classification: Low [...] collapse (>50%). 8. There are no previous [facility] echocardiograms available for comparison. #1 [...] along with gross hematuria and UTI in [place]. He is currently taking Bactrim and Flomax. [...] was seen in Cardiovascular Diseases here at [place] 10/10/[address] Avila. A 14 day [...] PATIENT EDUCATION: Reviewed Checklist for Surgical Patients [id number] rev 0920. Written and verbal instructions given on medication management before surgery. RECOMMENDATIONS: Patient medically optimized for planned procedure: Yes, reviewed case with Dr. Mcelroy and Dr. Avila. Patient was instructed to hold nighttime and morning doses of metoprolol. Further Recommendations: See above. Patient will continue to follow up with Dr. Avila for Holter monitor results and any further medication titration. DEVELOPER documented in this encounter Plan of Treatment Upcoming Encounters Date Type Department Care Team (Late st Contact Info) Description 10/27/2024 8:00 AM BPM DEVELOPER Procedure visit Department of Urology in [place], [place] [address] [place] [address] Seth Bass M.D. [address] [place] [phone] 12/05/2024 7:40 AM BPM DEVELOPER Appointment Department of Laboratory Medicine and Pathology, [facility] in [place], [place] [address] [place] [phone] Seth Bass M.D. [address] [place] [phone] 12/05/2024 7:50 AM BPM DEVELOPER Appointment Department of Laboratory Medicine and Pathology, [facility] in [place], [place] [address] [place] [phone] Seth Bass M.D. [address] [place] [phone] 12/05/2024 8:15 AM BPM DEVELOPER Appointment Department of Radiology, [facility] in [place], [place] [address] [place] [phone] Seth Bass M.D. [address] [place] [phone] 12/05/2024 9:00 AM BPM DEVELOPER Appointment Department of Radiology, [facility], in [place], [place] [address] [place] [address] Seth Bass M.D. [address] [place] [phone] 12/05/2024 1:00 PM BPM DEVELOPER Comprehensive Visit Division of Nephrology and Hypertension in [place], [place] [address] [place] [phone] Manjinder Ty M.D. [address] [place] [phone] 01/01/2025 11:00 AM CDT Telemedicine Division of Nephrology and Hypertension in [place], [place] [address] [place] [phone] Seth Bass M.D. 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
--- OUTSIDE RECORDS SUMMARY | 2024-10-26 03:57 | XMS_ITS | Encounter Summary ---
Author Organization [facility] Address [address] [place] [address] Care Team Providers Care Driver'S License Examiner Name Role Phone Unavailable Primary Care Provider Unavailabl e Encounter Details Date Type Department Care Team (Late st Contact Info) Description 10/18/2024 Clinical Communication Department of Urology in [place], [place] [address] [place] [phone] Winnie Becker M.D., M.S. [address] [place] [phone] Social History Tobacco Use Types Packs/Day Years Used Date Smoking Tobacco: Never Passive Smoke Exposure: Never Smokeless Tobacco: Never Alcohol Use Standard Drinks/Week Comments Yes 1 (1 standard drink = 0.6 oz pur e alcohol) [facility] Utilities Answer Date Recorded In the past 12 months has [facility] [employer], gas, oil, or water [employer] threatened to shut off services in your [...] your living situation today? 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 - 10/18/2024 12:05 AM BLADE GRADER OPERATOR UROLOGY ATC NOTE: SUBJECTIVE I received a call through the ATC regarding gross hematuria and suspected UTI. History obtained viachart review and contact with outside provider. Patient not seen or examined by me. Presented to the ED in [place] with hematuria. No fevers, chills or myalgias, [...] repeat urine culture. Treat and send to [place] if positive. Provider amenable to this plan. RECOMMENDATION: Plan discussed with Dr. Barrett Chief Urology Resident industrial/organizational psychologist Winnie Becker MD, MS [facility] Urology E GRADER OPERATOR documented in this encounter Plan of Treatment Upcoming Encounters Date Type Department Care Team (Late st Contact Info) Description 10/27/2024 8:00 AM BLADE GRADER OPERATOR Procedure visit Department of Urology in [place], [place] [address] [place] [phone] Seth Bass M.D. [address] [place] [phone] 12/05/2024 7:40 AM BLADE GRADER OPERATOR Appointment Department of Laboratory Medicine and Pathology, [facility] in [place], [place] [address] [place] [phone] Seth Bass M.D. [address] [place] [phone] 12/05/2024 7:50 AM BLADE GRADER OPERATOR Appointment Department of Laboratory Medicine and Pathology, [facility] in [place], [place] [address] [place] [address] Seth Bass M.D. [address] [place] [phone] 12/05/2024 8:15 AM BLADE GRADER OPERATOR Appointment Department of Radiology, [facility] in [place], [place] [address] [place] [address] Seth Bass M.D. [address] [place] [phone] 12/05/2024 9:00 AM BLADE GRADER OPERATOR Appointment Department of Radiology, [facility], in [place], [place] [address] [place] [address] Seth Bass M.D. [address] [place] [phone] 12/05/2024 1:00 PM BLADE GRADER OPERATOR Comprehensive Visit Division of Nephrology and Hypertension in [place], [place] [address] [place] [address] Manjinder Ty M.D. [address] [place] [phone] 01/01/2025 11:00 AM CDT Telemedicine Division of Nephrology and Hypertension in [place], [place] [address] [place] [address] Seth Bass M.D. [address] [place] [phone] documented as of this encounter Visit Diagnoses Not on filedocumented in this encounter
--- OUTSIDE RECORDS SUMMARY | 2024-10-26 03:57 | XMS_ITS | Encounter Summary ---
Author Organization [facility] Address [address] [place] [address] Care Team Providers Care Chucking And Boring Machine Operator Name Role Phone Unavailable Primary Care Provider Unavailabl e Reason for Referral * Outpatient (Routine) - Closed Specialty Diagnoses / Procedures Referred By Contac t Referred To Contact Diagnoses Bruit Carotid Artery Procedures US Carotid Bilateral Inocente Avila M.D. [address] [place] [phone] Phone: tel: fax: [facility] Referral ID Status Reason Start Date Expiration Date Visits Re quested Visits Authorized [id number] Closed 10/10/2024 10/10/2025 1 1 TH MANAGEMENT DIRECTOR Reason for Visit * Outpatient (Routine) - Closed Specialty Diagnoses / Procedures Referred By Sheila bustamante Referred To Contact Diagnoses Bruit Carotid Artery Procedures US Carotid Bilateral Inocente Avila M.D. 200 [place] [address] Phone: tel: fax: [facility] Referral ID Status Reason Start Date Expiration Date Visits Re quested Visits Authorized [id number] Closed 10/10/2024 10/10/2025 1 1 Encounter Details Date Type Department Care Team (Latest Contact Info) Description 10/23/2024 11:37 AM WEALTH MANAGEMENT DIRECTOR - 10/23/2024 11:59 PM WEALTH MANAGEMENT DIRECTOR Hospital Encounter Department of Radiology, [facility], in [place], [place] [address] [place] [phone] Inocente Avila M.D. [address] [place] [address] Bruit Carotid Artery Discharge Disposition: Home or Self Care Social History Tobacco Use Types Packs/Day Years Used Date Smoking Tobacco: Never Passive Smoke Exposure: Never Smokeless Tobacco: Never Alcohol Use Standard Drinks/Week Comments Yes 1 (1 standard drink = 0.6 oz pur e alcohol) [facility] Utilities Answer Date Recorded In [...] your living situation today? 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 15 tablet 10/24/2024 2:06 PM WEALTH MANAGEMENT DIRECTOR 10/24/2024 cefdinir (Omnicef) 300 mg capsuleIndicatio ns:Stone Kidney Take 1 capsule (300 mg total) by mouth 2 (two) times a day before morning and evening meals for 1 day. Please take the day of catheter removal. 2 capsule 10/24/2024 2:06 PM WEALTH MANAGEMENT DIRECTOR 10/24/2024 documented as of this encounter Plan of Treatment Upcoming Encounters Date Type Department Care Team (Late st Contact Info) Description 10/27/2024 8:00 AM WEALTH MANAGEMENT DIRECTOR Procedure visit Department of Urology in [place], [place] [address] [place] [phone] Seth Bass M.D. [address] [place] [phone] 12/05/2024 7:40 AM WEALTH MANAGEMENT DIRECTOR Appointment Department of Laboratory Medicine and Pathology, [place], [place] [address] [place] [phone] Seth Bass M.D. [address] [place] [phone] 12/05/2024 7:50 AM WEALTH MANAGEMENT DIRECTOR Appointment Department of Laboratory Medicine and Pathology, [facility] in [place], [place] [address] [place] [phone] Seth Bass M.D. [address] [place] [phone] 12/05/2024 8:15 AM WEALTH MANAGEMENT DIRECTOR Appointment Department of Radiology, [place], [place] [address] [place] [phone] Seth Bass M.D. [address] [place] [phone] 12/05/2024 9:00 AM WEALTH MANAGEMENT DIRECTOR Appointment Department of Radiology, [facility], in [place], [place] [address] [place] [address] Seth Bass M.D. [address] [place] [phone] 12/05/2024 1:00 PM WEALTH MANAGEMENT DIRECTOR Comprehensive Visit Division of Nephrology and Hypertension in [place], [place] [address] [place] [address] Manjinder Ty M.D. [address] [place] [phone] 01/01/2025 11:00 AM CDT Telemedicine Division of Nephrology and Hypertension in [place], [place] [address] [place] [address] Seth Bass M.D. [address] [place] [phone] documented as of this encounter Procedures Procedure Name Priority Date/Time Associated Diagnosis Comments US CAROTID BILATERAL RAD - Routine (most inpatients and all outpatients) 10/23/2024 12:30 PM WEALTH MANAGEMENT DIRECTOR Bruit Carotid Artery documented in this encounter Results * US Carotid Bilateral (10/23/2024 12:30 PM WEALTH MANAGEMENT DIRECTOR) Anatomical Region Laterality Modality Head and Neck, Ultrasound RS T LOS, Ultrasound ARZ LOS, Neuroradiology FLA LOS, Procedural, Vascular Interventional NWWI LOS Bilateral Ultrasound Impressions 10/23/2024 12:45 PM WEALTH MANAGEMENT DIRECTOR No significant carotid stenosis Narrative 10/23/2024 12:45 PM WEALTH MANAGEMENT DIRECTOR EXAM: US CAROTID BILATERAL Exam performed with [...] normal distal ICA in accordance with [place] Symptomatic Carotid Endarterectomy Trial (NASCET). Procedure Note [...]
--- OUTSIDE RECORDS SUMMARY | 2024-10-26 03:57 | XMS_ITS | Encounter Summary ---
Author Organization [facility] Address [address] [place] [address] Care Team Providers Care Rolled Ham Lacer Name Role Phone Elsewhere, Pcp Primary Care Provider Unavailabl e Reason for Visit * Auth/Cert (Routine) Specialty Diagnoses / Procedures Referred By Sheila t Referred To Contact Diagnoses Stone Kidney Hematuria Stone Kidney [N20.0] Hematuria [R31.9] Procedures WI LITHOLAPAXY SMPL <2.5CM [place] CYSTHRSCPY W FULG LESNS MINOR [place] CYSTHRSCPY/URTRSCPY RMVL CALC CYSTOLITHOLAPAXY CYSTOSCOPY BIOPSY FULGURATION, proceed as indicated URETEROSCOPY STONE EXTRACTION versus stent placement possible return to OR in 90 days Gato Shaw M.D. [address] [place] [phone] Phone: tel: fax: Referral ID Status Reason Start Date Expiration Date Visits Re quested Visits Authorized [id number] 1 1 Encounter Details Date Type Department Care Team (Late st Contact Info) Description 10/24/2024 7:50 AM STAVE JOINTER - 10/24/2024 10:00 AM [facility] Surgery Outpatient Procedure Center in [place], [place] [address] [place] [phone] Gato Shaw M.D. [address] [place] [phone] CYSTOLITHOLAPAXY. 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 * VIDEO: CARE OF YOUR INDWELLING CATHETER: INDWELLING CATHETER CARE FOR MEN (YAKUT) * Care and Removal of Your Dangle [...] (bladder spasms). 15 tablet 10/24/2024 2:06 PM STAVE JOINTER 10/24/2024 cefdinir (Omnicef) 300 mg capsuleIndicatio ns:Stone Kidney Take 1 capsule (300 mg total) by mouth 2 (two) times a day before morning and evening meals for 1 day. Please take the day of catheter removal. 2 capsule 10/24/2024 2:06 PM STAVE JOINTER 10/24/2024 documented as of this encounter OR Notes * Op Note - Seth Bass M.D. - 10/24/2024 9:01 AM CST Pre-op Diagnosis Stone Kidney Hematuria Post-op Diagnosis Stone Kidney Hematuria Display Artist A chiropractic assistant actively participated and was necessary for [...] sequentially dilated using Olga sounds to 30 [place]. The high-flow bipolar resectoscope was advanced into the bladder. The 550 nanometer holmium laser fiber was then used tofragment the bladder stone. All stone fragments were evacuated through the cystoscope sheath. Givenpatient's suspicious cytology with no overt mucosal lesions, decision was made to proceed with mapping bladder biopsies. Principal Associate biopsies were taken from the trigone, right [...] the left renal pelvis under fluoroscopic guidance. Building Attendant images did reveal the previously seen renal [...] or clinically significant mucosal injury. A 7 [place]an by 28 cm double-J ureteral stent was then advanced into the left renal pelvis under fluoroscopy. The wire was removed and the stent was deployed in the usual fashion with satisfactory proximal curl in the renal pelvis and satisfactory distal curl in the bladder confirmed fluoroscopically. Stent was left on a dangle. An 18 [place]an coude catheter was placed into the bladder [...] Gato Shaw M.D. at 10/24/2024 12:42 PM STAVE JOINTER E JOINTER E JOINTER documented in this encounter Plan of Treatment Upcoming Encounters Date Type Department Care Team (Late st Contact Info) Description 10/27/2024 8:00 AM STAVE JOINTER Procedure visit Department of Urology in [address] [phone] Seth Bass M.D. [address] [place] [phone] 12/05/2024 7:40 AM STAVE JOINTER Appointment Department of Laboratory Medicine and Pathology, [place], [place] [address] [place] [phone] Seth Bass M.D. [address] [place] [phone] 12/05/2024 7:50 AM STAVE JOINTER Appointment Department of Laboratory Medicine and Pathology, [place], [place] [address] [place] [phone] Seth Bass M.D. [address] [place] [phone] 12/05/2024 8:15 AM STAVE JOINTER Appointment Department of Radiology, [facility], in [place], [place] [address] [place] [address] Seth Bass M.D. [address] [place] [phone] 12/05/2024 9:00 AM STAVE JOINTER Appointment Department of Radiology, [facility], in [place], [place] [address] [place] [phone] Seth Bass M.D. [address] [place] [phone] 12/05/2024 1:00 PM STAVE JOINTER Comprehensive Visit Division of Nephrology and Hypertension in [place], [place] [address] [place] [phone] Manjinder Ty M.D. [address] [place] [phone] 01/01/2025 11:00 AM CDT Telemedicine Division of Nephrology and Hypertension in [place], [place] [address] [place] [phone] Seth Bass M.D. [address] [place] [phone] Pending Results Name Type Priority Associated Diagnoses Date /Time Surgical Pathology Pathology and Cytology Routine Stone Kidney Hematuria 10/24/2024 9:34 AM STAVE JOINTER Scheduled Orders Name Type Priority Associated Diagnoses [...] inpatients and all outpatients) 10/24/2024 11:19 AM STAVE JOINTER documented in this encounter Results * FL Fluoro Less Than 1 Hour (10/24/2024 11:19 AM STAVE JOINTER) Narrative [id number] - 10/24/2024 12:20 PM STAVE JOINTER This exam does not require a radiologist review or interpretation. Please refer to the patient's medical record on this date for clinical details. us Seth Bass M.D. IMKeyshawn FLUOROSCOPY PROCEDURES Fi nal Result [id number] NA documented in this encounter Visit Diagnoses [...] in preprocedural area. Given 10/24/2024 8:13 AM STAVE JOINTER 1,000 mg belladonna alkaloids-opium 16.2-60 mg suppository (B&O Supprettes) As needed, Starting on Sun10/24/24 at 1055, Intra-Op Given 10/24/2024 10:58 AM STAVE JOINTER 1 suppository Rectum chlorhexidine 0.12 % mouthwash [...] of 200 mcg Given 10/24/2024 12:07 PM STAVE JOINTER 25 mcg Given 10/24/2024 11:54 AM STAVE JOINTER 25 mcg Given 10/24/2024 11:46 AM STAVE JOINTER 25 mcg iohexoL 300 mg iodine/mL solution (Omnipaque) As needed, Starting on Sun10/24/24 at 1020, Intra-Op Given 10/24/2024 10:20 AM STAVE JOINTER 7 mL Left Ureter Lactated Ringer's 20 mL/hr, intravenous, Continuous, Starting on Sun10/24/24 at 0830, Pre-Op New Bag 10/24/2024 8:13 AM STAVE JOINTER 20 mL/hr 20 mL/hr oxyBUTYnin tablet 5 mg (Ditropan) 5 mg, oral, Once as needed, bladder spasms, Starting on Sun10/24/24 at 1152, For 1 dose, PACU (only), If patient is not required to void prior to dismissal Given 10/24/2024 11:52 AM STAVE JOINTER 5 mg oxyCODONE IR tablet 5 mg (Roxicodone) 5 mg, oral, Once as needed, moderate pain or score 4-6 of 10, Starting on Sun10/24/24 at 1140, For 1 dose, PACU (only) Given 10/24/2024 11:52 AM STAVE JOINTER 5 mg sodium chloride 0.9 % injection [...] Recently Administered Medications Times are shown in STAVE JOINTER. Scheduled Medication Order 10/22/2024 10/23/2024 10/24/2024 acetaminophen [...] 0850 (Given - Provid er: Trevor Sheth, TANKROOM TENDER, WIRELESS TELEGRAPHER) sodium chloride 0.9 % injection 3 mL [...] injection documented in this encounter Care Teams Rolled Ham Lacer Relationship Specialty Start Date End Date Elsewhere, Pcp PCP - General Internal Medicine 10/24/24 documented as of this encounter
--- OUTSIDE RECORDS SUMMARY | 2024-10-26 03:57 | XMS_ITS | Encounter Summary ---
Author Organization [facility] Address [address] [place] [address] Care Team Providers Care Spool Carrier Name Role Phone Unavailable Primary Care Provider Unavailabl e Reason for Visit * Reason Onset Date Comments Pre-visit Intake 10/21/2024 * Appointment Request (Routine) - Authorized Specialty Diagnoses / Procedures Referred By Sheila t Referred To Contact Urology Referral ID Status Reason Start Date Expiration Date V isits Requested Visits Authorized [id number] Authorized 09/16/2024 09/16/2025 1 1 Encounter Details Date Type Department Care Team (Latest Contact Info) Description 10/21/2024 1:15 PM TREE TOPPER Clinical Communication Virtual Review in [address] [phone] Pre-visit Intake Social History Tobacco Use Types Packs/Day Years Used Date Smoking Tobacco: Never Passive Smoke Exposure: Never Smokeless Tobacco: Never Alcohol Use Standard Drinks/Week Comments Yes 1 (1 standard drink = 0.6 oz pur e alcohol) [facility] Utilities Answer Date Recorded In the past 12 months has [employer], gas, oil, or water [employer] threatened to shut off services in your [...] your living situation today? 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 Not on f ile Not on file Not on file documented as of this encounter Plan of Treatment Upcoming Encounters Date Type Department Care Team (Late st Contact Info) Description 10/27/2024 8:00 AM TREE TOPPER Procedure visit Department of Urology in [place], [place] 200 [place] [phone] Seth Bass M.D. 200 [place] [address] 12/05/2024 7:40 AM TREE TOPPER Appointment Department of Laboratory Medicine and Pathology, [facility], in [place], [place] 200 [place] [phone] Seth Bass M.D. [address] [place] [address] 12/05/2024 7:50 AM TREE TOPPER Appointment Department of Laboratory Medicine and Pathology, [facility] in [place], [place] [address] [place] [address] Seth Bass M.D. [address] [place] [phone] 12/05/2024 8:15 AM TREE TOPPER Appointment Department of Radiology, [facility] in [place], [place] [address] [place] [address] Seth Bass M.D. [address] [place] [phone] 12/05/2024 9:00 AM TREE TOPPER Appointment Department of Radiology, [facility], in [place], [place] [address] [place] [address] Seth Bass M.D. [address] [place] [phone] 12/05/2024 1:00 PM TREE TOPPER Comprehensive Visit Division of Nephrology and Hypertension in [place], [place] [address] [place] [address] Manjinder Ty M.D. [address] [place] [phone] 01/01/2025 11:00 AM CDT Telemedicine Division of Nephrology and Hypertension in [place], [place] [address] [place] [phone] Seth Bass M.D. [address] [place] [phone] documented as of this encounter Visit Diagnoses Not on filedocumented in this encounter
--- OUTSIDE RECORDS SUMMARY | 2024-10-26 03:58 | XMS_ITS ---
Author Organization [facility] Address [address] [place] [address] Care Team Providers Care Commercial Loan Processor Name Role Phone Elsewhere, Pcp Primary Care [...] Fraction Dose Fractions Total Dose Plans Planned [id number] 08/20/2023 - 08/30/2023 800 cGy 5 / 5 4 ,000 cGy Reference Points Delivered [id number] 08/20/2023 - 08/30/2023 4,000 cGy Lifetime Dose Tracking * Chemical Lifetime Dose Automatic Entry Manual Entr y Radiation 4.5 mGy 4.5 mGy 0 mGy Fluoro Time 0.8 minutes 0.8 minutes 0 minutes
--- OUTSIDE RECORDS SUMMARY | 2024-10-26 03:58 | XMS_ITS ---
Author Organization [facility] Address [address] [place] [address] Care Team Providers Care Chair Inspector And Leveler Name Role Phone Unavailable Unavailable Unavailable Surgery Details Not on file Complications Check Surgery Details section. Procedure Estimated Blood Loss Check Surgery Details section. Procedure Findings Check Surgery Details section. Procedure Specimens Taken Check Surgery Details section.
--- OUTSIDE RECORDS SUMMARY | 2024-10-26 03:58 | XMS_ITS | Encounter Summary ---
Author Organization [facility] Address [address] [place] [id number] Care Team Providers Care Gold Beater Name Role Phone Elsewhere, Pcp Primary Care Provider Unavailabl e Reason for Visit * Auth/Cert (Routine) Specialty Diagnoses / Procedures Referred By Sheila t Referred To Contact Diagnoses Stone Kidney Hematuria Stone Kidney [N20.0] Hematuria [R31.9] Procedures NC LITHOLAPAXY SMPL <2.5CM NC CYSTHRSCPY W FULG LESNS MINOR NC CYSTHRSCPY/URTRSCPY RMVL CALC CYSTOLITHOLAPAXY CYSTOSCOPY BIOPSY FULGURATION, proceed as indicated URETEROSCOPY STONE EXTRACTION versus stent placement possible return to OR in 90 days Gato Shaw M.D. [address] [place] [phone] Phone: tel: fax: Referral ID Status Reason Start Date Expiration Date Visits Re quested Visits Authorized [id number] 1 1 Encounter Details Date Type Department Care Team (Late st Contact Info) Description 10/24/2024 8:34 AM CONSTRUCTION TRADES CONTRACTOR Anesthesia Event Outpatient Procedure Center in [place], [place] [address] [place] [phone] Trevor Sheth, PPA TEACHER, MASH FILTER OPERATOR [address] [place] [phone] Yamilet Haynes M.D. [address] [place] [phone] Anesthesia Record Procedure Summary Procedure Name Responsible Anesthesiologist Anesthesia Start Time Anesthesia Stop Time CYSTOLITHOLAPAXY. 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 TRUCTION TRADES CONTRACTOR * Anesthesia Procedure Notes - Trevor Sheth APRN, CRNA - 10/24/2024 8:50 AM CONSTRUCTION TRADES CONTRACTOR Associated Order(s): Airway Airway Date/Time: 10/24/2024 8:41 [...] Procedure outcome: successful Notable Events: no complications TRUCTION TRADES CONTRACTOR * Anesthesia Preprocedure Evaluation - Yamilet Haynes M.D. - 10/24/2024 5:56 AM CST Preprocedure Anesthesia & H&P Assessment Procedure Summary Date/Time: 10/24/24 0910 Procedures: CYSTOLITHOLAPAXY. CYSTOSCOPY BIOPSY FULGURATION, proceed as indicated. URETEROSCOPY laser lithotripsy vs stent placement possible return to operating room in 90 days. (Left) Diagnosis: Stone Kidney [N20.0] Hematuria [R31.9] Pre-op diagnosis: Stone Kidney [N20.0], Hematuria [R31.9]. Location: [place] [address] / [facility] in [place], [place] Surgeons: Gato Shaw M.D. Pertinent components [...] with patient /legal guardian or through an soda fountain manager. Risks/Benefits/Alternatives of Blood transfusion discussed with patient / legal guardian, includingan opportunity to ask questions and/or decline some or all transfusion therapies. The patient / legal guardian consented to the use of all blood products, as deemed medically necessary Approval to Proceed: approved for anesthesia TRUCTION TRADES CONTRACTOR documented in this encounter Plan of Treatment Upcoming Encounters Date Type Department Care Team (Late st Contact Info) Description 10/27/2024 8:00 AM CONSTRUCTION TRADES CONTRACTOR Procedure visit Department of Urology in [place], [place] [address] [place] [phone] Seth Bass M.D. [address] [place] [phone] 12/05/2024 7:40 AM CONSTRUCTION TRADES CONTRACTOR Appointment Department of Laboratory Medicine and Pathology, [facility] in [place], [place] [address] [place] [phone] Seth Bass M.D. [address] [place] [phone] 12/05/2024 7:50 AM CONSTRUCTION TRADES CONTRACTOR Appointment Department of Laboratory Medicine and Pathology, [facility] in [place], [place] [address] [place] [phone] Seth Bass M.D. [address] [place] [phone] 12/05/2024 8:15 AM CONSTRUCTION TRADES CONTRACTOR Appointment Department of Radiology, [facility] in [place], [place] [address] [place] [phone] Seth Bass M.D. [address] [place] [phone] 12/05/2024 9:00 AM CONSTRUCTION TRADES CONTRACTOR Appointment Department of Radiology, [facility] in [place], [place] [address] [place] [phone] Seth Bass M.D. [address] [place] [phone] 12/05/2024 1:00 PM CONSTRUCTION TRADES CONTRACTOR Comprehensive Visit Division of Nephrology and Hypertension in [address] [phone] Manjinder Ty M.D. [address] [place] [phone] 01/01/2025 11:00 AM CDT Telemedicine Division of Nephrology and Hypertension in [place], [place] [address] [place] [phone] Seth Bass M.D. [address] [place] [phone] documented as of this encounter Procedures Procedure Name Priority Date/Time Associated Diagnosis Comments LDA ANE NON-SURGICAL AIRWAY Routine 10/24/2024 8:41 AM CONSTRUCTION TRADES CONTRACTOR documented in this encounter Results * LDA ANE NON-SURGICAL AIRWAY (10/24/2024 8:41 AM CONSTRUCTION TRADES CONTRACTOR) Narrative Ahle, Trevor CARON Botello CRNA - 10/24/2024 8:41 AM CONSTRUCTION TRADES CONTRACTOR Trevor Sheth APRN, CRNA 10/24/2024 8:51 AM [...] Prophylaxis, surgicalIndications:Prophylaxis, surgical Given 10/24/2024 8:50 AM CONSTRUCTION TRADES CONTRACTOR 2 g dexAMETHasone injection (Decadron) intravenous, As needed, Starting on Sun10/24/24 at 1042, Anesthesia Intra-op Given 10/24/2024 10:42 AM CONSTRUCTION TRADES CONTRACTOR 4 mg fentaNYL injection (Sublimaze) intravenous, As needed, Starting on Sun10/24/24 at 0904, Anesthesia Intra-op Given 10/24/2024 10:24 AM CONSTRUCTION TRADES CONTRACTOR 12.5 mcg Given 10/24/2024 9:43 AM CONSTRUCTION TRADES CONTRACTOR 12.5 mcg Given 10/24/2024 9:41 AM CONSTRUCTION TRADES CONTRACTOR 12.5 mcg glycopyrrolate injection (RobinuL) intravenous, As needed, Starting on Sun10/24/24 at 0952, Anesthesia Intra-op Given 10/24/2024 9:52 AM CONSTRUCTION TRADES CONTRACTOR 0.1 mg Lactated Ringer's intravenous, Continuous Infusion: Per Instructions PRN, Starting on Sun10/24/24 at 0835, Anesthesia Intra-op New Bag 10/24/2024 10:22 AM CONSTRUCTION TRADES CONTRACTOR New Bag 10/24/2024 8:35 AM CONSTRUCTION TRADES CONTRACTOR lidocaine (PF) (cardiac) injection intravenous, As needed, Starting on Sun10/24/24 at 0840, Anesthesia Intra-op Given 10/24/2024 8:40 AM CONSTRUCTION TRADES CONTRACTOR 60 mg ondansetron (PF) injection (Zofran) intravenous, As needed, Starting on Sun10/24/24 at 0859, Anesthesia Intra-op Given 10/24/2024 10:42 AM CONSTRUCTION TRADES CONTRACTOR 4 mg Given 10/24/2024 8:59 AM CONSTRUCTION TRADES CONTRACTOR 4 mg phenylephrine injection intravenous, As needed, Starting on Sun10/24/24 at 0850, Anesthesia Intra-op Given 10/24/2024 9:01 AM CONSTRUCTION TRADES CONTRACTOR 200 mcg Given 10/24/2024 8:56 AM CONSTRUCTION TRADES CONTRACTOR 200 mcg Given 10/24/2024 8:50 AM CONSTRUCTION TRADES CONTRACTOR 100 mcg propofoL injection (Diprivan) intravenous, As needed, Starting on Sun10/24/24 at 0840, Anesthesia Intra-op Given 10/24/2024 9:43 AM CONSTRUCTION TRADES CONTRACTOR 30 mg Given 10/24/2024 8:40 AM CONSTRUCTION TRADES CONTRACTOR 40 mg remimazolam injection (Byfavo) intravenous, As needed, Starting on Sun10/24/24 at 0840, Anesthesia Intra-op Given 10/24/2024 8:40 AM CONSTRUCTION TRADES CONTRACTOR 20 mg documented in this encounter Care Teams Gold Beater Relationship Specialty Start Date End Date Elsewhere, Pcp PCP - General Internal Medicine 10/24/24 documented as of this encounter
--- OUTSIDE RECORDS SUMMARY | 2024-10-26 03:58 | XMS_ITS | Clinical Summary ---
Author Organization [facility] Address [address] [place] [address] Care Team Providers Care Primer Assembler Name Role Phone Elsewhere, Pcp Primary Care Provider Unavailabl e Source Comments Patient records contain information from all sites at [facility]. For routine questions regarding patient records, call [phone] during business hours, M-F 8:00 AM - 5:00 PM Central Time. Record requests for emergency care only can be directed to [phone] at any time.[facility] Allergies No known active allergies Medications atorvastatin [...] (bladder spasms). 15 tablet 5 2:06 PM TEXTILE SUPERVISOR 10/24/19 25 Active aspirin 81 mg chewable [...] catheter removal. 2 capsule 5 2:06 PM TEXTILE SUPERVISOR 10/24/19 25 025 Active Problems Problem Noted [...] Department Care Team Description 10/24/2024 11:55 AM TEXTILE SUPERVISOR Ancillary Procedure Department of General Surgery Arrived 10/24/2024 8:34 AM TEXTILE SUPERVISOR Anesthesia Event Outpatient Procedure Center in [address] [phone] Trevor Sheth APRN, CRNA Psomas, Maria N, M.D. 10/24/2024 7:50 AM TEXTILE SUPERVISOR - 10/24/2024 10:00 AM TEXTILE SUPERVISOR Surgery Outpatient Procedure Center in [address] [address] Gato Shaw M.D. CYSTOLITHOLAPAXY. 10/24/2024 7:48 AM TEXTILE SUPERVISOR - 10/24/2024 1:57 PM TEXTILE SUPERVISOR Hospital Encounter Outpatient Procedure Center in [address] [phone] Gato Shaw M.D. Stone Kidney; Hematuria Discharge Disposition: Home or Self Care 10/23/2024 2:00 PM TEXTILE SUPERVISOR Comprehensive Visit Preoperative Evaluation Center in [address] [address] Winnie Becker M.D., M.S. iSlvana Rodriges APRN, C.N.P., M.S.N. Preanesthetic Medical Exam (Primary Dx); Stone Kidney; Primary Malignant Neoplasm Of Prostate (HCC); Hypertension Essential Primary; Other Nonrheumatic Aortic Valve Disorders; Atrial Fibrillation Paroxysmal (HCC); Murmur Heart; Hyperlipidemia; Hematuria 10/23/2024 11:37 AM TEXTILE SUPERVISOR - 10/23/2024 11:59 PM TEXTILE SUPERVISOR Hospital Encounter Department of Radiology, [facility], in [place], [place] [address] [place] [phone] Inocente Avila M.D. Bruit Carotid Artery Discharge Disposition: Home or Self Care 10/23/2024 Clinical Communication Department of Cardiovascular Medicine in [place], [place] [address] [place] [phone] Inocente Avila M.D. OSM - Outside Materials (14-day event monitor /zio patch ) 10/23/2024 Clinical Communication Department of Urology in [place], [place] [address] [place] [phone] Gato Shaw M.D. 10/21/2024 1:15 PM TEXTILE SUPERVISOR Clinical Communication Virtual Review in [place], [place] 200 [place] [address] Pre-visit Intake 10/21/2024 Clinical Communication Department of Urology in [place], [place] [address] [place] [phone] Molly Mac opc proc 10/18/2024 Clinical Communication Department of Urology in [place], [place] [address] [place] [phone] Winnie Becker M.D., M.S. 10/10/2024 2:25 PM TEXTILE SUPERVISOR - 10/10/2024 11:59 PM TEXTILE SUPERVISOR Hospital Encounter Department of Cardiovascular Diseases in [place], [place] [address] [place] [phone] Inocente Avila M.D. Stenosis Aortic Valve Acquired Discharge Disposition: Home or Self Care 10/10/2024 2:00 PM TEXTILE SUPERVISOR Office Visit Department of Cardiovascular Medicine in [place], [place] [address] [place] [phone] Inocente Avila M.D. Stenosis Aortic Valve Acquired (Primary Dx); Stone Kidney; Bruit Carotid Artery; Hematuria; Atrial Fibrillation Paroxysmal (HCC); Other Specified Conduction Disorders; Hypertensive Heart Disease Without Heart Failure; Hyperlipidemia 10/10/2024 11:12 AM TEXTILE SUPERVISOR - 10/10/2024 2:24 PM TEXTILE SUPERVISOR Hospital Encounter Department of Radiology, [facility] in [place], [place] [address] [place] [address] Gato Shaw M.D. Stone Kidney Discharge Disposition: Home or Self Care 10/10/2024 10:51 AM TEXTILE SUPERVISOR - 10/10/2024 11:11 AM [facility] Hospital Encounter Department of Laboratory Medicine and Pathology, [facility] in [place], [place] [address] [place] [phone] Gato Shaw M.D. Stone Kidney; Atrial Fibrillation Paroxysmal (HCC); Myocardial Injury Nonischemic Nontraumatic; Dysfunction Diastolic; Hyperlipidemia Discharge Disposition: Home or Self Care 10/10/2024 10:50 AM TEXTILE SUPERVISOR Hospital Encounter Department of Laboratory Medicine and Pathology, [facility] in [place], [place] [address] [place] [phone] Gato Shaw M.D. Stone Kidney Discharge Disposition: Home or Self Care 10/10/2024 Orders Only Department of Cardiovascular Medicine in [address] [phone] Inocente Avila M.D. Atrial Fibrillation Paroxysmal (HCC) (Primary Dx); Myocardial Injury Nonischemic Nontraumatic; Dysfunction Diastolic; Hyperlipidemia 10/08/2024 Orders Only Department of Urology in [place], [place] [address] [place] [phone] Hortensia Dwyer R.N. Stone Kidney (Primary Dx) 10/08/2024 Clinical Communication Department of Urology in [place], [place] [address] [place] [phone] Ghanshyam Ye 10/02/2024 Clinical Communication Department of Cardiovascular Medicine in [place], [place] [address] [place] [phone] Fishing Vessel CaptainSudarshan M.D. Triage 09/30/2024 Clinical Communication Department of Urology in [place], [place] [address] [place] [phone] Gato Shaw M.D. 09/08/2024 10:30 AM TEXTILE SUPERVISOR Comprehensive Visit Department of Urology in [place], [place] [address] [place] [phone] Gato Shaw M.D. Stone Kidney (Primary Dx) 09/08/2024 9:00 AM TEXTILE SUPERVISOR Procedure visit Department of Urology in [place], [place] [address] [place] [phone] Shellie Howe APRN, C.N.P., D.N.P. Hortensia Quiroga P.A.-C. Hematuria 09/08/2024 8:02 AM TEXTILE SUPERVISOR - 09/08/2024 11:59 PM TEXTILE SUPERVISOR Hospital Encounter Department of Laboratory Medicine and Pathology, [facility] in [address] [phone] Shellie Howe APRN, C.N.P., D.N.P. Hematuria Discharge Disposition: Home or Self Care 09/08/2024 8:02 AM TEXTILE SUPERVISOR - 09/08/2024 11:59 PM TEXTILE SUPERVISOR Hospital Encounter Department of Laboratory Medicine and Pathology, [facility] in [address] [phone] Shellie Howe APRN, C.N.P., D.N.P. Stone Kidney Discharge Disposition: Home or Self Care 09/04/2024 12:45 PM TEXTILE SUPERVISOR Clinical Communication Virtual Review in [place], [place] [address] [place] [address] Pre-visit Intake 08/19/2024 Orders Only Department of Urology in [address] [phone] Shellie Hoew APRN C.N.P., D.N.P. Hematuria (Primary Dx) 08/14/2024 Orders Only Department of Urology in [address] [phone] Shellie Howe APRN, C.N.PDaisy, D.N.P. Stone Kidney (Primary Dx) 08/13/2024 12:04 PM TEXTILE SUPERVISOR - 08/13/2024 11:59 PM TEXTILE SUPERVISOR Hospital Encounter Department of Radiology, [facility] in [address] [phone] Shellie Howe APRN, C.N.PDaisy, D.N.P. Hematuria Discharge Disposition: Home or Self Care 08/11/2024 9:20 AM TEXTILE SUPERVISOR - 08/11/2024 11:59 PM TEXTILE SUPERVISOR Hospital Encounter Department of Laboratory Medicine and Pathology, [place] [phone] Shellie Howe APRN, Missy.N.PDaisy, D.N.P. Hematuria Discharge Disposition: Home or Self Care 08/08/2024 3:00 PM TEXTILE SUPERVISOR Comprehensive Visit Department of Urology in [address] [phone] Maryana Malik, AMELIAS, P.A.-Missy. Shellie Howe APRN, C.N.P., D.N.P. Hematuria (Primary Dx); Symptom Urinary 08/08/2024 2:30 PM TEXTILE SUPERVISOR Procedure visit Department of Urology in [address] [phone] Rigoberto Flores M.D. Franson, Jane E, R.Adam Incontinence Urinary Stress And Urge (Primary Dx); Symptom Urinary 08/08/2024 11:27 AM TEXTILE SUPERVISOR - 08/08/2024 11:59 PM TEXTILE SUPERVISOR Hospital Encounter Department of Laboratory Medicine and Pathology, [facility] in [address] [phone] Rigoberto Flores M.D. Symptom Urinary Discharge Disposition: Home or Self Care 08/06/2024 9:58 AM TEXTILE SUPERVISOR - 08/06/2024 11:29 AM TEXTILE SUPERVISOR Hospital Encounter Department of Radiation Oncology in [address] [phone] Gato Larkin APRN, C.N.P., D.N.P. Primary Malignant Neoplasm Of Prostate (HCC) (Primary Dx) 08/04/2024 12:00 PM TEXTILE SUPERVISOR Clinical Communication Virtual Review in [place], [place] [address] [place] [address] Pre-visit Intake from Last 3 Months Family [...] drink = 0.6 oz pur e alcohol) [facility] Utilities Answer Date Recorded In the past 12 months has e edPULSE, gas, oil, or water Avolent threatened to shut off services in your [...] your living situation today? 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 Not on f ile Not on file Not on file Last Filed Vital Signs Vital Sign Reading Time Taken Comments Blood Pressure 136/65 10/24/2024 12:45 PM TEXTILE SUPERVISOR Pulse 48 10/24/2024 1:10 PM TEXTILE SUPERVISOR Temperature 36.4 C (97.5 F) 10/24/2024 11:24 AM TEXTILE SUPERVISOR Respiratory Rate 14 10/24/2024 1:10 PM TEXTILE SUPERVISOR Oxygen Saturation 98% 10/24/2024 1:10 PM TEXTILE SUPERVISOR Inhaled Oxygen Concentration - - Weight 91.8 kg (202 lb 6.1 oz) 10/23/2024 1:53 P M TEXTILE SUPERVISOR Height 179 cm (5' 10.47) 10/23/2024 1:53 PM TEXTILE SUPERVISOR Body Mass Index 28.65 10/23/2024 1:53 PM TEXTILE SUPERVISOR Plan of Treatment Upcoming Encounters Date Type Department Care Team (Late st Contact Info) Description 10/27/2024 8:00 AM TEXTILE SUPERVISOR Procedure visit Department of Urology in [place], [place] 200 [place] [address] Seth Bass M.D. 200 [place] [phone] 12/05/2024 7:40 AM TEXTILE SUPERVISOR Appointment Department of Laboratory Medicine and Pathology, [facility], in [place], [place] 200 [place] [address] Seth Bass M.D. [address] [place] [phone] 12/05/2024 7:50 AM TEXTILE SUPERVISOR Appointment Department of Laboratory Medicine and Pathology, [facility] in [place], [place] [address] [place] [address] Seth Bass M.D. [address] [place] [phone] 12/05/2024 8:15 AM TEXTILE SUPERVISOR Appointment Department of Radiology, [facility] in [place], [place] [address] [place] [address] Seth Bass M.D. [address] [place] [phone] 12/05/2024 9:00 AM TEXTILE SUPERVISOR Appointment Department of Radiology, [facility] in [place], [place] [address] [place] [address] Seth Bass M.D. [address] [place] [phone] 12/05/2024 1:00 PM TEXTILE SUPERVISOR Comprehensive Visit Division of Nephrology and Hypertension in [place], [place] [address] [place] [phone] Manjinder Ty M.D. [address] [place] [phone] 01/01/2025 11:00 AM CDT Telemedicine Division of Nephrology and Hypertension in [place], [place] [address] [place] [phone] Seth Bass M.D. [address] [place] [phone] Health Maintenance Due Date Last Done Comments [...] this topic Medical Devices Implanted Type Area Medical Claims Processor Device Identifier Shelf Expiration Date Model / Serial / Lot Marker Tissue Biomarc Kv 1x5 - [id number] Implanted:Qty : 4 on 08/08/2023 by Thaddeus Ding M.D. at [facility] Imaging Marker [facility] [id number] 12/01/2027 [id number] / / [id number] Stnt Uret Inl 7fx28 - [id number] Implanted:Qty : 1 on 10/24/2024 by Gato Shaw M.D. at [facility] Ureteral Stent C.[employer].Bard [id number] 07/31/2028 [id number] / / [id number] Procedures Procedure Name Priority Date/Time Associated Diagnosis Comments FL FLUORO LESS THAN 1 HOUR RAD - Routine (most inpatients and all outpatients) 10/24/2024 11:19 AM TEXTILE SUPERVISOR SURGERY IMAGE EXAM Routine 10/24/2024 11 :17 AM TEXTILE SUPERVISOR LDA ANE NON-SURGICAL AIRWAY Routine 10/24/2024 8:41 AM TEXTILE SUPERVISOR US CAROTID BILATERAL RAD - Routine (most inpatients and all outpatients) 10/23/2024 12:30 PM TEXTILE SUPERVISOR Bruit Carotid Artery (TTE) 2D ECHO DOPPLER COLOR Routine 10/10/2024 4:00 PM TEXTILE SUPERVISOR Stenosis Aortic Valve Acquired MICROSCOPIC MANUAL Routine 10/10/2024 1: 05 PM TEXTILE SUPERVISOR PH, U Routine 10/10/2024 1:05 PM TEXTILE SUPERVISOR DIPSTICK, U Routine 10/10/2024 1:05 PM TEXTILE SUPERVISOR OSMOLALITY, U Routine 10/10/2024 1:05 PM TEXTILE SUPERVISOR URINALYSIS WITH MICROSCOPIC Routine 10/10/2024 1:05 PM TEXTILE SUPERVISOR Stone Kidney BACTERIAL CULTURE, AEROBIC + SUSC, URINE Routine 10/10/2024 1:05 PM TEXTILE SUPERVISOR Stone Kidney ECG Routine 10/10/2024 11:52 AM TEXTILE SUPERVISOR [facility] Kidney DX CHEST AP OR PA AND LATERAL 2 VIEWS RAD - Routine (most inpatients and all outpatients) 10/10/2024 11:22 AM TEXTILE SUPERVISOR [facility] Kidney LIPID PANEL, S Routine 10/10/2024 11:03 AM TEXTILE SUPERVISOR Atrial Fibrillation Paroxysmal (HCC) 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 Hyperlipidemia THYROID FUNCTION CASCADE, S Routine 10/10/2024 11:03 AM TEXTILE SUPERVISOR Atrial Fibrillation Paroxysmal (HCC) 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 Hyperlipidemia NT-PRO B-TYPE NATRIURETIC PEPTIDE (BNP), S Routine 10/10/2024 11:03 AM TEXTILE SUPERVISOR Atrial Fibrillation Paroxysmal (HCC) 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 Hyperlipidemia TROPONIN T, 5TH GEN, P Routine 10/10/2024 11:03 AM TEXTILE SUPERVISOR Atrial Fibrillation Paroxysmal (HCC) 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 Hyperlipidemia BASIC METABOLIC PANEL, S/P Routine 10/10/2024 11:03 AM TEXTILE SUPERVISOR Stone Kidney CBC WITHOUT DIFFERENTIAL, B Routine 10/10/2024 11:03 AM TEXTILE SUPERVISOR [facility] OUTSIDE US CARD Routine 09/29/2024 12:00 AM TEXTILE SUPERVISOR CYTOLOGY NON-CLAIMS SORTER (SCHEDULED) Routine 09/08/2024 9:07 AM TEXTILE SUPERVISOR Hematuria URO CYSTOSCOPY (GENERAL) Routine 09/08/2024 9:00 AM TEXTILE SUPERVISOR Hematuria BASIC METABOLIC PANEL, S/P Routine 09/08/2024 8:25 AM TEXTILE SUPERVISOR [facility] CT UROGRAM WITHOUT AND WITH IV CONTRAST RAD - Routine (most inpatients and all outpatients) 08/13/2024 1:03 PM TEXTILE SUPERVISOR Hematuria CREATININE WITH EGFR, S/P Routine 08/11/2024 10:20 AM TEXTILE SUPERVISOR Hematuria URO UROFLOW Routine 08/08/2024 2:30 PM TEXTILE SUPERVISOR Symptom Urinary PH, U Routine 08/08/2024 11:45 AM TEXTILE SUPERVISOR DIPSTICK, U Routine 08/08/2024 11:45 AM TEXTILE SUPERVISOR OSMOLALITY, U Routine 08/08/2024 11:45 AM TEXTILE SUPERVISOR MICROSCOPIC AUTOMATED Routine 08/08/2024 11:45 AM TEXTILE SUPERVISOR URINALYSIS WITH MICROSCOPIC Routine 08/08/2024 11:45 AM TEXTILE SUPERVISOR Symptom Urinary PROSTATE-SPECIFIC AG (PSA) DIAGNOSTIC, S Routine 08/06/2024 8:45 AM TEXTILE SUPERVISOR Primary Malignant Neoplasm Of Prostate (HCC) from Last 3 Months Results * FL Fluoro Less Than 1 Hour (10/24/2024 11:19 AM TEXTILE SUPERVISOR) Narrative [id number] - 10/24/2024 12:20 PM TEXTILE SUPERVISOR This exam does not require a radiologist review or interpretation. Please refer to the patient's medical record on this date for clinical details. us Seth Bass M.D. IMG FLUOROSCOPY PROCEDURES Fi nal Result Performing Organization Address [facility] de Phone Number [id number] NA * BLADDER-Surgery Image Exam (10/24/2024 11:17 AM TEXTILE SUPERVISOR) 10/24/2024 11:5 4 AM TEXTILE SUPERVISOR Narrative IIMS - 10/24/2024 11:17 AM TEXTILE SUPERVISOR This order has been created and auto-finalized to support the import of images acquired without order. The clinical documentation to support these images can be found on the encounter that produced images. Provider Not In System IMG NON RAD IMAGING PROCE DURES Final Result Performing Organization Address [facility] de Phone Number IIMS NA * LDA ANE NON-SURGICAL AIRWAY (10/24/2024 8:41 AM TEXTILE SUPERVISOR) Narrative Trevor Sheth APRN, CRNA - 10/24/2024 8:41 AM TEXTILE SUPERVISOR Trevor Sheth APRN, CRNA 10/24/2024 8:51 AM [...] Events: no complications us Trevor Botello Meryl SENIOR SOFTWARE TESTER, JAKI ANESTHESIA ORDERABLES Fin al Result * US Carotid Bilateral (10/23/2024 12:30 PM TEXTILE SUPERVISOR) Anatomical Region Laterality Modality Head and Neck, Ultrasound RS T LOS, Ultrasound ARZ LOS, Neuroradiology FLA LOS, Procedural, Vascular Interventional NWWI LOS Bilateral Ultrasound Impressions 10/23/2024 12:45 PM TEXTILE SUPERVISOR No significant carotid stenosis Narrative 10/23/2024 12:45 PM TEXTILE SUPERVISOR EXAM: US CAROTID BILATERAL Exam performed with [...] normal distal ICA in accordance with [place] Symptomatic Carotid Endarterectomy Trial (NASCET). Procedure Note [...] 2D ECHO DOPPLER COLOR (10/10/2024 4:00 PM TEXTILE SUPERVISOR) Ejection Fraction 65 MC CV EIMS [...] Region Laterality Modality Echocardiography 10/10/2024 2:51 PM TEXTILE SUPERVISOR Impressions 10/10/2024 4:01 PM TEXTILE SUPERVISOR LEFT VENTRICLE:Normal left ventricular chamber size. [...] the Order-Level Documents. Narrative 10/10/2024 4:01 PM TEXTILE SUPERVISOR For the complete report, see the [...] (>50%). 8. There are no previous [facility] echocardiograms available for comparison. Procedure Note Paras Diaz M.D. - 10/10/2024 For the complete report, see the Order-Level Documents. Hemodynamics Heart Rate: 46 BPM Blood Pressure: 152 / 71 mmHg ECG: Sinus rhythm, Bradycardia Final Impressions 1. Moderate calcific aortic valve stenosis, systolic mean Doppler [id number] mmHg, valve area by Doppler 1.08 cm2. [...] collapse(>50%). 8. There are no previous [facility] echocardiograms available forcomparison. Findings LEFT VENTRICLE:Normal left [...] * (ABNORMAL) Dipstick, Urine (10/10/2024 1:05 PM TEXTILE SUPERVISOR) Only the most recent of2 resultswithin the time period is included. Pathologist [facility] Hemoglobin, QL, U Large(A) Negative 10/10/2024 2:08 PM TEXTILE SUPERVISOR DTL Leukocyte Esterase, U Trace(A) Negative 10/10/2024 2:08 PM TEXTILE SUPERVISOR DTL Nitrite, U Negative Negative 10/10/2024 2:08 PM TEXTILE SUPERVISOR DTL Ketone, U Negative Negative mg/dL 10/10/2024 2:08 PM TEXTILE SUPERVISOR DTL Glucose, U Negative Negative mg/dL 10/10/2024 2:08 PM TEXTILE SUPERVISOR DTL Urine 10/10/2024 1:05 PM TEXTILE SUPERVISOR 10/10/2024 1:25 PM TEXTILE SUPERVISOR us Gato Shaw M.D. LAB URINE ORDERABLES Final Re sult [facility] [address] [place] [address], [place] [facility] [address] [place] [address] * (ABNORMAL) Microscopic Manual (10/10/2024 1:05 PM TEXTILE SUPERVISOR) Pathologist [facility] Microscopy Abnormal 10/10/2024 2:51 PM TEXTILE SUPERVISOR DTL RBC >100(A) <3 /hpf 10/10/2024 2:51 PM TEXTILE SUPERVISOR DTL Dysmorphic RBC <25 <25 % 10/10/2024 2:51 PM TEXTILE SUPERVISOR DTL WBC 4-10(A) /hpf 10/10/2024 2:51 PM TEXTILE SUPERVISOR DTL Comment: ----REFERENCE VALUE---- <4 (Males) <11 (Females) Urine 10/10/2024 1:05 PM TEXTILE SUPERVISOR 10/10/2024 2:08 PM TEXTILE SUPERVISOR Gato Shaw M.D. LAB URINE ORDERABLES Final Re sult Performing Organization Address City/[facility] [place] [address] * Bacterial Culture, Aerobic + Susceptibility, Urine (10/10/2024 1:05 PM TEXTILE SUPERVISOR) Pathologist [facility] Urine Culture Urogenital microbiota, susceptibilities not performed per laboratory criteria. 10/11/2024 2:46 PM TEXTILE SUPERVISOR DTL Urine (Urine, Midstream) 10/10/2024 1:05 PM TEXTILE SUPERVISOR 10/10/2024 2:06 PM TEXTILE SUPERVISOR Comment:Specimen Source Site : Urine us Gato Shaw M.D. LAB MICROBIOLOGY - GENERAL OR DERABLES Final Result Performing Organization Address City/[facility]/[place] [address] * pH, Urine (10/10/2024 1:05 PM TEXTILE SUPERVISOR) Only the most recent of2 resultswithin the time period is included. pH, U 6.0 4.5 - 8.0 10/10/2024 2:3 6 PM TEXTILE SUPERVISOR DTL Urine 10/10/2024 1:05 PM TEXTILE SUPERVISOR 10/10/2024 1:25 PM TEXTILE SUPERVISOR us Gato Shaw M.D. LAB URINE ORDERABLES Final [facility] Performing Organization Address [facility] de Phone Number [facility] [address] [place] [address], [place] [address] * Osmolality, Urine (10/10/2024 1:05 PM TEXTILE SUPERVISOR) Only the most recent of2 resultswithin the time period is included. Osmolality, U 607 150 - 1150 mOsm/kg 10/10/2024 2:36 PM TEXTILE SUPERVISOR DTL Urine 10/10/2024 1:05 PM TEXTILE SUPERVISOR 10/10/2024 1:25 PM TEXTILE SUPERVISOR Gato Shaw M.D. LAB URINE ORDERABLES Final [facility] Performing Organization Address [facility] de Phone Number [facility] [address] [place] [address], [place] [address] * (ABNORMAL) Urinalysis, with Microscopic: Urine, Midstream (10/10/2024 1:05 PM TEXTILE SUPERVISOR) Only the most recent of2 resultswithin the time period is included. Source Urine, Urine, Midstream 10/10/2024 1:25 PM TEXTILE SUPERVISOR DTL Color, U Yellow 10/10/2024 1:25 PM TEXTILE SUPERVISOR DTL Clarity, U Clear 10/10/2024 1:25 PM TEXTILE SUPERVISOR DTL Protein, U 58(H) <26 mg/dL 10/10/2024 2:19 PM TEXTILE SUPERVISOR DTL Protein/Osmol ality 0.96(H) <0.42 ratio 10/10/2024 2:36 PM TEXTILE SUPERVISOR DTL Predicted 24 HR Protein, U 902(H) <229 mg/24 h 10/10/2024 2:36 PM TEXTILE SUPERVISOR DTL Predicted Range 286-2841 mg/24 h 10/10/2024 2:36 PM TEXTILE SUPERVISOR DTL Urine (Urine, Midstream) 10/10/2024 1:05 PM TEXTILE SUPERVISOR 10/10/2024 1:24 PM TEXTILE SUPERVISOR Gato Shaw M.D. LAB URINE ORDERABLES Final Re sult Performing Organization Address [facility] Co de Phone Number [facility] [address] [place] [address], [facility] DTL [facility] [address] [place] [address] * ECG 12 Lead (10/10/2024 11:52 AM TEXTILE SUPERVISOR) Ventricular Rate ECG/Min 42 BPM MUSE NM Interval 190 ms MUSE QRSD Interval 106 ms MUSE QT Interval 514 ms MUSE QTC Interval 429 ms MUSE P [place] 12 degrees MUSE R [place] -11 degrees MUSE T Wave [place] -1 degrees MUSE 10/10/2024 11:5 2 AM TEXTILE SUPERVISOR 10/10/2024 2:31 PM TEXTILE SUPERVISOR Impressions MUSE - 10/10/2024 11:54 AM TEXTILE SUPERVISOR Marked sinus bradycardia Minimal voltage criteria for [...] Edited Result - Final Performing Organization Address City/[facility]/ZIP Co de Phone Number MUSE NA * DX Chest AP or PA and Lateral 2 Views (10/10/2024 11:22 AM TEXTILE SUPERVISOR) Anatomical Region Laterality Modality Chest, Thoracic RST LOS, Tho racic ARZ LOS, Thoracic FLA LOS N/A Digital Radiography Impressions 10/10/2024 11:38 AM TEXTILE SUPERVISOR Interstitial opacities within the bilateral mid and lower lungs, greater on the left. These likely correspond with fibrotic change seen on 08/13/2024 CT urogram. Aortic calcification. Hypertrophic degenerative changes thoracic spine with mild anterior wedging of several midthoracic vertebral bodies. Chest otherwise negative. Narrative 10/10/2024 11:38 AM TEXTILE SUPERVISOR EXAM: DX CHEST AP OR PA AND [...] * (ABNORMAL) Lipid Panel (10/10/2024 11:03 AM TEXTILE SUPERVISOR) Triglycerides 163(H) mg/dL 10/10/2024 12:20 PM TEXTILE SUPERVISOR DTL Comment: ----REFERENCE VALUE---- Normal: <150 mg/dL Borderline High: 150-199 mg/dL High: 200-499 mg/dL Very High: > or =500 mg/dL Cholesterol, Total 143 mg/dL 2024 12:20 PM TEXTILE SUPERVISOR DTL Comment: ----REFERENCE VALUE---- Desirable: < 200 mg/dL Borderline High: 200 - 239 mg/dL High: > or = 240 mg/dL Cholesterol, LDL, Calculated 78 mg/dL 10/10/2024 12:20 PM TEXTILE SUPERVISOR DTL Comment: ----REFERENCE VALUE---- Desirable: <100 mg/dL Above Desirable: 100-129 mg/dL Borderline High: 130-159 mg/dL High: 160-189 mg/dL Very High: >=190 mg/dL ----ADDITIONAL INFORMATION---- LDL cholesterol calculated using the Sawant/NIH equation. Cholesterol, HDL, S 37(L) >=40 mg/dL 10/10/2024 12:20 PM TEXTILE SUPERVISOR DTL Cholesterol, Non-HDL, Calculated 106 mg/dL 10/10/2024 12:20 PM TEXTILE SUPERVISOR DTL Comment: ----REFERENCE VALUE---- Desirable: <130 mg/dL Above Desirable: 130-159 mg/dL Borderline High: 160-189 mg/dL High: 190-219 mg/dL Very High: > or =220 mg/dL Fasting (8 HR or more) Yes 10/10/2024 11:03 AM TEXTILE SUPERVISOR DTL Blood (Blood, Venous) 10/10/2024 11:03 AM TEXTILE SUPERVISOR 10/10/2024 11:36 AM TEXTILE SUPERVISOR us Inocente Avila M.D. LAB BLOOD ADD-ON Final Resul t Performing Organization Address City/[facility]/ZIP Co de Phone Number [address] [place] [address] * Thyroid Function [place] (10/10/2024 11:03 AM TEXTILE SUPERVISOR) Pathologist [facility] TSH, Sensitive 1.9 0.3 - 4.2 mIU/L 10/10/2024 12:20 PM TEXTILE SUPERVISOR DTL Blood (Blood, Venous) 10/10/2024 11:03 AM TEXTILE SUPERVISOR 10/10/2024 11:36 AM TEXTILE SUPERVISOR us Inocente Avila M.D. LAB BLOOD ADD-ON Final Resul t Performing Organization Address City/[facility] Co de Phone Number [address] [place] [address] * (ABNORMAL) NT-Pro B-Type Natriuretic Peptide (BNP) (10/10/2024 11:03 AM TEXTILE SUPERVISOR) [facility] NT-Pro BNP 710(H) <=540 pg/mL 10/10/2024 12:20 PM TEXTILE SUPERVISOR DTL Comment: NT-proBNP values less than [...] failure. Blood (Blood, Venous) 10/10/2024 11:03 AM TEXTILE SUPERVISOR 10/10/2024 11:36 AM TEXTILE SUPERVISOR us Inocente Avila M.D. LAB BLOOD ADD-ON Final Resul t Performing Organization Address [facility]/ZIP Co de Phone Number [facility] [address] [place], [place] [id number] [place] [address] DTL [facility] [address] [place] [address] * (ABNORMAL) CBC without Differential (10/10/2024 11:03 AM TEXTILE SUPERVISOR) Hemoglobin 13.1(L) 13.2 - 16.6 g/dL 10/10/2024 11:43 AM TEXTILE SUPERVISOR DTL Hematocrit 41.4 38.3 - 48.6 % 10/10/2024 11:43 AM TEXTILE SUPERVISOR DTL Erythrocytes 4.36 4.35 - 5.65 x10(12)/L 10/10/2024 11:43 AM TEXTILE SUPERVISOR DTL MCV 95.0 78.2 - 97.9 fL 10/10/2024 11:43 AM TEXTILE SUPERVISOR DTL RBC Distrib Width 13.2 11.8 - 14.5 % 10/10/2024 11:43 AM TEXTILE SUPERVISOR DTL Platelet Count 325(H) 135 - 317 x10(9)/L 10/10/2024 11:43 AM TEXTILE SUPERVISOR DTL Leukocytes 5.2 3.4 - 9.6 x10(9)/L 10/10/2024 11:43 AM TEXTILE SUPERVISOR DTL Blood (Blood, Venous) 10/10/2024 11:03 AM TEXTILE SUPERVISOR 10/10/2024 11:23 AM TEXTILE SUPERVISOR us Gato Shaw M.D. LAB BLOOD ADD-ON Final Result Performing Organization Address [facility]/ZIP Co de Phone Number [facility] [address] [place], [place] [address] DTL [facility] [address] [place] [address] * (ABNORMAL) Troponin T, 5th Generation (10/10/2024 11:03 AM TEXTILE SUPERVISOR) [facility] Troponin T, 5th gen 34(H) <=15 ng/L 10/10/2024 12:25 PM TEXTILE SUPERVISOR DTL Blood (Blood, Venous) 10/10/2024 11:03 AM TEXTILE SUPERVISOR 10/10/2024 11:37 AM TEXTILE SUPERVISOR us Inocente Avila M.D. LAB BLOOD ADD-ON Final Resul t [facility] [address] [place] [address], [facility] [address] [place] [address] * Basic Metabolic Panel (10/10/2024 11:03 AM TEXTILE SUPERVISOR) Only the most recent of2 resultswithin the time period is included. [facility] Potassium, S 4.7 3.6 - 5.2 mmol/L 10/10/2024 12:20 PM TEXTILE SUPERVISOR DTL Sodium, S 141 135 - 145 mmol/L 10/10/2024 12:20 PM TEXTILE SUPERVISOR DTL Chloride, S 104 98 - 107 mmol/L 10/10/2024 12:20 PM TEXTILE SUPERVISOR DTL Bicarbonate, S 26 22 - 29 mmol/L 10/10/2024 12:20 PM TEXTILE SUPERVISOR DTL Anion Gap 11 7 - 15 10/10/2024 12:20 PM TEXTILE SUPERVISOR DTL BUN (Blood Urea Nitrogen), S 17 8 - 24 mg/dL 10/10/2024 12:20 PM TEXTILE SUPERVISOR DTL Creatinine 1.15 0.74 - 1.35 mg/dL 10/10/2024 12:20 PM TEXTILE SUPERVISOR DTL Estimated GFR (eGFR) 64 >=60 mL/min/BSA 10/10/2024 12:20 PM TEXTILE SUPERVISOR DTL Comment: Estimated GFR calculated using the 2020 CKD_EPI creatinine equation. Calcium, Total, S 9.9 8.8 - 10.2 mg/dL 10/10/2024 12:20 PM TEXTILE SUPERVISOR DTL Glucose, S 91 70 - 140 mg/dL 10/10/2024 12:20 PM TEXTILE SUPERVISOR DTL Blood (Blood, Venous) 10/10/2024 11:03 AM TEXTILE SUPERVISOR 10/10/2024 11:36 AM TEXTILE SUPERVISOR us Gato Shaw M.D. LAB BLOOD ADD-ON Final Result Performing Organization Address [facility] Co de Phone Number [facility] [address] [place] [address], [place] DTL [facility] [address] [place] [address] * ECHO TTE COMPLETE W CONTRAST-Outside [place] Card (09/29/2024 12:00 AM TEXTILE SUPERVISOR) Narrative [facility]IMS - 10/02/2024 2:10 PM TEXTILE SUPERVISOR This order has been created and auto-finalized [...] PROCE DURES Final Result Performing Organization Address [facility] de Phone Number [facility] NA * (ABNORMAL) Cytology Non-CLAIMS SORTER (Scheduled) (09/08/2024 9:07 AM TEXTILE SUPERVISOR) (A ) 09/09/2024 2:39 PM TEXTILE SUPERVISOR DTL Participated in the Interpretation Franki Berry M.D.-Patholog y Fellow(A) 09/09/2024 2:39 PM TEXTILE SUPERVISOR DTL Report electronically signed by Jair Vences M.D., Ph.D. I verify that I have examined all relevant slides/materi als for the specimen(s) and rendered or confirmed the diagnosis. (A) 09/09/2024 2:39 PM TEXTILE SUPERVISOR DTL Gross Description Received 60 cc of yellow fluid.(A) 09/09/2024 2:39 PM TEXTILE SUPERVISOR DTL Source A. Urine, voided(A) 09/09/2024 2:39 PM TEXTILE SUPERVISOR DTL Interpretation A. 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 (A) 09/09/2024 2:39 PM TEXTILE SUPERVISOR DTL Urine 09/08/2024 9:07 AM TEXTILE SUPERVISOR 09/08/2024 10:52 AM TEXTILE SUPERVISOR Missy Castillo APRN.N.PDaisy, Matteo.N.P. LAB SURG PATH ORDERABLES Final Result [facility] [address] [place] [address], [facility] DTL [address] [place] [address] * URO Cystoscopy (general) (09/08/2024 9:00 AM TEXTILE SUPERVISOR) Narrative Hortensia Quiroga P.A.-C. - 09/08/2024 9:00 AM TEXTILE SUPERVISOR Hortensia Quiroga P.A.-C. 09/08/2024 9:27 AM URO [...] and with IV Contrast (08/13/2024 1:03 PM TEXTILE SUPERVISOR) Anatomical Region Laterality Modality Abdomen, Pelvis, Abdominal R ST LOS, Abdominal ARZ LOS, Abdominal FLA LOS N/A Computed Tomograp hy, Computed Tomography 08/13/2024 12:4 6 PM TEXTILE SUPERVISOR Impressions 08/13/2024 3:31 PM TEXTILE SUPERVISOR 1. 9 mm nonobstructing calculus at the left UPJ, with surrounding ureteral wall thickening and enhancement and periureteral stranding. 2. Additional 10 mm calculus in the urinary bladder and 8 mm nonobstructing calculus in the lower pole right kidney. Narrative 08/13/2024 3:31 PM TEXTILE SUPERVISOR EXAM: CT UROGRAM WITHOUT AND WITH IV [...] Creatinine with Estimated GFR (08/11/2024 10:20 AM TEXTILE SUPERVISOR) Creatinine 1.21 0.74 - 1.35 mg/dL 08/11/2024 11:29 AM TEXTILE SUPERVISOR DTL Estimated GFR (eGFR) 61 >=60 mL/min/BSA 08/11/2024 11:29 AM TEXTILE SUPERVISOR DTL Comment: Estimated GFR calculated using the 2020 CKD_EPI creatinine equation. Blood (Blood, Venous) 08/11/2024 10:20 AM TEXTILE SUPERVISOR 08/11/2024 11:01 AM TEXTILE SUPERVISOR Shellie Howe APRN C.N.P., D.N.P. LAB BLOO D ADD-ON Final Result [facility] [address] [place] [address], [facility] DTL [facility] [address] [place] [address] * URO Uroflow (08/08/2024 2:30 PM TEXTILE SUPERVISOR) Narrative Piter Ferrell M.D. - 08/08/2024 2:30 PM TEXTILE SUPERVISOR Piter Ferrell M.D. 08/09/2024 8:25 AM Reason [...] * (ABNORMAL) Microscopic Automated (08/08/2024 11:45 AM TEXTILE SUPERVISOR) Microscopy Abnormal 08/08/2024 1:17 PM TEXTILE SUPERVISOR DTL RBC 11-20(A) <3 /hpf 08/08/2024 1:17 PM TEXTILE SUPERVISOR DTL Dysmorphic RBC <25 <25 % 08/08/2024 1:17 PM TEXTILE SUPERVISOR DTL WBC 4-10(A) /hpf 08/08/2024 1:17 PM TEXTILE SUPERVISOR DTL Comment: ----REFERENCE VALUE---- <4 (Males) <11 (Females) Urine 08/08/2024 11:4 5 AM TEXTILE SUPERVISOR 08/08/2024 12:51 PM TEXTILE SUPERVISOR Rigoberto Flores M.D. LAB URINE ORDERABLES Final Res ult Performing Organization Address City/[facility]/ZIP Co de Phone Number [facility] [address] [place] [address], [facility] [address] [place] [address] * PSA (Prostate-Specific Antigen), Diagnostic (08/06/2024 8:45 AM TEXTILE SUPERVISOR) Prostate-Specific Ag <0.10 <=7.2 ng/mL 08/06/2024 9:47 AM TEXTILE SUPERVISOR DT Comment: ----ADDITIONAL INFORMATION---- The testing method is an electrochemiluminescence assay manufactured by [employer] and performed on the Modular or Kerrie system. Values obtained with different assay methods or kits may be different and cannot be used interchangeably. Test results cannot be interpreted as absolute evidence for the presence or absence of malignant disease. Blood (Blood, Venous) 08/06/2024 8:45 AM TEXTILE SUPERVISOR 08/06/2024 9:10 AM TEXTILE SUPERVISOR Gato Larkin APRN, C.N.P., D.N.P. LAB BLOOD ADD -ON Final Result Performing Organization Address [facility] Co de Phone Number [facility] [address] [place] [address], [facility] [address] [place] [address] from Last [address] [facility] Advance Directives For more information, please contact: [phone] * Full Code (Latest Code Status on File) Date Activated Date Inactivated Comments 10/24/2024 8:10 AM 10/24/2024 3:58 PM Question Answer Comments Full Code: Discussed Care Teams Primer Assembler Relationship Specialty Start Date End Date Elsewhere, Pcp PCP - General Internal Medicine 10/24/24
--- OUTSIDE RECORDS SUMMARY | 2024-10-26 03:58 | XMS_ITS | Referral Summary ---
Author Organization [facility] Address [address] [place] [id number] Care Team Providers Care Machine Slat Basket Maker Name Role Phone Elsewhere, Pcp Primary Care Provider Unavailabl e Source Comments Patient records contain information from all sites at [facility]. For routine questions regarding patient records, call [phone] during business hours, M-F 8:00 AM - 5:00 PM Central Time. Record requests for emergency care only can be directed to [phone] at any time.[facility] Encounters Date Type Department Care Team Description 10/24/2024 11:55 AM TOW BAR DRIVER Ancillary Procedure Department of General Surgery Arrived 10/24/2024 8:34 AM TOW BAR DRIVER Anesthesia Event Outpatient Procedure Center in [place], [place] [address] [place] [phone] Trevor Sheth APRN, CRNA Psomas, Maria N, M.D. 10/24/2024 7:50 AM TOW BAR DRIVER - 10/24/2024 10:00 AM TOW BAR DRIVER Surgery Outpatient Procedure Center in [place], [place] [address] [place] [phone] Gato Shaw M.D. CYSTOLITHOLAPAXY. 10/24/2024 7:48 AM TOW BAR DRIVER - 10/24/2024 1:57 PM TOW BAR DRIVER Hospital Encounter Outpatient Procedure Center in [place], [place] [address] [place] [phone] Gato Shaw M.D. Stone Kidney; Hematuria Discharge Disposition: Home or Self Care 10/23/2024 Clinical Communication Department of Cardiovascular Medicine in [place], [place] [address] [place] [phone] Inocente Avila M.D. OSM - Outside Materials (14-day event monitor /zio patch ) 10/23/2024 Clinical Communication Department of Urology in [place], [place] [address] [place] [phone] Gato Shaw M.D. 10/23/2024 11:37 AM TOW BAR DRIVER - 10/23/2024 11:59 PM TOW BAR DRIVER Hospital Encounter Department of Radiology, [facility] in [place], [place] [address] [place] [phone] Inocente Avila M.D. Bruit Carotid Artery Discharge Disposition: Home or Self Care 10/23/2024 2:00 PM TOW BAR DRIVER Comprehensive Visit Preoperative Evaluation Center in [place], [place] [address] [place] [phone] Winnie Becker M.D., M.S. Silvana Rodriges APRN, C.N.P., M.S.N. Preanesthetic Medical Exam (Primary Dx); Stone Kidney; Primary Malignant Neoplasm Of Prostate (HCC); Hypertension Essential Primary; Other Nonrheumatic Aortic Valve Disorders; Atrial Fibrillation Paroxysmal (HCC); Murmur Heart; Hyperlipidemia; Hematuria 10/21/2024 Clinical Communication Department of Urology in [place], [place] [address] [place] [phone] Molly Mac opc proc 10/21/2024 1:15 PM [facility] Clinical Communication Virtual Review in [place], [place] 200 [place] [phone] Pre-visit Intake 10/18/2024 Clinical Communication Department of Urology in [place], [place] [address] [place] [phone] Winnie Becker M.D., M.S. 10/10/2024 2:25 PM TOW BAR DRIVER - 10/10/2024 11:59 PM TOW BAR DRIVER Hospital Encounter Department of Cardiovascular Diseases in [place], [place] [address] [place] [phone] Inocente Avila M.D. Stenosis Aortic Valve Acquired Discharge Disposition: Home or Self Care 10/10/2024 Orders Only Department of Cardiovascular Medicine in [place], [place] [address] [place] [phone] Inocente Avila M.D. Atrial Fibrillation Paroxysmal (HCC) (Primary Dx); Myocardial Injury Nonischemic Nontraumatic; Dysfunction Diastolic; Hyperlipidemia 10/10/2024 10:50 AM TOW BAR DRIVER Hospital Encounter Department of Laboratory Medicine and Pathology, [place], [place] [address] [place] [phone] Gato Shaw M.D. Stone Kidney Discharge Disposition: Home or Self Care 10/10/2024 11:12 AM TOW BAR DRIVER - 10/10/2024 2:24 PM TOW BAR DRIVER Hospital Encounter Department of Radiology, [address] [phone] Gato Shaw M.D. Stone Kidney Discharge Disposition: Home or Self Care 10/10/2024 10:51 AM TOW BAR DRIVER - 10/10/2024 11:11 AM TOW BAR DRIVER Hospital Encounter Department of Laboratory Medicine and Pathology, [facility] in [place], [place] [address] [place] [phone] Gato Shaw M.D. Stone Kidney; Atrial Fibrillation Paroxysmal (HCC); Myocardial Injury Nonischemic Nontraumatic; Dysfunction Diastolic; Hyperlipidemia Discharge Disposition: Home or Self Care 10/10/2024 2:00 PM TOW BAR DRIVER Office Visit Department of Cardiovascular Medicine in [address] [phone] Inocente Avila M.D. Stenosis Aortic Valve Acquired (Primary Dx); Stone Kidney; Bruit Carotid Artery; Hematuria; Atrial Fibrillation Paroxysmal (HCC); Other Specified Conduction Disorders; Hypertensive Heart Disease Without Heart Failure; Hyperlipidemia 10/08/2024 Orders Only Department of Urology in [address] [phone] Hortensia Dwyer R.N. Stone Kidney (Primary Dx) 10/08/2024 Clinical Communication Department of Urology in [place], [place] [address] [place] [phone] Ghanshyam Ye 10/02/2024 Clinical Communication Department of Cardiovascular Medicine in [place], [place] [address] [place] [phone] Order Processing ClerkSudarshan M.D. Triage 09/30/2024 Clinical Communication Department of Urology in [place], [place] [address] [place] [phone] Gato Shaw M.D. 09/08/2024 8:02 AM TOW BAR DRIVER - 09/08/2024 11:59 PM TOW BAR DRIVER Hospital Encounter Department of Laboratory Medicine and Pathology, [facility] in [place], [place] [address] [place] [phone] Shellie Howe APRN C.N.PDaisy, D.N.P. Hematuria Discharge Disposition: Home or Self Care 09/08/2024 8:02 AM TOW BAR DRIVER - 09/08/2024 11:59 PM TOW BAR DRIVER Hospital Encounter Department of Laboratory Medicine and Pathology, [facility] in [place], [place] [address] [place] [phone] Shellie Howe APRN, C.N.P., D.N.P. Stone Kidney Discharge Disposition: Home or Self Care 09/08/2024 10:30 AM TOW BAR DRIVER Comprehensive Visit Department of Urology in [place], [place] [address] [place] [phone] Gato Shaw M.D. Stone Kidney (Primary Dx) 09/08/2024 9:00 AM TOW BAR DRIVER Procedure visit Department of Urology in [place], [place] [address] [place] [phone] Shellie Howe APRN, C.N.P., D.N.P. Hortensia Quiroga, P.A.-C. Hematuria 09/04/2024 12:45 PM TOW BAR DRIVER Clinical Communication Virtual Review in [place], [place] 200 [place] [address] Pre-visit Intake 08/19/2024 Orders Only Department of Urology in [place], [place] [address] [place] [phone] Shellie Howe APRN, C.N.PDaisy, D.N.P. Hematuria (Primary Dx) 08/14/2024 Orders Only Department of Urology in [address] [phone] Shellie Howe APRN, Missy.N.P., D.N.P. Stone Kidney (Primary Dx) 08/13/2024 12:04 PM TOW BAR DRIVER - 08/13/2024 11:59 PM TOW BAR DRIVER Hospital Encounter Department of Radiology, [address] [phone] Shellie Howe APRN, C.N.P., D.N.P. Hematuria Discharge Disposition: Home or Self Care 08/11/2024 9:20 AM TOW BAR DRIVER - 08/11/2024 11:59 PM TOW BAR DRIVER Hospital Encounter Department of Laboratory Medicine and Pathology, [address] [phone] Shellie Howe APRN C.N.P., D.N.P. Hematuria Discharge Disposition: Home or Self Care 08/08/2024 3:00 PM TOW BAR DRIVER Comprehensive Visit Department of Urology in [address] [phone] Maryana Malik MPAS, P.A.-Missy. Shellie Howe APRN, C.N.P., D.N.P. Hematuria (Primary Dx); Symptom Urinary 08/08/2024 2:30 PM TOW BAR DRIVER Procedure visit Department of Urology in [address] [phone] Rigoberto Flores M.D. Franson, Jane E, RPatti Incontinence Urinary Stress And Urge (Primary Dx); Symptom Urinary 08/08/2024 11:27 AM TOW BAR DRIVER - 08/08/2024 11:59 PM TOW BAR DRIVER Hospital Encounter Department of Laboratory Medicine and Pathology, [address] [phone] Rigoberto Flores M.D. Symptom Urinary Discharge Disposition: Home or Self Care 08/06/2024 9:58 AM TOW BAR DRIVER - 08/06/2024 11:29 AM TOW BAR DRIVER Hospital Encounter Department of Radiation Oncology in [place], [place] [address] [place] [phone] Gato Larkin APRN, C.N.P., D.N.P. Primary Malignant Neoplasm Of Prostate (HCC) (Primary Dx) 08/04/2024 12:00 PM TOW BAR DRIVER Clinical Communication Virtual Review in [place], [place] [address] [place] [address] Pre-visit Intake from Last 3 Months Allergies [...] (bladder spasms). 15 tablet 5 2:06 PM TOW BAR DRIVER 10/24/19 25 Active aspirin 81 mg chewable [...] catheter removal. 2 capsule 5 2:06 PM TOW BAR DRIVER 10/24/19 25 025 Active Problems Problem Noted [...] drink = 0.6 oz pur e alcohol) [facility] Utilities Answer Date Recorded In the past 12 months has e [employer], gas, oil, or water [employer] threatened to shut off services in [...] a [facility] place to live 10/17/2024 Sex and Gender Information Value Date Recorded Sex Assigned at Male 08/08/2023 11:08 AM TOW BAR DRIVER Legal Sex Male 11:22 AM TOW BAR DRIVER Gender Identity Male 08/08/2023 11:08 AM TOW BAR DRIVER Sexual Orientation Straight 08/08/2023 11 :08 AM TOW BAR DRIVER 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 on f ile Not on file Not on file Last Filed Vital Signs Vital Sign Reading Time Taken Comments Blood Pressure 136/65 10/24/2024 12:45 PM TOW BAR DRIVER Pulse 48 10/24/2024 1:10 PM TOW BAR DRIVER Temperature 36.4 C (97.5 F) 10/24/2024 11:24 AM TOW BAR DRIVER Respiratory Rate 14 10/24/2024 1:10 PM TOW BAR DRIVER Oxygen Saturation 98% 10/24/2024 1:10 PM TOW BAR DRIVER Inhaled Oxygen Concentration - - Weight 91.8 kg (202 lb 6.1 oz) 10/23/2024 1:53 P M TOW BAR DRIVER Height 179 cm (5' 10.47) 10/23/2024 1:53 PM TOW BAR DRIVER Body Mass Index 28.65 10/23/2024 1:53 PM TOW BAR DRIVER Plan of Treatment Upcoming Encounters Date Type Department Care Team (Late st Contact Info) Description 10/27/2024 8:00 AM TOW BAR DRIVER Procedure visit Department of Urology in [place], [place] 200 [place] [phone] Seth Bass M.D. 200 [place] [address] 12/05/2024 7:40 AM TOW BAR DRIVER Appointment Department of Laboratory Medicine and Pathology, [facility], in [place], [place] [address] [place] [address] Seth Bass M.D. 200 [place] [phone] 12/05/2024 7:50 AM TOW BAR DRIVER Appointment Department of Laboratory Medicine and Pathology, [facility] in [place], [place] [address] [place] [phone] Seth Bass M.D. [address] [place] [phone] 12/05/2024 8:15 AM TOW BAR DRIVER Appointment Department of Radiology, [facility] in [place], [place] [address] [place] [phone] Seth Bass M.D. [address] [place] [phone] 12/05/2024 9:00 AM TOW BAR DRIVER Appointment Department of Radiology, [facility] in [place], [place] [address] [place] [address] Seth Bass M.D. [address] [place] [phone] 12/05/2024 1:00 PM TOW BAR DRIVER Comprehensive Visit Division of Nephrology and Hypertension in [place], [place] [address] [place] [phone] Manjinder Ty M.D. [address] [place] [phone] 01/01/2025 11:00 AM CDT Telemedicine Division of Nephrology and Hypertension in [place], [place] [address] [place] [phone] Seth Bass M.D. [address] [place] [phone] Medical Devices Implanted Type Area It Instructor Device Identifier Shelf Expiration Date Model / Serial / Lot Marker Tissue Biomarc Kv 1x5 - [id number] Implanted:Qty : 4 on 08/08/2023 by Thaddeus Ding M.D. at [facility] Imaging Marker [facility] [id number] 12/01/2027 [id number] / / [id number] Stnt Uret Inl 7fx28 - [id number] Implanted:Qty : 1 on 10/24/2024 by Gato Shaw M.D. at [facility]/[employer]onda Ureteral Stent [employer].Bard [id number] 07/31/2028 [id number] / / [id number] Procedures Procedure Name Priority Date/Time Associated Diagnosis Comments FL FLUORO LESS THAN 1 HOUR RAD - Routine (most inpatients and all outpatients) 10/24/2024 11:19 AM TOW BAR DRIVER SURGERY IMAGE EXAM Routine 10/24/2024 11 :17 AM TOW BAR DRIVER LDA ANE NON-SURGICAL AIRWAY Routine 10/24/2024 8:41 AM TOW BAR DRIVER US CAROTID BILATERAL RAD - Routine (most inpatients and all outpatients) 10/23/2024 12:30 PM TOW BAR DRIVER Bruit Carotid Artery (TTE) 2D ECHO DOPPLER COLOR Routine 10/10/2024 4:00 PM TOW BAR DRIVER Stenosis Aortic Valve Acquired MICROSCOPIC MANUAL Routine 10/10/2024 1: 05 PM TOW BAR DRIVER PH, U Routine 10/10/2024 1:05 PM TOW BAR DRIVER DIPSTICK, U Routine 10/10/2024 1:05 PM TOW BAR DRIVER OSMOLALITY, U Routine 10/10/2024 1:05 PM TOW BAR DRIVER URINALYSIS WITH MICROSCOPIC Routine 10/10/2024 1:05 PM TOW BAR DRIVER Stone Kidney BACTERIAL CULTURE, AEROBIC + SUSC, URINE Routine 10/10/2024 1:05 PM TOW BAR DRIVER Stone Kidney ECG Routine 10/10/2024 11:52 AM TOW BAR DRIVER Stone Kidney DX CHEST AP OR PA AND LATERAL 2 VIEWS RAD - Routine (most inpatients and all outpatients) 10/10/2024 11:22 AM TOW BAR DRIVER Stone Kidney LIPID PANEL, S Routine 10/10/2024 11:03 AM TOW BAR DRIVER Atrial Fibrillation Paroxysmal (HCC) 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 Hyperlipidemia THYROID FUNCTION CASCADE, S Routine 10/10/2024 11:03 AM TOW BAR DRIVER Atrial Fibrillation Paroxysmal (HCC) 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 Hyperlipidemia NT-PRO B-TYPE NATRIURETIC PEPTIDE (BNP), S Routine 10/10/2024 11:03 AM TOW BAR DRIVER Atrial Fibrillation Paroxysmal (HCC) 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 Hyperlipidemia TROPONIN T, 5TH GEN, P Routine 10/10/2024 11:03 AM TOW BAR DRIVER Atrial Fibrillation Paroxysmal (HCC) 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 Hyperlipidemia BASIC METABOLIC PANEL, S/P Routine 10/10/2024 11:03 AM TOW BAR DRIVER Stone Kidney CBC WITHOUT DIFFERENTIAL, B Routine 10/10/2024 11:03 AM TOW BAR DRIVER Stone Kidney OUTSIDE US CARD Routine 09/29/2024 12:00 AM TOW BAR DRIVER CYTOLOGY NON-EDI ANALYST (SCHEDULED) Routine 09/08/2024 9:07 AM TOW BAR DRIVER Hematuria URO CYSTOSCOPY (GENERAL) Routine 09/08/2024 9:00 AM TOW BAR DRIVER Hematuria BASIC METABOLIC PANEL, S/P Routine 09/08/2024 8:25 AM TOW BAR DRIVER Stone Kidney CT UROGRAM WITHOUT AND WITH IV CONTRAST RAD - Routine (most inpatients and all outpatients) 08/13/2024 1:03 PM TOW BAR DRIVER Hematuria CREATININE WITH EGFR, S/P Routine 08/11/2024 10:20 AM TOW BAR DRIVER Hematuria URO UROFLOW Routine 08/08/2024 2:30 PM TOW BAR DRIVER Symptom Urinary PH, U Routine 08/08/2024 11:45 AM TOW BAR DRIVER DIPSTICK, U Routine 08/08/2024 11:45 AM TOW BAR DRIVER OSMOLALITY, U Routine 08/08/2024 11:45 AM TOW BAR DRIVER MICROSCOPIC AUTOMATED Routine 08/08/2024 11:45 AM TOW BAR DRIVER URINALYSIS WITH MICROSCOPIC Routine 08/08/2024 11:45 AM TOW BAR DRIVER Symptom Urinary PROSTATE-SPECIFIC AG (PSA) DIAGNOSTIC, S Routine 08/06/2024 8:45 AM TOW BAR DRIVER Primary Malignant Neoplasm Of Prostate (HCC) from Last 3 Months Results * FL Fluoro Less Than 1 Hour (10/24/2024 11:19 AM TOW BAR DRIVER) Narrative [id number] - 10/24/2024 12:20 PM TOW BAR DRIVER This exam does not require a radiologist review or interpretation. Please refer to the patient's medical record on this date for clinical details. us Seth Bass M.D. IMG FLUOROSCOPY PROCEDURES Fi nal Result Performing Organization Address [facility] Co de Phone Number [id number] NA * BLADDER-Surgery Image Exam (10/24/2024 11:17 AM TOW BAR DRIVER) 10/24/2024 11:5 4 AM TOW BAR DRIVER Narrative IIMS - 10/24/2024 11:17 AM TOW BAR DRIVER This order has been created and auto-finalized to support the import of images acquired without order. The clinical documentation to support these images can be found on the encounter that produced images. us Provider Not In System IMG NON RAD IMAGING PROCE DURES Final Result Performing Organization Address [facility]/ZIP Co de Phone Number IIMS NA * LDA ANE NON-SURGICAL AIRWAY (10/24/2024 8:41 AM TOW BAR DRIVER) Narrative Trevor Sheth APRN, CRNA - 10/24/2024 8:41 AM TOW BAR DRIVER Trevor Sheth APRN, CRNA 10/24/2024 8:51 AM [...] * US Carotid Bilateral (10/23/2024 12:30 PM TOW BAR DRIVER) Anatomical Region Laterality Modality Head and Neck, Ultrasound RS T LOS, Ultrasound ARZ LOS, Neuroradiology FLA LOS, Procedural, Vascular Interventional NWWI LOS Bilateral Ultrasound Impressions 10/23/2024 12:45 PM TOW BAR DRIVER No significant carotid stenosis Narrative 10/23/2024 12:45 PM TOW BAR DRIVER EXAM: US CAROTID BILATERAL Exam performed with [...] normal distal ICA in accordance with [place] Symptomatic Carotid Endarterectomy Trial (NASCET). Procedure Note [...] 2D ECHO DOPPLER COLOR (10/10/2024 4:00 PM TOW BAR DRIVER) Ejection Fraction 65 MC CV EIMS [...] Region Laterality Modality Echocardiography 10/10/2024 2:51 PM TOW BAR DRIVER Impressions 10/10/2024 4:01 PM TOW BAR DRIVER LEFT VENTRICLE:Normal left ventricular chamber size. [...] the Order-Level Documents. Narrative 10/10/2024 4:01 PM TOW BAR DRIVER For the complete report, see the [...] collapse (>50%). 8. There are no previous [facility] echocardiograms available for comparison. Procedure Note Paras Diaz M.D. - 10/10/2024 For the complete report, see the Order-Level Documents. Hemodynamics Heart Rate: 46 BPM Blood Pressure: 152 / 71 mmHg ECG: Sinus rhythm, Bradycardia Final Impressions 1. Moderate calcific aortic valve stenosis, systolic mean Doppler mmHg, valve area by Doppler 1.08 cm2. [...] inspiratory collapse(>50%). 8. There are no previous [facility] echocardiograms available forcomparison. Findings LEFT VENTRICLE:Normal [...] * (ABNORMAL) Dipstick, Urine (10/10/2024 1:05 PM TOW BAR DRIVER) Only the most recent of2 resultswithin the time period is included. Hemoglobin, QL, U Large(A) Negative 10/10/2024 2:08 PM TOW BAR DRIVER DTL Leukocyte Esterase, U Trace(A) Negative 10/10/2024 2:08 PM TOW BAR DRIVER DTL Nitrite, U Negative Negative 10/10/2024 2:08 PM TOW BAR DRIVER DTL Ketone, U Negative Negative mg/dL 10/10/2024 2:08 PM TOW BAR DRIVER DTL Glucose, U Negative Negative mg/dL 10/10/2024 2:08 PM TOW BAR DRIVER DTL Urine 10/10/2024 1:05 PM TOW BAR DRIVER 10/10/2024 1:25 PM TOW BAR DRIVER us Gato Shaw M.D. LAB URINE ORDERABLES Final Re sult Performing Organization Address City/[facility] Co de Phone Number [facility] [address] [place] [address], [facility] DTL [facility] [address] [place] [address] * (ABNORMAL) Microscopic Manual (10/10/2024 1:05 PM TOW BAR DRIVER) Microscopy Abnormal 10/10/2024 2:51 PM TOW BAR DRIVER DTL RBC >100(A) <3 /hpf 10/10/2024 2:51 PM TOW BAR DRIVER DTL Dysmorphic RBC <25 <25 % 10/10/2024 2:51 PM TOW BAR DRIVER DTL WBC 4-10(A) /hpf 10/10/2024 2:51 PM TOW BAR DRIVER DTL Comment: ----REFERENCE VALUE---- <4 (Males) <11 (Females) Urine 10/10/2024 1:05 PM TOW BAR DRIVER 10/10/2024 2:08 PM TOW BAR DRIVER us Gato Shaw M.D. LAB URINE ORDERABLES Final Re sult Performing Organization Address City/[facility] Co de Phone Number [facility] [address] [place] [address], [facility] DTL [facility] [address] [place] [address] * Bacterial Culture, Aerobic + Susceptibility, Urine (10/10/2024 1:05 PM TOW BAR DRIVER) Urine Culture Urogenital microbiota, susceptibilities not performed per laboratory criteria. 10/11/2024 2:46 PM TOW BAR DRIVER DTL Urine (Urine, Midstream) 10/10/2024 1:05 PM TOW BAR DRIVER 10/10/2024 2:06 PM TOW BAR DRIVER Comment:Specimen Source Site : Urine us Gaot Shaw M.D. LAB MICROBIOLOGY - GENERAL OR DERABLES Final Result Performing Organization Address City/[facility] Co de Phone Number [facility] [address] [place] [address], [facility] 200 [place] [address] * pH, Urine (10/10/2024 1:05 PM TOW BAR DRIVER) Only the most recent of2 resultswithin the time period is included. pH, U 6.0 4.5 - 8.0 10/10/2024 2:3 6 PM TOW BAR DRIVER DT Urine 10/10/2024 1:05 PM TOW BAR DRIVER 10/10/2024 1:25 PM TOW BAR DRIVER us Gato Shaw M.D. LAB URINE ORDERABLES Final Re sult Performing Organization Address City/[facility] Co de Phone Number [facility] [address] [place] [address] * Osmolality, Urine (10/10/2024 1:05 PM TOW BAR DRIVER) Only the most recent of2 resultswithin the time period is included. Osmolality, U 607 150 - 1150 mOsm/kg 10/10/2024 2:36 PM TOW BAR DRIVER DTL Urine 10/10/2024 1:05 PM TOW BAR DRIVER 10/10/2024 1:25 PM TOW BAR DRIVER us Gato Shaw M.D. LAB URINE ORDERABLES Final Re sult Performing Organization Address City/[facility] Co de Phone Number [facility] [address] [place] [address], [facility] [address] [place] [address] * (ABNORMAL) Urinalysis, with Microscopic: Urine, Midstream (10/10/2024 1:05 PM TOW BAR DRIVER) Only the most recent of2 resultswithin the time period is included. Source Urine, Urine, Midstream 10/10/2024 1:25 PM TOW BAR DRIVER DTL Color, U Yellow 10/10/2024 1:25 PM TOW BAR DRIVER DTL Clarity, U Clear 10/10/2024 1:25 PM TOW BAR DRIVER DTL Protein, U 58(H) <26 mg/dL 10/10/2024 2:19 PM TOW BAR DRIVER DTL Protein/Osmol ality 0.96(H) <0.42 ratio 10/10/2024 2:36 PM TOW BAR DRIVER DTL Predicted 24 HR Protein, U 902(H) <229 mg/24 h 10/10/2024 2:36 PM TOW BAR DRIVER DTL Predicted Range 286-2841 mg/24 h 10/10/2024 2:36 PM TOW BAR DRIVER DTL Urine (Urine, Midstream) 10/10/2024 1:05 PM TOW BAR DRIVER 10/10/2024 1:24 PM TOW BAR DRIVER us Gato Shaw M.D. LAB URINE ORDERABLES Final Re sult [facility] [address] [place] [address], [facility] [address] [place] [address] * ECG 12 Lead (10/10/2024 11:52 AM TOW BAR DRIVER) Ventricular Rate ECG/Min 42 BPM MUSE FL Interval 190 ms MUSE QRSD Interval 106 ms MUSE QT Interval 514 ms MUSE QTC Interval 429 ms MUSE P [place] 12 degrees MUSE R [place] -11 degrees MUSE T Wave [place] -1 degrees MUSE 10/10/2024 11:5 2 AM TOW BAR DRIVER 10/10/2024 2:31 PM TOW BAR DRIVER Impressions MUSE - 10/10/2024 11:54 AM TOW BAR DRIVER Marked sinus bradycardia Minimal voltage criteria [...] and Lateral 2 Views (10/10/2024 11:22 AM TOW BAR DRIVER) Anatomical Region Laterality Modality Chest, Thoracic RST LOS, Tho racic ARZ LOS, Thoracic FLA LOS N/A Digital Radiography Impressions 10/10/2024 11:38 AM TOW BAR DRIVER Interstitial opacities within the bilateral mid and lower lungs, greater on the left. These likely correspond with fibrotic change seen on 08/13/2024 CT urogram. Aortic calcification. Hypertrophic degenerative changes thoracic spine with mild anterior wedging of several midthoracic vertebral bodies. Chest otherwise negative. Narrative 10/10/2024 11:38 AM TOW BAR DRIVER EXAM: DX CHEST AP OR PA [...] * (ABNORMAL) Lipid Panel (10/10/2024 11:03 AM TOW BAR DRIVER) Triglycerides 163(H) mg/dL 10/10/2024 12:20 PM TOW BAR DRIVER DTL Comment: ----REFERENCE VALUE---- Normal: <150 mg/dL Borderline High: 150-199 mg/dL High: 200-499 mg/dL Very High: > or =500 mg/dL Cholesterol, Total 143 mg/dL 2024 12:20 PM TOW BAR DRIVER DTL Comment: ----REFERENCE VALUE---- Desirable: < 200 mg/dL Borderline High: 200 - 239 mg/dL High: > or = 240 mg/dL Cholesterol, LDL, Calculated 78 mg/dL 10/10/2024 12:20 PM TOW BAR DRIVER DTL Comment: ----REFERENCE VALUE---- Desirable: <100 mg/dL Above Desirable: 100-129 mg/dL Borderline High: 130-159 mg/dL High: 160-189 mg/dL Very High: >=190 mg/dL ----ADDITIONAL INFORMATION---- LDL cholesterol calculated using the Sawant/NIH equation. Cholesterol, HDL, S 37(L) >=40 mg/dL 10/10/2024 12:20 PM TOW BAR DRIVER DTL Cholesterol, Non-HDL, Calculated 106 mg/dL 10/10/2024 12:20 PM TOW BAR DRIVER DTL Comment: ----REFERENCE VALUE---- Desirable: <130 mg/dL Above Desirable: 130-159 mg/dL Borderline High: 160-189 mg/dL High: 190-219 mg/dL Very High: > or =220 mg/dL Fasting (8 HR or more) Yes 10/10/2024 11:03 AM TOW BAR DRIVER DTL Blood (Blood, Venous) 10/10/2024 11:03 AM TOW BAR DRIVER 10/10/2024 11:36 AM TOW BAR DRIVER us Inocente Avila M.D. LAB BLOOD ADD-ON Final Resul t [facility] [address] [place] [address], [facility] [address] [place] [address] * Thyroid Function [place] (10/10/2024 11:03 AM TOW BAR DRIVER) TSH, Sensitive 1.9 0.3 - 4.2 mIU/L 10/10/2024 12:20 PM TOW BAR DRIVER DTL Blood (Blood, Venous) 10/10/2024 11:03 AM TOW BAR DRIVER 10/10/2024 11:36 AM TOW BAR DRIVER us Inocente Avila M.D. LAB BLOOD ADD-ON Final Resul t Performing Organization Address City/[facility]/ZIP Co de Phone Number [facility] [address] [place] [address] * (ABNORMAL) NT-Pro B-Type Natriuretic Peptide (BNP) (10/10/2024 11:03 AM TOW BAR DRIVER) NT-Pro BNP 710(H) <=540 pg/mL 10/10/2024 12:20 PM TOW BAR DRIVER DTL Comment: NT-proBNP values less than [...] failure. Blood (Blood, Venous) 10/10/2024 11:03 AM TOW BAR DRIVER 10/10/2024 11:36 AM TOW BAR DRIVER us Inocente Avila M.D. LAB BLOOD ADD-ON Final Resul t Performing Organization Address City/[facility] Co de Phone Number [facility] 200 [place], [place] [address] [place] [phone] * (ABNORMAL) CBC without Differential (10/10/2024 11:03 AM TOW BAR DRIVER) Hemoglobin 13.1(L) 13.2 - 16.6 g/dL 10/10/2024 11:43 AM TOW BAR DRIVER DTL Hematocrit 41.4 38.3 - 48.6 % 10/10/2024 11:43 AM TOW BAR DRIVER DTL Erythrocytes 4.36 4.35 - 5.65 x10(12)/L 10/10/2024 11:43 AM TOW BAR DRIVER DTL MCV 95.0 78.2 - 97.9 fL 10/10/2024 11:43 AM TOW BAR DRIVER DTL RBC Distrib Width 13.2 11.8 - 14.5 % 10/10/2024 11:43 AM TOW BAR DRIVER DTL Platelet Count 325(H) 135 - 317 x10(9)/L 10/10/2024 11:43 AM TOW BAR DRIVER DTL Leukocytes 5.2 3.4 - 9.6 x10(9)/L 10/10/2024 11:43 AM TOW BAR DRIVER DTL Blood (Blood, Venous) 10/10/2024 11:03 AM TOW BAR DRIVER 10/10/2024 11:23 AM TOW BAR DRIVER us Gato Shaw M.D. LAB BLOOD ADD-ON Final Result Performing Organization Address City/[facility]/ZIP Co de Phone Number [facility] 200 [place] [address] * (ABNORMAL) Troponin T, 5th Generation (10/10/2024 11:03 AM TOW BAR DRIVER) Pathologist [facility] Troponin T, 5th gen 34(H) <=15 ng/L 10/10/2024 12:25 PM TOW BAR DRIVER DTL Blood (Blood, Venous) 10/10/2024 11:03 AM TOW BAR DRIVER 10/10/2024 11:37 AM TOW BAR DRIVER Inocente Avila M.D. LAB BLOOD ADD-ON Final Resul t Performing Organization Address City/[facility]/ZIP Co de Phone Number [facility] 200 [place] [address] * Basic Metabolic Panel (10/10/2024 11:03 AM TOW BAR DRIVER) Only the most recent of2 resultswithin the time period is included. Potassium, S 4.7 3.6 - 5.2 mmol/L 10/10/2024 12:20 PM TOW BAR DRIVER DTL Sodium, S 141 135 - 145 mmol/L 10/10/2024 12:20 PM TOW BAR DRIVER DTL Chloride, S 104 98 - 107 mmol/L 10/10/2024 12:20 PM TOW BAR DRIVER DTL Bicarbonate, S 26 22 - 29 mmol/L 10/10/2024 12:20 PM TOW BAR DRIVER DTL Anion Gap 11 7 - 15 10/10/2024 12:20 PM TOW BAR DRIVER DTL BUN (Blood Urea Nitrogen), S 17 8 - 24 mg/dL 10/10/2024 12:20 PM TOW BAR DRIVER DTL Creatinine 1.15 0.74 - 1.35 mg/dL 10/10/2024 12:20 PM TOW BAR DRIVER DTL Estimated GFR (eGFR) 64 >=60 mL/min/BSA 10/10/2024 12:20 PM TOW BAR DRIVER DTL Comment: Estimated GFR calculated using the 2020 CKD_EPI creatinine equation. Calcium, Total, S 9.9 8.8 - 10.2 mg/dL 10/10/2024 12:20 PM TOW BAR DRIVER DTL Glucose, S 91 70 - 140 mg/dL 10/10/2024 12:20 PM TOW BAR DRIVER DTL Blood (Blood, Venous) 10/10/2024 11:03 AM TOW BAR DRIVER 10/10/2024 11:36 AM TOW BAR DRIVER us Gato Shaw M.D. LAB BLOOD ADD-ON Final Result [address] [address], [facility] [place] [address] * ECHO TTE COMPLETE W CONTRAST-Outside US Card (09/29/2024 12:00 AM TOW BAR DRIVER) Narrative IIMS - 10/02/2024 2:10 PM TOW BAR DRIVER This order has been created and [...] Final Result IIMS NA * (ABNORMAL) Cytology Non-EDI ANALYST (Scheduled) (09/08/2024 9:07 AM TOW BAR DRIVER) (A ) 09/09/2024 2:39 PM TOW BAR DRIVER DTL Participated in the Interpretation Franki Berry M.D.-Patholog y Fellow(A) 09/09/2024 2:39 PM TOW BAR DRIVER DTL Report electronically signed by Jair Vences M.D., Ph.D. I verify that I have examined all relevant slides/materi als for the specimen(s) and rendered or confirmed the diagnosis. (A) 09/09/2024 2:39 PM TOW BAR DRIVER DTL Gross Description Received 60 cc of yellow fluid.(A) 09/09/2024 2:39 PM TOW BAR DRIVER DTL Source A. Urine, voided(A) 09/09/2024 2:39 PM TOW BAR DRIVER DTL Interpretation A. 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 (A) 09/09/2024 2:39 PM TOW BAR DRIVER DTL Urine 09/08/2024 9:07 AM TOW BAR DRIVER 09/08/2024 10:52 AM TOW BAR DRIVER Shellie Howe APRN, C.N.P., D.N.P. LAB SURG PATH ORDERABLES Final Result [facility] [address] [place] [address], [facility] DTL [address] [place] [address] * URO Cystoscopy (general) (09/08/2024 9:00 AM TOW BAR DRIVER) Narrative Hortensia Quiroga P.A.-C. - 09/08/2024 9:00 AM TOW BAR DRIVER Hortensia Quiroga P.A.-C. 09/08/2024 9:27 AM [...] and with IV Contrast (08/13/2024 1:03 PM TOW BAR DRIVER) Anatomical Region Laterality Modality Abdomen, Pelvis, Abdominal R ST LOS, Abdominal ARZ LOS, Abdominal FLA LOS N/A Computed Tomograp hy, Computed Tomography 08/13/2024 12:4 6 PM TOW BAR DRIVER Impressions 08/13/2024 3:31 PM TOW BAR DRIVER 1. 9 mm nonobstructing calculus at the left UPJ, with surrounding ureteral wall thickening and enhancement and periureteral stranding. 2. Additional 10 mm calculus in the urinary bladder and 8 mm nonobstructing calculus in the lower pole right kidney. Narrative 08/13/2024 3:31 PM TOW BAR DRIVER EXAM: CT UROGRAM WITHOUT AND WITH [...] Creatinine with Estimated GFR (08/11/2024 10:20 AM TOW BAR DRIVER) Creatinine 1.21 0.74 - 1.35 mg/dL 08/11/2024 11:29 AM TOW BAR DRIVER DTL Estimated GFR (eGFR) 61 >=60 mL/min/BSA 08/11/2024 11:29 AM TOW BAR DRIVER DTL Comment: Estimated GFR calculated using the 2020 CKD_EPI creatinine equation. Blood (Blood, Venous) 08/11/2024 10:20 AM TOW BAR DRIVER 08/11/2024 11:01 AM TOW BAR DRIVER Shellie Howe APRN, C.N.P., D.N.P. LAB BLOO D ADD-ON Final Result [facility] [address] [place] [address], [facility] DTL [facility] [address] [place] [address] * URO Uroflow (08/08/2024 2:30 PM TOW BAR DRIVER) Narrative Pitre Ferrell M.D. - 08/08/2024 2:30 PM TOW BAR DRIVER Piter Ferrell M.D. 08/09/2024 8:25 AM [...] * (ABNORMAL) Microscopic Automated (08/08/2024 11:45 AM TOW BAR DRIVER) Microscopy Abnormal 08/08/2024 1:17 PM TOW BAR DRIVER DTL RBC 11-20(A) <3 /hpf 08/08/2024 1:17 PM TOW BAR DRIVER DTL Dysmorphic RBC <25 <25 % 08/08/2024 1:17 PM TOW BAR DRIVER DTL WBC 4-10(A) /hpf 08/08/2024 1:17 PM TOW BAR DRIVER DTL Comment: ----REFERENCE VALUE---- <4 (Males) <11 (Females) Urine 08/08/2024 11:4 5 AM TOW BAR DRIVER 08/08/2024 12:51 PM TOW BAR DRIVER Rigoberto Flores M.D. LAB URINE ORDERABLES [place] [address], [facility] [place] [address] * PSA (Prostate-Specific Antigen), Diagnostic (08/06/2024 8:45 AM TOW BAR DRIVER) Pathologist [facility] Prostate-Specific Ag <0.10 <=7.2 ng/mL 08/06/2024 9:47 AM TOW BAR DRIVER DTL Comment: ----ADDITIONAL INFORMATION---- The testing method is an electrochemiluminescence assay manufactured by [employer] and performed on the Modular or Kerrie system. Values obtained with different assay methods or kits may be different and cannot be used interchangeably. Test results cannot be interpreted as absolute evidence for the presence or absence of malignant disease. Blood (Blood, Venous) 08/06/2024 8:45 AM TOW BAR DRIVER 08/06/2024 9:10 AM TOW BAR DRIVER Gato Larkin APRN, C.N.P., D.NDaisyP. LAB BLOOD ADD -ON Final Result [facility] [address] [place] [address], [place] DTL [facility] [address] [place] [address] from Last 3 Months Insurance [facility] Advance Directives For more information, please contact: [phone] * Full Code (Latest Code Status on File) Date Activated Date Inactivated Comments 10/24/2024 8:10 AM 10/24/2024 3:58 PM Question Answer Comments Full Code: Discussed Care Teams Machine Slat Basket Maker Relationship Specialty Start Date End Date Elsewhere, Pcp PCP - General Internal Medicine 10/24/24
--- OUTSIDE RECORDS SUMMARY | 2024-10-26 03:58 | XMS_ITS | Encounter Summary ---
Author Organization [facility] Address [address] [place] [address] Care Team Providers Care Pantograph Ii Engraver Name Role Phone Elsewhere, Pcp Primary Care Provider Unavailabl e Encounter Details Date Type Department Care Team (Late st Contact Info) Description 10/24/2024 11:55 AM LAWN CARETAKER Ancillary Procedure Department of General Surgery Arrived Social History Tobacco Use Types Packs/Day Years Used Date Smoking Tobacco: Never Passive Smoke Exposure: Never Smokeless Tobacco: Never Alcohol Use Standard Drinks/Week Comments Yes 1 (1 standard drink = 0.6 oz pur e alcohol) [facility] Utilities Answer Date Recorded In the past [...] your living situation today? 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 Not on f ile Not on file Not on file documented as of this encounter Plan of Treatment Upcoming Encounters Date Type Department Care Team (Late st Contact Info) Description 10/27/2024 8:00 AM LAWN CARETAKER Procedure visit Department of Urology in [place], [place] [address] [place] [address] Seth Bass M.D. [address] [place] [phone] 12/05/2024 7:40 AM LAWN CARETAKER Appointment Department of Laboratory Medicine and Pathology, [facility] in [place], [place] [address] [place] [address] Seth Bass M.D. [address] [place] [phone] 12/05/2024 7:50 AM LAWN CARETAKER Appointment Department of Laboratory Medicine and Pathology, [facility] in [place], [place] [address] [place] [address] Seth Bass M.D. [address] [place] [phone] 12/05/2024 8:15 AM LAWN CARETAKER Appointment Department of Radiology, [facility], in [place], [place] [address] [place] [phone] Seth Bass M.D. [address] [place] [phone] 12/05/2024 9:00 AM LAWN CARETAKER Appointment Department of Radiology, [facility], in [place], [place] [address] [place] [phone] Seth Bass M.D. [address] [place] [phone] 12/05/2024 1:00 PM LAWN CARETAKER Comprehensive Visit Division of Nephrology and Hypertension in [place], [place] [address] [place] [phone] Manjinder Ty M.D. [address] [place] [phone] 01/01/2025 11:00 AM CDT Telemedicine Division of Nephrology and Hypertension in [address] [phone] Seth Bass M.D. [address] [place] [phone] documented as of this encounter Procedures Procedure Name Priority Date/Time Associated Diagnosis Comments SURGERY IMAGE EXAM Routine 10/24/2024 11 :17 AM LAWN CARETAKER documented in this encounter Results * BLADDER-Surgery Image Exam (10/24/2024 11:17 AM LAWN CARETAKER) 10/24/2024 11:5 4 AM LAWN CARETAKER Narrative IIMS - 10/24/2024 11:17 AM LAWN CARETAKER This order has been created and auto-finalized to support the import of images acquired without order. The clinical documentation to support these images can be found on the encounter that produced images. us Provider Not In System IMG NON RAD IMAGING PROCE DURES Final Result IIMS NA documented in this encounter Visit Diagnoses Not on filedocumented in this encounter Care Teams Pantograph Ii Engraver Relationship Specialty Start Date End Date Elsewhere, Pcp PCP - General Internal Medicine 10/24/24 documented as of this encounter
[2024-10-26 04:02] VITALS: BP 163/72; PULSE 60; RESP 20; O2SAT 95
[2024-10-26 04:05] LABS: Anion Gap 7 mEq/L (7-15); Carbon Dioxide* 27 mmol/L (20-32); Chloride* 102 mmol/L (96-114); NT Pro B Type NatriureticPept* 728 pg/mL; Potassium* 4.6 mmol/L (3.6-5.1); Sodium* 136 mmol/L (135-149)
[2024-10-26 04:06] LABS: Alanine Aminotransferase* 22 U/L (4-50); Albumin* 4.2 g/dL (3.3-5.0); Alkaline Phosphatase* 106 U/L (40-150); Aspartate Amino Transferase* 36 U/L (12-35); Bilirubin Total* 0.5 mg/dL (0.1-1.5); Blood Urea Nitrogen* 26 mg/dL (7-30); C Reactive Protein* < 0.5 mg/dL (0.5-1.0); Calcium* 9.4 mg/dL (8.4-10.6); Creatinine* 1.2 mg/dL (0.5-1.5); Est. Creatinine Clearance* 52.29; Estimated Glomerular Filt Rate 61 ml/min; Glucose* 93 mg/dL (60-115); Total Protein* 6.9 g/dL (6.0-8.3); Troponin I* 0.02 ng/mL (0.01-0.04)
[2024-10-26 04:07] LABS: Lipase* 63 U/L (23-300)
[2024-10-26 04:23] VITALS: BP 141/78; PULSE 65; RESP 20; TEMP 36.6; O2SAT 95
== END 2024-10-26 04:24 | disposition home or self-care (01) ==
PROVIDERS: Emergency Provider Family Medicine; PCP Family Medicine
DX: J18.9 Pneumonia, unspecified organism (principal); R07.9 Chest pain, unspecified
CPT/HCPCS: 36415; 71046; 80053; 83690; 83880; 84484; 86140; 87631; 93005; 94761; 99284; 99285; A9270